=== PATIENT | female | born 1940 | race Caucasian/White ===

== ENCOUNTER 2019-08-01 06:00 | Outpatient (RCR) | payer MEDICARE, OTHER, SELFPAY | END 2019-08-29 00:01 | LOC: LAB 06:00 | PROVIDERS: Family Provider Family Medicine; Visit Provider Nurse Practitioner Family | DX: I50.30 Unspecified diastolic (congestive) heart failure (principal); I10 Essential (primary) hypertension; E83.52 Hypercalcemia; E11.22 Type 2 diabetes mellitus with diabetic chronic kidney disease; N18.3 Chronic kidney disease, stage 3 (moderate); E03.9 Hypothyroidism, unspecified; J44.9 Chronic obstructive pulmonary disease, unspecified | CPT/HCPCS: 36415; 80048; 85025 ==

== ENCOUNTER → 2019-08-28 | Outpatient (CLI) | payer SELFPAY | PROVIDERS: Family Provider Family Medicine; Visit Provider Nurse Practitioner Psychiatric/Mental Health | DX: F33.1 Major depressive disorder, recurrent, moderate (principal); F41.1 Generalized anxiety disorder ==

== ENCOUNTER 2019-09-05 19:52 | Emergency (ER) | payer MEDICARE, OTHER, SELFPAY ==
[2019-09-05] VITALS (7 sets, daily range): BP systolic 115; BP diastolic 62; PULSE 79–90; RESP 18–28; TEMP 37.3; O2SAT 84–99; BMI 43.0
--- NOTE | 2019-09-05 20:42 | ED_ITS ---
Entered by Cathy Virk, acting as scribe for Sep 05, 2019 19:52 HPI - SOB/Dyspnea General: Chief Complaint: Shortness of Breath/Dyspnea Stated Complaint: RESP. DISTRESS Time Seen by Provider: 09/05/19 20:42 Source: patient Mode of arrival: EMS Limitations: no limitations History of Present Illness: HPI Narrative: 78 yo Female presents to ED with complaint of low oxygen saturations. Pt states that she doesn't really feel short of breath but she just doesn't feel good. Pt states that her oxygen has been getting into the 70s and 80s. Pt states that she was just seen by her physical therapist center manager (Dr. Baum) in [place] today. Pt states that when he oxygen gets below 90 she has to use 2 liters of oxygen. MD elicited complaint: shortness of breath Pertinent past history: COPD and congestive heart failure Timing: constant Severity: severe Exacerbating factors: lying flat Known history of: COPD and congestive heart failure Associated symptoms: Reports cough, fever(s) and orthopnea Treatment prior to arrival: oxygen Related Data: Home oxygen amount: 2 liters (PRN) Review of Systems General: Reports: 10 or more systems reviewed and unremarkable except in HPI and below Const: Reports: fever and malaise Card: Reports: edema and shortness of breath when lying down Resp: Reports: shortness of breath and non-productive cough Musc: Reports: extremity swelling PFSH ED PFSH: Statuses (acute, chronic, etc) shown below reflect problem list status as previously entered and may not be historically accurate Medical History (Updated 09/06/19 @ 00:38 by Jerald Roche MD, [facility] [place]) Acidosis (Acute) Aortic aneurysm (Acute) Aortic disease (Acute) CHF (congestive heart failure) (Acute) Chronic back pain (Acute) COPD (chronic obstructive pulmonary disease) (Acute) Diabetes (Acute) Emphysema, unspecified (Acute) GERD (gastroesophageal reflux disease) (Acute) Herpes zoster (Acute) Hypotension (Acute) Hypothyroidism (Acute) Neuropathy (Acute) Pyelonephritis (Acute) Thyroid disease (Acute) Tibia fracture (Acute) Surgical History (Updated 09/05/19 @ 21:04 by Cathy Virk) History of AAA (abdominal aortic aneurysm) repair (Acute) History of cholecystectomy (Acute) History of hysterectomy (Acute) History of left hip replacement (Acute) Social History Smoking and tobacco status: former smoker Physical Exam Const: COMMON NORMALS: average body habitus, oriented x3, no limitations, healthy appearing, alert and well nourished GENERAL APPEARANCE: anxious HENMT: COMMON NORMALS: normocephalic, head/scalp atraumatic, hearing grossly normal bilaterally, external ears normal, EAC's normal, TM's normal bilaterally, external nose normal, nasal mucous membranes and turbinates normal, moist oral mucous membranes, oropharynx normal, dentition normal and gingiva normal HEAD & SCALP: normocephalic and atraumatic NOSE: external nose normal and nasal mucous membranes and turbinates normal EXTERNAL EAR: Yes external ears normal EXTERNAL AUDITORY CANAL: EAC's normal TYMPANIC MEMBRANE: TM's normal bilaterally Eye: COMMON NORMALS: PERRL, EOMs intact bilaterally, conjunctivae normal, no scleral icterus, no papilledema, normal visual sebastian by confrontation and fundi normal bilaterally CONJUNCTIVA: Yes conjunctivae normal PUPIL: Yes PERRL DIRECT OPHTHALMOSCOPY: Yes no papilledema and Yes fundi normal bilaterally Neck/C-Spine: COMMON NORMALS: full ROM, supple, no meningeal signs, no JVD and no carotid bruits Chest: COMMONS NORMALS: inspection of chest normal and palpation of chest normal Resp: COMMON NORMALS: negative for clear to auscultation bilaterally EFFORT & INSPECTION: Yes able to speak in complete sentences, Yes respiratory distress and Yes uses accessory muscles AUSCULTATION: not clear to auscultation bilaterally, crackles Laterality: bilateral, wheezes throughout and diminished lung sounds Cardio: COMMON NORMALS: no JVD, regular rate, regular rhythm, S1 normal heart sound, S2 normal heart sound, no gallops, no clicks, no murmurs, no rub and peripheral pulses 2+ throughout RATE: regular rate RHYTHM: regular rhythm HEART SOUNDS: S1 normal and S2 normal PERIPHERAL PULSES: pulses 2+ throughout GI: COMMON NORMALS: normal to inspection, nondistended, normoactive bowel sounds, soft to palpation, non-tender, no hepatosplenomegaly, no masses and no bruits PALPATION: Yes soft and Yes no hepatosplenomegaly : COMMON NORMALS: Yes no CVA tenderness BLADDER/KIDNEY EXAM: Yes no CVA tenderness Back/Pelvis: COMMON NORMALS: no CVA tenderness Extremity: COMMON NORMALS: normal to inspection, full ROM, normal capillary refill, no joint enlargement, no clubbing, cyanosis or edema, no calf tenderness and no pedal edema GENERAL: Yes edema (3+ edema to bilateral lower extremities) RIGHT LOWER EXTREMITY: Yes lower leg OTHER: 3+ edema bilateral Neuro: COMMON NORMALS: oriented x3 SENSORIUM/ORIENTATION: Yes alert MENINGEAL SIGNS: Yes no meningeal signs Skin: COMMON NORMALS: no rashes or lesions noted, no wounds, skin turgor normal, no jaundice, no petechiae and no mottling GENERAL SKIN EXAM: no rashes or lesions noted and turgor normal Course Vital Signs: Vital signs: Vital Signs Temperature 99.1 F 09/05/19 19:54 Pulse Rate 79 09/05/19 23:01 Respiratory Rate 18 09/05/19 22:09 Blood Pressure 115/62 09/05/19 19:54 Pulse Oximetry 99 09/05/19 23:01 MDM - SOB/Dyspnea MDM Narrative: Medical decision making narrative: 78-year-old female patient with a history of COPD and CHF who presented emergency department with hypoxia and difficulty breathing. In the emergency department she had abnormal lung exam and was hypoxic. She required high levels of oxygen and on 6 L/min of oxygen by nasal cannula she showed hypoxemia on her blood gas. Patient improved on BiPAP. Evaluation showed leukocytosis with a white cell count of 21,000 and bilateral pneumonia. Because there are no beds here in this facility she is transferred to [facility] in [place] which was her preference for management of acute respiratory failure and pneumonia. The patient voiced understanding and is in agreement with the plan. Lab Data: Labs: Lab Results 09/05/19 09/05/19 09/05/19 Range/Units 21:00 21:00 21:00 WBC 21.6 H (4.0-10.0) 10^3/ uL RBC 4.65 (4.1-5.3) 10^6/u L Hgb 12.0 (11.5-15.3) g/dL Hct 39.4 (37.0-47.0) % MCV 84.7 (81-99) fL MCH 25.8 L (28.0-34.0) pg MCHC 30.5 (30.0-36.0) g/dL RDW 15.2 H (12.1-15.1) % Plt Count 228 (130-400) 10^3/c mm MPV 9.5 (7.4-10.4) fL Neut % (Auto) 86.3 % Lymph % (Auto) 6.4 % [place] % (Auto) 6.0 % Eos % (Auto) 0.2 % Baso % (Auto) 0.2 % Neut # (Auto) 18.6 H (1.8-7.7) 10^3/u L Lymph # (Auto) 1.4 (0.8-4.8) 10^3/u L [place] # (Auto) 1.3 H (0.2-0.9) 10^3/u L Eos # (Auto) 0.1 (0.0-0.8) 10^3/u L Baso # (Auto) 0.0 (0.0-0.1) 10^3/u L Nucleated RBC % (a uto) 0 % Nucleated RBCs # 0.0 /100WBC D-Dimer 2.59 H (0-0.59) ug/mIFE U Specimen Type Sample Site ABG pH (7.35-7.45) ABG pCO2 (35-45) mmHg ABG pO2 (80.0-100.0) mmH g ABG HCO3 (22-26) mmol/L ABG Base Excess (-2.0-2.0) mmol/ L Aryan Test Hematocrit (37-47) % Hgb O2 Saturation (95-100) % Carboxyhemoglobin (0.4-20.1) %THgb Methemoglobin (0.4-1.5) % Total Hemoglobin (12-16) g/dL O2 Liters/Min % Glass Products Inspector ID Sodium 134 L (136-145) mmol/L Potassium 4.1 (3.5-5.1) mmol/L Chloride 102 (98-107) mmol/L Carbon Dioxide 21 L (22-29) mmol/L Anion Gap 15.1 (5-19) BUN 17 (8-23) mg/dL Creatinine 1.0 H (0.5-0.9) mg/dL Glucose 90 (74-106) mg/dL Lactate (0.5-2.2) mmol/L Calcium 11.4 H (8.8-10.2) mg/Dl Total Bilirubin 0.5 (0.15-1.2) mg/dL AST 12 (0-32) U/L ALT 8 (0-33) U/L Alkaline Phosphata se 105 (35-105) IU/L Troponin T Baselin e (0-10) ng/mL Troponin T 120 Min absentee-shawnee (0-10) ng/mL Delta Troponin T (0-10) ABS# C-Reactive Protein (0.0-4.9) mg/L NT-Pro-B Natriuret Pep 850 H (0-450) pg/mL Total Protein 6.7 (6.6-8.7) g/dL Albumin 3.6 (3.5-5.2) g/dL Globulin 3.1 (1.3-4.6) g/dL Influenza Type A A g (Negative) POC Influenza B Ag (Negative) 09/05/19 09/05/19 09/05/19 Range/Units 21:00 21:00 21:00 WBC (4.0-10.0) 10^3/ uL RBC (4.1-5.3) 10^6/u L Hgb (11.5-15.3) g/dL Hct (37.0-47.0) % MCV (81-99) fL MCH (28.0-34.0) pg MCHC (30.0-36.0) g/dL RDW (12.1-15.1) % Plt Count (130-400) 10^3/c mm MPV (7.4-10.4) fL Neut % (Auto) % Lymph % (Auto) % [place] % (Auto) % Eos % (Auto) % Baso % (Auto) % Neut # (Auto) (1.8-7.7) 10^3/u L Lymph # (Auto) (0.8-4.8) 10^3/u L [place] # (Auto) (0.2-0.9) 10^3/u L Eos # (Auto) (0.0-0.8) 10^3/u L Baso # (Auto) (0.0-0.1) 10^3/u L Nucleated RBC % (a uto) % Nucleated RBCs # /100WBC D-Dimer (0-0.59) ug/mIFE U Specimen Type Sample Site ABG pH (7.35-7.45) ABG pCO2 (35-45) mmHg ABG pO2 (80.0-100.0) mmH g ABG HCO3 (22-26) mmol/L ABG Base Excess (-2.0-2.0) mmol/ L Aryan Test Hematocrit (37-47) % Hgb O2 Saturation (95-100) % Carboxyhemoglobin (0.4-20.1) %THgb Methemoglobin (0.4-1.5) % Total Hemoglobin (12-16) g/dL O2 Liters/Min % Glass Products Inspector ID Sodium (136-145) mmol/L Potassium (3.5-5.1) mmol/L Chloride (98-107) mmol/L Carbon Dioxide (22-29) mmol/L Anion Gap (5-19) BUN (8-23) mg/dL Creatinine (0.5-0.9) mg/dL Glucose (74-106) mg/dL Lactate 1.2 (0.5-2.2) mmol/L Calcium (8.8-10.2) mg/Dl Total Bilirubin (0.15-1.2) mg/dL AST (0-32) U/L ALT (0-33) U/L Alkaline Phosphata se (35-105) IU/L Troponin T Baselin e 41 H (0-10) ng/mL Troponin T 120 Min absentee-shawnee (0-10) ng/mL Delta Troponin T (0-10) ABS# C-Reactive Protein 81.3 H (0.0-4.9) mg/L NT-Pro-B Natriuret Pep (0-450) pg/mL Total Protein (6.6-8.7) g/dL Albumin (3.5-5.2) g/dL Globulin (1.3-4.6) g/dL Influenza Type A A g (Negative) POC Influenza B Ag (Negative) 09/05/19 09/05/19 09/05/19 Range/Units 21:10 23:38 23:40 WBC (4.0-10.0) 10^3/ uL RBC (4.1-5.3) 10^6/u L Hgb (11.5-15.3) g/dL Hct (37.0-47.0) % MCV (81-99) fL MCH (28.0-34.0) pg MCHC (30.0-36.0) g/dL RDW (12.1-15.1) % Plt Count (130-400) 10^3/c mm MPV (7.4-10.4) fL Neut % (Auto) % Lymph % (Auto) % [place] % (Auto) % Eos % (Auto) % Baso % (Auto) % Neut # (Auto) (1.8-7.7) 10^3/u L Lymph # (Auto) (0.8-4.8) 10^3/u L [place] # (Auto) (0.2-0.9) 10^3/u L Eos # (Auto) (0.0-0.8) 10^3/u L Baso # (Auto) (0.0-0.1) 10^3/u L Nucleated RBC % (a uto) % Nucleated RBCs # /100WBC D-Dimer (0-0.59) ug/mIFE U Specimen Type Arterial Sample Site Brachial, left ABG pH 7.39 (7.35-7.45) ABG pCO2 37.6 (35-45) mmHg ABG pO2 49.8 L (80.0-100.0) mmH g ABG HCO3 22.8 (22-26) mmol/L ABG Base Excess -1.8 (-2.0-2.0) mmol/ L Aryan Test Pos Hematocrit 39.0 (37-47) % Hgb O2 Saturation 83.5 L (95-100) % Carboxyhemoglobin 1.6 (0.4-20.1) %THgb Methemoglobin 1.0 (0.4-1.5) % Total Hemoglobin 12.7 (12-16) g/dL O2 Liters/Min 6.0 % Glass Products Inspector ID [email or web address] Sodium (136-145) mmol/L Potassium (3.5-5.1) mmol/L Chloride (98-107) mmol/L Carbon Dioxide (22-29) mmol/L Anion Gap (5-19) BUN (8-23) mg/dL Creatinine (0.5-0.9) mg/dL Glucose (74-106) mg/dL Lactate (0.5-2.2) mmol/L Calcium (8.8-10.2) mg/Dl Total Bilirubin (0.15-1.2) mg/dL AST (0-32) U/L ALT (0-33) U/L Alkaline Phosphata se (35-105) IU/L Troponin T Baselin e (0-10) ng/mL Troponin T 120 Min absentee-shawnee 42.11 H (0-10) ng/mL Delta Troponin T 1.11 (0-10) ABS# C-Reactive Protein (0.0-4.9) mg/L NT-Pro-B Natriuret Pep (0-450) pg/mL Total Protein (6.6-8.7) g/dL Albumin (3.5-5.2) g/dL Globulin (1.3-4.6) g/dL Influenza Type A A g Negative (Negative) POC Influenza B Ag Negative (Negative) EKG Data^: EKG 1: Computer Generated Interpretation: [place] [address] Electrocardiograph Report Draft Patient: Joy Bassett R#: [id number] : [id number]:[id number] Age/Sex: 78 / FADM Date: 09/05/19 Loc: ER Attending Dr: Ordering Physician: Jerald Roche MD, [facility] [place] Date of Service: 09/05/19 Procedure(s): ECG 12 lead EKG Accession Number(s): [id number] Report Number: [id number] Measurements Intervals [place] Rate: 86 P: 54 ID: [id number] QRS: 70 QRSD: 134 T: 31 QT: 369 QTc: 442 SINUS RHYTHM INTRAVENTRICULAR CONDUCTION DELAY [130+ ms QRS DURATION] SEPTAL MYOCARDIAL INFARCTION , OF INDETERMINATE AGE [40+ ms Q WAVE IN V1/V2] Compared to ECG 07/27/2019 01:01:51 Intraventricular conduction delay now present Myocardial infarct finding now present Ectopic atrial rhythm no longer present Indeterminate axis no longer present Left posterior fascicular block no longer present [id number] [id number] Dictated By:INTERFACE,USER Other EKG Comments: no STEMI but EKG changes compared to her last EKG of 07/27/2019 Discharge Plan Discharge Patient Disposition: Xfer Short-Term Hosp Clinical Impression: Acute respiratory failure Qualifiers: Respiratory failure complication: hypoxia Qualified Code(s): J96.01 - Acute respiratory failure with hypoxia Community acquired pneumonia Qualifiers: Laterality: unspecified laterality Qualified Code(s): J18.9 - Pneumonia, unspecified organism Condition: Stable Discharge Orders: Transfer Out of Facility (Order); Ordered 09/06/19 Ordered By: Jerald Roche Referrals: Frankie Caballero Jr, MD [Family Provider] - Coding Level of Care Code ED Creative Specialist for Chg Fwd Exam Problem Focused The documentation recorded by the Moose person Carmen, accurately reflects the service I personally performed and the decisions made by Melchor garzon Adegoke I, MD, [facility] [place] Sep 05, 2019 19:52
--- NOTE | 2019-09-05 20:49 | PC.NURSE ---
DR RALPH IN WITH PT.
--- NOTE | 2019-09-05 20:50 | XR_ITS ---
WS: [id number] PORTABLE CHEST HISTORY: SOB COMPARISON: 07/26/2019 Marked pulmonary expansion with diffuse interstitial thickening and more focal consolidations in the mid and lower lung sebastian. Dense areas of consolidations at the lung bases, greatest in the medial RI GHT lower lung field. Small bilateral pleural effusions are likely. Cardiac size: Mildly enlarged cardiac silhouette. Mediastinum/Aorta: Marked enlargement of the heart pulmonary arteries bilaterally. Moderate atheroscl erosis aorta. Degenerative changes at the glenohumeral joints. XR/XR chest 1V portable [id number] IMPRESSION: 1. Bilateral lower lobe pneumonias with diffuse interstitial thickening and mi ld edema. 2. Severe pulmonary hypertension with atherosclerosis aorta. 3. Chronic emphysema. 4. Recommend follow-up chest radiograph to resolution to be sure there is no u nderlying neoplastic abnormality.
[2019-09-05] MEDS: ipratropium-albuterol 3 mL Neb INHALATION (20:55)
[2019-09-05 21:17] LABS: Basophils % 0.2 %; Eosinophils # 0.1 10^3/uL (0.0-0.8); Eosinophils % 0.2 %; Hematocrit 39.4 % (37.0-47.0); Lymphocytes # 1.4 10^3/uL (0.8-4.8); Lymphocytes % 6.4 %; Mean Corpuscular HGB Conc 30.5 g/dL (30.0-36.0); Mean Corpuscular Hemoglobin 25.8 pg (28.0-34.0); Mean Corpuscular Volume 84.7 fL (81-99); Mean Platelet Volume 9.5 fL (7.4-10.4); Monocytes # 1.3 10^3/uL (0.2-0.9); Neutrophils # 18.6 10^3/uL (1.8-7.7); Neutrophils % 86.3 %; Nucleated Red Blood Cells % 0 %; Platelet Count 228 10^3/cmm (130-400); Red Blood Count 4.65 10^6/uL (4.1-5.3); Red Cell Distribution Width 15.2 % (12.1-15.1); White Blood Count 21.6 10^3/uL (4.0-10.0)
[2019-09-05 21:18] LABS: D Dimer 2.59 ug/mIFEU (0-0.59)
[2019-09-05 21:21] LABS: ABG PCO2 37.6 mmHg (35-45); ABG PH Result 7.39 (7.35-7.45); Base Excess ABG -1.8 mmol/L (-2.0-2.0); Blood Gas Allen Test Pos; Blood Gas Sample Site Brachial, left; Blood Gas Sample Type Arterial; Carboxyhemoglobin 1.6 %THgb (0.4-20.1); HCO3 ABG 22.8 mmol/L (22-26); HGB O2 Sat 83.5 % (95-100); PO2 ABG 49.8 mmHg (80.0-100.0); Total Hemoglobin 12.7 g/dL (12-16)
[2019-09-05 21:23] LABS: C Reactive Protein 81.3 mg/L (0.0-4.9)
[2019-09-05 21:32] LABS: Alanine Aminotransferase 8 U/L (0-33); Albumin Level 3.6 g/dL (3.5-5.2); Alkaline Phosphatase 105 IU/L (35-105); Anion Gap 15.1 (5-19); Aspartate Amino Transferase 12 U/L (0-32); Blood Urea Nitrogen 17 mg/dL (8-23); Calcium 11.4 mg/Dl (8.8-10.2); Carbon Dioxide 21 mmol/L (22-29); Chloride 102 mmol/L (98-107); Globulin 3.1 g/dL (1.3-4.6); Glucose 90 mg/dL (74-106); NT Pro B Type Natriuretic Pept 850 pg/mL (0-450); Potassium 4.1 mmol/L (3.5-5.1); Sodium 134 mmol/L (136-145); Total Bilirubin 0.5 mg/dL (0.15-1.2); Total Protein 6.7 g/dL (6.6-8.7)
--- NOTE | 2019-09-05 21:58 | CTR_ITS ---
PROCEDURE INFORMATION: Exam: CT Angiography Chest With Contrast Exam date and time: 09/05/2019 10:02 PM Age: 78 years old Clinical indication: Dyspnea and shortness of breath; Prior surgery; Surgery type: Aaa, gb; Additional info: Hypoxia TECHNIQUE: Imaging protocol: Computed tomographic angiography of the chest with intravenous contrast. 3D rendering: MIP and/or 3D reconstructed images were created by the technologist. Total DLP: 1232.58 mGy-cm Radiation optimization: All CT scans at this facility use at least one of these dose optimization techniques: automated exposure control; mA and/or kV adjustment per patient size (includes targeted exams where dose is matched to clinical indication); or iterative reconstruction. Contrast material: VISI 320; Contrast volume: 95 ml; Contrast route: IV; COMPARISON: CTA Chest-Pulmonary Emb [id number] 07/27/2019 1:48 AM FINDINGS: Limitations: Study is somewhat limited due to streak artifact from the patient's arms. Pulmonary arteries: There is no evidence of filling defects within the pulmonary arterial circulation to suggest pulmonary embolism. Aorta: There are atherosclerotic changes in the aortic arch without evidence of aneurysm or dissection. Lungs: There is atelectasis and consolidation of both lung bases more on the right than on the left and this is increased from the previous examination. This likely represents a combination of atelectasis and pneumonia. There is small area of focal infiltrate with air bronchograms in the middle lobe new from the previous examination consistent with some middle lobe pneumonia There is some mild scarring or fibrosis in the lingula not significantly changed. Pleural space: Unremarkable. No pneumothorax. No pleural effusion. Heart: Unremarkable. No cardiomegaly. No pericardial effusion. Lymph nodes: Unremarkable. No enlarged lymph nodes. Bones/joints: Unremarkable. No acute fracture. Soft tissues: Unremarkable. CT/CT angio chest PE protcl [id number] IMPRESSION: 1. Basilar atelectasis and pneumonia, increased from 07/27/2019. 2. No evidence of pulmonary embolism. Radiation Dose CTDIVOL = (mGy): DLP = 1232.58 (mGy-cm)
--- NOTE | 2019-09-05 21:58 | ECG_ITS ---
Measurements Intervals [place] Rate: 86 P: 54 [place]: 189 QRS: 70 QRSD: 134 T: 31 QT: 369 QTc: 442 SINUS RHYTHM Right bundle branch block SEPTAL MYOCARDIAL INFARCTION , OF INDETERMINATE AGE [40+ ms Q WAVE IN V1/V2] Compared to ECG 07/27/2019 01:01:51 Myocardial infarct finding now present Ectopic atrial rhythm no longer present Indeterminate axis no longer present Left posterior fascicular block no longer present Electronically Signed On 09-06-2019 8:09:13 MEDICAL ASSISTANT OB GYN by Corey Mcconnell M.D. [id number]
[2019-09-05] MEDS: FUROsemide 10 mg/mL SDV 4mL 40 MG IVP (22:06)
[2019-09-05] MEDS: morphine 4 mg/mL SDV 1 mL IVP (22:09)
[2019-09-05] MEDS: iodixanol 320 mg/mL 100mL Btl 95 ML IV (22:50)
[2019-09-05 22:53] LABS: Troponin(5th) Baseline 41 ng/mL (0-10)
--- NOTE | 2019-09-05 23:58 | ECG_ITS ---
Measurements Intervals [place] Rate: 76 P: 40 NV: 182 QRS: 59 QRSD: 146 T: 50 QT: 402 QTc: 455 SINUS RHYTHM Right bundle branch block POSSIBLE INFERIOR MYOCARDIAL INFARCTION , PROBABLY OLD [30 ms Q WAVE IN II/aVF] ANTEROSEPTAL MYOCARDIAL INFARCTION , OF INDETERMINATE AGE [40+ ms Q WAVE IN V1-V4] Compared to ECG 07/27/2019 01:01:51 Myocardial infarct finding now present Ectopic atrial rhythm no longer present Indeterminate axis no longer present Left posterior fascicular block no longer present Electronically Signed On 09-06-2019 8:10:12 POSTULANT by Corey Mcconnell M.D. [email or web address]
[2019-09-06 00:02] LABS: Troponin 5 2HR 42.11 ng/mL (0-10)
[2019-09-06 00:09] LABS: Troponin 5 2HR Delta 1.11 ABS# (0-10)
[2019-09-06 00:14] LABS: Influenza A by IFA Negative (Negative); Influenza B by IFA Negative (Negative)
[2019-09-06 00:22] LABS: Lactate (Lactic Acid level) 1.2 mmol/L (0.5-2.2)
[2019-09-06] MEDS: cefepime 2,000 MG in sodium chloride 0.9% (plus) 50 ML 100 MG IV (00:42)
[2019-09-06 00:43] VITALS: RESP 26
[2019-09-06] MEDS: morphine 4 mg/mL SDV 1 mL IVP ×2 (00:43→02:44)
[2019-09-06 00:45] VITALS: BP 109/50; PULSE 87; RESP 26; O2SAT 95
[2019-09-06 02:25] VITALS: PULSE 83; O2SAT 96
[2019-09-06 02:44] VITALS: RESP 18
[2019-09-06 02:47] VITALS: BP 127/54; PULSE 80; RESP 15; TEMP 36.6; O2SAT 93
[2019-09-06] MEDS: ondansetron 2 mg/ML SDV 2 mL 4 MG IVP (03:04)
[2019-09-06 03:53] VITALS: BP 146/46; PULSE 80; RESP 15; O2SAT 96
[2019-09-06 09:44] LABS: Oxygen Device OXY MASK
== END 2019-09-06 04:12 | disposition short-term general hospital (02) ==
PROVIDERS: Emergency Provider Family Medicine; Family Provider Family Medicine
DX: J44.0 Chronic obstructive pulmonary disease with (acute) lower respiratory infection (principal); J18.8 Other pneumonia, unspecified organism; J96.01 Acute respiratory failure with hypoxia; I50.9 Heart failure, unspecified; E11.40 Type 2 diabetes mellitus with diabetic neuropathy, unspecified; Z87.891 Personal history of nicotine dependence; I70.0 Atherosclerosis of aorta
CPT/HCPCS: 36415; 36600; 51702; 71045; 71275; 80053; 82805; 83605; 83880; 84484; 85025; 85378; 86140; 87040; 87804; 93005; 96361; 96365; 96374; 96375; 96376; 99283; 99285; J0692; J1940; J2270; J2405; Q9967

== ENCOUNTER 2019-09-22 11:41 | Outpatient (RCR) | payer OTHER, SELFPAY ==
[2019-09-22 12:20] LABS: Basophils # 0.1 10^3/uL (0.0-0.1); Basophils % 0.6 %; Eosinophils # 0.1 10^3/uL (0.0-0.8); Eosinophils % 0.5 %; Hemoglobin 13.5 g/dL (11.5-15.3); Lymphocytes # 4.7 10^3/uL (0.8-4.8); Lymphocytes % 26.8 %; Mean Corpuscular HGB Conc 29.3 g/dL (30.0-36.0); Mean Corpuscular Hemoglobin 24.6 pg (28.0-34.0); Mean Corpuscular Volume 83.8 fL (81-99); Mean Platelet Volume 10.3 fL (7.4-10.4); Monocytes # 2.1 10^3/uL (0.2-0.9); Neutrophils # 9.2 10^3/uL (1.8-7.7); Neutrophils % 53.1 %; Nucleated Red Blood Cells % 0 %; Platelet Count 281 10^3/cmm (130-400); Red Blood Count 5.49 10^6/uL (4.1-5.3); Red Cell Distribution Width 15.2 % (12.1-15.1); White Blood Count 17.4 10^3/uL (4.0-10.0)
[2019-09-22 12:46] LABS: Slide Review Slide Review Perform
[2019-09-22 13:00] LABS: Estmated Average Glucose 120; Hemoglobin A1C 5.8 % (4.0-6.0)
[2019-09-22 13:02] LABS: Alanine Aminotransferase 21 U/L (0-33); Albumin Level 3.9 g/dL (3.5-5.2); Alkaline Phosphatase 70 IU/L (35-105); Anion Gap 14.6 (5-19); Aspartate Amino Transferase 16 U/L (0-32); Blood Urea Nitrogen 23 mg/dL (8-23); Calcium 12.6 mg/dL (8.5-10.5); Carbon Dioxide 25 mmol/L (22-29); Chloride 102 mmol/L (98-107); Chol HDL Ratio 3.89 mg/dL (0.0-4.40); Cholesterol 218 mg/dL (0-200); Globulin 1.7 g/dL (1.3-4.6); Glucose 63 mg/dL (74-106); HDL Cholesterol 56 mg/dL (60-100); LDL Cholesterol Calculated 98 mg/dL (50-129); LDL HDL Ratio 1.75 RATIO (0.00-3.22); Potassium 4.6 mmol/L (3.5-5.1); Sodium 137 mmol/L (136-145); Thyroid Stimulating Hormone 1.14 uIU/mL (0.27-4.20); Total Bilirubin 0.5 mg/dL (0.15-1.2); Total Protein 5.6 g/dL (6.6-8.7); Triglycerides 319 mg/dL (0-150)
== END 2019-09-29 23:59 | disposition home or self-care (01) ==
LOC: LAB 11:41
PROVIDERS: Family Provider Family Medicine; Visit Provider Internal Medicine
DX: Z01.89 Encounter for other specified special examinations (principal)
CPT/HCPCS: 80053; 80061; 83036; 84443; 85025

== ENCOUNTER 2019-10-02 10:50 | Inpatient (IN) | payer MEDICARE, OTHER, SELFPAY ==
[2019-10-02] VITALS (22 sets, daily range): BP systolic 80–177; BP diastolic 29–149; PULSE 59–111; RESP 15–26; TEMP 36.9–37.2; O2SAT 77–98; BMI 54.3
--- NOTE | 2019-10-02 10:43 | ED_ITS ---
Entered by Juan M Gaviria, acting as scribe for HPI - SOB/Dyspnea General: Chief Complaint: Shortness of Breath/Dyspnea Stated Complaint: Resp Distress History of Present Illness: HPI Narrative: 78 yo female presents with shortness of breath. Pt states that she has been coughing. Pt states that she is a intermediate resident, they called the ambulance. MD elicited complaint: shortness of breath and cough Associated symptoms: Deny abdominal pain, chest pain, dizziness, extremity pain, fever(s), nausea, orthopnea, palpitations, polydipsia, polyuria, syncope or vomiting Review of Systems Const: Denies: fever, chills, body aches, fatigue, malaise or night sweats Eyes: Denies: change in vision or blurry vision ENMT: Denies: throat pain, oral sores/lesions, dental pain, nasal discharge or nasal congestion Card: Denies: chest pain, palpitations, irregular heart rhythm, edema, syncope, shortness of breath on exertion, shortness of breath when lying down or leg pain with exertion Resp: Reports: non-productive cough and wheezing; Denies: productive cough GI: Denies: abdominal pain, nausea, vomiting, vomiting blood, coffee grounds in vomit, difficulty swallowing, heartburn/indigestion, diarrhea, constipation, cramping, blood in stool or black tarry stool : Denies: flank pain, painful urination, urinary frequency, urinary urgency, urinary incontinence or blood in urine Musc: Denies: neck pain, back pain, extremity pain, extremity swelling, joint pain or joint swelling Skin/Breast: Denies: rash, itching or redness Neuro: Denies: headache, numbness in extremities, weakness in extremities, changes in sensation, lack of coordination, difficulty walking, frequent falls, dizziness, vertigo or confusion Psych: Denies: anxiety, depression, loss of interest, visual hallucinations, auditory hallucinations, suicidal ideation or homicidal ideation Endo: Denies: excessive urination, excessive thirst, tired all the time or cold intolerance Guero/Lymph: Denies: easy bruising, easy bleeding, petechiae, enlarged lymph nodes or tender lymph nodes PFSH ED PFSH: Statuses (acute, chronic, etc) shown below reflect problem list status as previously entered and may not be historically accurate Medical History Acidosis (Acute) Aortic aneurysm (Acute) Aortic disease (Acute) CHF (congestive heart failure) (Acute) Chronic back pain (Acute) COPD (chronic obstructive pulmonary disease) (Acute) Diabetes (Acute) Emphysema, unspecified (Acute) GERD (gastroesophageal reflux disease) (Acute) Herpes zoster (Acute) Hypotension (Acute) Hypothyroidism (Acute) Neuropathy (Acute) Pyelonephritis (Acute) Thyroid disease (Acute) Tibia fracture (Acute) Surgical History History of AAA (abdominal aortic aneurysm) repair (Acute) History of cholecystectomy (Acute) History of hysterectomy (Acute) History of left hip replacement (Acute) Family History Mother CAD (coronary artery disease) Father Cancer Liver Brother Cancer CLL and at age 68 Social History Smoking and tobacco status: former smoker Physical Exam Const: COMMON NORMALS: average body habitus GENERAL APPEARANCE: cooperative, well kempt and well developed NUTRITIONAL APPEARANCE: obese ORIENTATION/CONSCIOUSNESS: Yes awake, Yes oriented to person and Yes oriented to place HENMT: COMMON NORMALS: normocephalic, head/scalp atraumatic, EAC's normal, TM's normal bilaterally, external nose normal, moist oral mucous membranes and oropharynx normal HEAD & SCALP: normocephalic and atraumatic NOSE: external nose normal EXTERNAL AUDITORY CANAL: EAC's normal TYMPANIC MEMBRANE: TM's normal bilaterally MOUTH: oral and palatal mucosa normal, lip normal and tongue normal THROAT: posterior oropharynx normal and tonsils normal Eye: COMMON NORMALS: PERRL, EOMs intact bilaterally, conjunctivae normal and no scleral icterus CONJUNCTIVA: Yes conjunctivae normal PUPIL: Yes PERRL Neck/C-Spine: COMMON NORMALS: full ROM, no lymphadenopathy, supple, no meningeal signs and thyroid normal THYROID: thyroid normal and asymmetrical Lymph: LYMPHATIC: no lymphadenopathy noted Resp: COMMON NORMALS: negative for no use of accessory muscles EFFORT & INSPECTION: Yes tachypneic AUSCULTATION: rhonchi left upper and other (decreased breathing sounds) Cardio: RATE: tachycardic HEART SOUNDS: no murmurs GI: COMMON NORMALS: normal to inspection, nondistended, normoactive bowel sounds, soft to palpation and no hepatosplenomegaly PALPATION: Yes soft and Yes no hepatosplenomegaly : COMMON NORMALS: Yes no CVA tenderness BLADDER/KIDNEY EXAM: Yes no CVA tenderness Back/Pelvis: COMMON NORMALS: no CVA tenderness LUMBAR SPINE/LOWER BACK: Yes normal to inspection Extremity: COMMON NORMALS: no clubbing, cyanosis or edema, no calf tenderness and no pedal edema Neuro: SENSORIUM/ORIENTATION: Yes oriented to person and Yes oriented to place MENINGEAL SIGNS: Yes no meningeal signs Psych: APPEARANCE: Yes well kempt Skin: COMMON NORMALS: no rashes or lesions noted and skin turgor normal GENERAL SKIN EXAM: no rashes or lesions noted and turgor normal Course Vital Signs: Vital signs: Vital Signs Temperature 98.4 F 10/03/19 20:00 Pulse Rate 95 10/04/19 10:54 Respiratory Rate 22 H 10/04/19 10:54 Blood Pressure 79/42 10/04/19 10:54 Pulse Oximetry 92 10/04/19 10:54 MDM - SOB/Dyspnea Lab Data: Labs: Lab Results 10/02/19 10/02/19 10/02/19 Range/Units 11:16 11:27 11:27 WBC 12.7 H (4.0-10.0) 10^3/ uL RBC 4.94 (4.1-5.3) 10^6/u L Hgb 12.2 (11.5-15.3) g/dL Hct 42.8 (37.0-47.0) % MCV 86.6 (81-99) fL MCH 24.7 L (28.0-34.0) pg MCHC 28.5 L (30.0-36.0) g/dL RDW 17.1 H (12.1-15.1) % Plt Count 116 L (130-400) 10^3/c mm MPV 9.7 (7.4-10.4) fL Neut % (Auto) 82.0 % Lymph % (Auto) 10.7 % [place] % (Auto) 4.5 % Eos % (Auto) 1.3 % Baso % (Auto) 0.2 % Neut # (Auto) 10.5 H (1.8-7.7) 10^3/u L Lymph # (Auto) 1.4 (0.8-4.8) 10^3/u L [place] # (Auto) 0.6 (0.2-0.9) 10^3/u L Eos # (Auto) 0.2 (0.0-0.8) 10^3/u L Baso # (Auto) 0.0 (0.0-0.1) 10^3/u L Nucleated RBC % (a uto) 0 % Nucleated RBCs # 0.0 /100WBC Specimen Type Arterial Sample Site Radial, left ABG pH 7.45 (7.35-7.45) ABG pCO2 38.5 (35-45) mmHg ABG pO2 41.5 L (80.0-100.0) mmH g ABG HCO3 27.0 H (22-26) mmol/L ABG O2 Saturation 81.6 ABG Base Excess 2.9 H (-2.0-2.0) mmol/ L Aryan Test Pos A-a O2 Gradient 57.9 H (5-10) mmHg Hematocrit 38.1 (37-47) % Hgb O2 Saturation 80.0 L (95-100) % Carboxyhemoglobin 1.7 (0.4-20.1) %THgb Methemoglobin 0.3 L (0.4-1.5) % Total Hemoglobin 12.4 (12-16) g/dL Sodium 134.0 131 L (131-143) mmol/L Potassium 4.4 4.8 (3.5-5.0) mmol/L Glucose 98.0 100 (70-115) mg/dL Ionized Calcium 1.5 H (1.1-1.4) mmol/L O2 Delivery Device Nc O2 Liters/Min 6.0 % FiO2 % [employer] ID glc Chloride 96 L (98-107) mmol/L Carbon Dioxide 24 (22-29) mmol/L Anion Gap 15.8 (5-19) BUN 25 H (8-23) mg/dL Creatinine 1.4 H (0.5-0.9) mg/dL Calcium 11.7 H (8.5-10.5) mg/dL Total Bilirubin 0.8 (0.15-1.2) mg/dL AST 19 (0-32) U/L ALT 17 (0-33) U/L Alkaline Phosphata se 98 (35-105) IU/L Total Protein 6.2 L (6.6-8.7) g/dL Albumin 3.0 L (3.5-5.2) g/dL Globulin 3.2 (1.3-4.6) g/dL Urine Color (Yellow) Urine Appearance (CLEAR) Urine pH (5-7) Ur Specific Gravit y (1.005-1.030) Urine Protein (Negative) Urine Glucose (UA) (Normal) Urine Ketones (Negative) Urine Occult Blood (Negative) Urine Nitrate (Negative) Urine Bilirubin (NEGATIVE) Urine Urobilinogen (Negative) mg/dL Ur Leukocyte Mara ase (Negative) Urine RBC (0-2) /hpf Urine WBC (0-5) /hpf Ur Squamous Epith Cells (0-5) Urine Bacteria (NONE) Urine Mucus 10/02/19 10/02/19 Range/Units 13:19 15:28 WBC (4.0-10.0) 10^3/ uL RBC (4.1-5.3) 10^6/u L Hgb (11.5-15.3) g/dL Hct (37.0-47.0) % MCV (81-99) fL MCH (28.0-34.0) pg MCHC (30.0-36.0) g/dL RDW (12.1-15.1) % Plt Count (130-400) 10^3/c mm MPV (7.4-10.4) fL Neut % (Auto) % Lymph % (Auto) % [place] % (Auto) % Eos % (Auto) % Baso % (Auto) % Neut # (Auto) (1.8-7.7) 10^3/u L Lymph # (Auto) (0.8-4.8) 10^3/u L [place] # (Auto) (0.2-0.9) 10^3/u L Eos # (Auto) (0.0-0.8) 10^3/u L Baso # (Auto) (0.0-0.1) 10^3/u L Nucleated RBC % (a uto) % Nucleated RBCs # /100WBC Specimen Type Arterial Sample Site Brachial, left ABG pH 7.43 (7.35-7.45) ABG pCO2 40.7 (35-45) mmHg ABG pO2 73.3 L (80.0-100.0) mmH g ABG HCO3 27.0 H (22-26) mmol/L ABG O2 Saturation 95.8 ABG Base Excess 2.5 H (-2.0-2.0) mmol/ L Aryan Test Pos A-a O2 Gradient 290.6 H (5-10) mmHg Hematocrit 35.9 L (37-47) % Hgb O2 Saturation 94.3 L (95-100) % Carboxyhemoglobin 1.2 (0.4-20.1) %THgb Methemoglobin 0.3 L (0.4-1.5) % Total Hemoglobin 11.7 L (12-16) g/dL Sodium 133.0 (131-143) mmol/L Potassium 4.4 (3.5-5.0) mmol/L Glucose 99.0 (70-115) mg/dL Ionized Calcium 1.5 H (1.1-1.4) mmol/L O2 Delivery Device Bipap O2 Liters/Min % FiO2 60.0 % [employer] ID cak Chloride (98-107) mmol/L Carbon Dioxide (22-29) mmol/L Anion Gap (5-19) BUN (8-23) mg/dL Creatinine (0.5-0.9) mg/dL Calcium (8.5-10.5) mg/dL Total Bilirubin (0.15-1.2) mg/dL AST (0-32) U/L ALT (0-33) U/L Alkaline Phosphata se (35-105) IU/L Total Protein (6.6-8.7) g/dL Albumin (3.5-5.2) g/dL Globulin (1.3-4.6) g/dL Urine Color Yellow (Yellow) Urine Appearance Sl hazy (CLEAR) Urine pH 5 (5-7) Ur Specific Gravit y 1.010 (1.005-1.030) Urine Protein Trace (Negative) Urine Glucose (UA) Norm (Normal) Urine Ketones Negative (Negative) Urine Occult Blood 3+ H (Negative) Urine Nitrate Positive H (Negative) Urine Bilirubin Neg (NEGATIVE) Urine Urobilinogen Norm (Negative) mg/dL Ur Leukocyte Mara ase 2+ H (Negative) Urine RBC 50-80 H (0-2) /hpf Urine WBC 40-55 H (0-5) /hpf Ur Squamous Epith Cells 0-4 H (0-5) Urine Bacteria 3+ H (NONE) Urine Mucus 1+ Discharge Plan Discharge Patient Disposition: Admitted As Inpatient Admit Provider: Alireza Whyte Clinical Impression: COPD (chronic obstructive pulmonary disease), Diabetes, CHF (congestive heart failure), GERD (gastroesophageal reflux disease), Urinary tract infection Condition: Stable Interventions: ED Discharge Assessment Last Done: 10/02/19 16:40 Discharge Date/Time: 10/02/19 17:00 Coding Level of Care Code ED User Experience Lead for Chg Fwd Exam Problem Focused The documentation recorded by the Everette person Kialy, accurately reflects the service I personally performed and the decisions made by Shantanu garzon Curtis L, DO Oct 02, 2019 10:50
--- NOTE | 2019-10-02 10:50 | XRR_ITS ---
PROCEDURE INFORMATION: Exam: XR Chest, 1 View Exam date and time: 10/02/2019 11:32 AM Age: 78 years old Clinical indication: Cough and dyspnea; Prior surgery; Surgery date: 6+ months; Surgery type: Aaa; Additional info: Cough/dyspnea TECHNIQUE: Imaging protocol: XR of the chest Views: 1 view. COMPARISON: CR XR chest 1V portable [id number] 09/05/2019 9:17 PM FINDINGS: Lungs: Mild airspace disease within the left lung base. Infiltrate and/or atelectasis. Pleural space: Unremarkable. No pleural effusion. No pneumothorax. Heart/Mediastinum: Unremarkable. No cardiomegaly. Bones/joints: Unremarkable. XR/XR chest 1V portable [id number] IMPRESSION: Mild airspace disease within the left lung base. Infiltrate and/or atelectasis. Impression.
[2019-10-02] MEDS: ipratropium-albuterol 3 mL Neb INHALATION (11:01)
--- NOTE | 2019-10-02 11:04 | PC.NURSE ---
respiratory at bedside
--- NOTE | 2019-10-02 11:13 | PC.NURSE ---
portable xray at bedside
--- NOTE | 2019-10-02 11:15 | PC.NURSE ---
portable xray at bedside
--- NOTE | 2019-10-02 11:18 | PC.NURSE ---
RT at bedside, placing Pt on BIPAP ventilation
[2019-10-02 11:27] LABS: ABG PCO2 38.5 mmHg (35-45); ABG PH Result 7.45 (7.35-7.45); Alveolar-Arterial Oxygen Gradi 57.9 mmHg (5-10); Arterial Blood Gas Hematocrit 38.1 % (37-47); Base Excess ABG 2.9 mmol/L (-2.0-2.0); Blood Gas Allen Test Pos; Blood Gas Operator Identificat glc; Blood Gas Sample Site Radial, left; Blood Gas Sample Type Arterial; Carboxyhemoglobin 1.7 %THgb (0.4-20.1); Ionized Calcium Level - ABG 1.5 mmol/L (1.1-1.4); Methemoglobin 0.3 % (0.4-1.5); Oxygen Device NC; Oxygen Saturation ABG 81.6; PO2 ABG 41.5 mmHg (80.0-100.0); Potassium Level - ABG 4.4 mmol/L (3.5-5.0); Total Hemoglobin 12.4 g/dL (12-16)
[2019-10-02 11:39] LABS: Basophils % 0.2 %; Eosinophils # 0.2 10^3/uL (0.0-0.8); Eosinophils % 1.3 %; Hematocrit 42.8 % (37.0-47.0); Hemoglobin 12.2 g/dL (11.5-15.3); Lymphocytes # 1.4 10^3/uL (0.8-4.8); Lymphocytes % 10.7 %; Mean Corpuscular HGB Conc 28.5 g/dL (30.0-36.0); Mean Corpuscular Hemoglobin 24.7 pg (28.0-34.0); Mean Corpuscular Volume 86.6 fL (81-99); Mean Platelet Volume 9.7 fL (7.4-10.4); Monocytes # 0.6 10^3/uL (0.2-0.9); Monocytes % 4.5 %; Neutrophils # 10.5 10^3/uL (1.8-7.7); Nucleated Red Blood Cells % 0 %; Platelet Count 116 10^3/cmm (130-400); Red Blood Count 4.94 10^6/uL (4.1-5.3); Red Cell Distribution Width 17.1 % (12.1-15.1); White Blood Count 12.7 10^3/uL (4.0-10.0)
[2019-10-02 11:45] LABS: Alanine Aminotransferase 17 U/L (0-33); Alkaline Phosphatase 98 IU/L (35-105); Anion Gap 15.8 (5-19); Aspartate Amino Transferase 19 U/L (0-32); Blood Urea Nitrogen 25 mg/dL (8-23); Calcium 11.7 mg/dL (8.5-10.5); Carbon Dioxide 24 mmol/L (22-29); Chloride 96 mmol/L (98-107); Globulin 3.2 g/dL (1.3-4.6); Glucose 100 mg/dL (74-106); Potassium 4.8 mmol/L (3.5-5.1); Sodium 131 mmol/L (136-145); Total Bilirubin 0.8 mg/dL (0.15-1.2); Total Protein 6.2 g/dL (6.6-8.7)
--- NOTE | 2019-10-02 11:56 | PC.NURSE ---
pt c/o pain in back and right foot. ED provider notified.
--- NOTE | 2019-10-02 12:29 | XRR_ITS ---
PROCEDURE INFORMATION: Exam: XR Right Foot Complete Exam date and time: 10/02/2019 12:30 PM Age: 78 years old Clinical indication: Pain; Foot; Right; Additional info: Pain bruising TECHNIQUE: Imaging protocol: XR Right foot. Views: 3 or more views. COMPARISON: CR Ankle 3 views, RIGHT* [id number] 08/20/2015 5:26 PM FINDINGS: Bones/joints: Severe osteopenia and osteoarthritis. Negative for acute fractures. Soft tissues: Unremarkable XR/XR foot RT min 3V* [id number] IMPRESSION: No acute findings.
[2019-10-02] MEDS: piperacillin-tazobactam 3.375 GM in sodium chloride 0.9% (plus) 50 ML IV (13:03)
[2019-10-02 13:30] LABS: ABG PCO2 40.7 mmHg (35-45); ABG PH Result 7.43 (7.35-7.45); Alveolar-Arterial Oxygen Gradi 290.6 mmHg (5-10); Arterial Blood Gas Hematocrit 35.9 % (37-47); Base Excess ABG 2.5 mmol/L (-2.0-2.0); Blood Gas Allen Test Pos; Blood Gas Sample Site Brachial, left; Blood Gas Sample Type Arterial; Carboxyhemoglobin 1.2 %THgb (0.4-20.1); HGB O2 Sat 94.3 % (95-100); Ionized Calcium Level - ABG 1.5 mmol/L (1.1-1.4); Methemoglobin 0.3 % (0.4-1.5); Oxygen Device BIPAP; Oxygen Saturation ABG 95.8; PO2 ABG 73.3 mmHg (80.0-100.0); Potassium Level - ABG 4.4 mmol/L (3.5-5.0); Total Hemoglobin 11.7 g/dL (12-16)
[2019-10-02] MEDS: sodium chloride 0.9% 500 ML 999 ML IV ×2 (13:42→15:34)
[2019-10-02] MEDS: levofloxacin-dextrose 5 % 750 MG/150 ML PREMIX 150 MG IV (13:43)
--- NOTE | 2019-10-02 13:56 | PC.NURSE ---
pt is very anxious with BIPAP mask on. Orders received for IV ativan. Pt's family is refusing medication due to it making her hallucinate in past . ED provider notified.
[2019-10-02] MEDS: LORazepam 2 mg/mL INJ 1 mL 1 MG IVP ×2 (14:02→15:33)
[2019-10-02] MEDS: vancomycin 1,000 MG in sodium chloride 0.9% 250 ML 250 MG IV (15:34)
[2019-10-02 15:53] LABS: Add Urine Microscopic? YES; Bilirubin Urine Neg (NEGATIVE); Blood Urine 3+ (Negative); Glucose Urine UA Norm (Normal); Ketones Urine Negative (Negative); Leukocyte Esterase Urine 2+ (Negative); Nitrate Urine Positive (Negative); Protein Urine Trace (Negative); Urine Appearance SL Hazy (CLEAR); Urine Color Yellow (Yellow); Urobilinogen Urine Norm (Negative); pH Urine 5 (5-7)
[2019-10-02 16:05] LABS: Add Urine Culture? Yes; Bacteria Urine 3+; Mucus Urine 1+; RBC Urine 50-80 /hpf (0-2); Squamous Epithelial Cell Urine 0-4 (0-5); WBC Urine 40-55 /hpf (0-5)
--- NOTE | 2019-10-02 17:27 | PM.HP ---
Providers/Chief Complaint Admitting Physician: Alireza Whyte MD Chief Complaint: pneumonia;copd exacerbation History of Present Illness Joy Bassett is a 78 year old female currently residing at nursing facility for rehabilitation was brought to emergency department with respiratory distress. She has been having cough as per ER records. She was initially treated for pneumonia but with time she became hypotensive requiring aggressive IV fluids and pressor support. Her urine came back with evidence of UTI. During my evaluation at time of transfer from ER to ICU patient was lethargic and confused and unable to provide much information. I have discussed with the patient's [id number] at bedside who reports that 2 weeks ago patient was seen at [facility] in [place] for treatment of what appears to be postobstructive pneumonia. She had bronchoscopy performed and mass was biopsied which came back benign. She was transferred to nursing facility for rehabilitation after that. She was doing well up until couple days ago when she started complaining of dysuria. At that time Adams catheter was placed but apparently patient refused to come to ER for further evaluation. Patient also noted to have right lower extremity bruising and swelling but no evidence of fracture on x-ray. During her skin examination in ICU it was noted that patient has deep mid lumbar and lower left back area tissue atypical injury. Her right lower extremity and left upper is bruised as well. Her medications are not reconciled yet but as per family she was started on a blood thinner. I have also discussed with patient's son who noticed that the patient is confused today. She does take pain medications for chronic shoulder pain and bilateral knee pains. Review of Systems Narrative: Unable to obtain due to patient's mental status. Medications/Allergies Allergies Allergy/AdvReac Type Severity Reaction Status Date / Time No Known Allergies Allergy Verified 09/05/19 20:04 PFSH Acute PFSH: Statuses (acute, chronic, etc) shown below reflect problem list status as previously entered and may not be historically accurate Medical History Acidosis (Acute) Aortic aneurysm (Acute) Aortic disease (Acute) CHF (congestive heart failure) (Acute) Chronic back pain (Acute) COPD (chronic obstructive pulmonary disease) (Acute) Diabetes (Acute) Emphysema, unspecified (Acute) GERD (gastroesophageal reflux disease) (Acute) Herpes zoster (Acute) Hypotension (Acute) Hypothyroidism (Acute) Neuropathy (Acute) Pyelonephritis (Acute) Thyroid disease (Acute) Tibia fracture (Acute) Surgical History History of AAA (abdominal aortic aneurysm) repair (Acute) History of cholecystectomy (Acute) History of hysterectomy (Acute) History of left hip replacement (Acute) Family History (Updated 10/02/19 @ 17:53 by Alireza Whyte MD) Mother CAD (coronary artery disease) Father Cancer Liver Brother Cancer CLL and at age 68 Social History Smoking and tobacco status: former smoker Vitals/I&O/Wt Last Vital Signs Temp 98.5 F 10/02/19 10:42 Pulse 66 10/02/19 16:40 Resp 18 10/02/19 16:40 BP 122/47 10/02/19 16:40 Pulse Ox 95 10/02/19 16:40 10/02/19 10/02/19 10/02/19 06:59 14:59 22:59 Intake Total 50 / 50 750 / 800 Balance 50 / 50 750 / 800 Weight last 48 hrs Weight 139.253 kg Physical Exam Const: COMMON NORMALS: no apparent distress ORIENTATION/CONSCIOUSNESS: Yes confused and Yes lethargic Eye: COMMON NORMALS: EOMs intact bilaterally and no scleral icterus CONJUNCTIVA: Yes conjunctivae normal Lymph: LYMPHATIC: no lymphadenopathy noted and No lymphedema Resp: COMMON NORMALS: normal respiratory effort and clear to auscultation bilaterally Cardio: COMMON NORMALS: regular rate, regular rhythm and S2 normal heart sound GI: COMMON NORMALS: normal to inspection, nondistended, normoactive bowel sounds and soft to palpation Extremity: OTHER: No lower extremity edema. Right lower extremity is bruised Neuro: SENSORIUM/ORIENTATION: Yes lethargic OTHER: No gross neurological deficit noted. Cranial nerves grossly intact Psych: OTHER: Unable to evaluate. Skin: OTHER: Images saved in [facility]. Sepsis: Is patient septic: Yes Focused sepsis exam performed: Yes Date exam was performed: 10/02/19 Time exam was performed: 17:30 Data : 10/02/19 11:27 10/02/19 11:27 Micro: Microbiology 10/02/19 15:57 Blood Culture - Preliminary Blood SPECIMEN COLLECTED 10/02/19 16:02 Blood Culture - Preliminary Blood SPECIMEN COLLECTED A&P Assessment and plan (1) Urinary tract infection: Patient had previous history of resistant UTI Status: Acute Code(s): N39.0 - Urinary tract infection, site not specified (2) Sepsis: As exhibited by tachycardia, leukocytosis and tachypnea on presentation. Patient was afebrile Status: Acute Code(s): A41.9 - Sepsis, unspecified organism (3) Chronic pain syndrome: Status: Acute Code(s): G89.4 - Chronic pain syndrome (4) Acute kidney injury (nontraumatic): Appears prerenal secondary dehydration. Status: Acute Code(s): N17.9 - Acute kidney failure, unspecified (5) Dehydration: Status: Acute Code(s): E86.0 - Dehydration (6) Hypercalcemia: Most likely sec to dehydration Status: Acute Code(s): E83.52 - Hypercalcemia (7) Toxic encephalopathy: This is likely related to urine tract infection and/or opioids. Status: Acute Code(s): G92 - Toxic encephalopathy (8) Hypotension: Septic shock cannot be ruled out at this point and the most likely is the cause of patient's hypotension. Status: Acute Code(s): I95.9 - Hypotension, unspecified Additional A&P Information Continue with aggressive hydration and Levophed. Switch Zosyn to Primaxin and continue vancomycin for now. Awaiting urinary culture results. Closely monitoring ICU. Keep Adams catheter in and monitor urinary output. We will discuss with patient when she is more alert and able to provide history. Reconcile medications. Attestations Medical Necessity Statement*: Patient with sepsis and possible septic shock requires close ICU monitoring and treatment. I expect patient will require more than 2 midnights. Time Spent in Patient Care: Greater than 35 minutes (>than 50% of time spent in counselling and/or direct pt care on unit). Coding Level of Care Code Acute Orthotics Assistant for Ifeanyi Matson Diagnoses Urinary tract infection N39.0 Sepsis A41.9 Chronic pain syndrome G89.4 Acute kidney injury (nontraumatic) N17.9 Dehydration E86.0 Hypercalcemia E83.52 Toxic encephalopathy G92 Hypotension I95.9
[2019-10-02] MEDS: enoxaparin 40 mg/0.4 mL Syringe SUBCUT (18:54)
[2019-10-02] MEDS: sodium chloride 0.9% 1,000 ML 999 ML IV ×3 (18:57→20:09)
--- NOTE | 2019-10-02 19:01 | PC.NURSE ---
[id number] Dr. Whyte at bedside. SENIOR MANAGER [employer] Jenny at bedside. Discussing pt fluid resuscitation. 1 of 4 NS bags infused in ER for sepsis protocol. Dr. Whyte instructed to infuse 3 more L. RN adjusted orders in OCT to reflect physician verbal orders. Non-invasive cardiac monitoring performed with passive leg raise SVI % change 11.7%.
[2019-10-02 19:22] LABS: INR 1.23 (0.8-1.2)
[2019-10-02 19:23] LABS: Partial Thromboplastin Time 28.3 SECONDS (23.9-36.7)
[2019-10-02 19:28] LABS: Lactic Sepsis W/Reflex 1.7 mmol/L (0.5-2.2)
--- NOTE | 2019-10-02 19:30 | PC.NURSE ---
patient woke up confused and combative, pulled their bi-pap off and refused to put on any form of nasal cannula, oxy-mask, bi-pap etc. Dr. hicks came to bedside and tried talking to patient but she continued to argue and fight while oxygen saturation hit as low as 73% but sustained around 80% DR gave orders for precedex drip. patient calmed down slightly allowed nasal cannula to be placed with 6L o2 saturation sustaining mid 90's and patient is resting comfortably at this time.
[2019-10-02] MEDS: morphine 4 mg/mL SDV 1 mL 2 MG IVP (19:32)
[2019-10-02] MEDS: sodium chloride 0.9% 1,000 ML 125 ML IV (21:33)
--- NOTE | 2019-10-02 22:00 | PC.NURSE ---
woke patient to attempt to place bi-pap mask back on patient but she refused saying she doesn't need or want that mask. asked patient if shed allow us to turn her off her bottom and she stated she was fine and wants to be left alone at this time and to leave her room. RT Shepherd at bedside when talking with patient.
[2019-10-03] VITALS (29 sets, daily range): BP systolic 83–152; BP diastolic 38–72; PULSE 50–74; RESP 15–25; TEMP 36.9; O2SAT 89–99
[2019-10-03] MEDS: sodium chloride 0.9% 1,000 ML 125 ML IV ×2 (05:08→14:05)
--- NOTE | 2019-10-03 06:56 | PM.PN ---
Subjective Subjective: Interval history: Patient had approximately 2 L of urinary output last night. Her blood pressure gradually improved with Levophed and fluids and currently Levophed is being weaned down. She had episodes of what appears anxiety last night and she removed her BiPAP. She was started on Precedex last night and this morning is lethargic but moves all of her extremities. She is very somnolent and unable to talk. She did squeeze my hands bilaterally when asked. Vitals/I&O/Wt Last Vital Signs Temp 98.9 F 10/02/19 17:30 Pulse 65 10/03/19 05:00 Resp 20 H 10/03/19 05:00 BP 152/59 10/03/19 05:00 Pulse Ox 97 10/03/19 03:00 10/02/19 10/02/19 10/03/19 14:59 22:59 06:59 Intake Total 50 / 50 4600 / 4650 1387.272 / 6037.272 Output Total 2049 Balance 50 / 50 4600 / 4650 -662.728 / 3987.272 Weight last 48 hrs Weight 139.253 kg Physical Exam Resp: COMMON NORMALS: clear to auscultation bilaterally AUSCULTATION: clear to auscultation bilaterally Cardio: COMMON NORMALS: regular rate, regular rhythm, S1 normal heart sound, S2 normal heart sound, no gallops, no murmurs and no rub RATE: regular rate RHYTHM: regular rhythm HEART SOUNDS: S1 normal and S2 normal Extremity: COMMON NORMALS: no pedal edema OTHER: No lower extremity edema. Right lower extremity is bruised Neuro: OTHER: No gross neurological deficit noted. Cranial nerves grossly intact Skin: COMMON NORMALS: no rashes or lesions noted GENERAL SKIN EXAM: no rashes or lesions noted OTHER: Images saved in [facility]. Data : 10/02/19 11:27 10/02/19 11:27 Micro: Microbiology 10/02/19 15:57 Blood Culture - Preliminary Blood SPECIMEN COLLECTED 10/02/19 16:02 Blood Culture - Preliminary Blood SPECIMEN COLLECTED A&P Assessment and plan (1) Urinary tract infection: Patient had previous history of resistant UTI Status: Acute Code(s): N39.0 - Urinary tract infection, site not specified (2) Sepsis: As exhibited by tachycardia, leukocytosis and tachypnea on presentation. Patient was afebrile Status: Acute Code(s): A41.9 - Sepsis, unspecified organism (3) Chronic pain syndrome: Status: Acute Code(s): G89.4 - Chronic pain syndrome (4) Acute kidney injury (nontraumatic): Appears prerenal secondary dehydration. Status: Acute Code(s): N17.9 - Acute kidney failure, unspecified (5) Dehydration: Status: Acute Code(s): E86.0 - Dehydration (6) Hypercalcemia: Most likely sec to dehydration Status: Acute Code(s): E83.52 - Hypercalcemia (7) Toxic encephalopathy: This is likely related to urine tract infection and/or opioids. Status: Acute Code(s): G92 - Toxic encephalopathy (8) Hypotension: Hypotension is secondary to septic shock as patient continues to require pressor support despite large amount of fluids. Improving Status: Acute Code(s): I95.9 - Hypotension, unspecified Additional A&P Information Will discontinue Precedex and continue weaning off Levophed drip. Will slightly decrease IV fluids. Continue current antibiotics. Reevaluate when patient's mental status improves Attestations Medical Necessity Statement*: Patient with sepsis and septic shock requires close ICU monitoring and treatment Time Spent in Patient Care: less than 15 minutes Coding Level of Care Code Acute Milking System Installer for Ifeanyi Pottsd Diagnoses Urinary tract infection N39.0 Sepsis A41.9 Chronic pain syndrome G89.4 Acute kidney injury (nontraumatic) N17.9 Dehydration E86.0 Hypercalcemia E83.52 Toxic encephalopathy G92 Hypotension I95.9
[2019-10-03 09:28] LABS: Basophils % 0.1 %; Eosinophils # 0.2 10^3/uL (0.0-0.8); Eosinophils % 3.1 %; Hematocrit 38.4 % (37.0-47.0); Hemoglobin 10.9 g/dL (11.5-15.3); Lymphocytes # 1.1 10^3/uL (0.8-4.8); Lymphocytes % 15.7 %; Mean Corpuscular HGB Conc 28.4 g/dL (30.0-36.0); Mean Corpuscular Hemoglobin 24.9 pg (28.0-34.0); Mean Corpuscular Volume 87.7 fL (81-99); Mean Platelet Volume 10.1 fL (7.4-10.4); Monocytes # 0.4 10^3/uL (0.2-0.9); Monocytes % 6.3 %; Neutrophils % 73.3 %; Nucleated Red Blood Cells % 0 %; Platelet Count 94 10^3/cmm (130-400); Red Blood Count 4.38 10^6/uL (4.1-5.3); Red Cell Distribution Width 16.9 % (12.1-15.1); White Blood Count 6.9 10^3/uL (4.0-10.0)
[2019-10-03 09:45] LABS: Alanine Aminotransferase 15 U/L (0-33); Albumin Level 2.4 g/dL (3.5-5.2); Alkaline Phosphatase 89 IU/L (35-105); Anion Gap 14.4 (5-19); Aspartate Amino Transferase 16 U/L (0-32); Blood Urea Nitrogen 18 mg/dL (8-23); Calcium 10.5 mg/dL (8.5-10.5); Carbon Dioxide 25 mmol/L (22-29); Chloride 104 mmol/L (98-107); Globulin 3.1 g/dL (1.3-4.6); Glucose 91 mg/dL (74-106); Magnesium 1.9 mg/dL (1.7-2.3); Potassium 4.4 mmol/L (3.5-5.1); Sodium 139 mmol/L (136-145); Total Bilirubin 0.5 mg/dL (0.15-1.2); Total Protein 5.5 g/dL (6.6-8.7)
--- NOTE | 2019-10-03 13:02 | PC.CHAP ---
Pastoral Care Encounter/Spiritual Assessment Type of Contact [] Declined side hemmer visit [] Patient/Family/Request visit [] Outpatient visit [] Follow-up visit [] Physician referral [] Code/Alert [] Routine visit [] Staff referral [] Actively dying [X] Patient sleeping [] Family support [] [] Out of room [] Palliative care [] [] Receiving care in room [] Pre-surgical visit [] Trauma [] Long length of stay [] ICU visit [] Other: Relational/Emotional Strength [] Patient feels connected with others/family/visitors/staff [] Distress [] Loneliness/isolation [] Abandonment Spirituality of Patient [] Person of Nu [] Attends Sikhism of their Nu [] Believes in Prayer [] Reads Bible or Cheondoism materials [] There are Spiritual issues to be addressed Tip Cementer Interventions [] Prayer [] Active listening [] Non-anxious presence [] Spiritual/emotional support [] Crisis/trauma care [] Spiritual counseling [] Bereavement support [] Provided bereavement packet [] Provided Bible/devotional materials [] Provided toy/stuffed animal, coloring book to patient or family member [] Provided Communion [] Anointing/[place] [] Salvation [] Completed spiritual assessment [] Other: Impact on Illness or Injury [] Angry [] Fearful [] Anxious [] Often cries [] Exhaustion [] Unable to work [] Unable to attend quaker [] Unable to walk/stand [] Unable to read [] Unable to drive [] Unable to eat/drink [] Unable to sleep [] Unable to be with family [] Patient intubated [] Other: Summary The patient was sleeping. The side hemmer prayed for her outside the door. Time spent with patient 5 min.
--- NOTE | 2019-10-03 14:17 | PC.NURSE ---
visiting with family, gets tearful, wants to know whats happening, . family explains things to her. she is not able to recount anything at this time that happened at the [facility]
[2019-10-03] MEDS: acetaminophen 325 mg Tablet 650 MG PO (15:29)
[2019-10-03] MEDS: enoxaparin 40 mg/0.4 mL Syringe SUBCUT (18:20)
[2019-10-03] MEDS: morphine 4 mg/mL SDV 1 mL 2 MG IVP (19:13)
[2019-10-04] VITALS (29 sets, daily range): BP systolic 79–154; BP diastolic 39–92; PULSE 63–106; RESP 15–23; TEMP 36.9; O2SAT 86–95
[2019-10-04] MEDS: sodium chloride 0.9% 1,000 ML 125 ML IV ×2 (01:43→13:27)
[2019-10-04] MEDS: morphine 4 mg/mL SDV 1 mL 2 MG IVP ×2 (03:03→11:50)
[2019-10-04 06:56] LABS: Eosinophils # 0.2 10^3/uL (0.0-0.8); Eosinophils % 4.1 %; Hematocrit 40.5 % (37.0-47.0); Hemoglobin 12.2 g/dL (11.5-15.3); Lymphocytes # 0.8 10^3/uL (0.8-4.8); Mean Corpuscular HGB Conc 30.1 g/dL (30.0-36.0); Mean Corpuscular Hemoglobin 25.5 pg (28.0-34.0); Mean Corpuscular Volume 84.7 fL (81-99); Mean Platelet Volume 9.4 fL (7.4-10.4); Monocytes # 0.3 10^3/uL (0.2-0.9); Monocytes % 6.4 %; Neutrophils # 3.1 10^3/uL (1.8-7.7); Neutrophils % 70.1 %; Nucleated Red Blood Cells % 0 %; Platelet Count 67 10^3/cmm (130-400); Positive C 1; Red Blood Count 4.78 10^6/uL (4.1-5.3); Red Cell Distribution Width 17.2 % (12.1-15.1); White Blood Count 4.4 10^3/uL (4.0-10.0)
[2019-10-04 07:02] LABS: Alanine Aminotransferase 15 U/L (0-33); Albumin Level 2.4 g/dL (3.5-5.2); Alkaline Phosphatase 78 IU/L (35-105); Anion Gap 11.7 (5-19); Aspartate Amino Transferase 17 U/L (0-32); Blood Urea Nitrogen 13 mg/dL (8-23); Calcium 10.2 mg/dL (8.5-10.5); Carbon Dioxide 23 mmol/L (22-29); Chloride 107 mmol/L (98-107); Magnesium 1.8 mg/dL (1.7-2.3); Potassium 3.7 mmol/L (3.5-5.1); Sodium 138 mmol/L (136-145); Total Bilirubin 0.3 mg/dL (0.15-1.2); Total Protein 4.4 g/dL (6.6-8.7)
[2019-10-04 08:01] LABS: Slide Review Slide Review Perform
--- NOTE | 2019-10-04 08:05 | PM.PN ---
Subjective Subjective: Interval history: Patient is doing much better this morning. She denies shortness of breath or chest pain. She cannot recall what brought her to the hospital. She reports that she got very confused and was bumping into lynn. She does recall driving her electric chair into the wall and hitting her right foot. She reports having good care at her nursing facility. She reports that recently she was in [facility] for couple of weeks because of treatment of pneumonia. She continues to have cough but denies being short of breath. She does not recall burning on urination prior to admission but reports that for 2 days prior to admission she did not urinate much. She was started on regular diet yesterday as she tolerated clear liquids. Vitals/I&O/Wt Last Vital Signs Temp 98.4 F 10/03/19 20:00 Pulse 80 10/04/19 04:00 Resp 19 H 10/04/19 04:00 BP 109/54 10/04/19 04:00 Pulse Ox 91 10/04/19 04:00 10/03/19 10/04/19 10/04/19 22:59 06:59 14:59 Intake Total 1932.433 / 3092.886 580 / 3672.886 Output Total 1050 / 1875 725 / 2600 Balance 882.433 / 1217.886 -145 / 1072.886 Weight last 48 hrs Weight 139.253 kg Physical Exam Const: COMMON NORMALS: no apparent distress and oriented x3 GENERAL APPEARANCE: lethargic ORIENTATION/CONSCIOUSNESS: Yes confused and Yes lethargic Eye: COMMON NORMALS: EOMs intact bilaterally, conjunctivae normal and no scleral icterus CONJUNCTIVA: Yes conjunctivae normal Lymph: LYMPHATIC: no lymphadenopathy noted and No lymphedema Resp: COMMON NORMALS: clear to auscultation bilaterally AUSCULTATION: clear to auscultation bilaterally Cardio: COMMON NORMALS: regular rate, regular rhythm, S1 normal heart sound, S2 normal heart sound, no gallops, no murmurs and no rub RATE: regular rate RHYTHM: regular rhythm HEART SOUNDS: S1 normal and S2 normal OTHER: No lower extremity edema GI: COMMON NORMALS: normal to inspection, nondistended, normoactive bowel sounds and soft to palpation PALPATION: Yes soft Extremity: COMMON NORMALS: no pedal edema OTHER: No lower extremity edema. Right lower extremity is bruised Neuro: COMMON NORMALS: oriented x3 and no focal motor deficits SENSORIUM/ORIENTATION: Yes lethargic OTHER: No gross neurological deficit noted. Cranial nerves grossly intact Psych: OTHER: Unable to evaluate. Skin: COMMON NORMALS: no rashes or lesions noted GENERAL SKIN EXAM: no rashes or lesions noted OTHER: Images saved in [facility]. Data : 10/04/19 06:30 10/04/19 06:30 Micro: Microbiology 10/02/19 15:57 Blood Culture - Preliminary Blood NEGATIVE TO DATE 10/02/19 16:02 Blood Culture - Preliminary Blood NEGATIVE TO DATE 10/02/19 15:28 Urine Culture - Preliminary Urine,Clean Catch Gram Negative Rods A&P Assessment and plan (1) Urinary tract infection: Patient had previous history of resistant UTI Status: Acute Code(s): N39.0 - Urinary tract infection, site not specified (2) Sepsis: As exhibited by tachycardia, leukocytosis and tachypnea on presentation. Patient was afebrile Status: Acute Code(s): A41.9 - Sepsis, unspecified organism (3) Chronic pain syndrome: Status: Acute Code(s): G89.4 - Chronic pain syndrome (4) Acute kidney injury (nontraumatic): Appears prerenal secondary dehydration. Status: Acute Code(s): N17.9 - Acute kidney failure, unspecified (5) Dehydration: Status: Acute Code(s): E86.0 - Dehydration (6) Hypercalcemia: Most likely sec to dehydration Status: Acute Code(s): E83.52 - Hypercalcemia (7) Toxic encephalopathy: This is likely related to urine tract infection and/or opioids. Status: Acute Code(s): G92 - Toxic encephalopathy (8) Hypotension: Hypotension is secondary to septic shock as patient continues to require pressor support despite large amount of fluids. Improving Status: Acute Code(s): I95.9 - Hypotension, unspecified Additional A&P Information Will discontinue Precedex and continue weaning off Levophed drip. Will slightly decrease IV fluids. Continue current antibiotics. Reevaluate when patient's mental status improves Coding Level of Care Code Acute Reed Or Wind Instrument Repairer for [facility] Fwd Diagnoses Urinary tract infection N39.0 Sepsis A41.9 Chronic pain syndrome G89.4 Acute kidney injury (nontraumatic) N17.9 Dehydration E86.0 Hypercalcemia E83.52 Toxic encephalopathy G92 Hypotension I95.9
--- NOTE | 2019-10-04 08:11 | PM.PN ---
Subjective Subjective: Interval history: Patient is doing much better this morning. She denies shortness of breath or chest pain. She cannot recall what brought her to the hospital. She reports that she got very confused and was bumping into lynn. She does recall driving her electric chair into the wall and hitting her right foot. She reports having good care at her nursing facility. She reports that recently she was in [facility] for couple of weeks because of treatment of pneumonia. She continues to have cough but denies being short of breath. She does not recall burning on urination prior to admission but reports that for 2 days prior to admission she did not urinate much. She was started on regular diet yesterday as she tolerated clear liquids. Vitals/I&O/Wt Last Vital Signs Temp 98.4 F 10/03/19 20:00 Pulse 80 10/04/19 04:00 Resp 19 H 10/04/19 04:00 BP 109/54 10/04/19 04:00 Pulse Ox 91 10/04/19 04:00 10/03/19 10/04/19 10/04/19 22:59 06:59 14:59 Intake Total 1932.433 / 3092.886 580 / 3672.886 Output Total 1050 / 1875 725 / 2600 Balance 882.433 / 1217.886 -145 / 1072.886 Weight last 48 hrs Weight 139.253 kg Physical Exam Const: COMMON NORMALS: no apparent distress and oriented x3 Resp: COMMON NORMALS: normal respiratory effort and clear to auscultation bilaterally AUSCULTATION: clear to auscultation bilaterally Cardio: COMMON NORMALS: regular rate, regular rhythm and S2 normal heart sound RATE: regular rate RHYTHM: regular rhythm HEART SOUNDS: S2 normal OTHER: No lower extremity edema GI: COMMON NORMALS: normal to inspection, nondistended, normoactive bowel sounds, soft to palpation and non-tender PALPATION: Yes soft Neuro: COMMON NORMALS: oriented x3 and no focal motor deficits (On gross examination) Data : 10/04/19 06:30 10/04/19 06:30 Micro: Microbiology 10/02/19 15:57 Blood Culture - Preliminary Blood NEGATIVE TO DATE 10/02/19 16:02 Blood Culture - Preliminary Blood NEGATIVE TO DATE 10/02/19 15:28 Urine Culture - Preliminary Urine,Clean Catch Gram Negative Rods A&P Assessment and plan (1) Urinary tract infection: Patient had previous history of resistant UTI. Currently growing gram-negative josselyn Status: Acute Code(s): N39.0 - Urinary tract infection, site not specified (2) Sepsis: As exhibited by tachycardia, leukocytosis and tachypnea on presentation. Patient was afebrile. Improved Status: Acute Code(s): A41.9 - Sepsis, unspecified organism (3) Chronic pain syndrome: Status: Acute Code(s): G89.4 - Chronic pain syndrome (4) Acute kidney injury (nontraumatic): Appears prerenal secondary dehydration. Status: Acute Code(s): N17.9 - Acute kidney failure, unspecified (5) Dehydration: Status: Acute Code(s): E86.0 - Dehydration (6) Hypercalcemia: Most likely sec to dehydration Status: Acute Code(s): E83.52 - Hypercalcemia (7) Toxic encephalopathy: This is likely related to urine tract infection and/or opioids. Status: Acute Code(s): G92 - Toxic encephalopathy (8) Hypotension: Hypotension is secondary to septic shock as patient continues to require pressor support despite large amount of fluids. Improving Status: Acute Code(s): I95.9 - Hypotension, unspecified (9) Thrombocytopenia: Most likely related to an underlying infection. Status: Acute Code(s): D69.6 - Thrombocytopenia, unspecified (10) Pneumonia: Status: Acute Code(s): J18.9 - Pneumonia, unspecified organism Additional A&P Information Continue current ICU monitoring and treatment. We will stop Lovenox for now given drop in platelets. SCDs for now. Patient is wheelchair-bound for approximately 1 year and is not ambulating. We will request occupational therapy. We will reconcile medications and restart them. Awaiting culture results Will add Levaquin for now for better pneumonia coverage. Attestations Medical Necessity Statement*: Patient with pneumonia and UTI as well as sepsis requires close ICU monitoring and treatment. Time Spent in Patient Care: Greater than 35 minutes Coding Level of Care Code Acute Screw Eye Assembler for [facility] Fwgama Diagnoses Urinary tract infection N39.0 Sepsis A41.9 Chronic pain syndrome G89.4 Acute kidney injury (nontraumatic) N17.9 Dehydration E86.0 Hypercalcemia E83.52 Toxic encephalopathy G92 Hypotension I95.9 Thrombocytopenia D69.6 Pneumonia J18.9
[2019-10-04 09:13] LABS: Glucose 59 mg/dL (65-115)
[2019-10-04] MEDS: levofloxacin-dextrose 5 % 750 MG/150 ML PREMIX 150 MG IV (09:27)
[2019-10-04] MEDS: FUROsemide 20 mg Tablet PO (09:28)
[2019-10-04] MEDS: levothyroxine 125 mcg Tablet PO (09:28)
--- NOTE | 2019-10-04 10:06 | PC.CHAP ---
Pastoral Care Encounter/Spiritual Assessment Type of Contact [] Declined diving judge visit [] Patient/Family/Request visit [] Outpatient visit [] Follow-up visit [] Physician referral [] Code/Alert [] Routine visit [] Staff referral [] Actively dying [] Patient sleeping [] Family support [] [] Out of room [] Palliative care [] [] Receiving care in room [] Pre-surgical visit [] Trauma [] Long length of stay [] ICU visit [] Other: Relational/Emotional Strength [] Patient feels connected with others/family/visitors/staff [] Distress [] Loneliness/isolation [] Abandonment Spirituality of Patient [] Person of Nu [] Attends Sikhism of their Nu [] Believes in Prayer [] Reads Bible or Baptism materials [] There are Spiritual issues to be addressed Loan Examiner Interventions [] Prayer [] Active listening [] Non-anxious presence [] Spiritual/emotional support [] Crisis/trauma care [] Spiritual counseling [] Bereavement support [] Provided bereavement packet [] Provided Bible/devotional materials [] Provided toy/stuffed animal, coloring book to patient or family member [] Provided Communion [] Anointing/[place] [] Salvation [] Completed spiritual assessment [] Other: Impact on Illness or Injury [] Angry [] Fearful [] Anxious [] Often cries [] Exhaustion [] Unable to work [] Unable to attend mandaen [] Unable to walk/stand [] Unable to read [] Unable to drive [] Unable to eat/drink [] Unable to sleep [] Unable to be with family [] Patient intubated [] Other: Summary The patient was sleeping. The diving judge prayed for her outside door. Time spent with patient 6 min.
[2019-10-04] MEDS: quetiapine 25 mg Tablet PO (11:04)
--- NOTE | 2019-10-04 12:34 | PC.NURSE ---
p.t. and o.t. in this am . pt. somewhat anxious about getting out of bed or even to sit on the side of the bed. lots of encouragement and staff at bedside. states she doesnt want to . had said she wanted to go live by her son in [place]. that desire used in attempt to get her to bedside. c/o pain on movement.
[2019-10-04 15:15] LABS: Vancomycin Trough 10.4 ug/mL (10-15)
[2019-10-04] MEDS: pantoprazole DR 40 mg Tablet PO (17:34)
[2019-10-04] MEDS: pramipexole 0.25 mg Tablet 0.125 MG PO (17:35)
[2019-10-04] MEDS: ipratropium-albuterol 3 mL Neb INHALATION (19:47)
[2019-10-04] MEDS: quetiapine 25 mg Tablet 50 MG PO (21:12)
[2019-10-05] VITALS (16 sets, daily range): BP systolic 78–134; BP diastolic 37–64; PULSE 74–116; RESP 17–25; TEMP 36.7–36.9; O2SAT 93–97
[2019-10-05] MEDS: sodium chloride 0.9% 1,000 ML 125 ML IV ×2 (00:29→08:56)
[2019-10-05 04:41] LABS: Eosinophils # 0.2 10^3/uL (0.0-0.8); Eosinophils % 3.6 %; Hematocrit 32.4 % (37.0-47.0); Hemoglobin 9.7 g/dL (11.5-15.3); Lymphocytes # 0.8 10^3/uL (0.8-4.8); Lymphocytes % 20.4 %; Mean Corpuscular HGB Conc 29.9 g/dL (30.0-36.0); Mean Corpuscular Hemoglobin 25.4 pg (28.0-34.0); Mean Corpuscular Volume 84.8 fL (81-99); Mean Platelet Volume 9.3 fL (7.4-10.4); Monocytes # 0.4 10^3/uL (0.2-0.9); Monocytes % 8.5 %; Neutrophils # 2.7 10^3/uL (1.8-7.7); Neutrophils % 65.3 %; Nucleated Red Blood Cells % 0 %; Platelet Count 92 10^3/cmm (130-400); Red Blood Count 3.82 10^6/uL (4.1-5.3); Red Cell Distribution Width 16.9 % (12.1-15.1); White Blood Count 4.1 10^3/uL (4.0-10.0)
[2019-10-05 04:58] LABS: Alanine Aminotransferase 13 U/L (0-33); Albumin Level 2.2 g/dL (3.5-5.2); Alkaline Phosphatase 71 IU/L (35-105); Anion Gap 11.1 (5-19); Aspartate Amino Transferase 17 U/L (0-32); Blood Urea Nitrogen 7 mg/dL (8-23); Calcium 9.7 mg/dL (8.5-10.5); Carbon Dioxide 23 mmol/L (22-29); Chloride 103 mmol/L (98-107); Globulin 2.2 g/dL (1.3-4.6); Glucose 73 mg/dL (65-115); Magnesium 1.5 mg/dL (1.7-2.3); Potassium 3.1 mmol/L (3.5-5.1); Sodium 134 mmol/L (136-145); Total Bilirubin 0.4 mg/dL (0.15-1.2); Total Protein 4.4 g/dL (6.6-8.7)
--- NOTE | 2019-10-05 09:00 | PC.SOCIAL ---
IMM Page 2 of IMM explained to and signed by patient. Initialed, dated, and timed and placed in chart. Copy provided to patient.
[2019-10-05] MEDS: levofloxacin-dextrose 5 % 750 MG/150 ML PREMIX 100 MG IV (09:03)
[2019-10-05] MEDS: montelukast sodium 10 mg Tablet PO (09:06)
[2019-10-05] MEDS: dilTIAZem ER (24HR) 240 mg Capsule PO (09:06)
[2019-10-05] MEDS: citalopram 20 mg Tablet 10 MG PO (09:06)
[2019-10-05] MEDS: FUROsemide 20 mg Tablet PO (09:07)
[2019-10-05] MEDS: pantoprazole DR 40 mg Tablet PO ×2 (09:07→17:34)
[2019-10-05] MEDS: levothyroxine 125 mcg Tablet PO (09:07)
[2019-10-05] MEDS: quetiapine 25 mg Tablet PO (09:07)
[2019-10-05] MEDS: ipratropium-albuterol 3 mL Neb INHALATION ×2 (09:28→20:18)
[2019-10-05] MEDS: acetaminophen 325 mg Tablet 650 MG PO ×2 (10:08→14:49)
--- NOTE | 2019-10-05 13:09 | CTR_ITS ---
PROCEDURE INFORMATION: Exam: CT Chest Without Contrast Exam date and time: 10/05/2019 8:29 PM Age: 78 years old Clinical indication: Cough and shortness of breath; Prior surgery; Surgery type: Aaa, bronch; Additional info: Copd/pna TECHNIQUE: Imaging protocol: Computed tomography of the chest without contrast. Total DLP: 100.32 mGy-cm Radiation optimization: All CT scans at this facility use at least one of these dose optimization techniques: automated exposure control; mA and/or kV adjustment per patient size (includes targeted exams where dose is matched to clinical indication); or iterative reconstruction. COMPARISON: CT angio chest PE protcl [id number] 09/05/2019 11:03 PM FINDINGS: Lungs: There is extensive airspace consolidation and volume loss in the left lung greatest in the lingula and left lower lobe. There is patchy pneumonitis in the right middle lobe and right lower lobe. There is occlusion of the left lower lobe bronchus and partial occlusion of the lingular bronchus. Pleural space: There is a small left pleural effusion. Heart: Unremarkable. No cardiomegaly. No pericardial effusion. Mediastinum: There is enlargement of the soft tissues in the left hilum concerning for left hilar mass is poorly defined due to the adjacent consolidated lung parenchyma but on image 25, a soft tissue density probable hilar mass measures 6.7 x 6.2 cm. Aorta: Unremarkable. No aortic aneurysm. Lymph nodes: Unremarkable. No enlarged lymph nodes. Spleen: The spleen is prominent in size. The spleen measures 12.7 by 14.5 x 9.3 cm. Bones/joints: There is osteopenia with moderate to severe degenerative changes in the spine but no bony destructive lesion is identified. No acute fracture. Severe degenerative changes in both shoulders are noted. Soft tissues: Unremarkable. CT/CT chest wo con [id number] IMPRESSION: 1. Probable left hilar mass. Extensive volume loss and consolidation is noted in the lingula and left lower lobe. Less prominent pneumonitis in the remainder of the left lung and right middle lobe and right lower lobe. 2. Small left pleural effusion. Radiation Dose CTDIVOL = (mGy): DLP = 100.32 (mGy-cm)
[2019-10-05 13:53] LABS: Procalcitonin 0.35 ng/mL (0-0.5)
[2019-10-05 14:04] LABS: Iron 24 ug/dL (37-145); Total Iron Binding Capacity 159 mcg/dl; Unsaturated Iron Binding 135 ug/dL (112-347)
[2019-10-05] MEDS: pramipexole 0.25 mg Tablet 0.125 MG PO (17:33)
--- NOTE | 2019-10-05 18:22 | PC.NURSE ---
1730 Removed 25ml from balloon of garcia catether and removed it from patient. Mary well. No c/o.
--- NOTE | 2019-10-05 19:26 | P.PN_ITS ---
Subjective Subjective: Interval history: This morning on evaluation patient is sitting in chair. She denies of having any nausea, vomiting, headache. As per the RN patient is doing much better now. On evaluation patient is on 3 L nasal cannula saturating more than 92%. Patient has been off levo fed for last 10 hours. Mean arterial pressures have been maintained over 60 mmHg. Vitals/I&O/Wt Last Vital Signs Temp 98.4 F 10/05/19 12:25 Pulse 77 10/05/19 16:16 Resp 22 H 10/05/19 16:16 BP 134/63 10/05/19 16:16 Pulse Ox 93 10/05/19 16:16 10/05/19 10/05/19 10/05/19 06:59 14:59 22:59 Intake Total 100 / 3420 1430 / 1430 590 / 2020 Output Total 1000 / 2800 950 / 950 Balance -900 / 620 1430 / 1430 -360 / 1070 Physical Exam Narrative: EXAM NARRATIVE: General: No acute distress, AO x3 HEENT: PERRLA, pupils bilaterally equal and reactive Chest: Bronchial breath sounds in the left middle and lower zones, normal vesicular breath sounds all over the lung sebastian otherwise, good air entry on the right side. CVS: S1-S2 regular, no murmurs, no tachycardia, no gallops, no rubs Abdomen: Soft, nontender, no organomegaly, bowel sounds present, obese Neuro: No focal deficits, no facial deformity, AO x3, power 5/5 in all limbs Data : 10/06/19 05:50 10/06/19 05:50 Micro: Microbiology 10/05/19 14:20 Legionella Urinary Antigen - Final Urine Catheterized 10/04/19 15:35 Gram Stain - Final Sputum - Expectorated Sputum A&P Assessment and plan (1) Sepsis: As exhibited by tachycardia, leukocytosis and tachypnea on presentation. Patient was afebrile. Improved Status: Acute Code(s): A41.9 - Sepsis, unspecified organism (2) Pneumonia: Status: Acute Code(s): J18.9 - Pneumonia, unspecified organism (3) Urinary tract infection: Patient had previous history of resistant UTI. Currently growing gram- negative josselyn Status: Acute Code(s): N39.0 - Urinary tract infection, site not specified (4) Acute kidney injury (nontraumatic): Appears prerenal secondary dehydration. Status: Acute Code(s): N17.9 - Acute kidney failure, unspecified (5) Dehydration: Status: Acute Code(s): E86.0 - Dehydration (6) Hypercalcemia: Most likely sec to dehydration Status: Acute Code(s): E83.52 - Hypercalcemia (7) Toxic encephalopathy: This is likely related to urine tract infection and/or opioids. Status: Acute Code(s): G92 - Toxic encephalopathy (8) Hypotension: Hypotension is secondary to septic shock as patient continues to require pressor support despite large amount of fluids. Improving Status: Acute Code(s): I95.9 - Hypotension, unspecified (9) Thrombocytopenia: Most likely related to an underlying infection. Status: Acute Code(s): D69.6 - Thrombocytopenia, unspecified (10) Chronic pain syndrome: Status: Acute Code(s): G89.4 - Chronic pain syndrome Additional A&P Information Sepsis: On admission. Now resolved. Most likely due to postobstructive pneumonia and UTI. Patient is on vancomycin and imipenem, levofloxacin. She is on day 3 of treatment. Blood culture and urine culture reviewed. Urine cultures are still gram- negative. Sputum culture awaited. We will check CT chest as chest x-ray suggestive of a possible left-sided mass. On review of records from her previous hospitalization at [facility] it seems patient had a mucous plug on the left side. Patient did have a bronchoscopy on which no biopsy was done so not really sure of malignancy status. Check Legionella, MRSA swab. Continue with duo nebs as needed. Acute toxic metabolic encephalopathy: Resolved most likely was due to sepsis. JOIE: Resolved. Creatinine 0.5 today. At baseline. Continue with IV hydration of normal saline 75 cc/h. Will encourage patient to increase her oral intake and then can start decreasing fluids. Continue home dose of citalopram, levothyroxine, Protonix, pramipexole, Seroquel. Thrombocytopenia: Stable most likely due to sepsis. We will continue to monitor daily. We will continue to hold off on therapeutic DVT prophylaxis due to thrombocytopenia. Continue with SCDs for DVT prophylaxis. Physical therapy. Full code. Regular diet. Patient continues to remain stable can transfer to floors tomorrow. Attestations Medical Necessity Statement*: Sepsis due to pneumonia and UTI. Time Spent in Patient Care: Greater than 35 minutes Coding Level of Care Code Acute Supervisor White [employer] for [facility] Fwd Diagnoses Sepsis A41.9 Pneumonia J18.9 Urinary tract infection N39.0 Acute kidney injury (nontraumatic) N17.9 Dehydration E86.0 Hypercalcemia E83.52 Toxic encephalopathy G92 Hypotension I95.9 Thrombocytopenia D69.6 Chronic pain syndrome G89.4
[2019-10-05] MEDS: HYDROcodone-acetaminophen 5-325 mg Tablet 1 TAB PO (20:01)
[2019-10-05] MEDS: quetiapine 25 mg Tablet 50 MG PO (20:01)
--- NOTE | 2019-10-05 20:38 | PC.NURSE ---
TO CT by bed accompanied by ICU nurse, transport monitor, and 5L NC.
--- NOTE | 2019-10-05 20:58 | PC.NURSE ---
Back to ICU [address]
[2019-10-06] VITALS (15 sets, daily range): BP systolic 95–134; BP diastolic 47–75; PULSE 71–110; RESP 8–22; TEMP 36.9–37.2; O2SAT 90–98
[2019-10-06] MEDS: morphine 4 mg/mL SDV 1 mL 2 MG IVP (00:28)
--- NOTE | 2019-10-06 01:22 | PC.NURSE ---
Hemoptysis Observed small light red hemoptysis inside tissue at bedside. Pt reports this is new. Will continue to monitor.
--- NOTE | 2019-10-06 03:13 | ECG_ITS ---
Measurements Intervals [place] Rate: 78 P: 62 LA: 175 QRS: 70 QRSD: 83 T: 68 QT: 279 QTc: 319 SINUS RHYTHM LOW QRS VOLTAGE IN PRECORDIAL LEADS [QRS DEFLECTION < 1.0 mV IN CHEST LEADS] POSSIBLE ANTERIOR MYOCARDIAL INFARCTION [30 ms Q WAVE IN V3/V4, OR R < 0.2 mV IN V4], PROBABLY OLD WARNING: DATA QUALITY MAY AFFECT INTERPRETATION Compared to ECG 09/05/2019 23:38:50 Low QRS voltage now present Right bundle-branch block no longer present Myocardial infarct finding still present Electronically Signed On 10-06-2019 22:18:36 MARKETING SYSTEMS ANALYST by Deion Carrasco M.D. [id number]
[2019-10-06] MEDS: sodium chloride 0.9% 1,000 ML 75 ML IV ×2 (03:25→11:46)
[2019-10-06] MEDS: acetaminophen 325 mg Tablet 650 MG PO (03:26)
[2019-10-06] MEDS: ALPRAZolam 0.5 mg Tablet PO (03:26)
[2019-10-06 06:15] LABS: Basophils % 0.3 %; Eosinophils # 0.1 10^3/uL (0.0-0.8); Eosinophils % 3.1 %; Hematocrit 30.9 % (37.0-47.0); Hemoglobin 9.2 g/dL (11.5-15.3); Lymphocytes # 0.7 10^3/uL (0.8-4.8); Lymphocytes % 18.5 %; Mean Corpuscular HGB Conc 29.8 g/dL (30.0-36.0); Mean Corpuscular Hemoglobin 24.2 pg (28.0-34.0); Mean Corpuscular Volume 81.3 fL (81-99); Mean Platelet Volume 9.3 fL (7.4-10.4); Monocytes # 0.3 10^3/uL (0.2-0.9); Monocytes % 8.5 %; Neutrophils # 2.5 10^3/uL (1.8-7.7); Neutrophils % 65.2 %; Nucleated Red Blood Cells % 0 %; Platelet Count 88 10^3/cmm (130-400); Red Cell Distribution Width 17.1 % (12.1-15.1); White Blood Count 3.9 10^3/uL (4.0-10.0)
[2019-10-06 06:34] LABS: Alanine Aminotransferase 11 U/L (0-33); Albumin Level 2.1 g/dL (3.5-5.2); Alkaline Phosphatase 73 IU/L (35-105); Aspartate Amino Transferase 15 U/L (0-32); Blood Urea Nitrogen 6 mg/dL (8-23); Calcium 9.6 mg/dL (8.5-10.5); Carbon Dioxide 22 mmol/L (22-29); Chloride 105 mmol/L (98-107); Globulin 2.1 g/dL (1.3-4.6); Glucose 76 mg/dL (65-115); Sodium 137 mmol/L (136-145); Total Bilirubin 0.3 mg/dL (0.15-1.2); Total Protein 4.2 g/dL (6.6-8.7)
[2019-10-06 07:44] LABS: Vancomycin Trough 23.6 ug/mL (10-15)
[2019-10-06] MEDS: ipratropium-albuterol 3 mL Neb INHALATION ×2 (08:24→21:44)
[2019-10-06] MEDS: montelukast sodium 10 mg Tablet PO (08:37)
[2019-10-06] MEDS: pantoprazole DR 40 mg Tablet PO ×2 (08:37→17:21)
[2019-10-06] MEDS: levothyroxine 125 mcg Tablet PO (08:37)
[2019-10-06] MEDS: citalopram 20 mg Tablet 10 MG PO (08:37)
[2019-10-06] MEDS: quetiapine 25 mg Tablet PO (08:37)
[2019-10-06] MEDS: levofloxacin-dextrose 5 % 750 MG/150 ML PREMIX 150 MG IV (08:38)
[2019-10-06] MEDS: dilTIAZem ER (24HR) 240 mg Capsule PO (08:38)
[2019-10-06] MEDS: HYDROcodone-acetaminophen 5-325 mg Tablet 1 TAB PO (08:40)
[2019-10-06] MEDS: nystatin powder 15 gm Btl 1 APPLIC TOPICAL ×2 (09:14→17:21)
[2019-10-06] MEDS: piperacillin-tazobactam 3.375 GM in sodium chloride 0.9% (plus) 50 ML IV ×2 (14:12→22:53)
--- NOTE | 2019-10-06 16:33 | PC.NURSE ---
TRANSFER TO FLOOR Report called to ELVIA [place]. Patient transferred to 272. All belongings sent with patient. Call light within reach.
[2019-10-06] MEDS: potassium chloride premix 40 MEQ/100 ML PREMIX 25 MEQ IV (17:21)
[2019-10-06] MEDS: pramipexole 0.25 mg Tablet 0.125 MG PO (17:22)
--- NOTE | 2019-10-06 19:03 | P.PN_ITS ---
Subjective Subjective: Interval history: Patient lying comfortably in bed. States she is doing a little better. Feels a little anxious because of recurrent pneumonias. Denies of having any shortness of breath, nausea, vomiting, headache. Patient has remained off levo fed for more than 36 hours now. Mean arterial pressures over 65. Vitals have remained hemodynamically stable and she has been afebrile. Vitals/I&O/Wt Last Vital Signs Temp 98.9 F 10/06/19 16:00 Pulse 81 10/06/19 16:00 Resp 22 H 10/06/19 16:00 BP 112/60 10/06/19 16:00 Pulse Ox 90 10/06/19 16:00 10/06/19 10/06/19 10/06/19 06:59 14:59 22:59 Intake Total 350 / 3470 876.25 / 876.25 120 / 996.25 Output Total 825 / 1776 Balance -475 / 1694 876.25 / 876.25 120 / 996.25 Physical Exam Narrative: EXAM NARRATIVE: General: No acute distress, AO x3 HEENT: PERRLA, pupils bilaterally equal and reactive Chest: Bronchial breath sounds in the left middle and lower zones, normal vesicular breath sounds all over the lung sebastian otherwise, good air entry on the right side. CVS: S1-S2 regular, no murmurs, no tachycardia, no gallops, no rubs Abdomen: Soft, nontender, no organomegaly, bowel sounds present, obese Neuro: No focal deficits, no facial deformity, AO x3, power 5/5 in all limbs Urinary Catheter Management^: Adams: Cath Placed During This Visit: yes Urethral Indwelling: No Reason for Continuing Indwelling Catheter: Accurate Measurement of Urinary Output in Critically Ill Patients Urinary Catheter Date of Insertion: 10/06/19 Urinary Catheter Time of Insertion: 03:16 Data : 10/06/19 05:50 10/06/19 05:50 Micro: Microbiology 10/04/19 15:35 Gram Stain - Final Sputum - Expectorated Sputum Sputum Culture - Preliminary 10/05/19 14:20 MRSA Culture - Final Nose 10/05/19 14:20 Legionella Urinary Antigen - Final Urine Catheterized A&P Assessment and plan (1) Sepsis: As exhibited by tachycardia, leukocytosis and tachypnea on presentation. Patient was afebrile. Improved Status: Acute Code(s): A41.9 - Sepsis, unspecified organism (2) Pneumonia: Status: Acute Code(s): J18.9 - Pneumonia, unspecified organism (3) Urinary tract infection: Patient had previous history of resistant UTI. Currently growing gram- negative josselyn Status: Acute Code(s): N39.0 - Urinary tract infection, site not specified (4) Acute kidney injury (nontraumatic): Appears prerenal secondary dehydration. Status: Acute Code(s): N17.9 - Acute kidney failure, unspecified (5) Dehydration: Status: Acute Code(s): E86.0 - Dehydration (6) Hypercalcemia: Most likely sec to dehydration Status: Acute Code(s): E83.52 - Hypercalcemia (7) Toxic encephalopathy: This is likely related to urine tract infection and/or opioids. Status: Acute Code(s): G92 - Toxic encephalopathy (8) Hypotension: Hypotension is secondary to septic shock as patient continues to require pressor support despite large amount of fluids. Improving Status: Acute Code(s): I95.9 - Hypotension, unspecified (9) Thrombocytopenia: Most likely related to an underlying infection. Status: Acute Code(s): D69.6 - Thrombocytopenia, unspecified (10) Chronic pain syndrome: Status: Acute Code(s): G89.4 - Chronic pain syndrome Additional A&P Information Sepsis: On admission. Now resolved. Most likely due to postobstructive pneumonia and UTI. CT chest done yesterday suggestive of a left hilar mass.On review of records from her previous hospitalization at [facility] it seems patient had a mucous plug on the left side. Patient did have a bronchoscopy on which no biopsy was done so not really sure of malignancy status. Given the recent mucous plug we will start patient on vest twice daily. We will also start patient on saline nebulizations along with DuoNeb's. We will start patient on DuoNeb [id number] along with budesonide twice daily and albuterol as needed. Patient is on vancomycin, imipenem. Levofloxacin was discontinued yesterday after day 3 of treatment. On review of her old cultures and urine culture from this time which is sensitive to Zosyn. We will switch from meropenem to Zosyn. We will continue on vancomycin and Zosyn for now given possible postobstructive pneumonia. We will try to finish off a possible 10-day course. Patient today is on day 12/07. Case discussed with Dr. Vernon from pulmonology. If patient does not improve by Wednesday evening will most likely need a bronchoscopy for further evaluation on Wednesday. Legionella and MRSA swab negative. Acute toxic metabolic encephalopathy: Resolved most likely was due to sepsis. JOIE: Resolved. Creatinine 0.5 today. At baseline. Continue with IV hydration of normal saline 75 cc/h. Will encourage patient to increase her oral intake and then can start decreasing fluids. DC Adams catheter Continue home dose of citalopram, levothyroxine, Protonix, pramipexole, Seroquel. Thrombocytopenia: Stable most likely due to sepsis. We will continue to monitor daily. As platelet counts are more than 80,000 now and stable we will start her on Lovenox for DVT prophylaxis. Physical therapy. Discussed her CODE STATUS with her son who is also her POA. Her son Chris states patient previously was DNR/DNI but states on last admission she herself made her full code. We will continue full code for now. Regular diet. Lovenox for DVT prophylaxis Transfer to [facility]. Attestations Medical Necessity Statement*: Needs continued hospitalization for management of postobstructive pneumonia and UTI. Time Spent in Patient Care: Greater than 35 minutes Coding Level of Care Code Acute Image Archivist for [facility] Fwd Diagnoses Sepsis A41.9 Pneumonia J18.9 Urinary tract infection N39.0 Acute kidney injury (nontraumatic) N17.9 Dehydration E86.0 Hypercalcemia E83.52 Toxic encephalopathy G92 Hypotension I95.9 Thrombocytopenia D69.6 Chronic pain syndrome G89.4
--- NOTE | 2019-10-06 19:30 | PC.NURSE ---
Patient is refusing to have her catheter removed at this time. Patient states, I am so weak. I can't even stand why do you want to take it out? Explained to the patient that the want it removed. Patient states, What if I can't stand after you take it out you will just have to put it back in. Why can't you just leave it in? Explained that it is at a risk for infection for causing her an increase infection. Patient states, I do not want it taken out.
[2019-10-06] MEDS: quetiapine 25 mg Tablet 50 MG PO (20:10)
[2019-10-06] MEDS: enoxaparin 40 mg/0.4 mL Syringe SUBCUT (20:11)
[2019-10-07] VITALS (15 sets, daily range): BP systolic 80–142; BP diastolic 50–73; PULSE 64–83; RESP 8–20; TEMP 36.8–37.3; O2SAT 90–98
[2019-10-07] MEDS: sodium chloride 0.9% 1,000 ML 75 ML IV ×2 (01:38→17:21)
[2019-10-07] MEDS: ipratropium-albuterol 3 mL Neb INHALATION ×4 (03:19→22:16)
--- NOTE | 2019-10-07 03:53 | PC.NURSE ---
Patient asked to remove her Bi-pap at this time. Bi-Pap removed. Patient continues to be on 4 liters of oxygen by fl.
[2019-10-07] MEDS: metoprolol tartrate 25 mg Tablet 12.5 MG PO ×2 (04:22→08:14)
[2019-10-07] MEDS: HYDROcodone-acetaminophen 5-325 mg Tablet 1 TAB PO ×2 (04:22→22:53)
[2019-10-07] MEDS: piperacillin-tazobactam 3.375 GM in sodium chloride 0.9% (plus) 50 ML IV ×3 (07:25→22:55)
[2019-10-07] MEDS: dilTIAZem ER (24HR) 240 mg Capsule PO (08:12)
[2019-10-07] MEDS: montelukast sodium 10 mg Tablet PO (08:12)
[2019-10-07] MEDS: quetiapine 25 mg Tablet PO (08:13)
[2019-10-07] MEDS: levothyroxine 125 mcg Tablet PO (08:13)
[2019-10-07] MEDS: citalopram 20 mg Tablet 10 MG PO (08:13)
[2019-10-07] MEDS: pantoprazole DR 40 mg Tablet PO (08:13)
[2019-10-07] MEDS: nystatin powder 15 gm Btl 1 APPLIC TOPICAL ×2 (08:15→17:17)
--- NOTE | 2019-10-07 11:37 | PC.SOCIAL ---
IMM Update Pg 2 of IMM given and explained to patient who voiced understanding. Copy in chart updated and copy provided to patient.
[2019-10-07 14:14] LABS: Basophils % 0.4 %; Eosinophils # 0.1 10^3/uL (0.0-0.8); Hematocrit 29.6 % (37.0-47.0); Hemoglobin 8.9 g/dL (11.5-15.3); Lymphocytes # 0.7 10^3/uL (0.8-4.8); Lymphocytes % 26.6 %; Mean Corpuscular HGB Conc 30.1 g/dL (30.0-36.0); Mean Corpuscular Hemoglobin 25.3 pg (28.0-34.0); Mean Corpuscular Volume 84.1 fL (81-99); Mean Platelet Volume 9.6 fL (7.4-10.4); Monocytes # 0.2 10^3/uL (0.2-0.9); Monocytes % 8.3 %; Neutrophils # 1.4 10^3/uL (1.8-7.7); Neutrophils % 51.7 %; Nucleated Red Blood Cells % 0 %; Platelet Count 114 10^3/cmm (130-400); Red Blood Count 3.52 10^6/uL (4.1-5.3); Red Cell Distribution Width 17.3 % (12.1-15.1); White Blood Count 2.8 10^3/uL (4.0-10.0)
[2019-10-07 14:35] LABS: Alanine Aminotransferase 9 U/L (0-33); Albumin Level 2.3 g/dL (3.5-5.2); Alkaline Phosphatase 82 IU/L (35-105); Anion Gap 12.7 (5-19); Aspartate Amino Transferase 13 U/L (0-32); Blood Urea Nitrogen 7 mg/dL (8-23); Calcium 9.4 mg/dL (8.5-10.5); Carbon Dioxide 22 mmol/L (22-29); Chloride 106 mmol/L (98-107); Globulin 1.6 g/dL (1.3-4.6); Glucose 115 mg/dL (65-115); Potassium 3.7 mmol/L (3.5-5.1); Sodium 137 mmol/L (136-145); Total Bilirubin 0.4 mg/dL (0.15-1.2); Total Protein 3.9 g/dL (6.6-8.7)
[2019-10-07 14:45] LABS: Slide Review Slide Review Perform
[2019-10-07] MEDS: pramipexole 0.25 mg Tablet 0.125 MG PO (17:18)
--- NOTE | 2019-10-07 18:26 | PM.PN ---
Subjective Subjective: Interval history: No acute events overnight. In last 24 hours patient was transferred over to [facility] floor as she was doing fine in the ICU. On examination today patient is lying comfortably in bed. Continues to feels a little anxious because of recurrent pneumonias. Denies of having any shortness of breath, nausea, vomiting, headache. Vitals/I&O/Wt Last Vital Signs Temp 99.2 F 10/07/19 15:27 Pulse 68 10/07/19 15:27 Resp 20 H 10/07/19 15:27 BP 110/73 10/07/19 15:27 Pulse Ox 94 10/07/19 15:27 10/07/19 10/07/19 10/07/19 06:59 14:59 22:59 Intake Total 1300 / 2596.25 1889 Output Total 1000 / 1000 Balance 300 / 1596.25 1889 Physical Exam Narrative: EXAM NARRATIVE: General: No acute distress, AO x3 HEENT: PERRLA, pupils bilaterally equal and reactive Chest: Bronchial breath sounds in the left middle and lower zones but diffuse crackles, normal vesicular breath sounds all over the lung sebastian otherwise, good air entry on the right side. CVS: S1-S2 regular, no murmurs, no tachycardia, no gallops, no rubs Abdomen: Soft, nontender, no organomegaly, bowel sounds present, obese Neuro: No focal deficits, no facial deformity, AO x3, power 5/5 in all limbs Urinary Catheter Management^: Adams: Cath Placed During This Visit: yes, but has since been removed by the nurse Urethral Indwelling: No Reason for Continuing Indwelling Catheter: Not indwelling catheter Urinary Catheter Date of Insertion: 10/06/19 Urinary Catheter Time of Insertion: 03:16 Date Urinary Catheter Removed: 10/07/19 Time Urinary Catheter Discontinued: 06:30 Data : 10/07/19 13:59 10/07/19 13:59 Micro: Microbiology 10/02/19 15:57 Blood Culture - Final Blood NO GROWTH AFTER 5 DAYS 10/02/19 16:02 Blood Culture - Final Blood NO GROWTH AFTER 5 DAYS 10/04/19 15:35 Gram Stain - Final Sputum - Expectorated Sputum Sputum Culture - Final A&P Assessment and plan (1) Sepsis: As exhibited by tachycardia, leukocytosis and tachypnea on presentation. Patient was afebrile. Improved Status: Acute Code(s): A41.9 - Sepsis, unspecified organism (2) Pneumonia: Status: Acute Code(s): J18.9 - Pneumonia, unspecified organism (3) Urinary tract infection: Patient had previous history of resistant UTI. Currently growing gram-negative josselyn Status: Acute Code(s): N39.0 - Urinary tract infection, site not specified (4) Acute kidney injury (nontraumatic): Appears prerenal secondary dehydration. Status: Acute Code(s): N17.9 - Acute kidney failure, unspecified (5) Dehydration: Status: Acute Code(s): E86.0 - Dehydration (6) Hypercalcemia: Most likely sec to dehydration Status: Acute Code(s): E83.52 - Hypercalcemia (7) Toxic encephalopathy: This is likely related to urine tract infection and/or opioids. Status: Acute Code(s): G92 - Toxic encephalopathy (8) Hypotension: Hypotension is secondary to septic shock as patient continues to require pressor support despite large amount of fluids. Improving Status: Acute Code(s): I95.9 - Hypotension, unspecified (9) Thrombocytopenia: Most likely related to an underlying infection. Status: Acute Code(s): D69.6 - Thrombocytopenia, unspecified (10) Chronic pain syndrome: Status: Acute Code(s): G89.4 - Chronic pain syndrome Additional A&P Information Sepsis: On admission. Now resolved. Most likely due to postobstructive pneumonia and UTI. CT chest done yesterday suggestive of a left hilar mass.On review of records from her previous hospitalization at [facility] it seems patient had a mucous plug on the left side. Patient did have a bronchoscopy on which no biopsy was done so not really sure of malignancy status. For mucous plugs continue with chest vest twice daily along with saline nebulizations. Will repeat chest x-ray tomorrow morning to look for resolution. We will start patient on DuoNeb [id number] along with budesonide twice daily and albuterol as needed. Continue with vancomycin and Zosyn for now given possible postobstructive pneumonia. We will try to finish off a possible 10-day course. Patient today is on day 01/06. Case discussed with Dr. Vernon from pulmonology. If patient does not improve by Willis evening will most likely need a bronchoscopy for further evaluation on Wednesday. Legionella and MRSA swab negative. Acute toxic metabolic encephalopathy: Resolved most likely was due to sepsis. JOIE: Resolved. Creatinine 0.5 today. At baseline. Continue with IV hydration of normal saline 75 cc/h. Will encourage patient to increase her oral intake and then can start decreasing fluids. DC Adams catheter Continue home dose of citalopram, levothyroxine, Protonix, pramipexole, Seroquel. Thrombocytopenia: Resolved. Physical therapy. CODE STATUS: Discussed with patient and she states she would like to be full code. Regular diet. Lovenox for DVT prophylaxis Attestations Medical Necessity Statement*: Needs further hospitalization for management of postobstructive pneumonia Time Spent in Patient Care: Greater than 35 minutes Coding Level of Care Code Acute Police Clerk for [facility] Fwd Diagnoses Sepsis A41.9 Pneumonia J18.9 Urinary tract infection N39.0 Acute kidney injury (nontraumatic) N17.9 Dehydration E86.0 Hypercalcemia E83.52 Toxic encephalopathy G92 Hypotension I95.9 Thrombocytopenia D69.6 Chronic pain syndrome G89.4
[2019-10-07] MEDS: enoxaparin 40 mg/0.4 mL Syringe SUBCUT (20:22)
[2019-10-07] MEDS: quetiapine 25 mg Tablet 50 MG PO (20:22)
--- NOTE | 2019-10-07 21:50 | PC.NURSE ---
Received orders to straight cath patient for no urinary output today. When entering the room at this time patient states, I think I think I did finally pee. I am sorry I went in the bed. Patient has a large amount of urine out. She was a complete bed change. Straight cath not completed at this time.
[2019-10-07 23:12] LABS: Vancomycin Trough 23.5 ug/mL (10-15)
[2019-10-08] VITALS (15 sets, daily range): BP systolic 100–140; BP diastolic 54–82; PULSE 61–115; RESP 16–23; TEMP 36.4–37; O2SAT 90–94
--- NOTE | 2019-10-08 01:12 | PC.PHAR ---
Vancomycin trough level is 23.5. Hold for 24 hours from last dose and resume at 1gm IVPB every 12 hours.
[2019-10-08] MEDS: ipratropium-albuterol 3 mL Neb INHALATION ×4 (02:30→20:15)
[2019-10-08 06:02] LABS: Basophils % 0.3 %; Eosinophils # 0.2 10^3/uL (0.0-0.8); Eosinophils % 5.2 %; Hematocrit 30.7 % (37.0-47.0); Hemoglobin 9.1 g/dL (11.5-15.3); Lymphocytes # 1.1 10^3/uL (0.8-4.8); Lymphocytes % 28.3 %; Mean Corpuscular HGB Conc 29.6 g/dL (30.0-36.0); Mean Corpuscular Hemoglobin 24.2 pg (28.0-34.0); Mean Corpuscular Volume 81.6 fL (81-99); Mean Platelet Volume 9.6 fL (7.4-10.4); Monocytes # 0.3 10^3/uL (0.2-0.9); Monocytes % 8.4 %; Neutrophils # 1.8 10^3/uL (1.8-7.7); Neutrophils % 46.5 %; Nucleated Red Blood Cells % 0 %; Platelet Count 122 10^3/cmm (130-400); Red Blood Count 3.76 10^6/uL (4.1-5.3); Red Cell Distribution Width 17.4 % (12.1-15.1); White Blood Count 3.8 10^3/uL (4.0-10.0)
[2019-10-08] MEDS: HYDROcodone-acetaminophen 5-325 mg Tablet 1 TAB PO ×2 (06:04→15:30)
[2019-10-08 06:22] LABS: Alanine Aminotransferase 9 U/L (0-33); Albumin Level 2.3 g/dL (3.5-5.2); Alkaline Phosphatase 89 IU/L (35-105); Anion Gap 11.3 (5-19); Aspartate Amino Transferase 14 U/L (0-32); Blood Urea Nitrogen 7 mg/dL (8-23); Calcium 9.8 mg/dL (8.5-10.5); Carbon Dioxide 24 mmol/L (22-29); Chloride 109 mmol/L (98-107); Globulin 2.7 g/dL (1.3-4.6); Glucose 77 mg/dL (65-115); Potassium 3.3 mmol/L (3.5-5.1); Sodium 141 mmol/L (136-145); Total Bilirubin 0.4 mg/dL (0.15-1.2)
[2019-10-08 06:33] LABS: Slide Review Slide Review Perform
[2019-10-08] MEDS: piperacillin-tazobactam 3.375 GM in sodium chloride 0.9% (plus) 50 ML IV ×2 (06:36→15:50)
[2019-10-08] MEDS: sodium chloride 0.9% 1,000 ML 75 ML IV (06:37)
[2019-10-08] MEDS: montelukast sodium 10 mg Tablet PO (08:19)
[2019-10-08] MEDS: dilTIAZem ER (24HR) 240 mg Capsule PO (08:19)
[2019-10-08] MEDS: pantoprazole DR 40 mg Tablet PO (08:19)
[2019-10-08] MEDS: quetiapine 25 mg Tablet PO (08:20)
[2019-10-08] MEDS: levothyroxine 125 mcg Tablet PO (08:20)
[2019-10-08] MEDS: citalopram 20 mg Tablet 10 MG PO (08:23)
[2019-10-08] MEDS: nystatin powder 15 gm Btl 1 APPLIC TOPICAL ×2 (08:23→18:05)
--- NOTE | 2019-10-08 13:27 | XR_ITS ---
WS: [id number] ONE VIEW CHEST HISTORY: 78 years old Female with PNA AP upright chest comparison 10/02/2019 FINDINGS: Accounting for technical differences, increased now moderate to severe left mid and lower lung zone c onsolidation. No pneumothorax. Increased right costophrenic angle opacity. Suspicious for left lung v olume loss with ipsilateral mediastinal shift versus rotational artifact. Heart size obscured. Pulmon darrian vascular markings obscured. No subdiaphragmatic free air. XR/XR chest 1V portable [id number] IMPRESSION: 1. Progression left mid and lower lung zone atelectasis and pneumonia. Concerni ng for postobstructive process, including neoplastic process. Recommend follow- up CT chest with IV contrast for further evaluation. 2. Interval right costophrenic angle atelectasis and/or pneumonia.
--- NOTE | 2019-10-08 13:29 | P.PN_ITS ---
Subjective Subjective: Interval history: No acute events overnight. On examination she is comfortable. Denies of having shortness of breath, nausea, vomiting, headache, abdominal pain. She is agreed to follow-up with Dr. Vernon from pulmonology. Vitals/I&O/Wt Last Vital Signs Temp 98.6 F 10/08/19 11:47 Pulse 115 H 10/08/19 11:47 Resp 18 10/08/19 11:47 BP 104/57 10/08/19 11:47 Pulse Ox 92 10/08/19 11:47 10/07/19 10/08/19 10/08/19 22:59 06:59 14:59 Intake Total 150 / 2040 1161.25 / 3201.25 360 / 360 Output Total 200 / 200 Balance 150 / 2040 961.25 / 3001.25 360 / 360 Physical Exam Narrative: EXAM NARRATIVE: General: No acute distress, AO x3 HEENT: PERRLA, pupils bilaterally equal and reactive Chest: Bronchial breath sounds in the left middle and lower zones but diffuse crackles, normal vesicular breath sounds all over the lung sebastian otherwise, good air entry on the right side. CVS: S1-S2 regular, no murmurs, no tachycardia, no gallops, no rubs Abdomen: Soft, nontender, no organomegaly, bowel sounds present, obese Neuro: No focal deficits, no facial deformity, AO x3, power 5/5 in all limbs Urinary Catheter Management^: Adams: Cath Placed During This Visit: yes, but has since been removed by the nurse Urethral Indwelling: No Reason for Continuing Indwelling Catheter: Not indwelling catheter Urinary Catheter Date of Insertion: 10/06/19 Urinary Catheter Time of Insertion: 03:16 Date Urinary Catheter Removed: 10/07/19 Time Urinary Catheter Discontinued: 06:30 Data : 10/08/19 05:21 10/08/19 05:21 Micro: Microbiology 10/02/19 15:57 Blood Culture - Final Blood NO GROWTH AFTER 5 DAYS 10/02/19 16:02 Blood Culture - Final Blood NO GROWTH AFTER 5 DAYS 10/04/19 15:35 Gram Stain - Final Sputum - Expectorated Sputum Sputum Culture - Final A&P Assessment and plan (1) Sepsis: As exhibited by tachycardia, leukocytosis and tachypnea on presentation. Patient was afebrile. Improved Status: Acute Code(s): A41.9 - Sepsis, unspecified organism (2) Pneumonia: Status: Acute Code(s): J18.9 - Pneumonia, unspecified organism (3) Urinary tract infection: Patient had previous history of resistant UTI. Currently growing gram- negative josselyn Status: Acute Code(s): N39.0 - Urinary tract infection, site not specified (4) Acute kidney injury (nontraumatic): Appears prerenal secondary dehydration. Status: Acute Code(s): N17.9 - Acute kidney failure, unspecified (5) Dehydration: Status: Acute Code(s): E86.0 - Dehydration (6) Hypercalcemia: Most likely sec to dehydration Status: Acute Code(s): E83.52 - Hypercalcemia (7) Toxic encephalopathy: This is likely related to urine tract infection and/or opioids. Status: Acute Code(s): G92 - Toxic encephalopathy (8) Hypotension: Hypotension is secondary to septic shock as patient continues to require pressor support despite large amount of fluids. Improving Status: Acute Code(s): I95.9 - Hypotension, unspecified (9) Thrombocytopenia: Most likely related to an underlying infection. Status: Acute Code(s): D69.6 - Thrombocytopenia, unspecified (10) Chronic pain syndrome: Status: Acute Code(s): G89.4 - Chronic pain syndrome Additional A&P Information Sepsis: On admission. Now resolved. Postobstructive pneumonia and UTI: CT chest done yesterday suggestive of a left hilar mass.On review of records from her previous hospitalization at [place] it seems patient had a mucous plug on the left side. Patient did have a bronchoscopy on which no biopsy was done so not really sure of malignancy status. For mucous plugs continue with chest vest twice daily along with saline nebulizations. Chest x-ray today morning. Continue with DuoNeb [id number] along with budesonide twice daily and albuterol as needed. Continue with vancomycin and Zosyn for now given possible postobstructive pneumonia. We will try to finish off a possible 10-day course. Patient today is on day 02/06. Though patient has finished her course for UTI but will have to continue for both of her pneumonia. Case discussed with Dr. Vernon from pulmonology. If patient does not improve by Wednesday evening will most likely need a bronchoscopy for further evaluation on Wednesday. Legionella and MRSA swab negative. Patient mildly fluid overloaded today. We will give IV Lasix 20 mg stat. Acute toxic metabolic encephalopathy: Resolved most likely was due to sepsis. JOIE: Resolved. Creatinine 0.5 today. At baseline. Patient seems little fluid overloaded today. We will stop IV fluids. Will give IV Lasix 20 mg stat and follow-up with 20 mg Lasix from tomorrow morning which is her home dose. Will encourage patient to increase her oral intake and then can start decreasing fluids. Adams catheter removed 2 days ago. Continue home dose of citalopram, levothyroxine, Protonix, pramipexole, Seroquel. Thrombocytopenia: Resolved. Physical therapy. CODE STATUS: Discussed with patient and she states she would like to be full code. Regular diet. Lovenox for DVT prophylaxis Attestations Medical Necessity Statement*: Needs further hospitalization for resolving post obstructive pneumonia. Time Spent in Patient Care: 16 - 35 minutes Coding Level of Care Code Acute Dog Pound Attendant for [facility] Fwd Diagnoses Sepsis A41.9 Pneumonia J18.9 Urinary tract infection N39.0 Acute kidney injury (nontraumatic) N17.9 Dehydration E86.0 Hypercalcemia E83.52 Toxic encephalopathy G92 Hypotension I95.9 Thrombocytopenia D69.6 Chronic pain syndrome G89.4
[2019-10-08] MEDS: vancomycin 1,000 MG in sodium chloride 0.9% 250 ML 250 MG IV (14:44)
[2019-10-08] MEDS: FUROsemide 10 mg/mL SDV 2mL 20 MG IVP (14:59)
[2019-10-08] MEDS: pramipexole 0.25 mg Tablet 0.125 MG PO (18:05)
[2019-10-08] MEDS: lidocaine 1% INJ 20 mL 5 ML IV (18:54)
[2019-10-08] MEDS: potassium chloride premix 40 MEQ/100 ML PREMIX 25 MEQ IV (18:54)
[2019-10-08] MEDS: enoxaparin 40 mg/0.4 mL Syringe SUBCUT (20:59)
[2019-10-08] MEDS: quetiapine 25 mg Tablet 50 MG PO (20:59)
[2019-10-09] VITALS (14 sets, daily range): BP systolic 102–145; BP diastolic 42–69; PULSE 62–84; RESP 18–24; TEMP 36.9–37.4; O2SAT 89–93
[2019-10-09] MEDS: acetaminophen 325 mg Tablet 650 MG PO ×2 (02:39→12:42)
[2019-10-09] MEDS: piperacillin-tazobactam 3.375 GM in sodium chloride 0.9% (plus) 50 ML IV ×3 (02:40→20:23)
[2019-10-09 02:45] LABS: Potassium 3.7 mmol/L (3.5-5.1)
[2019-10-09] MEDS: ipratropium-albuterol 3 mL Neb INHALATION ×4 (02:58→20:20)
[2019-10-09 07:23] LABS: Basophils % 0.3 %; Eosinophils # 0.1 10^3/uL (0.0-0.8); Eosinophils % 4.3 %; Hematocrit 30.4 % (37.0-47.0); Hemoglobin 8.7 g/dL (11.5-15.3); Lymphocytes # 0.9 10^3/uL (0.8-4.8); Lymphocytes % 27.7 %; Mean Corpuscular HGB Conc 28.6 g/dL (30.0-36.0); Mean Corpuscular Hemoglobin 24.1 pg (28.0-34.0); Mean Corpuscular Volume 84.2 fL (81-99); Mean Platelet Volume 9.4 fL (7.4-10.4); Monocytes # 0.3 10^3/uL (0.2-0.9); Monocytes % 8.3 %; Neutrophils # 1.6 10^3/uL (1.8-7.7); Neutrophils % 48.3 %; Nucleated Red Blood Cells % 0 %; Platelet Count 133 10^3/cmm (130-400); Red Blood Count 3.61 10^6/uL (4.1-5.3); Red Cell Distribution Width 17.6 % (12.1-15.1); White Blood Count 3.3 10^3/uL (4.0-10.0)
[2019-10-09 07:44] LABS: Slide Review Slide Review Perform
--- NOTE | 2019-10-09 08:12 | PC.RESP ---
5ML 3% SODIUM CHLORIDE GIVEN
[2019-10-09] MEDS: pantoprazole DR 40 mg Tablet PO (09:14)
[2019-10-09] MEDS: levothyroxine 125 mcg Tablet PO (09:15)
[2019-10-09] MEDS: dilTIAZem ER (24HR) 240 mg Capsule PO (09:15)
[2019-10-09] MEDS: citalopram 20 mg Tablet 10 MG PO (09:15)
[2019-10-09] MEDS: montelukast sodium 10 mg Tablet PO (09:15)
[2019-10-09] MEDS: quetiapine 25 mg Tablet PO (09:16)
[2019-10-09] MEDS: nystatin powder 15 gm Btl 1 APPLIC TOPICAL ×2 (09:19→18:26)
--- NOTE | 2019-10-09 09:50 | PC.SOCIAL ---
IMM Update Pg 2 of IMM updated. Additional copy provided to patient.
[2019-10-09] MEDS: FUROsemide 20 mg Tablet PO (12:42)
--- NOTE | 2019-10-09 13:00 | XR_ITS ---
WS: [id number] Portable AP upright chest, 10/09/2019 Clinical Data: pneumonia Comparison: Portable chest, 10/08/2019 Findings: The consolidation in the left lung is not changed. There is minimal consolidation over the surface of the right diaphragm. The patient is rotated and the heart size is obscured by the left diaz g consolidation. Pulmonary vascularity is not increased. The aortic arch shows calcification. XR/XR chest 1V portable [id number] Impression: 1. No change in consolidation and left lower lobe which is probably a combinati on of atelectasis, pneumonia and effusion. 2. Minimal consolidation over lateral aspect of the right diaphragm has diminis hed slightly. 3. Atherosclerosis.
--- NOTE | 2019-10-09 15:08 | PC.SLP ---
Due to patient's weight, we were unable to complete a Modified Barium Swallow Study as the weight limit on the Modified Swallow Chair is [address] Vargas was notified and he requested a FEES (Fiberoptic Endoscopic Evaluation of Swallowig) be completed. Due to blood clots and narrow nasal passages, the scope was unable to be passed to evaluate the patient's swallowing. Dr. Vargas was notified.
--- NOTE | 2019-10-09 15:18 | P.PN_ITS ---
Subjective Subjective: Interval history: History and physical reviewed in detail. Patient reports her breathing is better than it was previously. Still short of breath. Wonders why she overall has recurrent breathing difficulties. Medications: Reviewed: Yes Vitals/I&O/Wt Last Vital Signs Temp 98.9 F 10/09/19 11:17 Pulse 80 10/09/19 14:44 Resp 20 H 10/09/19 14:43 BP 125/66 10/09/19 11:17 Pulse Ox 92 10/09/19 14:43 10/09/19 10/09/19 10/09/19 06:59 14:59 22:59 Intake Total 410 / 870 120 / 120 Output Total 400 / 1400 Balance 530 120 / 120 Weight last 48 hrs Weight 137.801 kg Weight 138.527 kg Physical Exam Narrative: EXAM NARRATIVE: General exam is no apparent distress Cardiovascular regular rate and rhythm Lungs diminished breath sounds bilaterally Abdomen is soft with positive bowel sounds Extremities no cyanosis clubbing Urinary Catheter Management^: Adams: Cath Placed During This Visit: yes, but has since been removed by the nurse Urethral Indwelling: No Reason for Continuing Indwelling Catheter: Not indwelling catheter Urinary Catheter Date of Insertion: 10/06/19 Urinary Catheter Time of Insertion: 03:16 Date Urinary Catheter Removed: 10/07/19 Time Urinary Catheter Discontinued: 06:30 Data : 10/09/19 06:54 10/09/19 02:20 A&P Assessment and plan (1) Sepsis: Resolved Status: Acute Code(s): A41.9 - Sepsis, unspecified organism (2) Pneumonia: Currently on vancomycin, Zosyn. Concerns with mucous plugging, potential need for bronchoscopy. Pulmonary will consult. Status: Acute Code(s): J18.9 - Pneumonia, unspecified organism (3) Urinary tract infection: Urine grew E. coli, sensitive to Zosyn Status: Acute Code(s): N39.0 - Urinary tract infection, site not specified (4) Acute kidney injury (nontraumatic): Resolved Status: Acute Code(s): N17.9 - Acute kidney failure, unspecified (5) Dehydration: Resolved Status: Acute Code(s): E86.0 - Dehydration (6) Hypercalcemia: Resolved Status: Acute Code(s): E83.52 - Hypercalcemia (7) Toxic encephalopathy: This is likely related to urine tract infection and/or opioids. Improved Status: Acute Code(s): G92 - Toxic encephalopathy (8) Hypotension: Resolved. Secondary to sepsis. Status: Acute Code(s): I95.9 - Hypotension, unspecified (9) Thrombocytopenia: Likely secondary to sepsis. Now resolved Status: Acute Code(s): D69.6 - Thrombocytopenia, unspecified (10) Chronic pain syndrome: Status: Acute Code(s): G89.4 - Chronic pain syndrome Additional A&P Information Pneumonia appears postobstructive. Pulmonary to consult. Mucous plugging was noted at hospitalization at [facility]. Currently with pulmonary toilet, vancomycin, Zosyn. MRSA swab negative Continue physical therapy Currently full code Lovenox for DVT prophylaxis Attestations Medical Necessity Statement*: Needs continued hospitalization for treatment of pneumonia. Coding Level of Care Code Acute Telegraphic Typewriter Operator for [facility] Fwd Diagnoses Sepsis A41.9 Pneumonia J18.9 Urinary tract infection N39.0 Acute kidney injury (nontraumatic) N17.9 Dehydration E86.0 Hypercalcemia E83.52 Toxic encephalopathy G92 Hypotension I95.9 Thrombocytopenia D69.6 Chronic pain syndrome G89.4
[2019-10-09 16:34] LABS: Basophils % 0.3 %; Eosinophils # 0.2 10^3/uL (0.0-0.8); Eosinophils % 4.2 %; Hematocrit 30.5 % (37.0-47.0); Lymphocytes # 0.8 10^3/uL (0.8-4.8); Lymphocytes % 20.9 %; Mean Corpuscular HGB Conc 29.5 g/dL (30.0-36.0); Mean Corpuscular Hemoglobin 24.1 pg (28.0-34.0); Mean Corpuscular Volume 81.8 fL (81-99); Mean Platelet Volume 9.6 fL (7.4-10.4); Monocytes # 0.3 10^3/uL (0.2-0.9); Monocytes % 8.7 %; Nucleated Red Blood Cells % 0 %; Platelet Count 150 10^3/cmm (130-400); Red Blood Count 3.73 10^6/uL (4.1-5.3); Red Cell Distribution Width 17.6 % (12.1-15.1); White Blood Count 3.8 10^3/uL (4.0-10.0)
--- NOTE | 2019-10-09 17:56 | P.CONIM_ITS ---
Providers/Reason For Consult Consulting Physican/Specialty*: Pulmonary and critical care medicine Reason for Consult*: Recurrent pneumonia with left lower lobe atelectasis Attending Physician: David Vargas MD History of Present Illness History of Present Illness Joy Bassett is a 78 year old female who was admitted to the hospital on October 02 with urinary tract infection with E. coli requiring aggressive fluid therapy and vasopressors. During the course of evaluation, the patient was found to have left lower lobe pneumonia. She had a CT scan done during this hospital admission showing significant atelectasis of the left lower lobe and a pulmonary consultation was asked for to evaluate the patient. I have reviewed the patient's past medical record. The patient has a history of extensive smoking. She had smoked for over 40 years about a pack and a half a day. The patient had moderate airflow obstruction on the pulmonary function test that was obtained in 2015. Her DLCO was severely reduced. At baseline, the patient used to be oxygen dependent. The patient used 2 L of oxygen. The first time that the patient was admitted to the hospital with bilateral lower lobe pneumonia was in June 2019. The patient was treated with antibiotic. The sputum culture did not grow any specific organism. The patient was admitted again in August with pneumonia and acute on chronic hypoxic respiratory failure. This time the patient went to [facility] and underwent a bronchoscopy. I do not have the result of this however it appears that the patient had a mucous plug which was suctioned out with subsequent improvement in the patient's condition. The patient was discharged to a residential. This time, the patient presented to the hospital with the aforementioned symptoms and signs. The patient was treated with broad-spectrum antibiotic, chest physical therapy with hypertonic saline nebulization however the patient did not have any significant improvement of her chest x-rays. The CT scan obtained on October 05 showed significant consolidation as well as atelectasis predominantly involving the left lower lobe with mediastinal shift. The patient was also found to have consolidative changes involving the right lung. According to the CT scan read, the patient has a left hilar mass measuring 6.7 x 6.2 cm. Interestingly, no such mass was mentioned on the CT angiogram that was obtained on September 05. There is also occlusion of the left lower lobe bronchus. The patient was seen and examined this evening. The patient was resting comfortably. Easily arousable. The patient did not complain of significant shortness of breath and is requiring 5 L oxygen to have adequate oxygen saturation. The patient has cough however she is not producing any significant amount of sputum. She denies any fever, night sweats, chills. She has mild orthopnea however I had seen her sleeping laying flat. Patient stated that she has not gotten out of bed since she was in the hospital. Review of Systems Narrative: General: No fevers chills night sweats. The patient complains of significant fatigue Skin: No new rash HEENT: No nasal congestion, rhinitis, sinusitis, sneezing, hoarseness of voice. There is no blurred vision, double vision, redness of the eye or visual loss. Neck: There is no neck swelling, mass or swollen glands. Respiratory: Please see my HPI. Cardiovascular: No chest pain, resting shortness of breath. The patient complains of orthopnea but no proximal nocturnal dyspnea, palpitation. She has developed bilateral lower extremity edema. Gastrointestinal: Epigastric abdominal pain but no nausea, vomiting, melena Musculoskeletal: The patient complains of significant weakness, she has not gotten out of bed since she came in Neurological: Patient is awake alert and oriented x3, no paralysis, gross motor function is normal. Psychiatric: No acute anxiety episode during hospital admission Meds/Allergies Home Medications and Allergies Home Medications Medication Instructions Recorded Confirmed Type acetaminophen 1,000 mg PO BID PRN 09/05/19 10/04/19 History acetaminophen 650 mg PO QID PRN 09/05/19 10/04/19 History albuterol sulfate 2 puff INHALATION 6XD PRN 09/05/19 10/04/19 History alprazolam [Xanax] 0.5 mg PO BID PRN 09/05/19 10/04/19 History bisacodyl 10 mg HI DAILY PRN 09/05/19 10/04/19 History citalopram 10 mg PO DAILY 09/05/19 10/04/19 History diltiazem HCl 240 mg PO DAILY 09/05/19 10/04/19 History fluticasone propion-salmeterol 1 inh INHALATION BID 09/05/19 10/04/19 History [Advair Diskus] furosemide [Lasix] 20 mg PO DAILY 09/05/19 10/04/19 History hydrocodone-acetaminophen 1 tab PO TID PRN 09/05/19 10/04/19 History ipratropium-albuterol 3 ml INHALATION Q6H PRN 09/05/19 10/04/19 History levothyroxine 125 mcg PO DAILY 09/05/19 10/04/19 History lidocaine-transparent dressing 0 % TOPICAL .COMPLEX 09/05/19 10/04/19 History magnesium citrate 100 mg PO DAILY PRN 09/05/19 10/04/19 History magnesium hydroxide [Milk of 30 ml PO DAILY PRN 09/05/19 10/04/19 History Magnesia] montelukast 10 mg PO DAILY 09/05/19 10/04/19 History pantoprazole 20 mg PO BID 09/05/19 10/04/19 History polyethylene glycol 3350 [Miralax] 17 g PO DAILY PRN 09/05/19 10/04/19 History pramipexole [Mirapex] 0.125 mg PO QPM 09/05/19 10/04/19 History quetiapine [Seroquel] 25 mg PO DAILY 09/05/19 10/04/19 History quetiapine [Seroquel] 50 mg PO BEDTIME 09/05/19 10/04/19 History sennosides-docusate sodium [Senna 2 tab-cap PO BID PRN 09/05/19 10/04/19 History Plus] sodium phosphates [Enema 118 ml HI DAILY PRN 09/05/19 10/04/19 History Disposable] Allergies Allergy/AdvReac Type Severity Reaction Status Date / Time No Known Allergies Allergy Verified 09/05/19 20:04 Current Medications Current Medications Generic Name Dose Route Start Last Admin Trade Name Freq PRN Reason Stop Dose Admin Acetaminophen 650 mg 10/02/19 18:35 10/09/19 12:42 Tylenol PO 650 mg Q6H PRN Administration Mild/Mod Pain Or Temp >/= 101 Hydrocodone Bitart/Acetaminophen 1 tab 10/04/19 08:55 10/08/19 15:30 [place] 5-325 Mg PO 1 tab TID PRN Administration Pain Albuterol/Ipratropium 3 ml 10/06/19 21:00 10/09/19 14:41 Duoneb INHALATION 3 ml Q6H.RESPIRATORY SHERICE Administration Citalopram Hydrobromide 10 mg 10/05/19 09:00 10/09/19 09:15 Celexa PO 10 mg DAILY SHERICE Administration Diltiazem HCl 240 mg 10/04/19 09:00 10/09/19 09:15 Cardizem Cd (24hr) PO 240 mg DAILY SHERICE Administration Enoxaparin Sodium 40 mg 10/06/19 20:00 10/08/19 20:59 Lovenox SUBCUT 40 mg Q24H SHERICE Administration Furosemide 20 mg 10/04/19 09:00 10/09/19 12:42 Lasix PO 20 mg DAILY SHERICE Administration Piperacillin Sod/Tazobactam 50 mls @ 12.5 mls/hr 10/06/19 14:00 10/09/19 12:43 Sod 3.375 gm/ Sodium Chloride IV 12.5 mls/hr Q8H SHERICE Administration Protocol As Directed Sodium Chloride 5 ml/ N/A 5 mls @ 0 mls/hr 10/07/19 08:45 10/09/19 07:08 NEBULIZER Not Given BID.RESPIRATORY SHERICE Vancomycin HCl 1,000 mg/ 250 mls @ 250 mls/hr 10/08/19 15:00 10/08/19 14:44 Sodium Chloride IV 250 mls/hr Q24H SHERICE Administration Levothyroxine Sodium 125 mcg 10/04/19 09:15 10/09/19 09:15 Synthroid PO 125 mcg DAILY SHERICE Administration Montelukast Sodium 10 mg 10/05/19 09:00 10/09/19 09:15 Singulair PO 10 mg DAILY SHERICE Administration Morphine Sulfate 2 mg 10/02/19 18:35 10/06/19 00:28 Morphine IVP 2 mg Q4H PRN Administration SEVERE PAIN Nystatin 1 applic 10/06/19 09:00 10/09/19 09:19 Nystatin Powder TOPICAL 1 applic BID SHERICE Administration Pantoprazole Sodium 40 mg 10/07/19 09:00 10/09/19 09:14 Protonix PO 40 mg DAILY SHERICE Administration Pramipexole Dihydrochloride 0.125 mg 10/04/19 18:00 10/08/19 18:05 Mirapex PO 0.125 mg QPM SHERICE Administration Quetiapine Fumarate 25 mg 10/04/19 09:15 10/09/19 09:16 Seroquel PO 25 mg DAILY SHERICE Administration Quetiapine Fumarate 50 mg 10/04/19 21:00 10/08/19 20:59 Seroquel PO 50 mg BEDTIME SHERICE Administration Fluticasone/Salmeterol 1 puff 10/04/19 20:00 10/09/19 08:15 Advair Diskus 250-50 INHALATION 1 puff BID.RESPIRATORY SHERICE Administration PFSH Acute PFSH: Statuses (acute, chronic, etc) shown below reflect problem list status as previously entered and may not be historically accurate Medical History Acidosis (Acute) Aortic aneurysm (Acute) Aortic disease (Acute) CHF (congestive heart failure) (Acute) Chronic back pain (Acute) COPD (chronic obstructive pulmonary disease) (Acute) Diabetes (Acute) Emphysema, unspecified (Acute) GERD (gastroesophageal reflux disease) (Acute) Herpes zoster (Acute) Hypotension (Acute) Hypothyroidism (Acute) Neuropathy (Acute) Pyelonephritis (Acute) Thyroid disease (Acute) Tibia fracture (Acute) Surgical History History of AAA (abdominal aortic aneurysm) repair (Acute) History of cholecystectomy (Acute) History of hysterectomy (Acute) History of left hip replacement (Acute) Family History Mother CAD (coronary artery disease) Father Cancer Liver Brother Cancer CLL and at age 68 Social History Smoking and tobacco status: former smoker Vitals/I&O/Wt Last Vital Signs Temp 98.9 F 10/09/19 16:00 Pulse 71 10/09/19 16:00 Resp 18 10/09/19 16:00 BP 108/60 10/09/19 16:00 Pulse Ox 92 10/09/19 16:00 10/09/19 10/09/19 10/09/19 06:59 14:59 22:59 Intake Total 410 / 870 120 / 120 Output Total 400 / 1400 Balance 10 / -530 120 / 120 Weight last 48 hrs Weight 303 lb 12.8 oz Weight 305 lb 6.4 oz Physical Exam Narrative: EXAM NARRATIVE: General: Patient is awake alert and oriented, in no distress. HEENT: Pupil bilateral symmetric, light and accommodation reflex present Neck: No JVD, no cervical or supraclavicular lymphadenopathy. Respiratory: Inspection: No visible deformity of the chest wall, no scar, reduced expansion of the left hemithorax Palpation: Trachea is mildly deviated to the left, reduced expansion on the left hemithorax Percussion: Dullness to percussion over the left anterior and lateral hemithorax Auscultation:occasional crackles at the right lower lung base, reduced air entry in the left lung, reduced vocal resonance on the left lung Cardiovascular: Regular rate and rhythm, S1-S2 present, no murmur, no right ventricular heave, bilateral peripheral edema Abdomen: Soft, mild tenderness in the epigastric area, distended from obesity, positive bowel sound. Musculoskeletal: No obvious joint deformity Skin: No rash, no evidence of erythema nodosum or multiforme. Neuro: Mental status is normal, no gross cranial nerve deficit, normal motor and coordination. Urinary Catheter Management^: Adams: Cath Placed During This Visit: yes, but has since been removed by the nurse Urethral Indwelling: No Reason for Continuing Indwelling Catheter: Not indwelling catheter Urinary Catheter Date of Insertion: 10/09/19 Urinary Catheter Time of Insertion: 16:55 Date Urinary Catheter Removed: 10/07/19 Time Urinary Catheter Discontinued: 06:30 Data Micro: Micro: Patient's urine culture is positive for E. coli. I have performed a review of the patient's previous microbiologic data since June of last year. The patient had never had any microbiologic diagnosis for her pneumonia. Her sputum culture has always grown respiratory michael. Imaging^: CXR: My impression: Chest x-ray obtained today reveals significant atelectasis and mediastinal shift to the left. The patient also has evidence of air bronchograms. Please see the HPI for further detail description of the CT scan A&P Assessment and plan (1) Pneumonia: The patient is currently getting treated with broad-spectrum antibiotics for diagnosis of postobstructive pneumonia. The patient is currently afebrile without leukocytosis, significant sputum production. The patient has been treated multiple times in the past 3 months or so for recurrent episodes of pneumonia. The patient underwent a bronchoscopy recently in [place] which revealed a mucous plug in the left lower lobe however I do not have the actual report of that. No biopsies were performed. The patient is currently covered with vancomycin and Zosyn. In addition to the consideration of postobstructive pneumonia, I would consider organizing pneumonia and eosinophilic pneumonia as likely etiology. I am going to perform a bronchoscopy tomorrow morning and would send the relevant labs. Status: Acute Code(s): J18.9 - Pneumonia, unspecified organism (2) COPD (chronic obstructive pulmonary disease): Patient has an extensive history of smoking. She has evidence of moderate airflow obstruction from the PFT in 2016. There is no evidence of hypercapnia. There is no evidence of acute exacerbation. The patient can be managed with DuoNeb and Pulmicort nebulization. Status: Acute Code(s): J44.9 - Chronic obstructive pulmonary disease, unspecified (3) Atelectasis, left: The etiology of the left lower lobe atelectasis is somewhat unclear. It is possible that the patient has mucous plug and is unable to clear the secretion. There is also a concern for endobronchial lesion especially given her extensive history of smoking. The patient has super morbid obesity with a BMI of 54. The obesity and fat deposition in the chest wall is likely to result in a higher closing volume which might result in premature closure of the lower lobe bronchi before she could complete her exhalation. The patient had not been out of bed since she had come in. She had not responded to the chest physical therapy. I will attempt the bronchoscopy tomorrow to clear up her secretion. Based on the bronchoscopy findings I will decide on endobronchial biopsies. The CT scan was read as a possible left hilar mass of larger than 6 cm however given the absence of this mass on the CT scan in early August I believe this just represents consolidative changes. Following the bronchoscopy intervention, I would continue aggressive chest physical therapy as well as positive pressure support at nighttime. Status: Acute Code(s): J98.11 - Atelectasis (4) Acute and chronic respiratory failure with hypoxia: The patient has acute on chronic hypoxic respiratory failure. The patient does not appear to be uncomfortable however is requiring more oxygen than usual this is not a surprise considering the left lower lobe atelectasis as well as consolidative changes involving both right and left lung. Given her history of COPD and these recurrent pneumonias, the patient will probably need a significant duration of time before she is completely back to her baseline. Status: Acute Code(s): J96.21 - Acute and chronic respiratory failure with hypoxia Coding Level of Care Code Acute Edge [place] for Chg Fwd Diagnoses Pneumonia J18.9 COPD (chronic obstructive pulmonary disease) J44.9 Atelectasis, left J98.11 Acute and chronic respiratory failure with hypoxia J96.21
[2019-10-09] MEDS: vancomycin 1,000 MG in sodium chloride 0.9% 250 ML 250 MG IV (18:15)
[2019-10-09] MEDS: pramipexole 0.25 mg Tablet 0.125 MG PO (18:25)
[2019-10-09] MEDS: enoxaparin 40 mg/0.4 mL Syringe SUBCUT (20:24)
[2019-10-09] MEDS: quetiapine 25 mg Tablet 50 MG PO (20:24)
[2019-10-09 22:12] LABS: Slide Review Slide Review Perform
[2019-10-10] VITALS (29 sets, daily range): BP systolic 104–170; BP diastolic 49–72; PULSE 18–96; RESP 16–30; TEMP 36.5–37.3; O2SAT 88–96
[2019-10-10] MEDS: ipratropium-albuterol 3 mL Neb INHALATION ×4 (02:18→22:29)
[2019-10-10 06:10] LABS: Basophils % 0.7 %; Eosinophils # 0.2 10^3/uL (0.0-0.8); Eosinophils % 3.7 %; Hematocrit 31.5 % (37.0-47.0); Hemoglobin 9.2 g/dL (11.5-15.3); Lymphocytes # 1.1 10^3/uL (0.8-4.8); Lymphocytes % 27.1 %; Mean Corpuscular HGB Conc 29.2 g/dL (30.0-36.0); Mean Corpuscular Volume 82.2 fL (81-99); Mean Platelet Volume 9.3 fL (7.4-10.4); Monocytes # 0.3 10^3/uL (0.2-0.9); Monocytes % 7.8 %; Nucleated Red Blood Cells % 0 %; Platelet Count 164 10^3/cmm (130-400); Red Blood Count 3.83 10^6/uL (4.1-5.3); Red Cell Distribution Width 17.4 % (12.1-15.1); White Blood Count 4.1 10^3/uL (4.0-10.0)
[2019-10-10 06:39] LABS: Anion Gap 13.2 (5-19); Blood Urea Nitrogen 6 mg/dL (8-23); Calcium 9.7 mg/dL (8.5-10.5); Carbon Dioxide 22 mmol/L (22-29); Chloride 107 mmol/L (98-107); Glucose 74 mg/dL (65-115); Osmolality Calculated 282 mOsm/kg (285-295); Potassium 3.2 mmol/L (3.5-5.1); Sodium 139 mmol/L (136-145)
[2019-10-10 06:54] LABS: Slide Review Slide Review Perform
--- NOTE | 2019-10-10 08:00 | P.ANESASSM_ITS ---
Pre-Anesthetic Assessment Pre-Anesthetic Assessment: Height/Weight: Height 1.6 m Weight 137.801 kg Temp Pulse Resp BP Pulse Ox 97.9 F 75 18 152/64 91 10/10/19 07:48 10/10/19 07:48 10/10/19 07:48 10/10/19 07:48 10/10/19 07:48 Preop Diagnosis: Recurrent left lower lobe pneumonia & atelectasis Proposed Procedure: Operation Date: 10/10/19 08:05 Proposed Procedures p Bronchoscopy(Not Applicable) - Biplab MD Janeen Last intake: Intake Last Liquid Date 10/09/19 Last Liquid Time 23:45 Last Solid Date 10/09/19 Last Solid Time 18:00 Social: Pack years: 62 Comment: quit 17 Exam: Pre-Anes Outpt Exam: alert, oriented x 3, clear to auscultation bilaterally and regular rate & rhythm Airway: Submandibular: WNL Cervical ROM: WNL MP: 1 Dentition: False Pulmonary: Pulmonary: COPD (recurrent pneumonia and left lower lobe atelectasis, home 02 x 4 months) CV/HEM: CV/HEM: CHF and HTN : : Chronic renal Insufficiency Metabolic: Metabolic: Morbid obesity and Thyroid Musc/skel: Musc/skel: Lower Back Pain Comments: nonradiating Neuropsych: Neuropsych: Anxiety and Depression Anesthetic Plan: ASA status: 4 Anesthesia: General Meds/Allergies Current Medications: Current Medications Generic Name Dose Route Start Last Admin Trade Name Freq PRN Reason Stop Dose Admin Acetaminophen 650 mg 10/02/19 18:35 10/09/19 12:42 Tylenol PO 650 mg Q6H PRN Administration Mild/Mod Pain Or Temp >/= 101 Hydrocodone Bitart /Acetaminophen 1 tab 10/04/19 08:55 10/08/19 15:30 [place] 5-325 Mg PO 1 tab TID PRN Administration Pain Albuterol/Ipratrop ium 3 ml 10/06/19 21:00 10/10/19 02:18 Duoneb INHALATION 3 ml Q6H.RESPIRATORY S CH Administration Citalopram Hydrobr omide 10 mg 10/05/19 09:00 10/09/19 09:15 Celexa PO 10 mg DAILY SHERICE Administration Diltiazem HCl 240 mg 10/04/19 09:00 10/09/19 09:15 Cardizem Cd (24h r) PO 240 mg DAILY SHERICE Administration Enoxaparin Sodium 40 mg 10/06/19 20:00 10/09/19 20:24 Lovenox SUBCUT 40 mg Q24H SHERICE Administration Furosemide 20 mg 10/04/19 09:00 10/09/19 12:42 Lasix PO 20 mg DAILY SHERICE Administration Piperacillin Sod/T azobactam 50 mls @ 12.5 mls /hr 10/06/19 14:00 10/10/19 03:00 Sod 3.375 gm/ So dium Chloride IV Infused Q8H SHERICE Infusion Protocol As Directed Sodium Chloride 5 ml/ N/A 5 mls @ 0 mls/hr 10/07/19 08:45 10/09/19 20:11 NEBULIZER Not Given BID.RESPIRATORY S CH Vancomycin HCl 1,0 00 mg/ 250 mls @ 250 mls /hr 10/08/19 15:00 10/09/19 20:23 Sodium Chloride IV Infused Q24H SHERICE Infusion Levothyroxine Sodi um 125 mcg 10/04/19 09:15 10/09/19 09:15 Synthroid PO 125 mcg DAILY SHERICE Administration Montelukast Sodium 10 mg 10/05/19 09:00 10/09/19 09:15 Singulair PO 10 mg DAILY SHERICE Administration Morphine Sulfate 2 mg 10/02/19 18:35 10/06/19 00:28 Morphine IVP 2 mg Q4H PRN Administration SEVERE PAIN Nystatin 1 applic 10/06/19 09:00 10/09/19 18:26 Nystatin Powder TOPICAL 1 applic BID SHERICE Administration Pantoprazole [place] m 40 mg 10/07/19 09:00 10/09/19 09:14 Protonix PO 40 mg DAILY SHERICE Administration Pramipexole Dihydr ochloride 0.125 mg 10/04/19 18:00 10/09/19 18:25 Mirapex PO 0.125 mg QPM SHERICE Administration Quetiapine Fumarat e 25 mg 10/04/19 09:15 10/09/19 09:16 Seroquel PO 25 mg DAILY SHERICE Administration Quetiapine Fumarat e 50 mg 10/04/19 21:00 10/09/19 20:24 Seroquel PO 50 mg BEDTIME SHERICE Administration Fluticasone/Salmet kaylee 1 puff 10/04/19 20:00 02/10/20 20:20 Advair Diskus 25 0-50 INHALATION 1 puff BID.RESPIRATORY S CH Administration PFSH Anesthesia PFSH: Medical History Acidosis (Acute) Aortic aneurysm (Acute) Aortic disease (Acute) CHF (congestive heart failure) (Acute) Chronic back pain (Acute) COPD (chronic obstructive pulmonary disease) (Acute) Diabetes (Acute) Emphysema, unspecified (Acute) GERD (gastroesophageal reflux disease) (Acute) Herpes zoster (Acute) Hypotension (Acute) Hypothyroidism (Acute) Neuropathy (Acute) Pyelonephritis (Acute) Thyroid disease (Acute) Tibia fracture (Acute) Surgical History History of AAA (abdominal aortic aneurysm) repair (Acute) History of cholecystectomy (Acute) History of hysterectomy (Acute) History of left hip replacement (Acute) Family History Mother CAD (coronary artery disease) Father Cancer Liver Brother Cancer CLL and at age 68 Social History Smoking and tobacco status: former smoker Data Anesthesia CBC & Chem 7: 10/10/19 05:30 10/10/19 05:30 Other Labs: Laboratory Results - last 48 hr 10/09/19 10/09/19 10/09/19 02:20 06:54 16:20 WBC 3.3 L 3.8 L RBC 3.61 L 3.73 L Hgb 8.7 L 9.0 L Hct 30.4 L 30.5 L MCV 84.2 81.8 MCH 24.1 L 24.1 L MCHC 28.6 L 29.5 L RDW 17.6 H 17.6 H Plt Count 133 150 MPV 9.4 9.6 Neut % (Auto) 48.3 54.0 Lymph % (Auto) 27.7 20.9 [place] % (Auto) 8.3 8.7 Eos % (Auto) 4.3 4.2 Baso % (Auto) 0.3 0.3 Neut # (Auto) 1.6 L 2.0 Lymph # (Auto) 0.9 0.8 [place] # (Auto) 0.3 0.3 Eos # (Auto) 0.1 0.2 Baso # (Auto) 0.0 0.0 Nucleated RBC % (auto) 0 0 Nucleated RBCs # 0.0 0.0 Sodium Potassium 3.7 Chloride Carbon Dioxide Anion Gap BUN Creatinine Glucose Calculated Osmolality Calcium 10/10/19 10/10/19 05:30 05:30 WBC 4.1 RBC 3.83 L Hgb 9.2 L Hct 31.5 L MCV 82.2 MCH 24.0 L MCHC 29.2 L RDW 17.4 H Plt Count 164 MPV 9.3 Neut % (Auto) 49.0 Lymph % (Auto) 27.1 [place] % (Auto) 7.8 Eos % (Auto) 3.7 Baso % (Auto) 0.7 Neut # (Auto) 2.0 Lymph # (Auto) 1.1 [place] # (Auto) 0.3 Eos # (Auto) 0.2 Baso # (Auto) 0.0 Nucleated RBC % (auto) 0 Nucleated RBCs # 0.0 Sodium 139 Potassium 3.2 L Chloride 107 Carbon Dioxide 22 Anion Gap 13.2 BUN 6 L Creatinine 0.5 Glucose 74 Calculated Osmolality 282 L Calcium 9.7 Cardiac Studies: No Data to Display
[2019-10-10] MEDS: sodium chloride 0.9% 1,000 ML 30 ML IV (08:28)
[2019-10-10] MEDS: midazolam 1 mg/mL INJ 2 mL 2 MG IVP (08:30)
--- NOTE | 2019-10-10 09:34 | P.OP_ITS ---
Operative Report Date of procedure: October 10, 2019 Pre-op Diagnosis: Recurrent left lower lobe pneumonia & atelectasis Procedure: Name of the procedure: Bronchoscopy with bronchoalveolar lavage and control of bleeding. Indication: Recurrent left lower lobe pneumonia and atelectasis of the left lower lobe. Anesthesia: General anesthesia Local anesthesia: 1% lidocaine, 3 mL Description of the procedure: The procedure explained to the patient in detail and consent was obtained. The patient was brought to the OR and underwent endotracheal intubation for general anesthesia. A timeout was performed following the induction of anesthesia. The bronchoscope was introduced through the endotracheal tube. The lower part of the trachea was erythematous. A thick mucous plug extending across the jeffery into the right and left mainstem bronchus was noted. The jeffery was sharp. The jeffery in the right and left mainstem bronchi are anesthetized with 1% lidocaine, 3 mL. Clearance of the mucus was attempted through the bronchoscope however because of the small size of the bronchoscope effective drainage was not possible. An 18 [place] suction catheter was then introduced through the ET tube and the mucus from the jeffery and the left mainstem bronchus was suctioned out. The bronchoscope was then reintroduced. The left mainstem bronchus appeared patent. There was generalized right edema in bilateral lungs. The left upper lobe, lingula and left lower lobe bronchi are patent without any endobronchial lesion. Bronchoalveolar lavage was performed from the superior segment of the left lower lobe. The bronchoscope was then introduced into the right mainstem bronchus. The right upper lobe bronchus was patent. There was significant mucus plugging of the right bronchus intermedius. The endotracheal tube was then advanced into the right mainstem bronchus using the bronchoscope as a stylet. The 18 [place] suction catheter was then used again to suction out the bronchus intermedius and right lower lobe bronchus. The right bronchus intermedius and right lower lobe bronchi appeared patent after the bronchoscope was reintroduced. There is no endobronchial lesion in the right upper lobe, right middle lobe and right lower lobe bronchi. A bronchoalveolar lavage was performed from the superior segment of the right lower lobe. Sample: 1. The bronchoalveolar lavage from the right lower lobe was sent for cell count and differential and Gram stain and culture. 2. The bronchoalveolar lavage from the left lower lobe was sent for cell count and differential, Gram stain and culture, fungal stain and culture, AFB stain and culture, PCP PCR, histoplasma antigen, galactomannan level. Complications: There is no immediate complications. There is no active bleeding at the end of the procedure and all airways appeared patent. Chest x-ray: Pending
--- NOTE | 2019-10-10 09:36 | SUR.PHASEI ---
PT AWAKES EASILY WITH BIPAP IN PLACE, PT NODS HEAD YES AND NO APPROP VSS SATS 93-95% PT SHAKES HEAD NO TO QUESTIONS OF PAIN , NAUSEA , OR RESP DISTRESS.
--- NOTE | 2019-10-10 09:44 | SUR.PHASEI ---
PT ON BIPAP SATS NOW 96% PT HAS BILAT ALL LOBES SCATTERED RHONCHI AND WHEEZES. NO DISTRESS NOTED PT SLEEPS IF NOT DISTURBED.
--- NOTE | 2019-10-10 09:47 | SUR.PHASEI ---
0914 PT TO PACU RESP HERE WITH BIPAP SET UP PER DR SUBRAMANIAN ORDER, PT ON 50%, 14/04 , PT HAS GLYNN CATHETER WITH YELLOW URINE APPROX 600 IN BAG NOT EMPTIED.
[2019-10-10] MEDS: ondansetron 2 mg/ML SDV 2 mL 4 MG IVP (10:03)
--- NOTE | 2019-10-10 10:25 | SUR.PHASEI ---
1003 PT ON 5LNC WITH RESP AT BEDSIDE PT NOW OFF BIPAP PT ALERT C/O OF NAUSEA AFTER COUGHING AND TAKING ICE CHIP, SEE MED GIVEN 1008 SATS 89% ON 5L MASK PT TO FLOOR PER BED TO PLACE ON PT'S BIPAP ON FLOOR 1015PT TO FLOOR STATES NAUSEA IS BETTER, PT ON 5LNC SATS 90% PT REFUSED TO PUT BIPAP ON AT THIS TIME , FAMILY IN ROOM, PT RESPONDS VERBALLY AND APPROP TO FAMILY AND NURSE IN ROOM RESP AT BEDSIDE WELL.
--- NOTE | 2019-10-10 10:29 | SUR.PHASEI ---
1015 PT SATS 90% ON 5LNC HR 54, RESP 30 BP 114/67.
[2019-10-10] MEDS: piperacillin-tazobactam 3.375 GM in sodium chloride 0.9% (plus) 50 ML IV ×2 (11:23→18:14)
[2019-10-10] MEDS: FUROsemide 20 mg Tablet PO (11:23)
[2019-10-10] MEDS: dilTIAZem ER (24HR) 240 mg Capsule PO (11:24)
[2019-10-10] MEDS: citalopram 20 mg Tablet 10 MG PO (11:25)
[2019-10-10] MEDS: levothyroxine 125 mcg Tablet PO (11:25)
[2019-10-10] MEDS: pantoprazole DR 40 mg Tablet PO (11:25)
[2019-10-10] MEDS: montelukast sodium 10 mg Tablet PO (11:25)
[2019-10-10] MEDS: quetiapine 25 mg Tablet PO (11:25)
[2019-10-10 11:31] LABS: Apprearance, Bronch Wash Bloody (CLEAR); Color, Bronc Wash Slight Pink; PATH Referral Yes
[2019-10-10 11:31] LABS: Apprearance, Bronch Wash Bloody (CLEAR); Color, Bronc Wash Slight Pink; PATH Referral Yes
[2019-10-10 11:32] LABS: Bronch Source Right Lower Lobe
[2019-10-10] MEDS: potassium chloride oral liq 20 mEq/15 mL UDC 40 MEQ PO (11:38)
[2019-10-10 12:59] LABS: Total Cells Counted Bronch 50
[2019-10-10 12:59] LABS: Total Cells Counted Bronch 15
--- NOTE | 2019-10-10 13:00 | PC.OT ---
OT tx attempted. Pt lying in bed. She reports she had surgery today (bronchoscopy) and will not be participating in therapy today as she doesn't feel well. OT to be attempted again tomorrow.
--- NOTE | 2019-10-10 14:23 | PC.NURSE ---
Patient back from Pacu and tolerating oxygen per nasal cannula. O2 sat at 90%. patient resting at this time but refused therapy. Educated patient on taking therapy and the importance of getting up and participating to help clear the lungs and keep the pneumonia out of them. Patient verbalized understanding and still refused the treatment. Dr. Vargas also educated patient on the importance of mobility.
--- NOTE | 2019-10-10 14:37 | XR_ITS ---
WS: [id number] Portable AP upright chest, 10/10/2019 Clinical Data: post bronchoscopy Comparison: Portable chest, 10/09/2019 Findings: The consolidation in the left lower lobe has diminished but there is still a significant re sidual. There is consolidation over the surface the right diaphragm which is increased. The heart siz e remains same. The upper lobes are clear. The aortic arch and descending aorta are tortuous. Degener ative change of the right shoulder is seen. XR/XR chest 1V portable [id number] Impression: 1. Significant decrease in consolidation and left lower lobe. 2. Increase in consolidation over surface of right diaphragm.
[2019-10-10] MEDS: vancomycin 1,000 MG in sodium chloride 0.9% 250 ML 250 MG IV (15:20)
[2019-10-10] MEDS: bisacodyl 5 mg Tablet 10 MG PO (15:28)
[2019-10-10] MEDS: HYDROcodone-acetaminophen 5-325 mg Tablet 1 TAB PO (15:29)
--- NOTE | 2019-10-10 17:47 | PM.PN ---
Subjective Subjective: Interval history: Joy reports she is doing okay. I visited her this morning as well as this afternoon. She had a bronchoscopy today. She reported she felt about the same. Medications: Reviewed: Yes Vitals/I&O/Wt Last Vital Signs Temp 98.0 F 10/10/19 15:25 Pulse 75 10/10/19 15:25 Resp 18 10/10/19 15:25 BP 104/54 10/10/19 15:25 Pulse Ox 88 L 10/10/19 15:25 10/10/19 10/10/19 10/10/19 06:59 14:59 22:59 Intake Total 50 / 950 0 / 0 50 / 50 Output Total 1000 / 1000 0 / 0 Balance -950 / -50 0 / 0 50 / 50 Weight last 48 hrs Weight 137.801 kg Weight 138.527 kg Physical Exam Narrative: EXAM NARRATIVE: General exam is no apparent distress Cardiovascular regular rate and rhythm Lungs diminished breath sounds bilaterally Abdomen is soft with positive bowel sounds Extremities no cyanosis clubbing Urinary Catheter Management^: Adams: Cath Placed During This Visit: yes, but has since been removed by the nurse Urethral Indwelling: No Reason for Continuing Indwelling Catheter: Assist Healing of Perineal & Sacral Wounds- Incontinent Patients Urinary Catheter Date of Insertion: 10/09/19 Urinary Catheter Time of Insertion: 16:55 Date Urinary Catheter Removed: 10/07/19 Time Urinary Catheter Discontinued: 06:30 Data : 10/10/19 05:30 10/10/19 05:30 Micro: Microbiology 10/10/19 09:00 Gram Stain - Final Lung Right Lower Lobe 10/10/19 08:51 Gram Stain - Final Lung Left Lower Lobe - #1 A&P Assessment and plan (1) Sepsis: Resolved Status: Acute Code(s): A41.9 - Sepsis, unspecified organism (2) Pneumonia: Currently on vancomycin, Zosyn. Concerns with mucous plugging, potential need for bronchoscopy. Pulmonary has performed a bronchoscopy for mucous plugging. No pulmonary endobronchial lesions were seen. Continue chest vest Plan discharge to skilled care, following 10 days of IV vancomycin and Zosyn which will occur afternoon/Wednesday morning Status: Acute Code(s): J18.9 - Pneumonia, unspecified organism (3) Urinary tract infection: Urine grew E. coli, sensitive to Zosyn Status: Acute Code(s): N39.0 - Urinary tract infection, site not specified (4) Acute kidney injury (nontraumatic): Resolved Status: Acute Code(s): N17.9 - Acute kidney failure, unspecified (5) Dehydration: Resolved Status: Acute Code(s): E86.0 - Dehydration (6) Hypercalcemia: Resolved Status: Acute Code(s): E83.52 - Hypercalcemia (7) Toxic encephalopathy: This is likely related to urine tract infection and/or opioids. Improved Status: Acute Code(s): G92 - Toxic encephalopathy (8) Hypotension: Resolved. Secondary to sepsis. Status: Acute Code(s): I95.9 - Hypotension, unspecified (9) Thrombocytopenia: Likely secondary to sepsis. Now resolved Status: Acute Code(s): D69.6 - Thrombocytopenia, unspecified (10) Chronic pain syndrome: Status: Acute Code(s): G89.4 - Chronic pain syndrome Additional A&P Information Pneumonia appears postobstructive. Pulmonary has consulted and bronchoscopy was performed today Hypokalemia, supplemented. Repeat BMP tomorrow Continue physical therapy Currently full code Lovenox for DVT prophylaxis Attestations Medical Necessity Statement*: Needs continued hospital stay for IV antibiotics related to pneumonia. Coding Level of Care Code Acute Assessment Analyst for [facility] Fwd Diagnoses Sepsis A41.9 Pneumonia J18.9 Urinary tract infection N39.0 Acute kidney injury (nontraumatic) N17.9 Dehydration E86.0 Hypercalcemia E83.52 Toxic encephalopathy G92 Hypotension I95.9 Thrombocytopenia D69.6 Chronic pain syndrome G89.4
[2019-10-10] MEDS: nystatin powder 15 gm Btl 1 APPLIC TOPICAL (18:11)
[2019-10-10] MEDS: potassium chloride oral liq 20 mEq/15 mL UDC 30 MEQ PO (18:12)
[2019-10-10] MEDS: pramipexole 0.25 mg Tablet 0.125 MG PO (18:14)
[2019-10-10] MEDS: quetiapine 25 mg Tablet 50 MG PO (20:43)
[2019-10-10] MEDS: enoxaparin 40 mg/0.4 mL Syringe SUBCUT (20:43)
[2019-10-11] VITALS (14 sets, daily range): BP systolic 112–136; BP diastolic 57–76; PULSE 65–88; RESP 16–22; TEMP 36.6–37.1; O2SAT 87–99
[2019-10-11] MEDS: ipratropium-albuterol 3 mL Neb INHALATION ×4 (02:02→21:48)
[2019-10-11] MEDS: HYDROcodone-acetaminophen 5-325 mg Tablet 1 TAB PO ×2 (05:02→17:05)
[2019-10-11 06:41] LABS: Anion Gap 10.6 (5-19); Blood Urea Nitrogen 6 mg/dL (8-23); Calcium 9.4 mg/dL (8.5-10.5); Carbon Dioxide 24 mmol/L (22-29); Chloride 107 mmol/L (98-107); Glucose 78 mg/dL (65-115); Osmolality Calculated 281 mOsm/kg (285-295); Potassium 3.6 mmol/L (3.5-5.1); Sodium 138 mmol/L (136-145)
[2019-10-11] MEDS: citalopram 20 mg Tablet 10 MG PO (08:03)
[2019-10-11] MEDS: montelukast sodium 10 mg Tablet PO (08:03)
[2019-10-11] MEDS: piperacillin-tazobactam 3.375 GM in sodium chloride 0.9% (plus) 50 ML IV (08:03)
[2019-10-11] MEDS: FUROsemide 20 mg Tablet PO (08:03)
[2019-10-11] MEDS: levothyroxine 125 mcg Tablet PO (08:03)
[2019-10-11] MEDS: dilTIAZem ER (24HR) 240 mg Capsule PO (08:03)
[2019-10-11] MEDS: pantoprazole DR 40 mg Tablet PO (08:04)
[2019-10-11] MEDS: quetiapine 25 mg Tablet PO (08:04)
[2019-10-11] MEDS: nystatin powder 15 gm Btl 1 APPLIC TOPICAL ×2 (08:04→22:07)
--- NOTE | 2019-10-11 13:02 | P.PN_ITS ---
Subjective Subjective: Interval history: Joy reports she is doing okay. Nurses relate that she lost her IV this morning. Anticipated discharge tomorrow afternoon. Feeling somewhat better after bronchoscopy yesterday. Medications: Reviewed: Yes Vitals/I&O/Wt Last Vital Signs Temp 98.7 F 10/11/19 07:30 Pulse 74 10/11/19 10:01 Resp 20 H 10/11/19 09:55 BP 115/61 10/11/19 07:30 Pulse Ox 89 L 10/11/19 09:55 10/10/19 10/11/19 10/11/19 22:59 06:59 14:59 Intake Total 920 / 920 50 / 970 720 / 720 Output Total 1400 / 1400 400 / 1800 Balance -480 / -480 -350 / -830 720 / 720 Weight last 48 hrs Weight 144.753 kg Physical Exam Narrative: EXAM NARRATIVE: General exam is no apparent distress Cardiovascular regular rate and rhythm Lungs diminished breath sounds bilaterally Abdomen is soft with positive bowel sounds Extremities no cyanosis clubbing Urinary Catheter Management^: Adams: Cath Placed During This Visit: yes, but has since been removed by the nurse Urethral Indwelling: No Reason for Continuing Indwelling Catheter: Chronic Indwelling Urinary Catheter on Admission Urinary Catheter Date of Insertion: 10/09/19 Urinary Catheter Time of Insertion: 16:55 Date Urinary Catheter Removed: 10/07/19 Time Urinary Catheter Discontinued: 06:30 Data : 10/10/19 05:30 10/11/19 06:06 Micro: Microbiology 10/10/19 09:00 Gram Stain - Final Lung Right Lower Lobe Bronchoalveolar Lavage Culture - Preliminary 10/10/19 08:51 Gram Stain - Final Lung Left Lower Lobe - #1 Bronchoalveolar Lavage Culture - Preliminary A&P Assessment and plan (1) Sepsis: Resolved Status: Acute Code(s): A41.9 - Sepsis, unspecified organism (2) Pneumonia: Currently on vancomycin, Zosyn. Concerns with mucous plugging, potential need for bronchoscopy. Pulmonary has performed a bronchoscopy yesterday for mucous plugging. No pulmonary endobronchial lesions were seen. Continue chest vest Possible discharge to skilled care tomorrow. De-escalate antibiotics today to Augmentin, linezolid as IV has been lost. This should be close to equivalent as no obvious pseudomonal growth has been observed in any cultures. Status: Acute Code(s): J18.9 - Pneumonia, unspecified organism (3) Urinary tract infection: Urine grew E. coli, sensitive to Zosyn. She is already received an adequate course of treatment Status: Acute Code(s): N39.0 - Urinary tract infection, site not specified (4) Acute kidney injury (nontraumatic): Resolved Status: Acute Code(s): N17.9 - Acute kidney failure, unspecified (5) Dehydration: Resolved Status: Acute Code(s): E86.0 - Dehydration (6) Hypercalcemia: Resolved Status: Acute Code(s): E83.52 - Hypercalcemia (7) Toxic encephalopathy: This is likely related to urine tract infection and/or opioids. Improved Status: Acute Code(s): G92 - Toxic encephalopathy (8) Hypotension: Resolved. Secondary to sepsis. Status: Acute Code(s): I95.9 - Hypotension, unspecified (9) Thrombocytopenia: Likely secondary to sepsis. Now resolved Status: Acute Code(s): D69.6 - Thrombocytopenia, unspecified (10) Chronic pain syndrome: Status: Acute Code(s): G89.4 - Chronic pain syndrome Additional A&P Information Pneumonia appears postobstructive. Pulmonary has consulted and bronchoscopy was performed today Hypokalemia, supplemented. Repeat BMP tomorrow Continue physical therapy Currently full code Lovenox for DVT prophylaxis Attestations Medical Necessity Statement*: Needs continued hospital stay for de-escalation of antibiotic treatment, to see if discharge to nursing facility is appropriate tomorrow. Coding Level of Care Code Acute Grounds And Nursery Specialist for [facility] Fwd Diagnoses Sepsis A41.9 Pneumonia J18.9 Urinary tract infection N39.0 Acute kidney injury (nontraumatic) N17.9 Dehydration E86.0 Hypercalcemia E83.52 Toxic encephalopathy G92 Hypotension I95.9 Thrombocytopenia D69.6 Chronic pain syndrome G89.4
[2019-10-11 14:50] LABS: Vancomycin Trough 8.5 ug/mL (10-15)
[2019-10-11] MEDS: linezolid 600 mg Tablet PO (15:51)
[2019-10-11] MEDS: amoxicillin-clav 875-125 mg Tablet 1 TAB PO (17:03)
[2019-10-11] MEDS: pramipexole 0.25 mg Tablet 0.125 MG PO (17:04)
[2019-10-11] MEDS: ondansetron 4 MG Tablet PO (18:14)
--- NOTE | 2019-10-11 21:36 | PC.NURSE ---
Primary RN notified of O2 sat level.
[2019-10-11] MEDS: quetiapine 25 mg Tablet 50 MG PO (22:07)
[2019-10-11] MEDS: enoxaparin 40 mg/0.4 mL Syringe SUBCUT (22:08)
[2019-10-12] VITALS (13 sets, daily range): BP systolic 98–110; BP diastolic 49–64; PULSE 74–95; RESP 17–22; TEMP 36.4–37.2; O2SAT 89–93
[2019-10-12] MEDS: linezolid 600 mg Tablet PO ×2 (01:55→13:59)
[2019-10-12] MEDS: ipratropium-albuterol 3 mL Neb INHALATION ×3 (03:45→15:38)
--- NOTE | 2019-10-12 08:00 | XRR_ITS ---
PROCEDURE INFORMATION: Exam: XR Chest, 1 View Exam date and time: 10/12/2019 8:07 AM Age: 78 years old Clinical indication: Cough; Additional info: Lll atelectasis S/P bronchoscopy; Copd TECHNIQUE: Imaging protocol: XR of the chest Views: Frontal portable upright view of the chest. COMPARISON: CR XR chest 1V portable [id number] 10/10/2019 3:09 PM FINDINGS: Tubes, catheters and devices: EKG leads are present overlying the chest. Lungs: There is persistent stable LEFT lower lobe opacity obscuring the LEFT diaphragmatic and descending aortic shadows. Increased left mid lung zone airspace opacity. Increased RIGHT basilar pulmonary subsegmental atelectasis/infiltrate. The pulmonary vasculature is slightly more congested and ill-defined. Pleural space: Increased small RIGHT pleural effusion. Increased, moderate LEFT pleural effusion. No pneumothorax. Heart/Mediastinum: Stable borderline cardiomegaly. Mediastinum: Stable. Vasculature: Moderate aortic arch atherosclerotic calcification without ectasia. Bones/joints: Severe right glenohumeral joint primary osteoarthritis. Stable. XR/XR chest 1V portable [id number] IMPRESSION: 1. Stable LEFT lower lobe atelectasis/consolidation. 2. Increased left mid lung zone airspace opacity. Progressive pneumonitis is not excluded. Clinical correlation is recommended. 3. Increased RIGHT basilar pulmonary subsegmental atelectasis/infiltrate. Consider progressive atypical (left predominant) pulmonary edema. 4. Slightly increased pulmonary vascular congestion. 5. Increased small RIGHT pleural effusion. 6. Increased, moderate LEFT pleural effusion.
--- NOTE | 2019-10-12 08:09 | DCPLANNER ---
Pg 2 of IM was updated and given to pt on 10/11 however this headline writer failed to enter a note. No questions, copy was provided.
[2019-10-12] MEDS: FUROsemide 20 mg Tablet PO (09:22)
[2019-10-12] MEDS: levothyroxine 125 mcg Tablet PO (09:23)
[2019-10-12] MEDS: amoxicillin-clav 875-125 mg Tablet 1 TAB PO (09:23)
[2019-10-12] MEDS: citalopram 20 mg Tablet 10 MG PO (09:23)
[2019-10-12] MEDS: quetiapine 25 mg Tablet PO (09:23)
[2019-10-12] MEDS: montelukast sodium 10 mg Tablet PO (09:23)
[2019-10-12] MEDS: pantoprazole DR 40 mg Tablet PO (09:23)
[2019-10-12] MEDS: dilTIAZem ER (24HR) 240 mg Capsule PO (09:23)
[2019-10-12] MEDS: nystatin powder 15 gm Btl 1 APPLIC TOPICAL (09:24)
--- NOTE | 2019-10-12 11:32 | P.DS_ITS ---
Discharge Providers Date of Admission: 10/02/19 15:50 Date of Discharge: October 12, 2019 Attending Provider at Admission: Alireza Whyte MD Attending Provider at Discharge: David Vargas MD Diagnoses at Discharge Discharge Diagnosis (1) Sepsis: Status: Acute Problem details: Resolved (2) Pneumonia: Status: Acute Problem details: She completed 9 days of vancomycin and Zosyn in the hospital, and 1 day of Augmentin and linezolid prior to discharge on 3 more days of Augmentin (3) Urinary tract infection: Status: Acute Problem details: Treatment completed (4) Acute kidney injury (nontraumatic): Status: Acute Problem details: Resolved (5) Dehydration: Status: Acute Problem details: Resolved (6) Hypercalcemia: Status: Acute Problem details: Resolved (7) Toxic encephalopathy: Status: Acute Problem details: Resolved (8) Hypotension: Status: Acute Problem details: Resolved (9) Thrombocytopenia: Status: Acute (10) Chronic pain syndrome: Status: Acute Problem details: Unchanged Reason for Visit Reason for Visit: Reason For Visit: pneumonia;copd exacerbation Hospital Course Discharge Summary: Joy presented to the hospital with respiratory distress. She had had a recent history of pneumonia, as well as bronchial plugging. There was concern for sepsis. Cultures were obtained. She was placed in the hospital on vancomycin and Zosyn originally. During her hospital stay she had gradual improvement from a respiratory standpoint. Urine ultimately grew E. coli sensitive to Zosyn. Although her respiratory status improved somewhat during her hospital stay she required a fair amount of oxygen. Repeat films demonstrated continued atelectasis and concern of possible left hilar mass. Former CTA did not demonstrate pulmonary embolism. Pulmonary was consulted, and bronchoscopy performed. This demonstrated bronchial plugging, and no mass. Recommendation was to complete antibiotic treatment, as well as to try to continue to clear the secretions by getting the patient more mobile. Her last chest x-ray demonstrates continued left lung atelectasis. I visited with pulmonary about this and they will follow her up as an outpatient but treatment currently is to continue chest vest, saline, nebs, and increase activity. Physical Exam Narrative: EXAM NARRATIVE: General exam no apparent distress Cardiovascular regular rate and rhythm without murmur Lungs clear but with diminished breath sounds on the left Abdomen is soft obese nontender Extremities no cyanosis or clubbing Urinary Catheter Management^: Adams: Cath Placed During This Visit: yes, but has since been removed by the nurse Urethral Indwelling: No Reason for Continuing Indwelling Catheter: Chronic Indwelling Urinary Catheter on Admission Urinary Catheter Date of Insertion: 10/09/19 Urinary Catheter Time of Insertion: 16:55 Date Urinary Catheter Removed: 10/07/19 Time Urinary Catheter Discontinued: 06:30 Discharge Data Data Completed and Pending: Completed Studies During Hospitalization Category Date Time Status CT chest wo con 7 1250 Urgent Cat Scan 10/05/19 13:09 Completed XR chest 1V ydan ble [id number] Routine Exams 10/09/19 13:00 Completed XR chest 1V dyan ble [id number] Routine Exams 10/12/19 08:00 Completed XR chest 1V dyan ble [id number] Urgent Exams 10/02/19 10:50 Completed XR chest 1V dyan ble [id number] Urgent Exams 10/08/19 13:27 Completed XR chest 1V dyan ble [id number] Urgent Exams 10/10/19 14:37 Completed XR foot RT min 3V * [id number] Stat Exams 10/02/19 12:29 Completed Pending at discharge Category Date Time Status AFB [Mycobacteria , Culture w/Fluor] Routine Lab 10/10/19 08:51 Received Bronchoalv Lavage Culture & GS Rout ine Lab 10/10/19 08:51 Results Bronchoalv Lavage Culture & GS Rout ine Lab 10/10/19 09:00 Results Fungal Culture no t HR/SK/BL Routine Lab 10/10/19 08:51 Results Miscellaneous Lissett t Routine Lab 10/10/19 08:51 Received Miscellaneous Lissett t Routine Lab 10/10/19 08:51 Received Miscellaneous Lissett t Routine Lab 10/10/19 08:51 Received Cytology [PTH] Ro utine Pth 10/10/19 09:39 Received Labs from last 24 hours 10/11/19 14:09 Vancomycin Trough 8.5 L Vitals: Last Vital Signs Temp 97.6 F 10/12/19 10:33 Pulse 82 10/12/19 10:33 Resp 20 H 10/12/19 10:33 BP 105/64 10/12/19 10:33 Pulse Ox 90 10/12/19 10:33 Discharge Plan Discharge Patient Disposition: Xfer SNF Condition: Stable Prescriptions: New furosemide [Lasix] 40 mg tablet 40 mg PO DAILY Qty: 30 RF: 0 amoxicillin-pot clavulanate 875-125 mg Tablet 1 tab PO BID Qty: 6 RF: 0 Continued quetiapine [Seroquel] 25 mg Tablet 25 mg PO DAILY RF: 0 fluticasone propion-salmeterol [Advair Diskus] 250-50 mcg/dose Blister With Device 1 inh INHALATION BID RF: 0 acetaminophen 325 mg Tablet 650 mg PO QID PRN (Reason: Pain) RF: 0 ipratropium-albuterol 0.5 mg-3 mg(2.5 mg base)/3 mL Solution For Nebulization 3 ml INHALATION Q6H PRN (Reason: Shortness Of Breath) RF: 0 citalopram 10 mg Tablet 10 mg PO DAILY RF: 0 hydrocodone-acetaminophen 5-325 mg Tablet 1 tab PO TID PRN (Reason: Pain) RF: 0 diltiazem HCl 240 mg Capsule,Extended Release 24hr 240 mg PO DAILY RF: 0 acetaminophen 500 mg Tablet 1,000 mg PO BID PRN (Reason: Pain) RF: 0 pantoprazole 20 mg Tablet,Delayed Release (Dr/Ec) 20 mg PO BID RF: 0 alprazolam [Xanax] 0.5 mg Tablet 0.5 mg PO BID PRN (Reason: Anxiety) RF: 0 magnesium hydroxide [Milk of Magnesia] 400 mg/5 mL Suspension 30 ml PO DAILY PRN (Reason: Constipation) RF: 0 bisacodyl 10 mg Suppository 10 mg [place] DAILY PRN (Reason: Constipation) RF: 0 levothyroxine 125 mcg Tablet 125 mcg PO DAILY RF: 0 Enema Disposable 19-7 gram/118 mL Enema 118 ml IL DAILY PRN (Reason: Constipation) RF: 0 pramipexole [Mirapex] 0.125 mg Tablet 0.125 mg PO QPM RF: 0 montelukast 10 mg Tablet 10 mg PO DAILY RF: 0 polyethylene glycol 3350 [Miralax] 17 gram/dose Powder 17 g PO DAILY PRN (Reason: Constipation) RF: 0 albuterol sulfate 90 mcg/actuation Hfa Aerosol Inhaler 2 puff INHALATION 6XD PRN (Reason: Shortness Of Breath) RF: 0 quetiapine [Seroquel] 50 mg Tablet 50 mg PO BEDTIME RF: 0 magnesium citrate 100 mg Tablet 100 mg PO DAILY PRN (Reason: PRN) RF: 0 lidocaine-transparent dressing 5 %- 6 cm X 7 cm Kit 0 % TOPICAL .COMPLEX RF: 0 Senna Plus 8.6-50 mg Capsule 2 tab-cap PO BID PRN (Reason: Constipation) RF: 0 Discontinued furosemide [Lasix] 20 mg Tablet 20 mg PO DAILY RF: 0 Discharge Orders: Discharge Order (Routine); Ordered 10/12/19 Ordered By: David Vargas Referrals: Jluis Vernon MD [Physician] - 1 week Frankie Caballero Jr, MD [Family Provider] - 1-3 days (Follow-up with Dr. Caballero or his partner will be at [facility] 1 to 5 days) Discharge Diet: Diabetic Discharge Activity: Resume usual activity Activity Restrictions/Additional Instructions: Oxygen 6 L per nasal cannula, titrate for sat 88% or greater 3% saline, 5 ls per nebulizer twice a day with chest vest with patient in an upright position Up as much as possible Incentive spirometry Take all medicines as prescribed Discharge Attestations Time Spent in Discharge Care*: greater than 30 min Quality Metrics Clinical Quality Measures During this hospital stay, did patient experience: None Coding Level of Care Code Acute Stripping Shovel Oiler for [facility] Fwd Diagnoses Sepsis A41.9 Pneumonia J18.9 Urinary tract infection N39.0 Acute kidney injury (nontraumatic) N17.9 Dehydration E86.0 Hypercalcemia E83.52 Toxic encephalopathy G92 Hypotension I95.9 Thrombocytopenia D69.6 Chronic pain syndrome G89.4
[2019-10-12] MEDS: polyethylene glycol 3350 Pkt 17 gm PO (13:59)
[2019-10-12] MEDS: bisacodyl 5 mg Tablet 10 MG PO (13:59)
[2019-10-12] MEDS: HYDROcodone-acetaminophen 5-325 mg Tablet 1 TAB PO (14:00)
== END 2019-10-12 18:00 | disposition skilled nursing facility (03) | DRG 871 ==
LOC: ER 13:02 → ICU 16:15 → MEDSURG 10-06 16:11
PROVIDERS: Internal Medicine Critical Care Medicine; Student in an Organized Health Care Education/Training Program; Admitting Provider Internal Medicine; Emergency Provider Family Medicine; Family Provider Family Medicine; Visit Provider Internal Medicine
PROC: 0BJ08ZZ Inspection of Tracheobronchial Tree, Via Natural or Artificial Opening Endoscopic (ICD-10-PCS; CPT 31622; principal; 2019-10-10 07:55)
DX: A41.9 Sepsis, unspecified organism (principal); J18.9 Pneumonia, unspecified organism; J96.21 Acute and chronic respiratory failure with hypoxia; G92 Toxic encephalopathy; N39.0 Urinary tract infection, site not specified; E87.2 Acidosis; J98.11 Atelectasis; N17.9 Acute kidney failure, unspecified; B96.20 Unspecified Escherichia coli [E. coli] as the cause of diseases classified elsewhere; I95.9 Hypotension, unspecified; G89.4 Chronic pain syndrome; M25.519 Pain in unspecified shoulder; M25.562 Pain in left knee; M25.561 Pain in right knee; I50.9 Heart failure, unspecified; E11.42 Type 2 diabetes mellitus with diabetic polyneuropathy; J43.9 Emphysema, unspecified; K21.9 Gastro-esophageal reflux disease without esophagitis; E03.9 Hypothyroidism, unspecified; Z90.49 Acquired absence of other specified parts of digestive tract; Z90.710 Acquired absence of both cervix and uterus; Z96.642 Presence of left artificial hip joint; Z87.891 Personal history of nicotine dependence; E87.6 Hypokalemia; Z79.891 Long term (current) use of opiate analgesic; Z79.51 Long term (current) use of inhaled steroids; J98.09 Other diseases of bronchus, not elsewhere classified; M79.671 Pain in right foot; D69.6 Thrombocytopenia, unspecified; Z87.01 Personal history of pneumonia (recurrent); E83.52 Hypercalcemia; E86.0 Dehydration; Z87.440 Personal history of urinary (tract) infections
CPT/HCPCS: 12345; 36415; 36416; 36600; 51702; 51798; 71045; 71250; 73630; 80048; 80051; 80053; 80202; 80500; 81001; 82810; 83540; 83550; 83605; 83735; 83986; 84132; 84145; 85025; 85610; 85730; 86003; 87015; 87040; 87070; 87077; 87086; 87102; 87116; 87186; 87205; 87206; 87385; 87449; 87641; 87798; 87801; 88112; 88305; 89050; 93005; 94640; 94660; 94669; 96360; 96361; 96365; 96372; 96374; 96375; 97110; 97163; 97166; 97530; 97535; 99283; A9270; J0131; J0330; J0743; J1650; J1940; J1956; J2001; J2060; J2250; J2270; J2405; J2543; J2704; J3010; J3370; J3480; J3490; J7030; J7040; J7050; Q0162

== ENCOUNTER 2019-10-20 21:42 | Inpatient (IN) | payer MEDICARE, OTHER, SELFPAY ==
[2019-10-20 21:43] VITALS: BP 122/79; PULSE 74; RESP 18; TEMP 36.5; O2SAT 98; BMI 43.0
--- NOTE | 2019-10-20 21:58 | ED_ITS ---
Entered by Rosario Miller, acting as scribe for HPI - General Adult General: Chief complaint: General Medical Stated complaint: POSSIBLE CONFUSION Time Seen by Provider: 10/20/19 21:53 Source: EMS Mode of arrival: EMS Limitations: no limitations History of Present Illness: HPI narrative: 78 yo f came to the er by [facility] For confusion. Pt came from [facility]. Onset was today. Pt states that she does want to go home. Pt states that her family wanted her to come here to get checked out. Pt said that she well not to long and and that there is an opened wound on the rt foot. complaint: confusion/wound on rt foot Onset (ago): day(s) (today) Location: lower extremity (rt foot) Severity: mild Relieving factors: none Exacerbating factors: none Associated symptoms: Reports no associated symptoms and dyspnea; Deny chest pain, headache(s), nausea or vomiting Review of Systems General: Reports: other (negative unless marked) Const: Reports: chills; Denies: fever Eyes: Denies: eye redness ENMT: Denies: throat pain or nasal congestion Card: Reports: swelling of feet/ankles; Denies: chest pain Resp: Reports: shortness of breath, productive cough and wheezing GI: Denies: abdominal pain, nausea, vomiting or vomiting blood : Denies: flank pain or difficulty urinating Neuro: Denies: headache PFSH ED PFSH: Medical History Acidosis Aortic aneurysm Aortic disease CHF (congestive heart failure) Chronic back pain COPD (chronic obstructive pulmonary disease) Diabetes Emphysema, unspecified GERD (gastroesophageal reflux disease) Herpes zoster Hypotension Hypothyroidism Neuropathy Pyelonephritis Thyroid disease Tibia fracture Surgical History History of AAA (abdominal aortic aneurysm) repair History of cholecystectomy History of hysterectomy History of left hip replacement Family History Mother CAD (coronary artery disease) Father Cancer Liver Brother Cancer CLL and at age 68 Social History Smoking and tobacco status: never smoked Physical Exam Const: GENERAL APPEARANCE: well developed ORIENTATION/CONSCIOUSNESS: Yes oriented to person, Yes oriented to place and Yes oriented to time HENMT: COMMON NORMALS: normocephalic, external ears normal and external nose normal HEAD & SCALP: normocephalic; no scalp tenderness FACE & SINUS: normal facial exam NOSE: external nose normal and no nasal discharge EXTERNAL EAR: Yes external ears normal MOUTH: tongue normal TEETH & GINGIVA: no abnormal tooth and associated gingiva THROAT: posterior oropharynx normal; no peritonsillar mass Eye: COMMON NORMALS: PERRL, EOMs intact bilaterally and conjunctivae normal EYELID: eyelids normal CONJUNCTIVA: Yes conjunctivae normal PUPIL: Yes PERRL Neck/C-Spine: COMMON NORMALS: full ROM GENERAL: No tracheal deviation Chest: COMMONS NORMALS: inspection of chest normal CHEST: No tenderness Resp: COMMON NORMALS: negative for clear to auscultation bilaterally EFFORT & INSPECTION: Yes tachypneic, No respiratory distress, No retractions, Yes uses accessory muscles and No tracheal deviation AUSCULTATION: not clear to auscultation bilaterally, no rhonchi, wheezes and diminished lung sounds Cardio: COMMON NORMALS: regular rate and regular rhythm RATE: regular rate RHYTHM: regular rhythm HEART SOUNDS: no murmurs PERIPHERAL PULSES: radial pulses present GI: INSPECTION: No abdominal distension AUSCULTATION: No hyperactive bowel sounds and No hypoactive bowel sounds PALPATION: No guarding and No rigid PERCUSSION: no dullness to percussion and no tympanic to percussion : COMMON NORMALS: No no CVA tenderness BLADDER/KIDNEY EXAM: No no CVA tenderness Back/Pelvis: COMMON NORMALS: negative for no CVA tenderness Neuro: SENSORIUM/ORIENTATION: Yes oriented to person, Yes oriented to place and Yes oriented to time Psych: COMMON NORMALS: mental status grossly normal Skin: COMMON NORMALS: no rashes or lesions noted GENERAL SKIN EXAM: no rashes or lesions noted Course Consultations: Consultation #1: susi Vital Signs: Vital signs: Vital Signs Temperature 99.0 F 10/21/19 12:00 Pulse Rate 98 10/21/19 16:15 Respiratory Rate 20 H 10/21/19 16:05 Blood Pressure 140/90 10/21/19 12:00 Pulse Oximetry 92 10/21/19 16:05 MDM - General Adult MDM Narrative: Medical decision making narrative: Significant infiltrates to bilateral lungs. bilateral effusions. some resp distress. increased crp. hypoxia is likely reason for altered mental status. Lab Data: Labs: Lab Results 10/20/19 10/20/19 10/20/19 Range/Units 22:41 22:41 22:41 WBC 6.0 (4.0-10.0) 10^3/ uL RBC 4.11 (4.1-5.3) 10^6/u L Hgb 10.0 L (11.5-15.3) g/dL Hct 34.5 L (37.0-47.0) % MCV 83.9 (81-99) fL MCH 24.3 L (28.0-34.0) pg MCHC 29.0 L (30.0-36.0) g/dL RDW 19.0 H (12.1-15.1) % Plt Count 275 (130-400) 10^3/c mm MPV 9.5 (7.4-10.4) fL Neut % (Auto) 49.7 % Lymph % (Auto) 27.4 % [place] % (Auto) 11.8 % Eos % (Auto) 2.0 % Baso % (Auto) 0.5 % Neut # (Auto) 3.0 (1.8-7.7) 10^3/u L Lymph # (Auto) 1.7 (0.8-4.8) 10^3/u L [place] # (Auto) 0.7 (0.2-0.9) 10^3/u L Eos # (Auto) 0.1 (0.0-0.8) 10^3/u L Baso # (Auto) 0.0 (0.0-0.1) 10^3/u L Nucleated RBC % (a uto) 0.3 % Total Counted 100 (0-100) Atypical Lymphs % 2.0 (0-5) % Segmented Neutroph ils 54 % Band Neutrophils 5.0 % Absolute Lymphocyt es 1.4 (1.2-3.4) 10^3/c mm Lymphocytes (Manua l) 22 % Monocytes (Manual) 11.0 % Absolute Monocytes 0.7 H (0.1-0.6) 10^3/c mm Eosinophils (Manua l) 2 % Absolute Eosinophi ls 0.1 (0.0-0.7) 10^3/c mm Metamyelocytes 4.0 % Nucleated RBCs # 0.0 /100WBC Smudge Cells 1+ H Platelet Estimate Normal (Normal) Poikilocytosis Trace Anisocytosis 1+ H Sodium 134 L (136-145) mmol/L Potassium 4.0 (3.5-5.1) mmol/L Chloride 98 (98-107) mmol/L Carbon Dioxide 27 (22-29) mmol/L Anion Gap 13.0 (5-19) BUN 14 (8-23) mg/dL Creatinine 0.8 (0.5-0.9) mg/dL Glucose 90 (65-115) mg/dL Lactate 1.5 (0.5-2.2) mmol/L Calcium 10.3 (8.5-10.5) mg/dL Total Bilirubin 0.5 (0.15-1.2) mg/dL AST 15 (0-32) U/L ALT 9 (0-33) U/L Alkaline Phosphata se 129 H (35-105) IU/L C-Reactive Protein 91.6 H (0.0-4.9) mg/L Total Protein 5.7 L (6.6-8.7) g/dL Albumin 2.5 L (3.5-5.2) g/dL Globulin 3.2 (1.3-4.6) g/dL Procalcitonin (0-0.5) ng/mL Urine Color (Yellow) Urine Appearance (CLEAR) Urine pH (5-7) Ur Specific Gravit y (1.005-1.030) Urine Protein (Negative) Urine Glucose (UA) (Normal) Urine Ketones (Negative) Urine Blood (Negative) Urine Nitrate (Negative) Urine Bilirubin (NEGATIVE) Urine Urobilinogen (Negative) mg/dL Ur Leukocyte Mara ase (Negative) Urine RBC (0-2) /hpf Urine WBC (0-5) /hpf Ur Squamous Epith Cells (0-5) Urine Bacteria (NONE) 10/20/19 10/20/19 Range/Units 22:41 23:02 WBC (4.0-10.0) 10^3/ uL RBC (4.1-5.3) 10^6/u L Hgb (11.5-15.3) g/dL Hct (37.0-47.0) % MCV (81-99) fL MCH (28.0-34.0) pg MCHC (30.0-36.0) g/dL RDW (12.1-15.1) % Plt Count (130-400) 10^3/c mm MPV (7.4-10.4) fL Neut % (Auto) % Lymph % (Auto) % [place] % (Auto) % Eos % (Auto) % Baso % (Auto) % Neut # (Auto) (1.8-7.7) 10^3/u L Lymph # (Auto) (0.8-4.8) 10^3/u L [place] # (Auto) (0.2-0.9) 10^3/u L Eos # (Auto) (0.0-0.8) 10^3/u L Baso # (Auto) (0.0-0.1) 10^3/u L Nucleated RBC % (a uto) % Total Counted (0-100) Atypical Lymphs % (0-5) % Segmented Neutroph ils % Band Neutrophils % Absolute Lymphocyt es (1.2-3.4) 10^3/c mm Lymphocytes (Manua l) % Monocytes (Manual) % Absolute Monocytes (0.1-0.6) 10^3/c mm Eosinophils (Manua l) % Absolute Eosinophi ls (0.0-0.7) 10^3/c mm Metamyelocytes % Nucleated RBCs # /100WBC Smudge Cells Platelet Estimate (Normal) Poikilocytosis Anisocytosis Sodium (136-145) mmol/L Potassium (3.5-5.1) mmol/L Chloride (98-107) mmol/L Carbon Dioxide (22-29) mmol/L Anion Gap (5-19) BUN (8-23) mg/dL Creatinine (0.5-0.9) mg/dL Glucose (65-115) mg/dL Lactate (0.5-2.2) mmol/L Calcium (8.5-10.5) mg/dL Total Bilirubin (0.15-1.2) mg/dL AST (0-32) U/L ALT (0-33) U/L Alkaline Phosphata se (35-105) IU/L C-Reactive Protein (0.0-4.9) mg/L Total Protein (6.6-8.7) g/dL Albumin (3.5-5.2) g/dL Globulin (1.3-4.6) g/dL Procalcitonin 0.23 (0-0.5) ng/mL Urine Color Dark yellow (Yellow) Urine Appearance Cloudy (CLEAR) Urine pH 5 (5-7) Ur Specific Gravit y 1.015 (1.005-1.030) Urine Protein Neg (Negative) Urine Glucose (UA) Norm (Normal) Urine Ketones Negative (Negative) Urine Blood 3+ H (Negative) Urine Nitrate Positive H (Negative) Urine Bilirubin 1+ H (NEGATIVE) Urine Urobilinogen 1 H (Negative) mg/dL Ur Leukocyte Mara ase 1+ H (Negative) Urine RBC >100 H (0-2) /hpf Urine WBC 10-15 H (0-5) /hpf Ur Squamous Epith Cells 0-4 H (0-5) Urine Bacteria 2+ H (NONE) Discharge Plan Discharge Patient Disposition: Admitted As Inpatient Admit Provider: Dana Felder Discharge Date/Time: 10/21/19 02:17 Coding Level of Care Code ED Thread Pulling Machine Attendant for g Fwd The documentation recorded by the Paul person Stephanie Lyn, accurately reflects the service I personally performed and the decisions made by Jason garzon Jeremy John, DO Oct 20, 2019 21:42
--- NOTE | 2019-10-20 22:12 | XR_ITS ---
WS: [id number] XR chest 1V portable [id number] REASON FOR EXAM: pneumonia FINDINGS: Improving left atelectasis pneumonia. The atelectasis pneumonia on the right side is similar to the previous exam. Vascular congestion is similar to the previous exam Unchanged left pleural effusion. The heart and mediastinum were normal otherwise. Off the right hilum there appears to be fullness a mass cannot be excluded in the atelectasis. XR/XR chest 1V portable [id number] IMPRESSION: Right lung shows fullness in the hilum with atelectasis a tumor cannot be exclu ded. Stable improving left lung atelectasis. Small amount of left pleural effusion. The right pleural effusion basically unchanged.
--- NOTE | 2019-10-20 22:12 | XR_ITS ---
WS: [id number] XR foot RT 2V [id number] REASON FOR EXAM: trauma FINDINGS: Hallux valgus changes of the first metatarsophalangeal junction with degenerate changes in the articulation. There is a corner fracture of the proximal second phalanx. Limited separation is seen. The remaining phalanges metatarsals and tarsals were normal. There is spurring off the cuneiforms anteriorly. There is a calcaneal spur. XR/XR foot RT 2V [id number] IMPRESSION: Corner fracture of the proximal second phalanx Hallux valgus changes with degenerated findings Calcaneal spur. Spurring off the cuneiforms anteriorly.
[2019-10-20 22:47] LABS: Basophils % 0.5 %; Eosinophils # 0.1 10^3/uL (0.0-0.8); Hematocrit 34.5 % (37.0-47.0); Lymphocytes # 1.7 10^3/uL (0.8-4.8); Lymphocytes % 27.4 %; Mean Corpuscular Hemoglobin 24.3 pg (28.0-34.0); Mean Corpuscular Volume 83.9 fL (81-99); Mean Platelet Volume 9.5 fL (7.4-10.4); Monocytes # 0.7 10^3/uL (0.2-0.9); Monocytes % 11.8 %; Neutrophils % 49.7 %; Nucleated Red Blood Cells % 0.3 %; Platelet Count 275 10^3/cmm (130-400); Red Blood Count 4.11 10^6/uL (4.1-5.3)
[2019-10-20 23:00] LABS: Alanine Aminotransferase 9 U/L (0-33); Albumin Level 2.5 g/dL (3.5-5.2); Alkaline Phosphatase 129 IU/L (35-105); Aspartate Amino Transferase 15 U/L (0-32); Blood Urea Nitrogen 14 mg/dL (8-23); C Reactive Protein 91.6 mg/L (0.0-4.9); Calcium 10.3 mg/dL (8.5-10.5); Carbon Dioxide 27 mmol/L (22-29); Chloride 98 mmol/L (98-107); Creatinine Clr Calc Pharmacy 84.7042; Globulin 3.2 g/dL (1.3-4.6); Glucose 90 mg/dL (65-115); Sodium 134 mmol/L (136-145); Total Bilirubin 0.5 mg/dL (0.15-1.2); Total Protein 5.7 g/dL (6.6-8.7)
[2019-10-20 23:23] LABS: Slide Review Slide Review Perform
[2019-10-20 23:27] LABS: Absolute Eosinophils 0.1 10^3/cmm (0.0-0.7); Absolute Segmented Neutrophil 3.2 10/cmm (1.6-7.1); Band Neutrophils Absolute 0.3 10^3/cmm (0.0-1.2); Eosinophils 2 %; Lymphocytes 22 %; Lymphocytes Absolute 1.4 10^3/cmm (1.2-3.4); Monocytes Absolute 0.7 10^3/cmm (0.1-0.6); Poikilocytosis Trace; Segmented Neutrophils 54 %; Total Cells Counted 100 (0-100)
[2019-10-20 23:28] LABS: Anisocytosis 1+; Platelet Estimate Normal (Normal); Smudge Cells 1+
[2019-10-20 23:29] LABS: Add Urine Microscopic? YES; Bilirubin Urine 1+ (NEGATIVE); Blood Urine 3+ (Negative); Glucose Urine UA Norm (Normal); Ketones Urine Negative (Negative); Leukocyte Esterase Urine 1+ (Negative); Nitrate Urine Positive (Negative); Protein Urine Neg (Negative); Specific Gravity, Urine 1.015 (1.005-1.030); Urine Appearance Cloudy (CLEAR); Urine Color Dark Yellow (Yellow); Urobilinogen Urine 1 mg/dL (Negative); pH Urine 5 (5-7)
[2019-10-20 23:30] LABS: Add Urine Culture? Yes; Bacteria Urine 2+; RBC Urine >100 /hpf (0-2); Squamous Epithelial Cell Urine 0-4 (0-5)
[2019-10-20] MEDS: HYDROcodone-acetaminophen 7.5-325 mg Tablet 1 TAB PO (23:52)
[2019-10-21] VITALS (13 sets, daily range): BP systolic 72–141; BP diastolic 48–90; PULSE 75–102; RESP 17–21; TEMP 36.3–37.2; O2SAT 90–97
--- NOTE | 2019-10-21 00:19 | PC.NURSE ---
Wound to left foot cleaned with normal saline, covered with nonadherent telfa. Foot wrapped with kerlex.
--- NOTE | 2019-10-21 00:41 | CTR_ITS ---
PROCEDURE INFORMATION: Exam: CT Head Without Contrast Exam date and time: 10/21/2019 12:43 AM Age: 78 years old Clinical indication: Altered mental status/memory loss; Additional info: AMS TECHNIQUE: Imaging protocol: Computed tomography of the head without contrast. Total DLP: 1025.31 mGy-cm Radiation optimization: All CT scans at this facility use at least one of these dose optimization techniques: automated exposure control; mA and/or kV adjustment per patient size (includes targeted exams where dose is matched to clinical indication); or iterative reconstruction. COMPARISON: CT head wo con* [id number] 2018-05-28 03:16 FINDINGS: Brain: Diffuse moderate cerebral age related volume loss. Moderate patchy low attenuation in the white matter compatible with moderate chronic small vessel ischemic disease. No midline shift, mass, fluid collection, or evidence of hemorrhage. Ventricles: Ventricular enlargement proportional to volume loss. Bones/joints: Unremarkable. No acute fracture. Sinuses: Visualized sinuses are unremarkable. No fluid levels. Mastoid air cells: Visualized mastoid air cells are well aerated. Soft tissues: Unremarkable. CT/CT head wo con* [id number] IMPRESSION: Moderate involutional changes, no acute intracranial abnormality. Radiation Dose CTDIVOL = (mGy): DLP = 1025.31 (mGy-cm)
[2019-10-21] MEDS: piperacillin-tazobactam 4.5 GM in sodium chloride 0.9% (plus) 50 ML IV (00:54)
[2019-10-21 01:04] LABS: Lactate (Lactic Acid level) 1.5 mmol/L (0.5-2.2)
[2019-10-21 02:57] LABS: Procalcitonin 0.23 ng/mL (0-0.5)
--- NOTE | 2019-10-21 06:02 | P.HP_ITS ---
Providers/Chief Complaint Admitting Physician: Dana Felder MD Chief Complaint: POSSIBLE CONFUSION History of Present Illness Joy Bassett is a 78 year old female currently residing at nursing facility for rehabilitation since being noted to have recurrent pneumonia since at least July 2019. She has significant past comorbidities by way of COPD which is oxygen dependent baseline of 2 to 3 L, hypothyroidism, CHF, history of pyelonephritis, hypertension, CAD. Starting late July to August she has had multiple hospital admissions for postobstructive pneumonia. First such admission was at [facility] in [place] at which time there was concern for a potential lung mass. She underwent bronchoscopy and biopsy for the same. This mass was reportedly benign. She was transferred to a nursing facility for rehab ablation after that. She recently presented for admission here between October 02 to October 10 for dyspnea, dysuria and increasing confusion and persisting postobstructive pneumonia. She received treatment with Zosyn and vancomycin with improvement in respiratory status. She improved from a respiratory standpoint. Repeat imaging demonstrated continued atelectasis and concern for possible left hilar mass for which he underwent a pulmonary evaluation and bronchoscopy. This demonstrated bronchial plugging but no overt masses. Differential included organizing pneumonia versus eosinophilic pneumonia. Recommendation was to complete an antibiotic course for 7 to 10 days, and undergo chest PT with vest which was continuing in the half-way. Plan was to follow as an outpatient with p carrie. She returns today back from the rehab facility with history of being found to be with altered mental status and increased confusion per the granddaughter. At baseline patient is fully alert awake and oriented, however this afternoon she was confused, not able to recognize her family and talking out of context. When EMS tried to bring her to the hospital, she insisted on walking though she has recently been confined to a wheelchair and in the process fell and injured her right foot. She has recently been noted to have a lower extremity DVT and is on Eliquis anticoagulation for the same. Per the patient and granddaughter she has not noticed any recent worsening in cough or expectoration. Chest vest is continuing on this has helped with her respiratory symptoms. She did complain of some abdominal pain earlier today however has not had any symptoms of nausea vomiting or diarrhea. She has an indwelling catheter since her last admission here. UA taken on this catheter is unsurprisingly dirty. Mental status has improved since arrival at the hospital. CT head and negative for any acute intracranial abnormality. She has been afebrile and hemodynamic Emanuel stable since presentation. She reports having had a swallow study upon admission at [facility] which was normal. Diagnostics in the ER revealed a normal white blood cell count at 6.0, anemia with hemoglobin at 10 which is stable, normal sodium at 134, normal renal function with creatinine at 0.7, unremarkable LFTs. Head CT negative for acute abnormality. Chest x-ray with persistent left lower lobe consolidation, grossly appears stable to improving. Review of Systems General: Reports: 10 or more systems reviewed and unremarkable except in HPI and below Const: Denies: fever, chills or body aches Eyes: Denies: change in vision, blurry vision or photophobia ENMT: Reports: hoarseness; Denies: throat pain, enlarged tonsils, painful swallowing or nasal congestion Card: Denies: chest pain, palpitations, irregular heart rhythm, edema, swelling of feet/ankles, lightheadedness, pre-syncope, shortness of breath on exertion or shortness of breath when lying down Resp: Reports: shortness of breath and non-productive cough; Denies: productive cough, wheezing, stridor, pain on inspiration, change in phlegm color, coughing up blood or chest congestion GI: Reports: abdominal pain; Denies: nausea, vomiting, vomiting blood, coffee grounds in vomit, difficulty swallowing, heartburn/indigestion, diarrhea, constipation, cramping, change in stool character, blood in stool or black tarry stool : Denies: flank pain, difficulty urinating, painful urination, urinary frequency, urinary urgency, urinary hesitancy or blood in urine Musc: Denies: neck pain, back pain, extremity pain, joint swelling, joint warmth or deformity Neuro: Denies: headache, numbness in extremities, weakness in extremities, changes in sensation, difficulty walking, frequent falls, dizziness, vertigo, behavioral changes, slurred speech or seizure-like activity Psych: Denies: anxiety, depression, suicidal ideation or homicidal ideation Endo: Denies: excessive urination, excessive thirst, tired all the time, cold intolerance or hot flashes Guero/Lymph: Denies: easy bruising or easy bleeding Medications/Allergies Home Medications Medication Instructions Recorded Confirmed Last Taken Type acidophilus-pectin, citrus 2 cap PO TID 10/20/19 10/20/19 Unknown History [Acidophilus Probiotic] albuterol sulfate [Proventil HFA] 1 puff INHALATION QID PRN 10/20/19 10/20/19 Unknown History apixaban [Eliquis] 5 mg PO BID 10/20/19 10/20/19 Unknown History aspirin [Aspirin Low Dose] 81 mg PO DAILY 10/20/19 10/20/19 Unknown History benztropine 0.5 mg PO BID 10/20/19 10/20/19 Unknown History bisacodyl 10 mg PO DAILY 10/20/19 10/20/19 Unknown History clopidogrel 75 mg PO DAILY 10/20/19 10/20/19 Unknown History cyclobenzaprine 10 mg PO TID 10/20/19 10/20/19 Unknown History docusate sodium [Colace] 200 mg PO DAILY 10/20/19 10/20/19 Unknown History fluticasone propionate [Flovent 2 puff INHALATION BID 10/20/19 10/20/19 Unknown History HFA] losartan 25 mg PO DAILY 10/20/19 10/20/19 Unknown History melatonin 6 mg PO DAILY 10/20/19 10/20/19 Unknown History metformin 500 mg PO DAILY 10/20/19 10/20/19 Unknown History metoprolol tartrate 50 mg PO DAILY 10/20/19 10/20/19 Unknown History omega-3 acid ethyl esters [Lovaza] 1 cap PO DAILY 10/20/19 10/20/19 Unknown History ondansetron HCl [Zofran] 4 mg PO Q8H 10/20/19 10/20/19 Unknown History potassium chloride 20 meq PO DAILY 10/20/19 10/20/19 Unknown History ranitidine HCl 150 mg PO BID 10/20/19 10/20/19 Unknown History umeclidinium [Incruse Ellipta] 1 inh INHALATION DAILY 10/20/19 10/20/19 Unknown History Allergies Allergy/AdvReac Type Severity Reaction Status Date / Time niacin Allergy Unknown Verified 10/10/19 08:05 PFSH Acute PFSH: Medical History Acidosis Aortic aneurysm Aortic disease CHF (congestive heart failure) Chronic back pain COPD (chronic obstructive pulmonary disease) Diabetes Emphysema, unspecified GERD (gastroesophageal reflux disease) Herpes zoster Hypotension Hypothyroidism Neuropathy Pyelonephritis Thyroid disease Tibia fracture Surgical History History of AAA (abdominal aortic aneurysm) repair History of cholecystectomy History of hysterectomy History of left hip replacement Family History Mother CAD (coronary artery disease) Father Cancer Liver Brother Cancer CLL and at age 68 Social History Smoking and tobacco status: never smoked Vitals/I&O/Wt Last Vital Signs Temp 97.5 F L 10/21/19 02:07 Pulse 78 10/21/19 03:48 Resp 18 10/21/19 03:48 BP 94/75 10/21/19 02:07 Pulse Ox 94 10/21/19 03:48 10/20/19 10/20/19 10/21/19 14:59 22:59 06:59 Intake Total 50 / 50 Balance 50 / 50 Weight last 48 hrs Weight 128.367 kg Physical Exam Narrative: EXAM NARRATIVE: GEN: Awake, alert and oriented, no acute distress, lying in bed HEENT currently on nasal cannula at 4 L/min, saturating 94 to 96% CVS: S1S2 N RS: CTA B/L all areas Abd: Soft, nt/nd , bs+ DIRECTOR LIFE SCIENCES: Unable to move bilateral lower extremities, however per patient and granddaughter just his baseline. No other gross deficits noted. Data : 10/20/19 22:41 10/20/19 22:41 Micro: Microbiology 10/20/19 22:41 Blood Culture - Preliminary Blood SPECIMEN COLLECTED 10/20/19 22:30 Blood Culture - Preliminary Blood SPECIMEN COLLECTED A&P Assessment and plan (1) Pneumonia: Status: Acute Code(s): J18.9 - Pneumonia, unspecified organism (2) Toxic encephalopathy: Status: Acute Code(s): G92 - Toxic encephalopathy (3) Hypertension: Status: Acute Code(s): I10 - Essential (primary) hypertension (4) COPD (chronic obstructive pulmonary disease): Status: Acute Code(s): J44.9 - Chronic obstructive pulmonary disease, unspecified (5) Diabetes: Status: Acute Code(s): E11.9 - Type 2 diabetes mellitus without complications Additional A&P Information Admitted to [facility] given episode of confusion this morning. At the time of my exam patient is awake alert and oriented x3, however per granddaughter he is still not at her baseline and appears slower to respond. She is intermittently talking in sentences that are out of context of the conversation which per the granddaughter is not her baseline. Encephalopathy from hypoxia, hypercapnia and /or sepsis could not be completely excluded at this time. UA looks grossly dirty, however this is from an indwelling Adams. We will go ahead and change out the Adams. Empiric ceftriaxone while undergoing further work-up Chest x-ray infiltrates look grossly stable on my read. Will await final radiological read. In the interim continue chest vest, duo nebs and CPAP at nighttime. Blood culture sent and pending. CT head negative. Lower extremity DVT currently on Eliquis. Continue same Continue several of her psych home medications. Insulin sliding scale for history of diabetes Further orders based on evolution of clinical picture and results of pending testing. 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
[2019-10-21] MEDS: cefTRIAXone 1,000 MG in sodium chloride 0.9% (plus) 50 ML 100 MG IV (07:14)
--- NOTE | 2019-10-21 08:10 | CTR_ITS ---
PROCEDURE INFORMATION: Exam: CT Abdomen And Pelvis Without Contrast Exam date and time: 10/21/2019 8:41 AM Age: 78 years old Clinical indication: Other: Hematuria; Additional info: Hematuria, confusion TECHNIQUE: Imaging protocol: Computed tomography of the abdomen and pelvis without contrast. Total DLP: 1962.94 mGy-cm Radiation optimization: All CT scans at this facility use at least one of these dose optimization techniques: automated exposure control; mA and/or kV adjustment per patient size (includes targeted exams where dose is matched to clinical indication); or iterative reconstruction. COMPARISON: CT Chest/Abdomen/Pelvis w IV* 08/19/2016 7:17 PM FINDINGS: Detailed evaluation of the abdominal and pelvic viscera is somewhat limited in the absence of intravenous contrast. Lungs: Interstitial prominence and chronic granulomatous disease. Asymmetric bibasilar airspace disease, left greater than right, and asymmetric left pleural effusion. Coronary artery calcification. Small hiatal hernia. Liver: Focal fatty infiltration of the liver. Gallbladder and bile ducts: Status post cholecystectomy. Pancreas: No pancreatic mass or ductal dilatation. Spleen: Enlarged spleen measuring 15.5 cm in length. Adrenals: Unremarkable adrenals. Kidneys and ureters: Normal renal morphology. No hydronephrosis. Stomach and bowel: No significant small bowel dilatation. Copious stool in a pattern of constipation. Diverticula, without pericolonic inflammation. Appendix: No acute appendicitis. Intraperitoneal space: No significant free fluid. Vasculature: Prominent vascular calcification. Stable 3.9 cm infrarenal abdominal aortic aneurysm. Lymph nodes: No enlarged lymph nodes. Bladder: Adams catheter in the nondistended bladder. Reproductive: Status post hysterectomy. Bones/joints: Left hip arthroplasty with beam hardening artifact. Osteopenia. Degenerative change, levoscoliosis, and vacuum discs. Grade 1 anterior listhesis of L4 on L5. Chronic T12-L1 ankylosis. Soft tissues: Laxity and atrophy of the incompletely visualized anterior abdominal wall musculature. Subcentimeter subcutaneous nodular densities in the anterior abdominal wall, believed to be iatrogenic. CT/CT kidney stone [id number] IMPRESSION: 1. Asymmetric bibasilar airspace/pleural airspace disease. 2. Stable 3.9 cm infrarenal abdominal aortic aneurysm. 3. Copious stool in a pattern of constipation. 4. Additional findings as described above. Radiation Dose CTDIVOL = (mGy): DLP = 1962.94 (mGy-cm)
[2019-10-21] MEDS: apixaban 5 mg Tablet PO ×2 (08:58→18:01)
[2019-10-21] MEDS: omega-3 fatty acids 1,000 mg Capsule 1000 MG PO (08:58)
[2019-10-21] MEDS: cyclobenzaprine 10 mg Tablet PO (08:58)
[2019-10-21] MEDS: clopidogrel 75 mg Tablet PO (08:58)
[2019-10-21] MEDS: citalopram 20 mg Tablet 10 MG PO (08:59)
[2019-10-21] MEDS: FUROsemide 40 mg Tablet PO (09:00)
[2019-10-21] MEDS: quetiapine 25 mg Tablet 50 MG PO ×2 (09:00→18:01)
[2019-10-21] MEDS: docusate sodium 100 mg Capsule 200 MG PO (09:00)
[2019-10-21] MEDS: metformin 500 mg Tablet PO (09:01)
[2019-10-21] MEDS: metoprolol tartrate 50 mg Tablet PO (09:01)
[2019-10-21] MEDS: benztropine 1 mg Tablet 0.5 MG PO ×2 (09:01→18:00)
[2019-10-21] MEDS: aspirin 81 mg EC Tablet PO (09:01)
[2019-10-21] MEDS: bisacodyl 5 mg Tablet 10 MG PO (09:02)
[2019-10-21] MEDS: montelukast sodium 10 mg Tablet PO (09:03)
[2019-10-21] MEDS: levothyroxine 125 mcg Tablet PO (09:03)
[2019-10-21] MEDS: losartan 50 mg Tablet 25 MG PO (09:07)
[2019-10-21 09:53] LABS: Add Urine Microscopic? YES; Bilirubin Urine Neg (NEGATIVE); Blood Urine 3+ (Negative); Glucose Urine UA Norm (Normal); Ketones Urine Negative (Negative); Leukocyte Esterase Urine 2+ (Negative); Nitrate Urine Negative (Negative); Protein Urine 1+ (Negative); Specific Gravity, Urine 1.005 (1.005-1.030); Urine Color Yellow (Yellow); Urobilinogen Urine Norm (Negative)
[2019-10-21 09:58] LABS: RBC Urine 50-80 /hpf (0-2)
[2019-10-21 09:59] LABS: Add Urine Culture? Yes; Bacteria Urine 2+; WBC Urine >100 /hpf (0-5)
[2019-10-21] MEDS: ipratropium-albuterol 3 mL Neb INHALATION ×2 (10:49→15:56)
[2019-10-21] MEDS: ondansetron 2 mg/ML SDV 2 mL 4 MG IVP (13:10)
[2019-10-21] MEDS: ALPRAZolam 0.5 mg Tablet PO (13:11)
--- NOTE | 2019-10-21 15:04 | CTR_ITS ---
PROCEDURE INFORMATION: Exam: CT Right Upper Extremity Without Contrast, Shoulder Exam date and time: 10/21/2019 3:55 PM Age: 78 years old Clinical indication: Injury or trauma; Initial encounter; Blunt trauma (contusions or hematomas; Right; Patient HX: ? Fall from alexi lift, C/O R shoulder pain - repeated due to motion - best images possible TECHNIQUE: Imaging protocol: CT of the Right upper extremity without contrast was performed. Exam focused on the shoulder. Total DLP: 4577.73 mGy-cm Radiation optimization: All CT scans at this facility use at least one of these dose optimization techniques: automated exposure control; mA and/or kV adjustment per patient size (includes targeted exams where dose is matched to clinical indication); or iterative reconstruction. COMPARISON: CR Shoulder 2+ views RIGHT* [id number] 05/28/2018 2:46 AM FINDINGS: Bones/joints: Motion artifact does moderately limit the sensitivity of this examination. Artifact is particularly prominent in the region of the ribs. There is a normal variant os acromiale with degenerative changes across the apposing surfaces. There are severe degenerative changes across the acromioclavicular joint. Severe narrowing of the glenohumeral joint space. There are prominent marginal osteophytes and subchondral cystic changes across the glenohumeral joint. There is a 5 mm x 3 mm osseous density adjacent to the anteroinferior aspect of the glenoid. This may represent an ununited osteophyte formation or chronic soft tissue calcification however acute fracture cannot be excluded. Soft tissues: There are benign-appearing soft tissue calcifications. CT/CT shoulder RT wo con* [id number] IMPRESSION: There are severe degenerative changes across the glenohumeral joint as described above. A 5 mm osseous density adjacent to the anteroinferior aspect of the glenoid is likely chronic in nature. A small acute fracture cannot be completely excluded however as there are no adjacent soft tissue changes or associated glenohumeral joint effusion, this is unlikely. Radiation Dose CTDIVOL = (mGy): DLP = 4577.73 (mGy-cm)
--- NOTE | 2019-10-21 15:04 | XR_ITS ---
WS: [id number] XR ankle RT 2V [id number] REASON FOR EXAM: pain, bruising FINDINGS: An avulsion fractures seen along the anterior tibia and there is a fracture the posterior s helf of tibia. A calcaneal spur is noted. XR/XR ankle RT 2V [id number] IMPRESSION: Posterior shelf fracture of the tibia Posterior shelf avulsion off the fibula.
--- NOTE | 2019-10-21 16:04 | PC.RESP ---
scanner not working-pt and medications entered manually after confirming pt.
[2019-10-21] MEDS: piperacillin-tazobactam 3.375 GM in sodium chloride 0.9% (plus) 50 ML IV (16:58)
--- NOTE | 2019-10-21 17:31 | PC.SLP ---
INSTRUCTIONAL MEDIA SERVICES TECHNICIAN went to pt's room to evaluate pt. Pt out of room at present time.
[2019-10-21] MEDS: pramipexole 0.25 mg Tablet 0.125 MG PO (18:00)
[2019-10-21] MEDS: HYDROcodone-acetaminophen 5-325 mg Tablet 1 TAB PO (18:01)
--- NOTE | 2019-10-21 18:14 | PM.PN ---
Subjective Subjective: Interval history: She cannot provide very much history. She cannot remember anything particularly very wrong happening in the last couple of days. She knows she is in the hospital, she knows the year. She knows she is here to see doctors. She does not remember injuring her right leg. When asked about pain in her right shoulder, does not remember when this started. States that she has had it, when asked about whether the cause is known, then gives a strange answer stating something about increase in the barometers . Vitals/I&O/Wt Last Vital Signs Temp 99.0 F 10/21/19 12:00 Pulse 98 10/21/19 16:15 Resp 20 H 10/21/19 16:05 BP 140/90 10/21/19 12:00 Pulse Ox 92 10/21/19 16:05 10/21/19 10/21/19 10/21/19 06:59 14:59 22:59 Intake Total 50 / 50 410 / 410 Output Total 250 / 250 Balance 50 / 50 160 / 160 Weight last 48 hrs Weight 128.367 kg Physical Exam Const: COMMON NORMALS: no apparent distress and oriented x3 NUTRITIONAL APPEARANCE: obese morbidly obese OTHER: Generally weak. HENMT: COMMON NORMALS: oropharynx normal Neck/C-Spine: COMMON NORMALS: no JVD Resp: COMMON NORMALS: normal respiratory effort AUSCULTATION: diminished lung sounds Cardio: COMMON NORMALS: no JVD, regular rhythm, S1 normal heart sound, S2 normal heart sound and no murmurs RHYTHM: regular rhythm HEART SOUNDS: S1 normal and S2 normal GI: COMMON NORMALS: normal to inspection, nondistended, normoactive bowel sounds, soft to palpation and non-tender PALPATION: Yes soft Extremity: OTHER: Right ankle with bruising anteriorly, swelling. Tender on passive range of motion. Right shoulder swollen, tender on passive range of motion. Tender on palpation, and tender on active movement. Neuro: COMMON NORMALS: oriented x3 and moves all extremities (But is generally weak, power 3/5. Severe deconditioning.) OTHER: Visual sebastian difficult to examine as she does not follow commands well. Keeps looking around side to side. On sensory exam may have some degree of neglect as does not consistently name which side is touched. Skin: OTHER: Multiple pressure sores Bruising. Thin and fragile skin. Urinary Catheter Management^: 2-way Urethral: Cath Placed During This Visit: yes Urethral Indwelling: Yes Reason for Continuing Indwelling Catheter: Acute Urinary Retention or Obstruction Urinary Catheter Date of Insertion: 10/21/19 Urinary Catheter Time of Insertion: 09:45 Data : 10/20/19 22:41 10/20/19 22:41 Micro: Microbiology 10/20/19 22:41 Blood Culture - Preliminary Blood SPECIMEN COLLECTED 10/20/19 22:30 Blood Culture - Preliminary Blood SPECIMEN COLLECTED A&P Assessment and plan (1) Acute encephalopathy: Overall difficult to determine degree of encephalopathy and chronicity. She appears to state things which seem to make sense to her, but do not make sense, like when describing reason for her shoulder pain talks about increasing barometer's . At the same time during the same visit is alert, conversant, oriented to person place and year. Knows she is in the hospital to see doctors. She is generally weak, with recently progressive functional decline. She has not walked in quite some time, and per discussion with snf staff getting out to the lunch room is about a 45-minute ordeal in terms of preparation. Granddaughter feels that she was more active before her chair was taken away at the snf. FDC is having to use a lift to place her in the chair. Both snf and granddaughter seem to agree that she has been less like herself since recent discharge from [facility] [place] at the end of August where she was treated for sepsis, UTI, and had reportedly had an episode of delirium. It appears she may have some long-term sequela. Certainly it is possible that her current pneumonia is contributing to acute encephalopathy, with encephalopathy fueling aspiration and persistent/recurrence of infection. She also has a indwelling Adams catheter, with possibility of urinary tract infection contributing. I could not reach her son, but discussed with her granddaughter that she is also on a number of medications that could contribute to acute encephalopathy, including psychotropic medications. She is overall at high risk of delirium due to multiple risk factors. Discussed with the granddaughter that we will attempt to treat underlying illnesses. Assess for aspiration. Follow-up urine culture. I have decreased the dose of her Flexeril and Mirapex. Hold Cogentin. For now continue SSRI unchanged as she is already on a small dose, and reportedly has been suffering from depression after recent of her son. Her daughter had also in adulthood. We will check TSH. Discussed with daughter may benefit from MRI at some point once she is able to participate in the examination to assess for possible CVA or other structural causes. CT of the head did not reveal ventriculomegaly beyond what is expected, or other gross abnormality. She has no headache or other meningeal signs. Status: Acute Code(s): G93.40 - Encephalopathy, unspecified (2) Pneumonia: Concern for aspiration. Switched antibiotic to Zosyn. Noted to be coughing with food and drink by our nursing staff. Requested speech therapy evaluation. Pending modified barium swallow study. Discussed concerns with granddaughter. Status: Acute Code(s): J18.9 - Pneumonia, unspecified organism (3) Urinary tract infection: Possible UTI, although dirty urine, and Adams catheter since last discharge from the hospital here due to urinary retention. Nitrite positive on presentation, although negative on repeat. Follow-up urine culture. Continue Zosyn. Microscopic hematuria: Requested kidney CT, without finding of renal stone, pyelonephritis. Status: Acute Code(s): N39.0 - Urinary tract infection, site not specified Additional A&P Information Multiple pressure ulcers: Wound care. Reposition frequently. Functional decline: Currently would be unable to participate in physical therapy. Discussed with granddaughter overall unfortunately prognosis is not good with her not being mobile in quite some time, and recently with progressive functional decline, recurrent pneumonia and hospitalization. Granddaughter verbalized understanding, and agrees that they have been concerned regarding her overall ability to recover from multiple recent illnesses. Full CODE STATUS has been maintained out of respect for her wishes. HTN DM 2 Recent thrombocytopenia: Resolved Attestations Medical Necessity Statement*: Continue admission for assessment of management of acute encephalopathy, pneumonia, possible UTI, polypharmacy. Coding Level of Care Code Acute [employer]orer for [facility] Fwd Diagnoses Acute encephalopathy G93.40 Pneumonia J18.9 Urinary tract infection N39.0
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
--- NOTE | 2019-10-21 19:24 | CTR_ITS ---
PROCEDURE INFORMATION: Exam: CT Right Lower Extremity Without Contrast, Ankle Exam date and time: 10/21/2019 9:47 PM Age: 78 years old Clinical indication: Pain; Ankle; Right; Patient HX: ? Dropped from a alexi lift -abn xray; Additional info: Concern for non displaced trimalleolar ankle FX age indeter TECHNIQUE: Imaging protocol: CT of the Right lower extremity without contrast was performed. Exam focused on the ankle. Total DLP: 115.76 mGy-cm Radiation optimization: All CT scans at this facility use at least one of these dose optimization techniques: automated exposure control; mA and/or kV adjustment per patient size (includes targeted exams where dose is matched to clinical indication); or iterative reconstruction. COMPARISON: CR XR ankle RT 2V [id number] 10/21/2019 5:36 PM FINDINGS: Bones/joints: There is a mildly displaced horizontal oblique fracture through the medial malleolus. Distal fractured segment is displaced 6 mm inferiorly. There are mildly displaced oblique fractures through the distal fibula metadiaphysis extending to the lateral malleolus with small adjacent free fracture fragments. Distal fractured segment is displaced 4 mm laterally. There is an oblique nondisplaced hairline fracture through the posterolateral tibial plafond and seen best on sagittal series 401, image 31. Generalized osteopenia. There are mottled lucencies in the visualized osseous structures. This can be seen with chronic osteopenia or an infiltrative process such as multiple myeloma. Multi-articular primary osteoarthritic changes including joint space narrowing, subchondral cystic/sclerotic changes, and marginal osteophyte formations. There is a calcaneal spur. Soft tissues: Edema and/or hematoma is present in the soft tissues adjacent to the fracture sites. There is fatty atrophy of the visualized musculature surrounding in the ankle. CT/CT ankle RT wo con* [id number] IMPRESSION: 1. There are mildly displaced fractures through the medial malleolus and distal fibula. Nondisplaced oblique fracture through the posterolateral tibial plafond. 2. Generalized osteopenia. There are mottled lucencies in the visualized osseous structures. This can be seen with chronic osteopenia or an infiltrative process such as multiple myeloma. Radiation Dose CTDIVOL = (mGy): DLP = 115.76 (mGy-cm)
[2019-10-21] MEDS: cyclobenzaprine 10 mg Tablet 5 MG PO (20:30)
[2019-10-21 20:41] LABS: Glucose Point of Care 84 mg/dL (70-110)
[2019-10-22] VITALS (73 sets, daily range): BP systolic 64–184; BP diastolic 35–152; PULSE 75–108; RESP 19–33; TEMP 38.2–38.6; O2SAT 70–99
[2019-10-22] MEDS: sodium chloride 0.9% 500 ML 999 ML IV ×3 (00:19→01:57)
[2019-10-22] MEDS: piperacillin-tazobactam 3.375 GM in sodium chloride 0.9% (plus) 50 ML IV (00:24)
[2019-10-22] MEDS: dextrose 50% syringe 50 mL 25 ML IVP (03:08)
--- NOTE | 2019-10-22 03:08 | PM.EVENT ---
Event Note Event Note: Called by RN to report patient's low blood pressure of 70/48, without significant improvement with 1.5 L IVF bolus. Patient currently on Bipap. Currently able to wake up and state name and location, bu overall lethargic since beginning of shift per report. CT abdomen performed earlier toda without an gross septic focus Current Bp 88/42, FL- 75, RR-17, sp02 97% on Bipap. - transfer to ICU -start levophed to maintain MAP > 65 - change zosyn to primaxin empirically for now while pending cx results - am labs incl CBC, CMP now, added lactate, blood cx, sputum cx and MRSA nasal PCR. Event Notes Attestations Time Spent in Patient Care: 16 - 35 minutes
--- NOTE | 2019-10-22 03:15 | PC.NURSE ---
At 0014 pt blood pressure was 72/48, and pt was lethargic and pale, Dr. Felder called and a 500mL NS bolus was ordered. At 0055 pt blood pressure was 76/54 after the initial bolus and pt remained lethargic. Dr. Felder contacted and another 500ML NS bolus was ordered. At 0149 pt Blood pressure was 88/42 after the instillation of the 2nd bolus, pt more alert at this time. Dr Felder was contacted again and a 3rd 500mL NS bolus was ordered. Pt blood pressure after 3rd bolus was 84/50, Dr. Felder was notified and orders to send pt to ICU and get a blood gas were entered. Pt blood sugar was checked at 0315 and resulted at 79, Dr. Felder ordered 1/2 amp of D50. While administering D50, pt became combative and confused, unable to be reoriented at this time. Family member Jojo notified of pt transfer, all belongings went with pt to ICU, and report was called to ELVIA Brooks.
--- NOTE | 2019-10-22 03:26 | PC.PHAR ---
Vancomycin is dosed at 1gm IVPB every 12 hours to produce a predicted trough level of 12.29 (population based pharmacokinetic analysis). A trough level has been ordered from the lab to be obtained before the third dose to confirm and adjust if needed.
[2019-10-22 03:29] LABS: Glucose Point of Care 93 mg/dL (70-110)
[2019-10-22] MEDS: ipratropium-albuterol 3 mL Neb INHALATION ×4 (03:41→20:38)
[2019-10-22 03:51] LABS: Basophils % 0.3 %; Eosinophils # 0.1 10^3/uL (0.0-0.8); Eosinophils % 1.6 %; Hematocrit 30.6 % (37.0-47.0); Hemoglobin 8.8 g/dL (11.5-15.3); Lymphocytes # 2.9 10^3/uL (0.8-4.8); Lymphocytes % 46.6 %; Mean Corpuscular HGB Conc 28.8 g/dL (30.0-36.0); Mean Corpuscular Hemoglobin 24.2 pg (28.0-34.0); Mean Corpuscular Volume 84.3 fL (81-99); Mean Platelet Volume 9.7 fL (7.4-10.4); Monocytes # 0.6 10^3/uL (0.2-0.9); Monocytes % 10.1 %; Neutrophils # 2.2 10^3/uL (1.8-7.7); Neutrophils % 35.9 %; Nucleated Red Blood Cells % 0.5 %; Platelet Count 234 10^3/cmm (130-400); Red Blood Count 3.63 10^6/uL (4.1-5.3); Red Cell Distribution Width 19.3 % (12.1-15.1); White Blood Count 6.2 10^3/uL (4.0-10.0)
[2019-10-22 04:00] LABS: Anion Gap 15.4 (5-19); Blood Urea Nitrogen 16 mg/dL (8-23); Calcium 9.7 mg/dL (8.5-10.5); Carbon Dioxide 25 mmol/L (22-29); Chloride 99 mmol/L (98-107); Glucose 82 mg/dL (65-115); Osmolality Calculated 275 mOsm/kg (285-295); Potassium 4.4 mmol/L (3.5-5.1); Sodium 135 mmol/L (136-145)
[2019-10-22 04:05] LABS: Lactate (Lactic Acid level) 4.2 mmol/L (0.5-2.2)
[2019-10-22 04:31] LABS: Slide Review Slide Review Perform
[2019-10-22 05:13] LABS: Glucose Point of Care 79 mg/dL (70-110)
[2019-10-22] MEDS: vancomycin 1,000 MG in sodium chloride 0.9% 250 ML 250 MG IV ×2 (05:13→17:15)
--- NOTE | 2019-10-22 06:22 | PC.NURSE ---
Pt alert and awake. Pt does not follow directions, refuses all nursing care, including turning, starting IV, blood pressures, wearing bipap mask, temperature taking. Pt states Get away from me you little to nursing and RT. When additional IV attempted, pt clawed nurses and grabbed scrub top trying to hit nursing staff. Pt is highly confused and agitated, will not participate in neurological assessments. Physician notified.
[2019-10-22] MEDS: budesonide 0.5 mg/2 mL Neb INHALATION ×2 (08:46→20:38)
[2019-10-22 09:09] LABS: Lactate Dehydrogenase 316 U/L (135-214)
[2019-10-22] MEDS: montelukast sodium 10 mg Tablet PO (09:16)
[2019-10-22] MEDS: apixaban 5 mg Tablet PO (09:17)
[2019-10-22] MEDS: levothyroxine 125 mcg Tablet PO (09:17)
[2019-10-22] MEDS: aspirin 81 mg EC Tablet PO (09:17)
[2019-10-22] MEDS: omega-3 fatty acids 1,000 mg Capsule 1000 MG PO (09:17)
[2019-10-22] MEDS: clopidogrel 75 mg Tablet PO (09:19)
[2019-10-22] MEDS: quetiapine 25 mg Tablet 50 MG PO (09:19)
[2019-10-22] MEDS: docusate sodium 100 mg Capsule 200 MG PO (09:19)
[2019-10-22] MEDS: bisacodyl 5 mg Tablet 10 MG PO (09:29)
[2019-10-22] MEDS: citalopram 20 mg Tablet 10 MG PO (09:29)
[2019-10-22] MEDS: cyclobenzaprine 10 mg Tablet 5 MG PO ×3 (09:33→20:02)
[2019-10-22 09:47] LABS: LAB Peripheral Smear Sent for Review
[2019-10-22 10:20] LABS: Erythrocyte Sedimentation Rate 29 mm/hr (0-15)
--- NOTE | 2019-10-22 11:56 | PC.CHAP ---
Pastoral Care Encounter/Spiritual Assessment Type of Contact [] Declined quotation checker visit [] Patient/Family/Request visit [] Outpatient visit [] Follow-up visit [] Physician referral [] Code/Alert [] Routine visit [] Staff referral [] Actively dying [] Patient sleeping [] Family support [] [] Out of room [] Palliative care [] [] Receiving care in room [] Pre-surgical visit [] Trauma [] Long length of stay [] ICU visit [] Other: Relational/Emotional Strength [] Patient feels connected with others/family/visitors/staff [] Distress [] Loneliness/isolation [] Abandonment Spirituality of Patient [] Person of Nu [] Attends Tenriism of their Nu [] Believes in Prayer [] Reads Bible or Shinto materials [] There are Spiritual issues to be addressed Nanotechnician Interventions [] Prayer [] Active listening [] Non-anxious presence [] Spiritual/emotional support [] Crisis/trauma care [] Spiritual counseling [] Bereavement support [] Provided bereavement packet [] Provided Bible/devotional materials [] Provided toy/stuffed animal, coloring book to patient or family member [] Provided Communion [] Anointing/[place] [] Salvation [] Completed spiritual assessment [] Other: Impact on Illness or Injury [] Angry [] Fearful [] Anxious [] Often cries [] Exhaustion [] Unable to work [] Unable to attend islam [] Unable to walk/stand [] Unable to read [] Unable to drive [] Unable to eat/drink [] Unable to sleep [] Unable to be with family [] Patient intubated [] Other: Summary Patient sleeping, follow up. Time spent with patient
--- NOTE | 2019-10-22 12:30 | PC.OT ---
OT tx withheld at this time due to pt's decline in status and transfer to ICU. OTR to assess pt in the a.m. to determine any changes in care plan.
--- NOTE | 2019-10-22 13:15 | PC.NURSE ---
physical therapy came in to put a brace on the right foot patient refused due to the sore on her heel it was to painful for her, patient is confused
[2019-10-22] MEDS: HYDROcodone-acetaminophen 5-325 mg Tablet 1 TAB PO ×2 (13:33→21:34)
[2019-10-22] MEDS: ondansetron 2 mg/ML SDV 2 mL 4 MG IVP (13:44)
--- NOTE | 2019-10-22 13:49 | PC.NURSE ---
now c/o nausea after pain medication given zofran iv given
[2019-10-22] MEDS: haloperidol inj 5 mg/mL INJ 1 mL IM ×2 (16:44→18:22)
--- NOTE | 2019-10-22 16:55 | P.PN_ITS ---
Subjective Subjective: Interval history: This morning she is more alert, appears stronger, knows she is in the hospital, knows the year. He is not sure how exactly she ended up here, but says was brought here on behest of her 2 granddaughters. Vitals/I&O/Wt Last Vital Signs Temp 101.0 F H 10/22/19 12:00 Pulse 89 10/22/19 16:00 Resp 27 H 10/22/19 16:00 BP 109/44 10/22/19 16:00 Pulse Ox 90 10/22/19 16:00 10/22/19 10/22/19 10/22/19 06:59 14:59 22:59 Intake Total 1102.66 / 1887.66 50 / 50 100 / 150 Output Total 950 / 1650 1900 / 1900 Balance 152.66 / 237.66 -1850 / -1850 100 / -1750 Weight last 48 hrs Weight 128.367 kg Physical Exam Const: COMMON NORMALS: no apparent distress and oriented x3 NUTRITIONAL APPEARANCE: obese morbidly obese OTHER: Generally weak, although today slightly stronger and more alert. HENMT: COMMON NORMALS: oropharynx normal Neck/C-Spine: COMMON NORMALS: no JVD Resp: COMMON NORMALS: normal respiratory effort AUSCULTATION: diminished lung sounds Cardio: COMMON NORMALS: no JVD, regular rhythm, S1 normal heart sound, S2 normal heart sound and no murmurs RHYTHM: regular rhythm HEART SOUNDS: S1 normal and S2 normal GI: COMMON NORMALS: normal to inspection, nondistended, normoactive bowel sounds, soft to palpation and non-tender PALPATION: Yes soft Extremity: OTHER: R shoulder pain with movement. Neuro: COMMON NORMALS: oriented x3 and moves all extremities (But is generally weak, power 3/5. Severe deconditioning.) OTHER: Visual sebastian difficult to examine as she does not follow commands well. Keeps looking around side to side. She does not answer consistently enough to assess for neglect. Skin: OTHER: Multiple pressure sores Bruising. Thin and fragile skin. Urinary Catheter Management^: 2-way Urethral: Cath Placed During This Visit: yes Urethral Indwelling: Yes Reason for Continuing Indwelling Catheter: Acute Urinary Retention or Obstruction Urinary Catheter Date of Insertion: 10/21/19 Urinary Catheter Time of Insertion: 09:45 Data : 10/22/19 03:41 10/22/19 03:41 Micro: Microbiology 10/20/19 23:02 Urine Culture - Preliminary Urine,Clean Catch Gram Negative Rods 10/21/19 09:45 Urine Culture - Preliminary Urine,Clean Catch 10/22/19 03:34 Blood Culture - Preliminary Blood SPECIMEN COLLECTED 10/22/19 03:41 Blood Culture - Preliminary Blood SPECIMEN COLLECTED 10/20/19 22:41 Blood Culture - Preliminary Blood NEGATIVE TO DATE 10/20/19 22:30 Blood Culture - Preliminary Blood NEGATIVE TO DATE A&P Assessment and plan (1) Sepsis: Septic shock secondary to new recurrent pneumonia with suspected aspiration, as well as complicated urinary tract infection with chronic indwelling Adams catheter due to urinary retention. Currently still requiring 4 mcg of Levophed. Earlier was weaned down as low as 1 mcg. Attempt passive leg raise if she will allow. Gram-negative rods growing in urine. Follow-up final culture. Continue Primaxin. Assessed by speech therapy today, downgraded diet to pur?e, nectar thick liquids. Pending assessment by MBS. We will repeat chest x-ray. Continue Primaxin, vancomycin. Febrile this afternoon. Repeat blood culture. Status: Acute Code(s): A41.9 - Sepsis, unspecified organism (2) Acute encephalopathy: Likely multifactorial delirium secondary to sepsis, with pneumonia, UTI, pain due to fracture left ankle, second toe, as well as chronic pain in the right shoulder with rotator cuff and severe arthritis, in addition to polypharmacy, morbid obesity, bedbound status, and age. Concern also for possible multiple myeloma. Work-up pending. Decreased the dose of her Flexeril and Mirapex. Hold Cogentin. For now continue SSRI unchanged as she is already on a small dose, and reportedly has been suffering from depression after recent of her son. Her daughter had also in adulthood. TSH normal. Discussed with daughter may benefit from MRI at some point once she is able to participate in the examination to assess for possible CVA or other structural causes. CT of the head did not reveal ventriculomegaly beyond what is expected, or other gross abnormality. She has no headache or other meningeal signs. Status: Acute Code(s): G93.40 - Encephalopathy, unspecified (3) Pneumonia: Likely aspiration. Diet had to be downgraded. Pending MBS. Continue follow-up with speech. Treatment as above. Status: Acute Code(s): J18.9 - Pneumonia, unspecified organism (4) Urinary tract infection: Possible UTI, although dirty urine, and Adams catheter since last discharge from the hospital here due to urinary retention. Gram-negative rods growing from culture from the . Nitrite positive on presentation, although negative on repeat. Follow-up urine culture. Continue Primaxin. Microscopic hematuria: Requested kidney CT, without finding of renal stone or pyelonephritis. Status: Acute Code(s): N39.0 - Urinary tract infection, site not specified Additional A&P Information Multiple pressure ulcers: Wound care. Reposition frequently. Functional decline: Currently would be unable to participate in physical therapy. Discussed with granddaughter overall unfortunately prognosis is not good with her not being mobile in quite some time, and recently with progressive functional decline, recurrent pneumonia and hospitalization. Granddaughter verbalized understanding, and agrees that they have been concerned regarding her overall ability to recover from multiple recent illnesses. Full CODE STATUS has been maintained out of respect for her wishes. HTN DM 2 Recent thrombocytopenia: Resolved Attestations Medical Necessity Statement*: Continue admission for assessment of management of septic shock. Critical Care Time: In addition to noncritical issues 20 minutes critical care time spent on assessment of hemodynamic status, pressor support, respiratory status, assessment for source of infection, antibiotic therapy, review of polypharmacy. Critical Care Time (min): 20 Coding Level of Care Code Acute Canoe Inspector for Destiny Dano Diagnoses Sepsis A41.9 Acute encephalopathy G93.40 Pneumonia J18.9 Urinary tract infection N39.0
--- NOTE | 2019-10-22 16:58 | XR_ITS ---
WS: [id number] CHEST XRAY TECHNIQUE: Portable chest. CLINICAL INFORMATION: PNA, sepsis COMPARISON: October 20, 2019 FINDINGS: Heart: Cardiomegaly. Lungs: Small left pleural effusion is stable. Left basilar patchy infiltrate is stable to slightly im proved. Stable patchy infiltrate right lower lobe. Bones: Normal visualized bony structures. XR/XR chest 1V portable [id number] IMPRESSION: 1. Stable cardiomegaly. 2. Small left pleural effusion with stable to slightly improved patchy infiltr ate. 3. Patchy interstitial infiltrate right lower lobe is unchanged
[2019-10-22] MEDS: hydrocortisone 100 mg/2 mL SDV 50 MG IVP (20:02)
--- NOTE | 2019-10-22 21:07 | PC.NURSE ---
Pt granddaughters at bedside, pt is uncooperative and not following command. Pt agitated and slapping at granddaughter and staff. Physician asked to speak with family about precedex gtt.
--- NOTE | 2019-10-22 23:38 | PC.NURSE ---
Pt screaming and swatting at staff walking past room in hallway. Pt refusing any type of nursing intervention at this time. Pt now refusing to drink. Family and physician aware. Verbal consent obtained from EDWARDO Chris by 2 RN for central line if needed and in agreeing to use medication Precedex if needed for pt care.
[2019-10-23] VITALS (25 sets, daily range): BP systolic 105–163; BP diastolic 47–136; PULSE 56–102; RESP 15–28; TEMP 36.6–37.2; O2SAT 85–95
[2019-10-23] MEDS: haloperidol inj 5 mg/mL INJ 1 mL IM (00:20)
--- NOTE | 2019-10-23 00:27 | PC.NURSE ---
Spoke with physician about pt behavior and refusing basic patient care. Per physician, give IM haldol, and start IV ativan prn. Will assess central/picc line placement and precedex gtt tomorrow. Concern of pt already poor resp status if given too much sedative medications, physician states to apply non violent restraints if becomes indicated.
[2019-10-23] MEDS: LORazepam 2 mg/mL INJ 1 mL 0.5 MG IVP (01:29)
[2019-10-23] MEDS: hydrocortisone 100 mg/2 mL SDV 50 MG IVP ×3 (01:31→19:45)
--- NOTE | 2019-10-23 03:13 | PC.NURSE ---
Pt given complete bed bath and all dressings changed. Multiple ulcers/DTI/bruises/skin tears/sheering - charted per wound care assessment. Pt place on bipap after ativan and haldol given. Pt now awake and following commands, asking for crackers and water. Pt repositioned for comfort, pt states right ankle is causing severe pain, physician notified. Pt is no longer cussing or being combative with staff.
[2019-10-23] MEDS: TRAMadol 50 mg Tablet PO (03:24)
[2019-10-23] MEDS: acetaminophen 325 mg Tablet 650 MG PO (03:25)
[2019-10-23] MEDS: vancomycin 1,000 MG in sodium chloride 0.9% 250 ML 250 MG IV ×2 (05:08→18:20)
[2019-10-23 05:10] LABS: Basophils % 0.5 %; Eosinophils % 0.3 %; Hematocrit 27.9 % (37.0-47.0); Lymphocytes # 0.9 10^3/uL (0.8-4.8); Lymphocytes % 23.5 %; Mean Corpuscular HGB Conc 28.7 g/dL (30.0-36.0); Mean Corpuscular Hemoglobin 24.2 pg (28.0-34.0); Mean Corpuscular Volume 84.3 fL (81-99); Mean Platelet Volume 9.7 fL (7.4-10.4); Monocytes # 0.2 10^3/uL (0.2-0.9); Monocytes % 5.6 %; Neutrophils # 2.3 10^3/uL (1.8-7.7); Neutrophils % 58.7 %; Nucleated Red Blood Cells % 0.5 %; Platelet Count 203 10^3/cmm (130-400); Red Blood Count 3.31 10^6/uL (4.1-5.3); Red Cell Distribution Width 18.8 % (12.1-15.1)
[2019-10-23 05:13] LABS: Alanine Aminotransferase 8 U/L (0-33); Albumin Level 1.9 g/dL (3.5-5.2); Alkaline Phosphatase 105 IU/L (35-105); Anion Gap 12.5 (5-19); Aspartate Amino Transferase 22 U/L (0-32); Blood Urea Nitrogen 11 mg/dL (8-23); Calcium 9.1 mg/dL (8.5-10.5); Carbon Dioxide 25 mmol/L (22-29); Chloride 100 mmol/L (98-107); Creatinine Clr Calc Pharmacy 84.7042; Globulin 3.1 g/dL (1.3-4.6); Glucose 131 mg/dL (65-115); Potassium 3.5 mmol/L (3.5-5.1); Sodium 134 mmol/L (136-145); Total Bilirubin 0.4 mg/dL (0.15-1.2)
[2019-10-23 05:32] LABS: Slide Review Slide Review Perform
[2019-10-23] MEDS: budesonide 0.5 mg/2 mL Neb INHALATION ×2 (08:04→20:44)
[2019-10-23] MEDS: ipratropium-albuterol 3 mL Neb INHALATION ×3 (08:04→20:44)
[2019-10-23] MEDS: omega-3 fatty acids 1,000 mg Capsule 1000 MG PO (10:02)
[2019-10-23] MEDS: cyclobenzaprine 10 mg Tablet 5 MG PO ×2 (10:02→18:21)
[2019-10-23] MEDS: citalopram 20 mg Tablet 10 MG PO (10:02)
[2019-10-23] MEDS: montelukast sodium 10 mg Tablet PO (10:03)
[2019-10-23] MEDS: HYDROcodone-acetaminophen 5-325 mg Tablet 1 TAB PO (10:04)
[2019-10-23] MEDS: clopidogrel 75 mg Tablet PO (10:04)
[2019-10-23] MEDS: ALPRAZolam 0.5 mg Tablet PO (10:04)
[2019-10-23] MEDS: bisacodyl 5 mg Tablet 10 MG PO (10:05)
[2019-10-23] MEDS: aspirin 81 mg EC Tablet PO (10:05)
[2019-10-23] MEDS: levothyroxine 125 mcg Tablet PO (10:06)
[2019-10-23] MEDS: quetiapine 25 mg Tablet 50 MG PO ×2 (10:06→18:21)
[2019-10-23] MEDS: docusate sodium 100 mg Capsule 200 MG PO (10:08)
[2019-10-23] MEDS: apixaban 5 mg Tablet PO ×2 (10:08→18:21)
--- NOTE | 2019-10-23 12:20 | PM.PN ---
Subjective Subjective: Interval history: Joy seems somewhat confused this morning. She denies any specific complaints. Medications: Reviewed: Yes Vitals/I&O/Wt Last Vital Signs Temp 97.8 F 10/23/19 07:00 Pulse 74 10/23/19 08:30 Resp 19 H 10/23/19 08:30 BP 163/93 10/23/19 07:00 Pulse Ox 95 10/23/19 08:30 10/22/19 10/23/19 10/23/19 22:59 06:59 14:59 Intake Total 808.827 / 858.827 750.446 / 1609.273 220 / 220 Output Total 950 / 2850 650 / 3500 Balance -141.173 / -1991.173 100.446 / -1890.727 220 / 220 Physical Exam Narrative: EXAM NARRATIVE: General exam no apparent distress Cardiovascular regular rate and rhythm Lungs with diminished breath sounds left greater than right Abdomen is soft with positive bowel sounds, obese Extremities no cyanosis clubbing Urinary Catheter Management^: 2-way Urethral: Cath Placed During This Visit: yes Urethral Indwelling: Yes Reason for Continuing Indwelling Catheter: Acute Urinary Retention or Obstruction Urinary Catheter Date of Insertion: 10/21/19 Urinary Catheter Time of Insertion: 09:45 Data : 10/23/19 04:26 10/23/19 04:26 Micro: Microbiology 10/20/19 23:02 Urine Culture - Final Urine,Clean Catch Escherichia coli 10/21/19 09:45 Urine Culture - Final Urine,Clean Catch 10/22/19 03:34 Blood Culture - Preliminary Blood NEGATIVE TO DATE 10/22/19 03:41 Blood Culture - Preliminary Blood NEGATIVE TO DATE A&P Assessment and plan (1) Sepsis: Septic shock secondary to new recurrent pneumonia with suspected aspiration, as well as complicated urinary tract infection with chronic indwelling Adams catheter due to urinary retention. Patient is now off norepinephrine Currently on IV antibiotics Primaxin, vancomycin Await urine, blood, sputum cultures Continue to follow speech therapy recommendations There was concern for adrenal crisis as previous history of prednisone use. Will decrease her hydrocortisone to 50 mg every 12 hours Status: Acute Code(s): A41.9 - Sepsis, unspecified organism (2) Acute encephalopathy: Multifactorial secondary to underlying cognitive problems in face of infection Testing has been sent for SPEP. This is pending. Flexeril, Mirapex discontinued and Cogentin held secondary to cognitive issues CT head was negative for acute changes Status: Acute Code(s): G93.40 - Encephalopathy, unspecified (3) Pneumonia: Likely aspiration. Diet had to be downgraded. We will continue to follow with speech therapy recommendations. History of recurrent plugging, associated with volume loss left side Status: Acute Code(s): J18.9 - Pneumonia, unspecified organism (4) Urinary tract infection: Probable complicated UTI in this patient with an indwelling Adams. Cultures pending. Continue Primaxin. CT was negative for obstruction. Status: Acute Code(s): N39.0 - Urinary tract infection, site not specified Additional A&P Information Anemia, check stool Hemoccult as well. Multiple pressure ulcers. Continue wound care and repositioning Continued decline HTN DM 2 Recent thrombocytopenia, resolved Full code Attestations Medical Necessity Statement*: Needs continued hospitalization for IV antibiotics for sepsis, pneumonia, UTI Coding Level of Care Code Acute Document Review Specialist for [facility] Fwd Diagnoses Sepsis A41.9 Acute encephalopathy G93.40 Pneumonia J18.9 Urinary tract infection N39.0
[2019-10-23 12:22] LABS: PROTEIN, TOTAL 4.8 g/dL (6.1-8.1)
--- NOTE | 2019-10-23 14:09 | PC.PT ---
discussed case with Dr Rodriguez; concerned for further skin breakdown to right heel existing decubii. Dr Rodriguez agreed to leave CAM boot off currently. Will monitor for future orders. pt is a alexi lift per family for several months. not a rehab candidate as indicated by lack of progress last admission and daughter informed staff of alexi lift use at [facility]. no further therapy indicated unless need for CAM boot changes.
[2019-10-23 15:06] LABS: ABNORMAL PROTEIN BAND 1 0.1 g/dL (NONE DETECTED); ABNORMAL PROTEIN BAND 2 0.1 g/dL (NONE DETECTED); ALBUMIN 2.2 g/dL (3.8-4.8); ALPHA 1 GLOBULIN 0.6 g/dL (0.2-0.3); ALPHA 2 GLOBULIN 0.6 g/dL (0.5-0.9); BETA 1 GLOBULIN 0.3 g/dL (0.4-0.6); BETA 2 GLOBULIN 0.3 g/dL (0.2-0.5); GAMMA GLOBULIN 0.8 g/dL (0.8-1.7)
[2019-10-23 16:35] LABS: Vancomycin Trough 13.4 ug/mL (10-15)
--- NOTE | 2019-10-23 17:11 | PC.OT ---
OT note: Attempted but pt was sleeping soundly. Will attempt again tomorrow. Pt's RLE positioned on pillow to float heel but after therapist readjusted, pt pushed leg into bed then scooted RLE medially until off pillow. Therapist readjusted pt's RLE again.
--- NOTE | 2019-10-23 17:21 | PC.CHAP ---
Pastoral Care Encounter/Spiritual Assessment Type of Contact [] Declined butcher meat visit [x] Patient/Family/Request visit [] Outpatient visit [] Follow-up visit [] Physician referral [] Code/Alert [x] Routine visit [] Staff referral [] Actively dying [] Patient sleeping [x] Family support [] [] Out of room [] Palliative care [] [] Receiving care in room [] Pre-surgical visit [] Trauma [] Long length of stay [x] ICU visit [] Other: Relational/Emotional Strength [x] Patient feels connected with others/family/visitors/staff [] Distress [] Loneliness/isolation [] Abandonment Spirituality of Patient [] Person of Nu [] Attends Mandaeism of their Nu [x] Believes in Prayer [] Reads Bible or Pentecostalism materials [] There are Spiritual issues to be addressed Business Solutions Analyst Interventions [x] Prayer [x] Active listening [x] Non-anxious presence [x] Spiritual/emotional support [] Crisis/trauma care [x] Spiritual counseling [] Bereavement support [] Provided bereavement packet [] Provided Bible/devotional materials [] Provided toy/stuffed animal, coloring book to patient or family member [] Provided Communion [] Anointing/[place] [] Salvation [x] Completed spiritual assessment [] Other: Impact on Illness or Injury [] Angry [] Fearful [] Anxious [] Often cries [] Exhaustion [] Unable to work [] Unable to attend lutheran [] Unable to walk/stand [] Unable to read [] Unable to drive [] Unable to eat/drink [] Unable to sleep [] Unable to be with family [] Patient intubated [] Other: Summary Patient was not awake at time of visit. Business Solutions Analyst provided spiritual counseling department chair to family member present and prayed for patient and family member. Patient was visited by Business Solutions Analyst Abilio Tucker. Time spent with patient 15 minutes
--- NOTE | 2019-10-23 18:59 | PC.NURSE ---
SUNDOWNERS GRANDDAUGHTER HERE TO VISIT, PT BECAME AGITATED & PARANOID REMAINED PLEASANT & COOPERATIVE WITH THIS NURSE. PLEASANTLY CONFUSED
[2019-10-24] VITALS (21 sets, daily range): BP systolic 113–165; BP diastolic 37–82; PULSE 54–97; RESP 13–25; TEMP 36.3–36.8; O2SAT 84–97
[2019-10-24] MEDS: ALPRAZolam 0.5 mg Tablet PO ×2 (02:37→21:14)
[2019-10-24] MEDS: HYDROcodone-acetaminophen 5-325 mg Tablet 1 TAB PO ×2 (02:37→21:14)
[2019-10-24] MEDS: ipratropium-albuterol 3 mL Neb INHALATION ×4 (03:09→20:23)
[2019-10-24 04:16] LABS: Basophils % 0.2 %; Hematocrit 26.9 % (37.0-47.0); Hemoglobin 8.1 g/dL (11.5-15.3); Lymphocytes % 22.5 %; Mean Corpuscular HGB Conc 30.1 g/dL (30.0-36.0); Mean Corpuscular Hemoglobin 25.5 pg (28.0-34.0); Mean Corpuscular Volume 84.6 fL (81-99); Mean Platelet Volume 10.4 fL (7.4-10.4); Monocytes # 0.5 10^3/uL (0.2-0.9); Monocytes % 10.1 %; Neutrophils # 2.6 10^3/uL (1.8-7.7); Neutrophils % 58.4 %; Nucleated Red Blood Cells % 0 %; Platelet Count 195 10^3/cmm (130-400); Red Blood Count 3.18 10^6/uL (4.1-5.3); Red Cell Distribution Width 18.4 % (12.1-15.1); White Blood Count 4.4 10^3/uL (4.0-10.0)
[2019-10-24 04:39] LABS: Alanine Aminotransferase 9 U/L (0-33); Albumin Level 2.2 g/dL (3.5-5.2); Alkaline Phosphatase 113 IU/L (35-105); Anion Gap 13.6 (5-19); Blood Urea Nitrogen 11 mg/dL (8-23); Calcium 8.9 mg/dL (8.5-10.5); Carbon Dioxide 26 mmol/L (22-29); Chloride 100 mmol/L (98-107); Creatinine Clr Calc Pharmacy 84.7042; Globulin 2.4 g/dL (1.3-4.6); Glucose 137 mg/dL (65-115); Potassium 3.6 mmol/L (3.5-5.1); Sodium 136 mmol/L (136-145); Total Bilirubin 0.3 mg/dL (0.15-1.2); Total Protein 4.6 g/dL (6.6-8.7)
[2019-10-24 04:50] LABS: Slide Review Slide Review Perform
[2019-10-24 04:51] LABS: Aspartate Amino Transferase 26 U/L (0-32)
[2019-10-24] MEDS: vancomycin 1,000 MG in sodium chloride 0.9% 250 ML 250 MG IV ×2 (05:15→17:20)
[2019-10-24] MEDS: budesonide 0.5 mg/2 mL Neb INHALATION ×2 (08:11→20:23)
[2019-10-24] MEDS: bisacodyl 5 mg Tablet 10 MG PO (08:40)
[2019-10-24] MEDS: omega-3 fatty acids 1,000 mg Capsule 1000 MG PO (08:40)
[2019-10-24] MEDS: citalopram 20 mg Tablet 10 MG PO (08:41)
[2019-10-24] MEDS: clopidogrel 75 mg Tablet PO (08:41)
[2019-10-24] MEDS: montelukast sodium 10 mg Tablet PO (08:43)
[2019-10-24] MEDS: cyclobenzaprine 10 mg Tablet 5 MG PO ×2 (08:43→18:04)
[2019-10-24] MEDS: predniSONE 20 mg Tablet PO ×2 (08:43→18:04)
[2019-10-24] MEDS: aspirin 81 mg EC Tablet PO (08:43)
[2019-10-24] MEDS: quetiapine 25 mg Tablet 50 MG PO ×2 (08:43→18:04)
[2019-10-24] MEDS: levothyroxine 125 mcg Tablet PO (08:43)
[2019-10-24] MEDS: docusate sodium 100 mg Capsule 200 MG PO (08:43)
[2019-10-24] MEDS: apixaban 5 mg Tablet PO ×2 (08:44→18:04)
--- NOTE | 2019-10-24 09:36 | PC.OT ---
PATIENT SEEN BY [facility]. PATIENT IS ONLY ORIENTED TO PERSON AT THIS TIME DESPITE SEVERAL REMINDERS THAT SHE WAS IN THE HOSPITAL. SHE IS UNABLE TO STATE WHY SHE IS IN THE HOSPITAL OR WHERE SHE CAME FROM ([facility]). PATIENT ABLE TO PERFORM GROOMING WITH MINIMAL ASSISTANCE, WHICH IS PLOF PER LAST HOSPITAL VISIT. PATIENT IS NOT A CANDIDATE FOR [facility] DUE TO HIGH LEVEL OF ASSISTANCE REQUIRED PREVIOUSLY AT SNF. DISCHARGE [facility].
--- NOTE | 2019-10-24 10:16 | PC.CHAP ---
Pastoral Care Encounter/Spiritual Assessment Type of Contact [] Declined classroom monitor visit [] Patient/Family/Request visit [] Outpatient visit [] Follow-up visit [] Physician referral [] Code/Alert [x] Routine visit [] Staff referral [] Actively dying [] Patient sleeping [] Family support [] [] Out of room [] Palliative care [] [] Receiving care in room [] Pre-surgical visit [] Trauma [] Long length of stay [x] ICU visit [] Other: Relational/Emotional Strength [] Patient feels connected with others/family/visitors/staff [] Distress [] Loneliness/isolation [] Abandonment Spirituality of Patient [] Person of Nu [] Attends Restorationism of their Nu [x] Believes in Prayer [] Reads Bible or Hoahaoism materials [] There are Spiritual issues to be addressed Community Engagement Manager Interventions [x] Prayer [] Active listening [] Non-anxious presence [] Spiritual/emotional support [] Crisis/trauma care [] Spiritual counseling [] Bereavement support [] Provided bereavement packet [] Provided Bible/devotional materials [] Provided toy/stuffed animal, coloring book to patient or family member [] Provided Communion [] Anointing/[place] [] Salvation [x] Completed spiritual assessment [] Other: Impact on Illness or Injury [] Angry [] Fearful [] Anxious [] Often cries [] Exhaustion [] Unable to work [] Unable to attend buddhism [] Unable to walk/stand [] Unable to read [] Unable to drive [] Unable to eat/drink [] Unable to sleep [] Unable to be with family [] Patient intubated [] Other: Summary Patient uneasy, would like to get out of bed. Patient very willing to following instructions. Time spent with patient 15min
--- NOTE | 2019-10-24 13:26 | PM.PN ---
Subjective Subjective: Interval history: Joy reports that she feels better. No breathing difficulties today. Wonders what the next steps will be. Medications: Reviewed: Yes Vitals/I&O/Wt Last Vital Signs Temp 97.4 F L 10/24/19 08:00 Pulse 59 L 10/24/19 12:00 Resp 13 10/24/19 12:00 BP 139/49 10/24/19 12:00 Pulse Ox 94 10/24/19 12:00 10/23/19 10/24/19 10/24/19 22:59 06:59 14:59 Intake Total 1250 / 1590 300 / 1890 600 / 600 Output Total 700 / 700 400 / 1100 Balance 550 / 890 -100 / 790 600 / 600 Physical Exam Narrative: EXAM NARRATIVE: General exam no apparent distress Cardiovascular regular rate and rhythm Lungs with diminished breath sounds left greater than right Abdomen is soft with positive bowel sounds, obese Extremities no cyanosis clubbing Urinary Catheter Management^: 2-way Urethral: Cath Placed During This Visit: yes Urethral Indwelling: Yes Reason for Continuing Indwelling Catheter: Acute Urinary Retention or Obstruction Urinary Catheter Date of Insertion: 10/21/19 Urinary Catheter Time of Insertion: 09:45 Data : 10/24/19 04:01 10/24/19 04:01 Micro: Microbiology 10/23/19 10:21 MRSA Culture - Final Nose 10/20/19 23:02 Urine Culture - Final Urine,Clean Catch Escherichia coli 10/21/19 09:45 Urine Culture - Final Urine,Clean Catch A&P Assessment and plan (1) Sepsis: Septic shock secondary to new recurrent pneumonia with suspected aspiration, as well as complicated urinary tract infection with chronic indwelling Adams catheter due to urinary retention. Patient is now off norepinephrine Currently on IV antibiotics Primaxin, vancomycin Await urine, blood, sputum cultures. Urine is growing E. coli, sensitive to Primaxin Continue to follow speech therapy recommendations There was concern for adrenal crisis as previous history of prednisone use. Discontinue hydrocortisone. Initiate prednisone 20 mg twice daily. Monitor for any recurrent hypotension. Status: Acute Code(s): A41.9 - Sepsis, unspecified organism (2) Acute encephalopathy: Multifactorial secondary to underlying cognitive problems in face of infection Testing has been sent for SPEP. This is mildly abnormal. Order immunofixation. Await urine kappa light chain testing Flexeril, Mirapex discontinued and Cogentin held secondary to cognitive issues CT head was negative for acute changes Status: Acute Code(s): G93.40 - Encephalopathy, unspecified (3) Pneumonia: Likely aspiration. Diet had to be downgraded. We will continue to follow with speech therapy recommendations. History of recurrent plugging, associated with volume loss left side Overall appears to have stabilized Status: Acute Code(s): J18.9 - Pneumonia, unspecified organism (4) Urinary tract infection: Probable complicated UTI in this patient with an indwelling Adams. Urine culture shows E. coli. Continue Primaxin currently. CT was negative for obstruction. Status: Acute Code(s): N39.0 - Urinary tract infection, site not specified Additional A&P Information Anemia, check stool Hemoccult as well. This is still pending Multiple pressure ulcers. Continue wound care and repositioning Continued decline HTN DM 2 Recent thrombocytopenia, resolved Full code Attestations Medical Necessity Statement*: Needs continued hospitalization, for IV antibiotics secondary to sepsis. Coding Level of Care Code Acute [facility] [employer] for [facility] Diagnoses Sepsis A41.9 Acute encephalopathy G93.40 Pneumonia J18.9 Urinary tract infection N39.0
[2019-10-24] MEDS: neomycin-poly-bacitracin oint 28 gm 1 APPLIC TOPICAL (13:51)
--- NOTE | 2019-10-24 13:51 | PC.SOCIAL ---
IM FOLLOW UP PROVIDED TO PATIENT AND EXPLAINED. SHE VERBALIZED UNDERSTANDING. SHE IS INTERMITTENTLY CONFUSED BUT ASKED THAT i CALL HER SON TO UPDATE HIM ON HER CARE. THIS NURSE WILL TRY TO DO SO.
--- NOTE | 2019-10-24 13:53 | PC.SOCIAL ---
ATTEMPTED TO REACH SON BUT NO ANSWER LEFT MESSAGE
--- NOTE | 2019-10-24 16:25 | XR_ITS ---
WS: [id number] CHEST XRAY TECHNIQUE: Portable chest. CLINICAL INFORMATION: PICC line insertion COMPARISON: None. FINDINGS: Right PICC line tip in distal SVC. No pneumothorax. Heart: Cardiomegaly with moderate pulmonary vascular congestion. Lungs: Small left pleural effusion. Bibasilar infiltrates. Bones: Osteopenia. XR/XR chest 1V portable [id number] IMPRESSION: 1. Right PICC line with tip in distal SVC. No pneumothorax. 2. Chest otherwise unchanged.
--- NOTE | 2019-10-24 18:03 | PC.NURSE ---
PICC RIGHT arm ready for use. Notified Primary nurse Awilda.
[2019-10-24] MEDS: pramipexole 0.25 mg Tablet 0.125 MG PO (18:06)
[2019-10-24 20:47] LABS: Glucose Point of Care 126 mg/dL (70-110)
--- NOTE | 2019-10-24 22:32 | PC.NURSE ---
BIPAP Pt wore bipap for 35 minutes before pulling it off. Is now refusing verbalizing its too tight, its too hot, and she cant breathe with it on . Is now agitated and anxious. Pt was educated and continues to refuse. Pt placed on 5L NC.
[2019-10-24] MEDS: LORazepam 2 mg/mL INJ 1 mL 0.5 MG IVP (23:47)
[2019-10-25] VITALS (19 sets, daily range): BP systolic 106–164; BP diastolic 49–86; PULSE 63–84; RESP 15–26; TEMP 36.4–36.8; O2SAT 90–97
[2019-10-25] MEDS: ipratropium-albuterol 3 mL Neb INHALATION ×3 (03:11→14:13)
[2019-10-25 04:33] LABS: Basophils % 0.2 %; Hematocrit 25.5 % (37.0-47.0); Hemoglobin 7.4 g/dL (11.5-15.3); Lymphocytes # 0.8 10^3/uL (0.8-4.8); Lymphocytes % 17.4 %; Mean Corpuscular Hemoglobin 24.3 pg (28.0-34.0); Mean Corpuscular Volume 83.6 fL (81-99); Mean Platelet Volume 9.6 fL (7.4-10.4); Monocytes # 0.3 10^3/uL (0.2-0.9); Monocytes % 7.2 %; Neutrophils # 3.1 10^3/uL (1.8-7.7); Neutrophils % 66.3 %; Nucleated Red Blood Cells % 0 %; Platelet Count 191 10^3/cmm (130-400); Red Blood Count 3.05 10^6/uL (4.1-5.3); Red Cell Distribution Width 18.6 % (12.1-15.1); White Blood Count 4.7 10^3/uL (4.0-10.0)
[2019-10-25 04:47] LABS: Alanine Aminotransferase 6 U/L (0-33); Albumin Level 1.9 g/dL (3.5-5.2); Alkaline Phosphatase 97 IU/L (35-105); Anion Gap 11.3 (5-19); Aspartate Amino Transferase 20 U/L (0-32); Blood Urea Nitrogen 9 mg/dL (8-23); Calcium 8.8 mg/dL (8.5-10.5); Carbon Dioxide 26 mmol/L (22-29); Chloride 104 mmol/L (98-107); Creatinine Clr Calc Pharmacy 84.7042; Glucose 142 mg/dL (65-115); Potassium 3.3 mmol/L (3.5-5.1); Sodium 138 mmol/L (136-145); Total Bilirubin 0.2 mg/dL (0.15-1.2); Total Protein 4.9 g/dL (6.6-8.7)
[2019-10-25] MEDS: acetaminophen 325 mg Tablet 650 MG PO (05:10)
[2019-10-25] MEDS: vancomycin 1,000 MG in sodium chloride 0.9% 250 ML 250 MG IV (05:10)
[2019-10-25 05:52] LABS: Slide Review Slide Review Perform
--- NOTE | 2019-10-25 07:43 | P.PN_ITS ---
Subjective Subjective: Interval history: Joy reports she is doing okay. She reports she was a little confused this morning when she awoke but is now reoriented. She denies being short of breath currently. Medications: Reviewed: Yes Vitals/I&O/Wt Last Vital Signs Temp 97.8 F 10/25/19 06:00 Pulse 80 10/25/19 06:00 Resp 20 H 10/25/19 06:00 BP 142/68 10/25/19 06:00 Pulse Ox 95 10/25/19 06:00 10/24/19 10/25/19 10/25/19 22:59 06:59 14:59 Intake Total 970 / 1670 400 / 2070 Output Total 600 / 600 1000 / 1600 Balance 370 / 1070 -600 / 470 Physical Exam Narrative: EXAM NARRATIVE: General exam no apparent distress Cardiovascular regular rate and rhythm Lungs with diminished breath sounds left greater than right Abdomen is soft with positive bowel sounds, obese Extremities no cyanosis clubbing Urinary Catheter Management^: 2-way Urethral: Cath Placed During This Visit: yes Urethral Indwelling: Yes Reason for Continuing Indwelling Catheter: Acute Urinary Retention or Obstruction Urinary Catheter Date of Insertion: 10/21/19 Urinary Catheter Time of Insertion: 09:45 Data : 10/25/19 04:15 10/25/19 04:15 A&P Assessment and plan (1) Sepsis: Septic shock secondary to new recurrent pneumonia with suspected aspiration, as well as complicated urinary tract infection with chronic indwelling Adams catheter due to urinary retention. Patient is now off norepinephrine Currently on IV antibiotics Primaxin, vancomycin Await urine, blood, sputum cultures. Urine is growing E. coli, sensitive to Primaxin Continue to follow speech therapy recommendations There was concern for adrenal crisis as previous history of prednisone use. Hydrocortisone has been discontinued. She is currently on prednisone 20 mg twic e daily. I am going to reduce this dose to 10 mg twice daily tomorrow She is stable enough to be transferred to the second floor Reinitiate patient's Lasix Status: Acute Code(s): A41.9 - Sepsis, unspecified organism (2) Acute encephalopathy: Multifactorial secondary to underlying cognitive problems in face of infection Testing has been sent for SPEP. This is mildly abnormal. Ordered immunofixation which is pending. Await urine kappa light chain which is pending. She ultimately may require a bone marrow, likely as an outpatient Flexeril, Mirapex discontinued and Cogentin held secondary to cognitive issues CT head was negative for acute changes Status: Acute Code(s): G93.40 - Encephalopathy, unspecified (3) Pneumonia: Likely aspiration. Diet had to be downgraded. Continue vancomycin and Primaxin We will continue to follow with speech therapy recommendations. History of recurrent plugging, associated with volume loss left side Overall appears to have stabilized Status: Acute Code(s): J18.9 - Pneumonia, unspecified organism (4) Urinary tract infection: Probable complicated UTI in this patient with an indwelling Adams. Urine culture shows E. coli. Continue Primaxin currently. CT was negative for obstruction. Continue Adams Status: Acute Code(s): N39.0 - Urinary tract infection, site not specified Additional A&P Information Hypokalemia, supplement anemia, check stool Hemoccult as well. This is still pending. Transfuse 1 unit packed red blood cells today. Lasix following. Multiple pressure ulcers. Continue wound care and repositioning Continued decline HTN. If tolerates transfusion today, Lasix consider restarting low-dose metoprolol tomorrow DM 2 Recent thrombocytopenia, resolved Full code Overall checking into long-term care rehabilitation options. Attestations Medical Necessity Statement*: Needs continued hospitalization for IV antibiotics secondary to sepsis Coding Level of Care Code Acute Paid Internship for [facility] Diagnoses Sepsis A41.9 Acute encephalopathy G93.40 Pneumonia J18.9 Urinary tract infection N39.0
[2019-10-25] MEDS: budesonide 0.5 mg/2 mL Neb INHALATION (08:02)
[2019-10-25] MEDS: levothyroxine 125 mcg Tablet PO (08:52)
[2019-10-25] MEDS: quetiapine 25 mg Tablet 50 MG PO (08:52)
[2019-10-25] MEDS: montelukast sodium 10 mg Tablet PO (08:52)
[2019-10-25] MEDS: cyclobenzaprine 10 mg Tablet 5 MG PO (08:53)
[2019-10-25] MEDS: docusate sodium 100 mg Capsule 200 MG PO (08:53)
[2019-10-25] MEDS: citalopram 20 mg Tablet 10 MG PO (08:53)
[2019-10-25] MEDS: omega-3 fatty acids 1,000 mg Capsule 1000 MG PO (08:53)
[2019-10-25] MEDS: FUROsemide 40 mg Tablet PO (08:54)
[2019-10-25] MEDS: apixaban 5 mg Tablet PO (08:54)
[2019-10-25] MEDS: clopidogrel 75 mg Tablet PO (08:54)
[2019-10-25] MEDS: bisacodyl 5 mg Tablet 10 MG PO (08:54)
[2019-10-25] MEDS: predniSONE 20 mg Tablet PO (08:54)
[2019-10-25] MEDS: aspirin 81 mg EC Tablet PO (08:55)
--- NOTE | 2019-10-25 10:25 | PC.CHAP ---
Pastoral Care Encounter/Spiritual Assessment Type of Contact [] Declined management associate visit [] Patient/Family/Request visit [] Outpatient visit [] Follow-up visit [] Physician referral [] Code/Alert [x] Routine visit [] Staff referral [] Actively dying [x] Patient sleeping [] Family support [] [] Out of room [] Palliative care [] [x] Receiving care in room [] Pre-surgical visit [] Trauma [] Long length of stay [x] ICU visit [] Other: Relational/Emotional Strength [] Patient feels connected with others/family/visitors/staff [] Distress [] Loneliness/isolation [] Abandonment Spirituality of Patient [] Person of Nu [] Attends Scientology of their Nu [] Believes in Prayer [] Reads Bible or Spiritism materials [] There are Spiritual issues to be addressed [employer] Interventions [] Prayer [] Active listening [] Non-anxious presence [] Spiritual/emotional support [] Crisis/trauma care [] Spiritual counseling [] Bereavement support [] Provided bereavement packet [] Provided Bible/devotional materials [] Provided toy/stuffed animal, coloring book to patient or family member [] Provided Communion [] Anointing/Hilliard [] Salvation [x] Completed spiritual assessment [] Other: Impact on Illness or Injury [] Angry [] Fearful [] Anxious [] Often cries [] Exhaustion [] Unable to work [] Unable to attend druze [] Unable to walk/stand [] Unable to read [] Unable to drive [] Unable to eat/drink [] Unable to sleep [] Unable to be with family [] Patient intubated [] Other: Summary Time spent with patient
--- NOTE | 2019-10-25 15:20 | PM.TDS ---
Transfer Summary Providers Date of Admission: 10/21/19 01:43 Date of Discharge: 10/25/19 Attending Provider at Admission: Dana Felder MD Attending Provider at Transfer: David Vargas MD Anticipated Date of Transfer: Anticipated date of transfer: 10/25/19 Receiving Facility & Provider: Receiving Provider: [] Receiving facility: [] Diagnoses at Discharge Discharge Diagnosis (1) Sepsis: Status: Acute Problem details: Resolved. Currently on vancomycin, Primaxin (2) Acute encephalopathy: Status: Acute Problem details: Significantly improved, although still has episodes of confusion (3) Pneumonia: Status: Acute Problem details: Recurrent, left side, with mucous plugging. No evidence of malignancy. Continue good pulmonary hygiene (4) Urinary tract infection: Status: Acute Problem details: E. coli, sensitive to Primaxin Reason for Visit Reason for Visit: Reason For Visit: POSSIBLE CONFUSION Hospital Course Hospital Course: Joy is a 78-year-old white female with history of multiple re-hospitalizations for left-sided pneumonia who presented with confusion. She has a history of a chronic indwelling cath secondary to urinary retention. She was found to have a urinary tract infection, and there was concern of recurrent pneumonia on the left. X-ray was unchanged to improved from prior hospital stay. She was initially placed on ceftriaxone, but during her hospitalization she decompensated with hypotension, was transferred to the ICU and antibiotic coverage was expanded to vancomycin as well as Primaxin. It was also noted that she had previously been on steroids, so she was placed on hydrocortisone in case adrenal insufficiency was present. Secondary to swelling and pain, she also received an x-ray of her right ankle, and ultimately CT scan which demonstrated a trimalleolar fracture. Orthopedics was consulted and recommended [facility] Walker currently as she is currently not an ambulator. With treatment provided, her blood pressure rebounded. Fever that was present during her hospital stay went away, and she improved. By October 25 she was ready to transfer out of the ICU. Her hemoglobin had drifted down with her acute illness, and she was transfused 1 unit of packed red blood cells for hemoglobin of 7.4 considering her comorbidities. She did not have evidence of a GI bleed during this hospital stay. Other medical problems noted during her hospital stay included encephalopathy, which was improving. There was an abnormal serum protein electrophoresis. Immunofixation was pending as well as kappa light chains to make sure that multiple myeloma is not playing a role in her anemia or chronic illness. At discharge she was transferred to [facility], who kindly accepted her. Family would like her to receive as much rehabilitation as possible to improve her current quality of life. Physical Exam Narrative: EXAM NARRATIVE: General exam is no apparent distress Cardiovascular regular in rhythm Lung sounds diminished breath sounds bilaterally, a few rhonchi Abdomen is soft with positive bowel sounds Extremities trace edema Urinary Catheter Management^: 2-way Urethral: Cath Placed During This Visit: yes Urethral Indwelling: Yes Reason for Continuing Indwelling Catheter: Acute Urinary Retention or Obstruction Urinary Catheter Date of Insertion: 10/21/19 Urinary Catheter Time of Insertion: 09:45 TS Data Data Completed and Pending: Completed Studies During Hospitalization Category Date Time Status CT ankle RT wo co n* 12965 Routine Cat Scan 10/21/19 19:[address] head wo con* 7 0450 Urgent Cat Scan 10/21/19 00:[address] kidney stone 7 4176 Routine Cat Scan 10/21/19 08:[address] shoulder RT wo con* 05758 Routin e Cat Scan 10/21/19 15:04 Completed XR ankle RT 2V 73 600 Routine Exams 10/21/19 15:04 Completed XR chest 1V dyan ble 44550 Routine Exams 10/22/19 16:58 Completed XR chest 1V dyan ble 40389 Stat Exams 10/24/19 16:25 Completed XR chest 1V dyan ble 00724 Urgent Exams 10/20/19 22:12 Completed XR foot RT 2V 736 20 Stat Exams 10/20/19 22:12 Completed Pending at discharge Category Date Time Status Blood Culture Sta t Lab 10/21/19 00:23 Results Blood Culture Sta t Lab 10/22/19 03:34 Results Complete Blood Co unt w/Auto AM LABS Lab 10/26/19 04:00 Ordered Comprehensive Met abolic Panel AM LA BS Lab 10/26/19 04:00 Ordered Immunochemical Fe racquel OCB Routine Lab 10/23/19 12:33 Uncollected Parc Free Light Chains Urine Routi ne Lab 10/22/19 08:30 Received Sputum Culture an d Gram Stain Routi ne Lab 10/22/19 03:07 Uncollected Labs from last 24 hours 10/25/19 10/25/19 10/25/19 08:17 04:15 04:15 WBC 4.7 RBC 3.05 L Hgb 7.4 L Hct 25.5 L MCV 83.6 MCH 24.3 L MCHC 29.0 L RDW 18.6 H Plt Count 191 MPV 9.6 Neut % (Auto) 66.3 Lymph % (Auto) 17.4 [place] % (Auto) 7.2 Eos % (Auto) 0.0 Baso % (Auto) 0.2 Neut # (Auto) 3.1 Lymph # (Auto) 0.8 [place] # (Auto) 0.3 Eos # (Auto) 0.0 Baso # (Auto) 0.0 Nucleated RBC % (a uto) 0 Nucleated RBCs # 0.0 Sodium 138 Potassium 3.3 L Chloride 104 Carbon Dioxide 26 Anion Gap 11.3 BUN 9 Creatinine 0.5 Glucose 142 H POC Glucose Calcium 8.8 Total Bilirubin 0.2 AST 20 ALT 6 Alkaline Phosphata se 97 Total Protein 4.9 L Albumin 1.9 L Globulin 3.0 Serum Immunofixati on Blood Type O Negative Antibody Screen Positive Antibody Identific ation Anti-K Antigen Identifica tion K Antigen - NEGAT PAULY Crossmatch See Detail 10/24/19 10/24/19 20:40 15:16 WBC RBC Hgb Hct MCV MCH MCHC RDW Plt Count MPV Neut % (Auto) Lymph % (Auto) [place] % (Auto) Eos % (Auto) Baso % (Auto) Neut # (Auto) Lymph # (Auto) [place] # (Auto) Eos # (Auto) Baso # (Auto) Nucleated RBC % (a uto) Nucleated RBCs # Sodium Potassium Chloride Carbon Dioxide Anion Gap BUN Creatinine Glucose POC Glucose 126 Calcium Total Bilirubin AST ALT Alkaline Phosphata se Total Protein Albumin Globulin Serum Immunofixati on See note Blood Type Antibody Screen Antibody Identific ation Antigen Identifica tion Crossmatch Vitals: Last Vital Signs Temp 97.8 F 10/25/19 13:57 Pulse 71 10/25/19 14:15 Resp 20 H 10/25/19 14:15 BP 122/66 10/25/19 14:00 Pulse Ox 94 10/25/19 14:15 TS Medications Medications Home Medications Enema Disposable 118 ml MD DAILY PRN 09/05/19 [History Confirmed 10/20/19] Senna Plus 2 tab-cap PO BID PRN 09/05/19 [History Confirmed 10/20/19] acetaminophen 650 mg PO QID PRN 09/05/19 [History Confirmed 10/20/19] alprazolam [Xanax] 0.5 mg PO BID PRN 09/05/19 [History Confirmed 10/20/19] bisacodyl 10 mg MD DAILY PRN 09/05/19 [History Confirmed 10/20/19] citalopram 10 mg PO DAILY 09/05/19 [History Confirmed 10/20/19] hydrocodone-acetaminophen 1 tab PO TID PRN 09/05/19 [History Confirmed 10/20/19] levothyroxine 200 mcg PO DAILY 09/05/19 [History Confirmed 10/20/19] lidocaine-transparent dressing 0 % TOPICAL .COMPLEX 09/05/19 [History Confirmed 10/20/19] magnesium citrate 100 mg PO DAILY PRN 09/05/19 [History Confirmed 10/20/19] magnesium hydroxide [Milk of Magnesia] 30 ml PO DAILY PRN 09/05/19 [History Confirmed 10/20/19] montelukast 10 mg PO DAILY 09/05/19 [History Confirmed 10/20/19] polyethylene glycol 3350 [Miralax] 17 g PO DAILY PRN 09/05/19 [History Confirmed 10/20/19] pramipexole [Mirapex] 0.25 mg PO QPM 09/05/19 [History Confirmed 10/20/19] quetiapine [Seroquel] 50 mg PO BID 09/05/19 [History Confirmed 10/20/19] amoxicillin-pot clavulanate 1 tab PO BID #6 tab 10/12/19 [Rx Confirmed 10/20/19] furosemide [Lasix] 40 mg PO DAILY #30 tab 10/12/19 [Rx Confirmed 10/20/19] acidophilus-pectin, citrus [Acidophilus Probiotic] 2 cap PO TID 10/20/19 [History Confirmed 10/20/19] albuterol sulfate [Proventil HFA] 1 puff INHALATION QID PRN 10/20/19 [History Confirmed 10/20/19] apixaban [Eliquis] 5 mg PO BID 10/20/19 [History Confirmed 10/20/19] aspirin [Aspirin Low Dose] 81 mg PO DAILY 10/20/19 [History Confirmed 10/20/19] benztropine 0.5 mg PO BID 10/20/19 [History Confirmed 10/20/19] bisacodyl 10 mg PO DAILY 10/20/19 [History Confirmed 10/20/19] clopidogrel 75 mg PO DAILY 10/20/19 [History Confirmed 10/20/19] cyclobenzaprine 10 mg PO TID 10/20/19 [History Confirmed 10/20/19] docusate sodium [Colace] 200 mg PO DAILY 10/20/19 [History Confirmed 10/20/19] fluticasone propionate [Flovent HFA] 2 puff INHALATION BID 10/20/19 [History Confirmed 10/20/19] losartan 25 mg PO DAILY 10/20/19 [History Confirmed 10/20/19] melatonin 6 mg PO DAILY 10/20/19 [History Confirmed 10/20/19] metformin 500 mg PO DAILY 10/20/19 [History Confirmed 10/20/19] metoprolol tartrate 50 mg PO DAILY 10/20/19 [History Confirmed 10/20/19] omega-3 acid ethyl esters [Lovaza] 1 cap PO DAILY 10/20/19 [History Confirmed 10/20/19] ondansetron HCl [Zofran] 4 mg PO Q8H 10/20/19 [History Confirmed 10/20/19] potassium chloride 20 meq PO DAILY 10/20/19 [History Confirmed 10/20/19] ranitidine HCl 150 mg PO BID 10/20/19 [History Confirmed 10/20/19] umeclidinium [Incruse Ellipta] 1 inh INHALATION DAILY 10/20/19 [History Confirmed 10/20/19] Active Medications Acetaminophen (Tylenol) 650 mg PO Q4H PRN PRN Reason: MILD PAIN OR INCREASE TEMP Last Admin: 10/25/19 05:10 Dose: 650 mg Documented by: Albuterol/Ipratropium (Duoneb) 3 ml INHALATION Q6H.RESPIRATORY PRN PRN Reason: SHORTNESS OF BREATH Last Admin: 10/21/19 15:56 Dose: 3 ml Documented by: Albuterol/Ipratropium (Duoneb) 3 ml INHALATION Q6H.RESPIRATORY SHERICE Last Admin: 10/25/19 14:13 Dose: 3 ml Documented by: Apixaban (Eliquis) 5 mg PO BID SHERICE Last Admin: 10/25/19 08:54 Dose: 5 mg Documented by: Aspirin (Aspirin Ec) 81 mg PO DAILY [facility] Last Admin: 10/25/19 08:55 Dose: 81 mg Documented by: Bisacodyl (Dulcolax) 10 mg PO DAILY [facility] Last Admin: 10/25/19 08:54 Dose: 10 mg Documented by: Bisacodyl (Bisac-Evac) 10 mg MD DAILY PRN PRN Reason: Constipation Budesonide (Pulmicort) 0.5 mg INHALATION BID.RESPIRATORY SHERICE Last Admin: 10/25/19 08:02 Dose: 0.5 mg Documented by: Citalopram Hydrobromide (Celexa) 10 mg PO DAILY [facility] Last Admin: 10/25/19 08:53 Dose: 10 mg Documented by: Clopidogrel Bisulfate (Plavix) 75 mg PO DAILY [facility] Last Admin: 10/25/19 08:54 Dose: 75 mg Documented by: Cyclobenzaprine HCl (Flexeril) 5 mg PO BID [facility] Last Admin: 10/25/19 08:53 Dose: 5 mg Documented by: Docusate Sodium (Colace) 200 mg PO DAILY [facility] Last Admin: 10/25/19 08:53 Dose: 200 mg Documented by: Furosemide (Lasix) 40 mg PO DAILY@0800 [facility] Last Admin: 10/25/19 08:54 Dose: 40 mg Documented by: Haloperidol Lactate (Haldol Inj) 0.5 mg IM NOW PRN PRN Reason: AGITATION Last Admin: 10/23/19 00:20 Dose: 0.5 mg Documented by: Imipenem/Cilastatin Sodium 500 (mg/ Sodium Chloride) 100 mls @ 200 mls/hr IV Q6H [facility]; Protocol Last Admin: 10/25/19 08:55 Dose: 200 mls/hr Documented by: Vancomycin HCl 1,000 mg/ (Sodium Chloride) 250 mls @ 250 mls/hr IV Q12H [facility]; Protocol Last Admin: 10/25/19 05:10 Dose: 250 mls/hr Documented by: Levothyroxine Sodium (Synthroid) 125 mcg PO DAILY [facility] Last Admin: 10/25/19 08:52 Dose: 125 mcg Documented by: Lorazepam (Ativan) 0.5 mg IVP Q4H PRN PRN Reason: ANXIETY Last Admin: 10/24/19 23:47 Dose: 0.5 mg Documented by: Magnesium Citrate (Magnesium Citrate) 300 ml PO DAILY PRN PRN Reason: CONSTIPTION Magnesium Hydroxide (Milk Of Magnesia) 30 ml PO DAILY PRN PRN Reason: Constipation Metoprolol Tartrate (Lopressor) 50 mg PO DAILY [facility] Last Admin: 10/21/19 09:01 Dose: 50 mg Documented by: Montelukast Sodium (Singulair) 10 mg PO DAILY [facility] Last Admin: 10/25/19 08:52 Dose: 10 mg Documented by: Neomycin/Polymyxin/Bacitracin (Neosporin Oint Tube) 1 applic TOPICAL DAILY [facility] Last Admin: 10/25/19 08:56 Dose: Not Given Documented by: Non-Formulary Medication (Melatonin) 6 mg PO DAILY [facility] Last Admin: 10/25/19 08:56 Dose: Not Given Documented by: Non-Formulary Medication (Ranitidine Hcl) 150 mg PO BID [facility] Last Admin: 10/25/19 08:56 Dose: Not Given Documented by: Ondansetron HCl (Zofran) 4 mg IVP Q8H PRN PRN Reason: vomiting, or N/V if npo Last Admin: 10/22/19 13:44 Dose: 4 mg Documented by: Pantoprazole Sodium (Protonix) 40 mg PO DAILY [facility] Polyethylene Glycol (Miralax) 17 gm PO DAILY PRN PRN Reason: Constipation Pramipexole Dihydrochloride (Mirapex) 0.125 mg PO QPM [facility] Last Admin: 10/24/19 18:06 Dose: 0.125 mg Documented by: Prednisone (Prednisone) 20 mg PO BID [facility] Last Admin: 10/25/19 08:54 Dose: 20 mg Documented by: Quetiapine Fumarate (Seroquel) 50 mg PO BID [facility] Last Admin: 10/25/19 08:52 Dose: 50 mg Documented by: Tramadol HCl (Ultram) 50 mg PO ONCE PRN PRN Reason: MODERATE PAIN Last Admin: 10/23/19 03:24 Dose: 50 mg Documented by: Discharge Plan Discharge Patient Disposition: Home, Self-Care Condition: Stable Prescriptions: No Action cyclobenzaprine 10 mg Tablet 10 mg PO TID RF: 0 metformin 500 mg Tablet 500 mg PO DAILY RF: 0 potassium chloride 10 mEq Capsule, Extended Release 20 meq PO DAILY RF: 0 benztropine 0.5 mg Tablet 0.5 mg PO BID RF: 0 Zofran 4 mg Tablet 4 mg PO Q8H RF: 0 melatonin 3 mg Tablet 6 mg PO DAILY RF: 0 clopidogrel 75 mg Tablet 75 mg PO DAILY RF: 0 Aspirin Low Dose 81 mg Tablet,Delayed Release (Dr/Ec) 81 mg PO DAILY RF: 0 ranitidine HCl 150 mg Tablet 150 mg PO BID RF: 0 losartan 25 mg Tablet 25 mg PO DAILY RF: 0 metoprolol tartrate 50 mg Tablet 50 mg PO DAILY RF: 0 Colace 100 mg Capsule 200 mg PO DAILY RF: 0 bisacodyl 5 mg Tablet,Delayed Release (Dr/Ec) 10 mg PO DAILY RF: 0 Flovent HFA 220 mcg/actuation Hfa Aerosol Inhaler 2 puff INHALATION BID RF: 0 Proventil HFA 90 mcg/actuation Hfa Aerosol Inhaler 1 puff INHALATION QID PRN (Reason: Shortness Of Breath) RF: 0 Lovaza 1 gram Capsule 1 cap PO DAILY RF: 0 Acidophilus Probiotic 100 million cell-10 mg Capsule 2 cap PO TID RF: 0 Eliquis 5 mg Tablet 5 mg PO BID RF: 0 Incruse Ellipta 62.5 mcg/actuation Blister With Device 1 inh INHALATION DAILY RF: 0 acetaminophen 325 mg Tablet 650 mg PO QID PRN (Reason: Pain) RF: 0 citalopram 10 mg Tablet 10 mg PO DAILY RF: 0 hydrocodone-acetaminophen 5-325 mg Tablet 1 tab PO TID PRN (Reason: Pain) RF: 0 alprazolam [Xanax] 0.5 mg Tablet 0.5 mg PO BID PRN (Reason: Anxiety) RF: 0 magnesium hydroxide [Milk of Magnesia] 400 mg/5 mL Suspension 30 ml PO DAILY PRN (Reason: Constipation) RF: 0 bisacodyl 10 mg Suppository 10 mg MD DAILY PRN (Reason: Constipation) RF: 0 levothyroxine 125 mcg Tablet 200 mcg PO DAILY RF: 0 Enema Disposable 19-7 gram/118 mL Enema 118 ml MD DAILY PRN (Reason: Constipation) RF: 0 pramipexole [Mirapex] 0.125 mg Tablet 0.25 mg PO QPM RF: 0 montelukast 10 mg Tablet 10 mg PO DAILY RF: 0 polyethylene glycol 3350 [Miralax] 17 gram/dose Powder 17 g PO DAILY PRN (Reason: Constipation) RF: 0 quetiapine [Seroquel] 50 mg Tablet 50 mg PO BID RF: 0 magnesium citrate 100 mg Tablet 100 mg PO DAILY PRN (Reason: PRN) RF: 0 lidocaine-transparent dressing 5 %- 6 cm X 7 cm Kit 0 % TOPICAL .COMPLEX RF: 0 Senna Plus 8.6-50 mg Capsule 2 tab-cap PO BID PRN (Reason: Constipation) RF: 0 amoxicillin-pot clavulanate 875-125 mg Tablet 1 tab PO BID Qty: 6 RF: 0 furosemide [Lasix] 40 mg tablet 40 mg PO DAILY Qty: 30 RF: 0 Discharge Orders: Transfer Out of Facility (Order); Ordered 10/25/19 Ordered By: David Vargas Referrals: Cecil Rodriguez DO [Physician] - (follow-up in the orthopedic clinic in [address] Rodriguez Call [phone] for appointment date and time. New x-rays of the right ankle to be obtained at that time) Discharge Activity: Limit activity as instructed Activity Restrictions/Additional Instructions: nonweightbearing right lower extremity Dressing changes daily/when necessary 2 superficial abrasions dorsum of right great toe and second toe. Apply antibiotic ointment and light dressing or Band-Aids to these areas. Patient may use right upper extremity as tolerated. 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 Encourage gentle range of motion of the shoulder to include pendulum exercises passive range of motion with a therapist at the bedside. If mental status improves and she can use a kris for range of motion that would be helpful. If pain allows strengthening with Thera-Bands could be initiated to strengthen the right shoulder. Transfer Attestations Time Spent in Transfer Care*: greater than 30 min Quality Metrics Clinical Quality Measures: During this hospital stay, did patient experience: None Coding Level of Care Code Acute [employer] Etl Developer for g Fwd Diagnoses Sepsis A41.9 Acute encephalopathy G93.40 Pneumonia J18.9 Urinary tract infection N39.0
[2019-10-25] MEDS: sodium chloride 0.9% 100 ML 175 ML (15:56)
[2019-10-25] MEDS: FUROsemide 10 mg/mL SDV 2mL 20 MG IVP (16:31)
--- NOTE | 2019-10-25 18:32 | PC.NURSE ---
Patient left unit by garcia with EMS. [facility] notified. Family notified.
== END 2019-10-25 18:20 | disposition expired | DRG 698 ==
LOC: ER 22:06 → MEDSURG 10-21 02:02 → ICU 10-22 03:03
PROVIDERS: Internal Medicine; Admitting Provider Student in an Organized Health Care Education/Training Program; Emergency Provider Emergency Medicine; Family Provider Family Medicine; Visit Provider Internal Medicine
DX: T83.511A Infection and inflammatory reaction due to indwelling urethral catheter, initial encounter (principal); A41.9 Sepsis, unspecified organism; R65.21 Severe sepsis with septic shock; G92 Toxic encephalopathy; J18.9 Pneumonia, unspecified organism; I82.5Z9 Chronic embolism and thrombosis of unspecified deep veins of unspecified distal lower extremity; E87.1 Hypo-osmolality and hyponatremia; Z68.41 Body mass index [BMI] 40.0-44.9, adult; L89.619 Pressure ulcer of right heel, unspecified stage; M75.100 Unspecified rotator cuff tear or rupture of unspecified shoulder, not specified as traumatic; S92.911A Unspecified fracture of right toe(s), initial encounter for closed fracture; S82.851A Displaced trimalleolar fracture of right lower leg, initial encounter for closed fracture; X58.XXXA Exposure to other specified factors, initial encounter; K21.9 Gastro-esophageal reflux disease without esophagitis; G89.29 Other chronic pain; M54.9 Dorsalgia, unspecified; J43.9 Emphysema, unspecified; B96.20 Unspecified Escherichia coli [E. coli] as the cause of diseases classified elsewhere; R33.8 Other retention of urine; E03.9 Hypothyroidism, unspecified; Z99.81 Dependence on supplemental oxygen; I25.10 Atherosclerotic heart disease of native coronary artery without angina pectoris; I11.0 Hypertensive heart disease with heart failure; I50.9 Heart failure, unspecified; E11.40 Type 2 diabetes mellitus with diabetic neuropathy, unspecified; Z79.84 Long term (current) use of oral hypoglycemic drugs; F32.9 Major depressive disorder, single episode, unspecified; Z63.4 Disappearance and death of family member; N39.0 Urinary tract infection, site not specified; D69.6 Thrombocytopenia, unspecified; E66.01 Morbid (severe) obesity due to excess calories
CPT/HCPCS: 12345; 36415; 36416; 36430; 36569; 36592; 51702; 70450; 71045; 73200; 73600; 73620; 73700; 74176; 80048; 80053; 80202; 80500; 81001; 82232; 82962; 83605; 83615; 83883; 84145; 84155; 84156; 84165; 84260; 84443; 85007; 85025; 85651; 86140; 86335; 86850; 86870; 86900; 86902; 86920; 87040; 87077; 87086; 87186; 87641; 92526; 92610; 94640; 94660; 94669; 96372; 96375; 97166; 97530; 99283; J0696; J0743; J1630; J1720; J1940; J2060; J2405; J2543; J3370; J3535; J7040; J7050; J7512; J7626; P9016

== ENCOUNTER 2019-11-19 12:10 | Inpatient (IN) | payer MEDICARE, OTHER, SELFPAY ==
[2019-11-19] VITALS (25 sets, daily range): BP systolic 66–141; BP diastolic 43–69; PULSE 72–104; RESP 15–30; TEMP 36.4–36.6; O2SAT 89–97; BMI 42.9
--- NOTE | 2019-11-19 12:12 | ED_ITS ---
Entered by Cathy Virk, acting as scribe for Daja Buchanan DO HPI - SOB/Dyspnea General: Chief Complaint: Shortness of Breath/Dyspnea Stated Complaint: shortness of breath Time Seen by Provider: 11/19/19 12:12 Source: EMS Mode of arrival: EMS History of Present Illness: HPI Narrative: 79 yo Female presents to ED with complaint of respiratory distress. Pt has been in [facility] in [place] and just returned back to [facility]. Per EMS, patient was found at the alf to have oxygen saturations in the 80s. EMS states that they put the patient on CPAP and gave breathing treatments but her oxygen saturations remain in the 80s. Associated symptoms: Deny abdominal pain, chest pain, fever(s), nausea or v omiting Review of Systems General: Reports: 10 or more systems reviewed and unremarkable except in HPI and below Const: Denies: fever, chills or fatigue ENMT: Denies: throat pain Card: Denies: chest pain or swelling of feet/ankles Resp: Reports: shortness of breath and wheezing; Denies: productive cough GI: Denies: abdominal pain, nausea, vomiting, diarrhea, constipation or blood in stool : Denies: difficulty urinating Musc: Denies: back pain or extremity swelling Skin/Breast: Denies: rash Neuro: Denies: headache, numbness in extremities or weakness in extremities PFS ED PFSH: Medical History Acidosis Aortic aneurysm Aortic disease CHF (congestive heart failure) Chronic back pain COPD (chronic obstructive pulmonary disease) Diabetes Emphysema, unspecified Fracture of proximal phalanx of toe of right foot GERD (gastroesophageal reflux disease) Herpes zoster Hypotension Hypothyroidism Neuropathy Pyelonephritis Rotator cuff tear arthropathy Thyroid disease Tibia fracture Trimalleolar fracture of right ankle Surgical History History of AAA (abdominal aortic aneurysm) repair History of cholecystectomy History of hysterectomy History of left hip replacement Family History Mother CAD (coronary artery disease) Father Cancer Liver Brother Cancer CLL and at age 68 Social History Smoking and tobacco status: smoker, details unknown Physical Exam Const: COMMON NORMALS: oriented x3; apparent distress GENERAL APPEARANCE: cooperative and in distress HENMT: COMMON NORMALS: normocephalic HEAD & SCALP: normal to inspection and normocephalic MOUTH: oral and palatal mucosa normal and lip normal THROAT: posterior oropharynx normal and tonsils normal Neck/C-Spine: COMMON NORMALS: full ROM, no lymphadenopathy, supple and no meningeal signs GENERAL: Yes normal visual inspection and Yes trachea midline Chest: COMMONS NORMALS: inspection of chest normal Resp: COMMON NORMALS: negative for normal respiratory effort and negative for clear to auscultation bilaterally EFFORT & INSPECTION: Yes able to speak in complete sentences and Yes respiratory distress AUSCULTATION: not clear to auscultation bilaterally, no rales, no rhonchi and wheezes expiratory wheezes and inspiratory wheezes Cardio: COMMON NORMALS: regular rate, regular rhythm, S1 normal heart sound, S2 normal heart sound and no murmurs RATE: regular rate RHYTHM: regular rhythm HEART SOUNDS: S1 normal and S2 normal PERIPHERAL PULSES: radial pulses present and dorsalis pedis pulses present GI: COMMON NORMALS: normal to inspection, nondistended, normoactive bowel sounds, soft to palpation and non-tender INSPECTION: Yes normal to inspection AUSCULTATION: Yes normoactive bowel sounds PALPATION: Yes soft, No tender, No guarding and No rigid RECTAL EXAM: deferred : COMMON NORMALS: Yes no CVA tenderness BLADDER/KIDNEY EXAM: Yes no CVA tenderness Back/Pelvis: COMMON NORMALS: no CVA tenderness Extremity: COMMON NORMALS: normal to inspection, full ROM, normal capillary refill, no calf tenderness and no pedal edema Neuro: COMMON NORMALS: oriented x3, CN's II-XII intact bilaterally, moves all extremities and no focal motor deficits MENINGEAL SIGNS: Yes no meningeal signs Skin: COMMON NORMALS: no rashes or lesions noted GENERAL SKIN EXAM: no rashes or lesions noted Procedures Intubation Time out performed: No (urgency precluded) sedative: Etomidate Mg Given: 30 paralytic: Succinylcholine Mg Given: 100 Laryngoscope: fiber optic video scope ET Tube Size: 8 ET Tube Uncuffed: Yes Tube Secured Depth (cm): 23 Tube Secured Location: lips Tube Placement Confirmation: visualized tube passing through cords and confirmation by capnometry Patient Tolerated Procedure: no complications Intubation Complications: none Additional Comments: no breath sounds left, cxr confirms left chest opacified- obliterated main bronchus left, complete consolidation/atelecatsis/pleural effusion. Course Consultations: Consultation #1: Called [facility] to request transfer due to family request and patient's through operator is located at [facility] in [place]. Awaiting call back from [facility] Transfer line. Time: 13:20 Consultation #2: Call Infection Prevention Nurse but was unable to leave a message at 13:30. Aurelia De Oliveira returned call at 13:34. Called [facility]- hotline and patient did not meet requirements for state testing. Vital Signs: Vital signs: Vital Signs Temperature 97.6 F 11/19/19 12:10 Pulse Rate 84 11/19/19 15:05 Respiratory Rate 15 11/19/19 15:05 Blood Pressure 84/50 11/19/19 15:05 Pulse Oximetry 95 11/19/19 15:05 MDM - SOB/Dyspnea MDM Narrative: Medical decision making narrative: pt was in severe resp distress upon arriva with hypoxia so we intubated her as she is a full code. she had been at [facility] recently and then [facility], she had had a bonchus biopsied here which showed no malignancy but she had to have the bronchus cleaned out due to an obstructing left main mass, today she has consolidation of left lung which is much worse than her last visit. Family wants pt to be in [facility] and I agree that is where she needs to be due to continuity of care. I have started her on zosyn levaquin and vanc and nebs and steroids, she is getting iv fluids and her pressure is now 99/63, I will order a second liter iv fluids and if her pressure drops again we will use levophed cdc states pt doesnt meet criteria for testing for florez virus, pt has other more likely causes for resp distress than florez including obstructing lesion in bronchus with pneumonia, pleural effusion and atelectasis, I will not give lasix as the pt is hypotensive 1354: pt has wbc of 31 consistent with her severe sepsis 1415: we still have not heard from [facility], they were dealing with a crashing covid-19 pt in their icu, pts son Chris who is poa states he is fine witth keeping the pt here since Dr Vernon states he will take her to [facility] tomorrow to suction mucus plugs as that was her problem before, he is aware that this is a recurrent problem and likely to come back, Dr Dinh states she will admit the pt and wants her tested for covid 19 Lab Data: Attestation: I reviewed the patient's lab results. Labs: Lab Results 11/19/19 11/19/19 11/19/19 Range/Units 12:50 12:50 12:50 WBC 31.2 H* (4.0-10.0) 10^3/ uL RBC 4.30 (4.1-5.3) 10^6/u L Hgb 11.1 L (11.5-15.3) g/dL Hct 39.4 (37.0-47.0) % MCV 91.6 (81-99) fL MCH 25.8 L (28.0-34.0) pg MCHC 28.2 L (30.0-36.0) g/dL RDW 19.4 H (12.1-15.1) % Plt Count 425 H (130-400) 10^3/c mm MPV 9.1 (7.4-10.4) fL Neut % (Auto) 87.5 % Lymph % (Auto) 6.5 % Keith % (Auto) 2.7 % Eos % (Auto) 0.3 % Baso % (Auto) 0.4 % Neut # (Auto) 27.3 H (1.8-7.7) 10^3/u L Lymph # (Auto) 2.0 (0.8-4.8) 10^3/u L Keith # (Auto) 0.9 (0.2-0.9) 10^3/u L Eos # (Auto) 0.1 (0.0-0.8) 10^3/u L Baso # (Auto) 0.1 (0.0-0.1) 10^3/u L Nucleated RBC % (a uto) 0.2 % Nucleated RBCs # 0.1 /100WBC Specimen Type Sample Site ABG pH (7.35-7.45) ABG pCO2 (35-45) mmHg ABG pO2 (80.0-100.0) mmH g ABG HCO3 (22-26) mmol/L ABG O2 Saturation ABG Base Excess (-2.0-2.0) mmol/ L Aryan Test A-a O2 Gradient (5-10) mmHg Hematocrit (37-47) % Hgb O2 Saturation (95-100) % Carboxyhemoglobin (0.4-20.1) %THgb Methemoglobin (0.4-1.5) % Total Hemoglobin (12-16) g/dL Ionized Calcium (1.1-1.4) mmol/L Respiration Rate % O2 Delivery Device FiO2 % PEEP cmH20 Health Science Specialist ID Sodium 137 (136-145) mmol/L Potassium 4.7 (3.5-5.1) mmol/L Chloride 101 (98-107) mmol/L Carbon Dioxide 22 (22-29) mmol/L Anion Gap 18.7 (5-19) BUN 30 H (8-23) mg/dL Creatinine 1.3 H (0.5-0.9) mg/dL Glucose 92 (65-115) mg/dL Calculated Osmolal ity 281 L (285-295) mOsm/k g Lactate 3.3 H (0.5-2.2) mmol/L Calcium 11.3 H (8.5-10.5) mg/dL Total Bilirubin 0.7 (0.15-1.2) mg/dL AST 38 H (0-32) U/L ALT 75 H (0-33) U/L Alkaline Phosphata se 103 (35-105) IU/L NT-Pro-B Natriuret Pep 4061 H (0-450) pg/mL Total Protein 6.7 (6.6-8.7) g/dL Albumin 2.6 L (3.5-5.2) g/dL Globulin 4.1 (1.3-4.6) g/dL Influenza Type A A g (Negative) POC Influenza B Ag (Negative) 11/19/19 11/19/19 Range/Units 12:55 14:29 WBC (4.0-10.0) 10^3/ uL RBC (4.1-5.3) 10^6/u L Hgb (11.5-15.3) g/dL Hct (37.0-47.0) % MCV (81-99) fL MCH (28.0-34.0) pg MCHC (30.0-36.0) g/dL RDW (12.1-15.1) % Plt Count (130-400) 10^3/c mm MPV (7.4-10.4) fL Neut % (Auto) % Lymph % (Auto) % Keith % (Auto) % Eos % (Auto) % Baso % (Auto) % Neut # (Auto) (1.8-7.7) 10^3/u L Lymph # (Auto) (0.8-4.8) 10^3/u L Keith # (Auto) (0.2-0.9) 10^3/u L Eos # (Auto) (0.0-0.8) 10^3/u L Baso # (Auto) (0.0-0.1) 10^3/u L Nucleated RBC % (a uto) % Nucleated RBCs # /100WBC Specimen Type Arterial Sample Site Radial, left ABG pH 7.26 L (7.35-7.45) ABG pCO2 51.7 H (35-45) mmHg ABG pO2 92.5 (80.0-100.0) mmH g ABG HCO3 22.9 (22-26) mmol/L ABG O2 Saturation 96.4 ABG Base Excess -4.3 L (-2.0-2.0) mmol/ L Aryan Test Pos A-a O2 Gradient 545.8 H (5-10) mmHg Hematocrit 30.0 L (37-47) % Hgb O2 Saturation 94.8 L (95-100) % Carboxyhemoglobin 1.4 (0.4-20.1) %THgb Methemoglobin 0.2 L (0.4-1.5) % Total Hemoglobin 9.8 L (12-16) g/dL Ionized Calcium 1.4 (1.1-1.4) mmol/L Respiration Rate 16.0 % O2 Delivery Device Vent FiO2 100.0 % PEEP 10.0 cmH20 Health Science Specialist ID ed Sodium 141.0 (136-145) mmol/L Potassium 3.9 (3.5-5.1) mmol/L Chloride (98-107) mmol/L Carbon Dioxide (22-29) mmol/L Anion Gap (5-19) BUN (8-23) mg/dL Creatinine (0.5-0.9) mg/dL Glucose 122.0 H (65-115) mg/dL Calculated Osmolal ity (285-295) mOsm/k g Lactate (0.5-2.2) mmol/L Calcium (8.5-10.5) mg/dL Total Bilirubin (0.15-1.2) mg/dL AST (0-32) U/L ALT (0-33) U/L Alkaline Phosphata se (35-105) IU/L NT-Pro-B Natriuret Pep (0-450) pg/mL Total Protein (6.6-8.7) g/dL Albumin (3.5-5.2) g/dL Globulin (1.3-4.6) g/dL Influenza Type A A g Negative (Negative) POC Influenza B Ag Negative (Negative) Imaging Data^: CXR: Radiologist's impression: [address] [address] XRay Report Signed Patient: Joy Bassett #: [id number] : [id number]#:[id number] Age/Sex: 79 / FADM Date: 11/19/19 Loc: [facility]/Bed: Attending Dr: Ordering Provider/Ordering MD: Daja Buchanan DO Date of Service: 11/19/19 Procedure(s): XR chest 1V portable [id number] Accession Number(s): [id number] Report Number: [id number] WS: [id number] XR chest 1V portable [id number] REASON FOR EXAM: POST INTUBATION FINDINGS: Marked increase in pneumonia atelectasis and effusion on the left lung. There is occlusion of the left mainstem bronchus noted. The endotracheal tube is noted in good position. XR/XR chest 1V portable [id number] IMPRESSION: Pneumonia atelectasis effusion on the left with endotracheal tube in good position. There is obliteration of the distal left common mainstem bronchus. Dictated By:Terrell Hays DO Signed By:Terrell Hays DOSigned Date/Time:11/19/19 1235 DD/ 1233 Discharge Plan Discharge Patient Disposition: Admitted As Inpatient Admit Provider: Tosin Dinh Clinical Impression: Bronchial obstruction, Mucus clot in bronchi COPD (chronic obstructive pulmonary disease) Qualifiers: COPD type: COPD with acute exacerbation Qualified Code(s): J44.1 - Chronic obstructive pulmonary disease with (acute) exacerbation Sepsis Qualifiers: Sepsis type: sepsis due to unspecified organism Sepsis acute organ dysfunction status: with acute organ dysfunction Severe sepsis acute organ dysfunction type: acute respiratory failure Acute respiratory failure type: with hypoxia Severe sepsis shock status: without septic shock Qualified Code(s): A41.9 - Sepsis, unspecified organism Pneumonia Qualifiers: Laterality: left Lung location: lower lobe of lung Leukocytosis (leucocytosis) Qualifiers: Leukocytosis type: unspecified Qualified Code(s): D72.829 - Elevated white blood cell count, unspecified Condition: Stable Referrals: Frankie Caballero Jr, MD [Family Provider] - Coding Level of Care Code ED Aerospace Technician for Chg Fwd Exam Comprehensive The documentation recorded by the Moose person Carmen, accurately reflects the service I personally performed and the decisions made by Chanel garzon Sonia M, DO Nov 19, 2019 12:10
--- NOTE | 2019-11-19 12:24 | XR_ITS ---
WS: [id number] XR chest 1V portable [id number] REASON FOR EXAM: POST INTUBATION FINDINGS: Marked increase in pneumonia atelectasis and effusion on the left lung. There is occlusion of the left mainstem bronchus noted. The endotracheal tube is noted in good position. XR/XR chest 1V portable [id number] IMPRESSION: Pneumonia atelectasis effusion on the left with endotracheal tube in good posit ion. There is obliteration of the distal left common mainstem bronchus.
[2019-11-19] MEDS: sodium chloride 0.9% 1,000 ML 999 ML IV ×2 (12:25→13:18)
[2019-11-19] MEDS: atropine 0.1 mg/mL Syr 10 mL 0.5 MG IVP (12:25)
[2019-11-19] MEDS: succinylcholine 20 mg/mL SDV 10mL 200 MG IVP (12:26)
--- NOTE | 2019-11-19 12:31 | ECG_ITS ---
Measurements Intervals [place] Rate: 81 P: 90 MT: 159 QRS: 97 QRSD: 129 T: 67 QT: 380 QTc: 441 SINUS RHYTHM WITH SINUS ARRHYTHMIA BORDERLINE RIGHT AXIS DEVIATION [QRS AXIS > 90] SEPTAL MYOCARDIAL INFARCTION , OF INDETERMINATE AGE [40+ ms Q WAVE IN V1/V2] MODERATE T-WAVE ABNORMALITY, CONSIDER ANTERIOR ISCHEMIA [-0.1+ mV T WAVE IN V3 V3/V4] Compared to ECG 10/06/2019 03:20:17 T-wave abnormality now present Possible ischemia now present Myocardial infarct finding still present Electronically Signed On 11-19-2019 20:35:18 CDT by Yamil Kaufman M.D. [email or web address]
[2019-11-19] MEDS: vecuronium 10 mg SDV IVP (12:42)
[2019-11-19] MEDS: piperacillin-tazobactam 3.375 GM in sodium chloride 0.9% (plus) 50 ML IV ×2 (12:45→18:13)
[2019-11-19 13:00] LABS: Basophils # 0.1 10^3/uL (0.0-0.1); Basophils % 0.4 %; Eosinophils # 0.1 10^3/uL (0.0-0.8); Eosinophils % 0.3 %; Hematocrit 39.4 % (37.0-47.0); Hemoglobin 11.1 g/dL (11.5-15.3); Lymphocytes % 6.5 %; Mean Corpuscular HGB Conc 28.2 g/dL (30.0-36.0); Mean Corpuscular Hemoglobin 25.8 pg (28.0-34.0); Mean Corpuscular Volume 91.6 fL (81-99); Mean Platelet Volume 9.1 fL (7.4-10.4); Monocytes # 0.9 10^3/uL (0.2-0.9); Monocytes % 2.7 %; Neutrophils # 27.3 10^3/uL (1.8-7.7); Neutrophils % 87.5 %; Nucleated Red Blood Cells # 0.1 /100WBC; Nucleated Red Blood Cells % 0.2 %; Platelet Count 425 10^3/cmm (130-400); Red Cell Distribution Width 19.4 % (12.1-15.1)
[2019-11-19 13:14] LABS: Lactate (Lactic Acid level) 3.3 mmol/L (0.5-2.2)
[2019-11-19] MEDS: vancomycin 1,000 MG in sodium chloride 0.9% 250 ML 250 MG IV (13:23)
[2019-11-19 13:25] LABS: Alanine Aminotransferase 75 U/L (0-33); Albumin Level 2.6 g/dL (3.5-5.2); Alkaline Phosphatase 103 IU/L (35-105); Anion Gap 18.7 (5-19); Aspartate Amino Transferase 38 U/L (0-32); Blood Urea Nitrogen 30 mg/dL (8-23); Calcium 11.3 mg/dL (8.5-10.5); Carbon Dioxide 22 mmol/L (22-29); Chloride 101 mmol/L (98-107); Globulin 4.1 g/dL (1.3-4.6); Glucose 92 mg/dL (65-115); NT Pro B Type Natriuretic Pept 4061 pg/mL (0-450); Osmolality Calculated 281 mOsm/kg (285-295); Potassium 4.7 mmol/L (3.5-5.1); Sodium 137 mmol/L (136-145); Total Bilirubin 0.7 mg/dL (0.15-1.2); Total Protein 6.7 g/dL (6.6-8.7)
[2019-11-19 13:26] LABS: Influenza A by IFA Negative (Negative)
[2019-11-19] MEDS: levofloxacin-dextrose 5 % 750 MG/150 ML PREMIX 150 MG IV (13:26)
[2019-11-19 13:27] LABS: Influenza B by IFA Negative (Negative)
[2019-11-19 13:49] LABS: White Blood Count 31.2 10^3/uL (4.0-10.0)
[2019-11-19 14:39] LABS: ABG PCO2 51.7 mmHg (35-45); ABG PH Result 7.26 (7.35-7.45); Alveolar-Arterial Oxygen Gradi 545.8 mmHg (5-10); Base Excess ABG -4.3 mmol/L (-2.0-2.0); Blood Gas Allen Test Pos; Blood Gas Sample Site Radial, left; Blood Gas Sample Type Arterial; Carboxyhemoglobin 1.4 %THgb (0.4-20.1); HCO3 ABG 22.9 mmol/L (22-26); HGB O2 Sat 94.8 % (95-100); Ionized Calcium Level - ABG 1.4 mmol/L (1.1-1.4); Methemoglobin 0.2 % (0.4-1.5); Oxygen Device VENT; Oxygen Saturation ABG 96.4; PO2 ABG 92.5 mmHg (80.0-100.0); Potassium Level - ABG 3.9 mmol/L (3.5-5.0); Total Hemoglobin 9.8 g/dL (12-16)
--- NOTE | 2019-11-19 15:55 | P.HP_ITS ---
Providers/Chief Complaint Admitting Physician: Tosin Dinh MD Primary Care Provider: Dr. Frankie Caballero Jr Chief Complaint: shortness of breath History of Present Illness Joy Bassett is a 79 year old female with extensive PMHx including Oxygen dependent COPD, Morbid obesity, Chronic diastolic CHF, recurrent L sided pneumonia, recurrent UTIs; presents via ambulance from [facility] earlier this afternoon for evaluation of decreased responsiveness, increased shortness of breath and hypoxia. Patient is currently mechanically ventilated so unable to obtain history directly from her. Additional information obtained from thorough review of medical record, discussion with long term staff, specifically Paola who is the patient's care nurse. It seems that patient was in her usual state of health earlier this morning when she woke up, was able to get cleaned up, have breakfast then later in the morning was noted to have some increased shortness of breath and hypoxia so oxygen increased from 3 to 4 L and nebulizer treatment given. Just before nebulizer treatment was complete patient was noted to be gazing preferentially to the right with decreased responsiveness so amb ulance called. Patient had returned to [facility] from a [facility] in [place] approximately 4 days ago; she had been transferred from our facility to [facility] at the end of September. She has had multiple prior admissions for similar symptoms most recently at the end of September during which time she was treated for sepsis secondary to UTI and pneumonia. Earlier in the month she had required bronchoscopy with broncholoalveolar lavage secondary to recurrent infection and postobstructive pneumonia, she was found to have extensive mucus plugging at that time, pathology obtained during procedure shows no malignancy or dysplasia, noted evidence of inflammation. Patient also had recent right trimalleolar ankle fracture and fracture of the proximal phalanx of the second toe of right foot. She has been non-weightbearing and uses a motorized wheelchair at the long term. Niece is present at the bedside during my assessment in the ER and states that patient is particularly prone to sepsis either secondary to pneumonia or UTI. She had a Adams catheter placed in the ER on her initial arrival, urine looks quite cloudy with noted sediment. She is hypotensive with a blood pressure of 84/50, MAP of 61, heart rate of 83, oxygen saturation of 95% on FiO2 100% on vent. ER physician Dr. Buchanan spoke with patient's family and confirmed CODE STATUS is full code at this time. Dr. Agapito oseguera also spoke to Dr. Vernon who will do a bronchoscopy tomorrow. So far patient has received Zosyn, Levaquin, vancomycin, normal saline bolus. She is currently sedated on Versed at 3 mg/hr and with noted hypotension will be started on levophed. Work-up indicates significant leukocytosis with a white count of 31.2, neutrophilic predominance, hemoglobin of 11.1, platelet count of 425, BUN of 30, creatinine of 1.3, lactate of 3.3, BNP of 4061, AST of 38, ALT of 75, ABG shows respiratory acidosis with a pH of 7.26, PCO2 of 51.7. Chest x-ray is reported as left-sided pneumonia and obliteration of the distal left common mainstem bronchus. I have discussed lab and imaging findings with patient's niece at bedside as well as plan for bronchoscopy tomorrow. Patient is being admitted for further treatment of what is likely postobstructive pneumonia with associated sepsis as evidenced by hypotension, significant leukocytosis, hypoxia and respiratory failure requiring mechanical ventilation; needs ICU admission. Review of Systems General: Reports: other (obtained from family and NH staff as patient intubated) Const: Denies: fever or chills Eyes: Denies: change in vision ENMT: Denies: painful swallowing Card: Denies: chest pain, swelling of feet/ankles or lightheadedness Resp: Reports: shortness of breath; Denies: productive cough or non-productive cough GI: Denies: abdominal pain, nausea, vomiting, vomiting blood or blood in stool : Denies: difficulty urinating or urinary incontinence Skin/Breast: Denies: rash Neuro: Reports: other (uses motorized wheelchair) Psych: Reports: anxiety (low threshold for anxiety per family) Medications/Allergies Home Medications Medication Instructions Recorded Confirmed Last Taken Type carvedilol 6.25 mg PO BID 11/19/19 11/19/19 11/19/19 History fluconazole 400 mg PO DAILY 11/19/19 11/19/19 11/17/19 History ipratropium-albuterol 3 ml INHALATION Q6H PRN 11/19/19 11/19/19 11/19/19 History prednisone 50 mg PO DAILY 11/19/19 11/19/19 11/19/19 History Allergies Allergy/AdvReac Type Severity Reaction Status Date / Time lisinopril Allergy Unknown Verified 11/19/19 12:31 lorazepam [From Ativan] Allergy Unknown Verified 11/19/19 12:31 meperidine [From Demerol] Allergy Unconscious Verified 11/19/19 12:31 morphine Allergy Unknown Verified 11/19/19 12:31 niacin Allergy Unknown Verified 10/10/19 08:05 PFSH Acute PFSH: Medical History Acidosis Aortic aneurysm Aortic disease CHF (congestive heart failure) chronic diastolic CHF Chronic back pain COPD (chronic obstructive pulmonary disease) Diabetes Emphysema, unspecified Fracture of proximal phalanx of toe of right foot GERD (gastroesophageal reflux disease) Herpes zoster Hypotension Hypothyroidism Neuropathy Pyelonephritis Rotator cuff tear arthropathy Thyroid disease Tibia fracture Trimalleolar fracture of right ankle Surgical History History of AAA (abdominal aortic aneurysm) repair History of bronchoscopy in 09/2019 History of cholecystectomy History of hysterectomy History of left hip replacement Family History Mother CAD (coronary artery disease) Father Cancer Liver Brother Cancer CLL and at age 68 Social History Smoking and tobacco status: smoker, details unknown Vitals/I&O/Wt Last Vital Signs Temp 97.6 F 11/19/19 12:10 Pulse 84 11/19/19 15:05 Resp 15 11/19/19 15:05 BP 84/50 11/19/19 15:05 Pulse Ox 95 11/19/19 15:05 Weight last 48 hrs Weight 113.398 kg Physical Exam Const: COMMON NORMALS: no apparent distress GENERAL APPEARANCE: patient mechanically ventilated NUTRITIONAL APPEARANCE: obese morbidly obese HENMT: COMMON NORMALS: normocephalic and head/scalp atraumatic HEAD & SCALP: normocephalic and atraumatic MOUTH: moist mucous membranes abnormal Details: parched TEETH & GINGIVA: Yes edentulous Eye: COMMON NORMALS: conjunctivae normal CONJUNCTIVA: Yes conjunctivae normal Neck/C-Spine: COMMON NORMALS: full ROM GENERAL: Yes normal visual insp ection and Yes trachea midline Resp: COMMON NORMALS: no retractions and no use of accessory muscles EFFORT & INSPECTION: Yes symmetric chest movement AUSCULTATION: diminished lung sounds on the left throughout OTHER: -Patient mechanically ventilated (FiO2- 100%) Cardio: COMMON NORMALS: regular rate, regular rhythm, S1 normal heart sound, S2 normal heart sound and no murmurs RATE: regular rate RHYTHM: regular rhythm HEART SOUNDS: S1 normal and S2 normal OTHER: -hypotensive (BP- 84/50) GI: COMMON NORMALS: soft to palpation INSPECTION: Yes normal to inspection and Yes central obesity PALPATION: Yes soft : BLADDER/KIDNEY EXAM: Yes catheter in place Catheter type (Female): urethral Extremity: COMMON NORMALS: normal to inspection and no clubbing, cyanosis or edema; negative for no pedal edema OTHER: -heel boot on R, clean dressing over R foot and ankle Neuro: OTHER: -unable to assess as sedated and on ventilator Psych: OTHER: -unable to assess as mechanically ventilated Skin: COMMON NORMALS: no rashes or lesions noted, no jaundice and no mottling GENERAL SKIN EXAM: ecchymosis (extensive bruising on bilateral UEs) Urinary Catheter Management^: Adams: Cath Placed During This Visit: yes Urethral Indwelling: Yes Reason for Continuing Indwelling Catheter: Accurate Measurement of Urinary Output in Critically Ill Patients Urinary Catheter Date of Insertion: 11/19/19 Urinary Catheter Time of Insertion: 12:56 Sepsis: Is patient septic: Yes Focused sepsis exam performed: Yes Data : 11/19/19 12:50 11/19/19 12:50 A&P Assessment and plan (1) Sepsis: -Sepsis as evidenced by significant leukocytosis, hypotension, hypoxia, altered mental status, lactic acidosis -Etiology is likely respiratory given evidence of pneumonia on chest x-ray, need for mechanical ventilation. We will need to rule out other sources including urine for additional infection -Per review of chart and verbal report from family and long term staff deny pena has had recurrent episodes of left-sided pneumonia. Required bronchoscopy with bronchoalveolar lavage in 09/2019. Pathology shows no dysplasia or malignant cells, noted evidence of acute inflammation with reactive atypia. Gram stain negative, culture was also negative -She is oxygen dependent at baseline with 3 L requirement, BiPAP use qhs -check pro-calcitonin, noted lactic acidosis, reflex pending -has significant leukocytosis with neutrophilic predominance -f/u blood, sputum cx -check UA -given significant leukocytosis, respiratory symptoms, recent transfer from [place] ([facility]); will screen for COVID-19; isolation precautions -requiring pressor support to maintain MAP >65 and maximize sedation -sedation while on ventilator -aspiration precautions, place NGT -ABG noted with respiratory acidosis (hypercapnia); daily ABGs while on vent -wean off vent when clinically appropriate Status: Acute Qualifiers: Acute respiratory failure type: with hypoxia Sepsis acute organ dysfunction status: with acute organ dysfunction Sepsis type: sepsis due to unspecified organism Severe sepsis acute organ dysfunction type: acute respiratory failure Severe sepsis shock status: without septic shock Qualified Code(s): A41.9 - Sepsis, unspecified organism; R65.20 - Severe sepsis without septic shock; J96.01 - Acute respiratory failure with hypoxia Code(s): A41.9 - Sepsis, unspecified organism (2) Pneumonia: -Has had history of recurrent left-sided pneumonia and mucous plugging. Noted evidence of left lung opacification so suspect post-obstructive pneumonia with associated sepsis as noted above -Continue broad-spectrum IV antibiotics, has received a dose of vancomycin, Zosyn and Levaquin; she has had multiple healthcare associated contacts since August -Screen for influenza, bacterial antigens, Legionella, MRSA -Continue close monitoring of respiratory status -had been receiving chest percussion at [place] -no need for steroids Status: Acute Qualifiers: Laterality: left Lung location: unspecified part of lung Pneumonia type: due to unspecified organism Qualified Code(s): J18.9 - Pneumonia, unspecified organism Code(s): J18.9 - Pneumonia, unspecified organism Additional A&P Information -Oxygen dependent COPD; 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, BiPAP qhs -HTN; hold oral antihypertensives -NIDDM type II; last A1c-5.8; hypoglycemia precautions particularly while NPO, Accucheks -hx of CAD -Hypothyroidism; resume levothyroxine -Morbid obesity: BMI-43 kg/m2 -Chronic diastolic CHF; last Echo done in 2015, EF=65%, G1DD, no RWMA, mild concentric LVH, mild MR, mild TR; BNP-[id number] likely secondary to respiratory issues, no LE edema; hold diuretics -Chronic normocytic anemia; baseline Hg 10-11; monitor H/H; recently required transfusion of 2 units PRBCs; hold Eliquis, Plavix -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; baseline Cr around 1; monitor renal function, avoid nephrotoxins, renally dose meds -Transamnitis; likely secondary to sepsis; continue to trend LFTs; had evidence of hepatic steatosis on previous imaging -hx of DVT -recent fracture of proximal phalanx of 2nd R toe, trimalleolar fx of R ankle; NWB status, uses motorized wheelchair -hx of R rotator cuff arthropathy -GERD -Anxiety/depression -GI ppx with PPI -DVT ppx with SCDs, Lovenox, hold dose prior to procedure tomorrow -Dispo: return to [place] [facility] -Code status: FULL code -ICU admission due to vent, pressor support Attestations Medical Necessity Statement*: Joy Bassett's hospital stay will require greater than 2 midnights for management of acute on chronic respiratory failure, evidence of post-obstructive pneumonia, status post intubation; needs IV antibiotics, pressor support and ICU admission. Time Spent in Patient Care: Greater than 35 minutes (>than 50% of time spent in counselling and/or direct pt care on unit) . Critical Care Time: The high probability of a clinically significant, sudden or life threatening deterioration of the patient's [cardiovascular and respiratory] system(s) required my full and direct attention, intervention and personal management. The critical care time is as shown. This time is in addition to time spent performing any reported procedures but includes the following: [x] Data and vital sign review and interpretation [x] Patient assessment, examination and intervention [x] Documentation [x] Medication orders and management Critical Care Time (min): 30 Coding Level of Care Code Acute Rn Otolaryngology for [facility] Diagnoses Sepsis A41.9; R65.20; J96.01 Acute respiratory failure type: with hypoxia Sepsis acute organ dysfunction status: with acute organ dysfunction Sepsis type: sepsis due to unspecified organism Severe sepsis acute organ dysfunction type: acute respiratory failure Severe sepsis shock status: without septic shock Pneumonia J18.9 Laterality: left Lung location: unspecified part of lung Pneumonia type: due to unspecified organism Sepsis Event Note Evaluation Current stage of sepsis: sepsis Initial hypotension due to sepsis/infection: MAP < 65 mmHg Possible source: pulmonary Focused Exam Vital Signs Temp Pulse Resp BP Pulse Ox 11/19/19 16:18 97 16 103/45 97 11/19/19 15:05 84 15 84/50 95 11/19/19 13:48 100 16 93 11/19/19 13:43 16 11/19/19 12:10 97.6 F 101 H 24 H 66/43 89 L Respiratory exam: Present patient mechanically ventilated Cardiovascular exam: Present RRR Skin exam: normal turgor Date exam was performed: 11/19/19 Time exam was performed: 16:47
[2019-11-19 17:16] LABS: Procalcitonin 3.88 ng/mL (0-0.5)
[2019-11-19 18:07] LABS: Glucose Point of Care 125 mg/dL (70-110)
[2019-11-19 18:42] LABS: Add Urine Microscopic? YES; Bilirubin Urine Neg (NEGATIVE); Blood Urine 3+ (Negative); Glucose Urine UA Norm (Normal); Ketones Urine Negative (Negative); Leukocyte Esterase Urine 2+ (Negative); Nitrate Urine Negative (Negative); Protein Urine Neg (Negative); Sulfosalicylic Acid Urine Trace; Urine Appearance Hazy (CLEAR); Urine Color Yellow (Yellow); Urobilinogen Urine Norm (Negative); pH Urine 8 (5-7)
[2019-11-19 18:43] LABS: Bacteria Urine 3+; Mucus Urine 2+; RBC Urine 15-25 /hpf (0-2); Squamous Epithelial Cell Urine RARE (0-5); WBC Urine TOO NUMEROUS TO CNT /hpf (0-5)
[2019-11-19 18:44] LABS: Add Urine Culture? Yes
[2019-11-19 22:25] LABS: Glucose Point of Care 130 mg/dL (70-110)
[2019-11-20] VITALS (22 sets, daily range): BP systolic 117–152; BP diastolic 52–86; PULSE 80–99; RESP 16–24; TEMP 36.6–37.7; O2SAT 91–95; BMI 44.6
--- NOTE | 2019-11-20 00:09 | PC.PHAR ---
Levaqun dosage is adjusted from 750mg IVPB every 24 hours to 750mg IVPB every 48 hours due to creatinine clearance of 44.73
[2019-11-20] MEDS: piperacillin-tazobactam 3.375 GM in sodium chloride 0.9% (plus) 50 ML IV ×3 (01:30→21:04)
--- NOTE | 2019-11-20 04:00 | XR_ITS ---
WS: [id number] CHEST XRAY TECHNIQUE: Portable chest. CLINICAL INFORMATION: on vent support, pneumonia, L opacification COMPARISON: November 19, 2019 FINDINGS: Endotracheal tube with tip above the jeffery measuring 3.1 cm. Enteric tube with tip below t he diaphragm. Heart: Cardiomegaly. Aortic calcification. Lungs: Chronic emphysematous changes. Improved left midlung and left upper lobe pulmonary infiltrates . Right lung is well aerated. Chronic emphysema. Small left pleural effusion. Bones: Normal visualized bony structures. XR/XR chest 1V portable [id number] IMPRESSION: 1. Endotracheal tube with tip 3.1 cm above the jeffery. Enteric tube with tip b elow the diaphragm. 2. Patchy left midlung and left upper lobe infiltrates are improved.
[2019-11-20 04:07] LABS: ABG PCO2 44.4 mmHg (35-45); Arterial Blood Gas Hematocrit 29.7 % (37-47); Base Excess ABG -4.8 mmol/L (-2.0-2.0); Blood Gas Allen Test Pos; Blood Gas Sample Site Radial, right; Blood Gas Sample Type Arterial; HCO3 ABG 21.6 mmol/L (22-26); Oxygen Device VENT; PO2 ABG 82.1 mmHg (80.0-100.0)
--- NOTE | 2019-11-20 05:30 | PC.NURSE ---
Assisted to chair at bedside, gait belt used. No distress noted. V/S remain stable.
[2019-11-20 05:57] LABS: Basophils # 0.1 10^3/uL (0.0-0.1); Basophils % 0.3 %; Eosinophils # 0.1 10^3/uL (0.0-0.8); Eosinophils % 0.6 %; Hematocrit 34.4 % (37.0-47.0); Hemoglobin 9.7 g/dL (11.5-15.3); Lymphocytes % 5.3 %; Mean Corpuscular HGB Conc 28.2 g/dL (30.0-36.0); Mean Corpuscular Hemoglobin 25.5 pg (28.0-34.0); Mean Corpuscular Volume 90.5 fL (81-99); Monocytes # 0.5 10^3/uL (0.2-0.9); Monocytes % 2.5 %; Neutrophils # 16.3 10^3/uL (1.8-7.7); Neutrophils % 90.4 %; Nucleated Red Blood Cells % 0 %; Platelet Count 291 10^3/cmm (130-400); Red Cell Distribution Width 19.7 % (12.1-15.1); White Blood Count 18.1 10^3/uL (4.0-10.0)
[2019-11-20 06:19] LABS: Alanine Aminotransferase 53 U/L (0-33); Albumin Level 2.3 g/dL (3.5-5.2); Alkaline Phosphatase 92 IU/L (35-105); Anion Gap 15.1 (5-19); Aspartate Amino Transferase 23 U/L (0-32); Blood Urea Nitrogen 36 mg/dL (8-23); Calcium 10.5 mg/dL (8.5-10.5); Carbon Dioxide 23 mmol/L (22-29); Chloride 106 mmol/L (98-107); Globulin 3.8 g/dL (1.3-4.6); Glucose 110 mg/dL (65-115); Magnesium 1.9 mg/dL (1.7-2.3); Osmolality Calculated 288 mOsm/kg (285-295); Potassium 4.1 mmol/L (3.5-5.1); Sodium 140 mmol/L (136-145); Total Bilirubin 0.4 mg/dL (0.15-1.2); Total Protein 6.1 g/dL (6.6-8.7)
--- NOTE | 2019-11-20 06:50 | PC.NURSE ---
Returned to bed from chair. Tolerated well.
[2019-11-20] MEDS: levothyroxine 125 mcg Tablet PO (08:46)
[2019-11-20] MEDS: pantoprazole 40 mg SDV IVP (08:46)
--- NOTE | 2019-11-20 11:54 | P.PN_ITS ---
Subjective Subjective: Interval history: AM labs noted including ABG, decreasing leukocytosis, drop in hemoglobin, slightly improved creatinine. Weaned off levophed. Due to increased restlessness required addition of fentanyl to Versed for appropriate sedation. Plan for bronchoscopy this afternoon. Remains afebrile, hemodynamically stable. Remains on mechanical ventilation, FiO2 down to 40%. Easily arousabe, was up in a chair earlier this AM. COVID-19 testing negative, will discontinue isolation precautions. Medications: Reviewed: Yes Medication Review Details: Active Medications Generic Name Dose Route Start Last Admin Trade Name Freq PRN Reason Stop Dose Admin Acetaminophen 650 mg 11/19/19 16:02 Tylenol PO Q6H PRN Mild/Mod Pain Or Temp >/= 101 Bisacodyl 10 mg 11/19/19 16:02 Bisac-Evac [place] DAILY PRN Constipation Dextrose 25 ml 11/19/19 16:35 D50w IVP ONCE PRN hypoglycemia prot ocol Protocol Dextrose 50 ml 11/19/19 16:35 D50w IVP PRN PRN hypoglycemia prot ocol Protocol Glucagon 1 mg 11/19/19 16:35 Glucagen IM ONCE PRN Adult Acute Hypog lycemia Prot. Protocol Midazolam HCl 100 mg/ Sodium 100 mls @ 0 mls/h r 11/19/19 13:00 11/20/19 11:11 Chloride IV 4 mg/hr .Q0M SHERICE 4 mls/hr Administration Protocol Per Protocol Norepinephrine Bit artrate 4 mg 254 mls @ 0 mls/h r 11/19/19 14:45 / Dextrose IV .Q0M SHERICE Protocol Per Protocol Vancomycin HCl 1,5 00 mg/ 250 mls @ 250 mls /hr 11/20/19 01:00 11/20/19 01:58 Sodium Chloride IV Infused Q18H SHERICE Infusion Protocol Piperacillin Sod/T azobactam 50 mls @ 12.5 mls /hr 11/19/19 18:00 11/20/19 08:53 Sod 3.375 gm/ So dium Chloride IV 12.5 mls/hr Q8H SHERICE Administration Protocol Dextrose 500 mls @ 100 mls /hr 11/19/19 16:35 D5w IV ONCE PRN Adult Acute Hypog lycemia Prot Protocol Fentanyl 1,000 mcg / Sodium 100 mls @ 0 mls/h r 11/19/19 23:00 11/20/19 10:37 Chloride IV 50 mcg/hr .Q0M SHERICE 5 mls/hr Administration Protocol Per Protocol Levofloxacin/Dextr ose 750 mg in 150 mls @ 150 mls/hr 11/21/19 12:30 Levaquin-D5w IV Q24H SHERICE Protocol Levothyroxine Sodi um 125 mcg 11/20/19 09:00 11/20/19 08:46 Synthroid PO 125 mcg DAILY SHERICE Administration Naloxone HCl 0.1 mg 11/19/19 16:02 Narcan IVP Q2M PRN OPIATERV Ondansetron HCl 4 mg 11/19/19 16:02 Zofran IVP Q6H PRN vomiting, or N/V if npo Pantoprazole Sodiu m 40 mg 11/20/19 09:00 11/20/19 08:46 Protonix IVP 40 mg DAILY SHERICE Administration lisinopril Allergy (Verified 11/19/19 12:31) Unknown lorazepam [From Ativan] Allergy (Verified 11/19/19 12:31) Unknown meperidine [From Demerol] Allergy (Verified 11/19/19 12:31) Unconscious morphine Allergy (Verified 11/19/19 12:31) Unknown niacin Allergy (Verified 10/10/19 08:05) Unknown Vitals/I&O/Wt Last Vital Signs Temp 97.8 F 11/20/19 00:00 Pulse 81 11/20/19 04:55 Resp 17 11/20/19 10:35 BP 134/67 11/20/19 04:55 Pulse Ox 95 11/20/19 04:55 11/19/19 11/20/19 11/20/19 22:59 06:59 14:59 Intake Total 50 / 50 330.983 / 380.983 103.150 / 103.150 Output Total 600 / 600 Balance 50 / 50 -269.017 / -219.017 103.150 / 103.150 Weight last 48 hrs Weight 113.398 kg Physical Exam Const: COMMON NORMALS: no apparent distress GENERAL APPEARANCE: patient m echanically ventilated NUTRITIONAL APPEARANCE: obese morbidly obese OTHER: -easily arousable to verbal and tactile stimulation; on sedation with Versed and Fentanyl HENMT: COMMON NORMALS: normocephalic and head/scalp atraumatic HEAD & SCALP: normocephalic and atraumatic MOUTH: moist mucous membranes abnormal Details: parched TEETH & GINGIVA: Yes edentulous Eye: COMMON NORMALS: conjunctivae normal CONJUNCTIVA: Yes conjunctivae normal Neck/C-Spine: COMMON NORMALS: full ROM GENERAL: Yes normal visual inspection and Yes trachea midline Resp: COMMON NORMALS: no retractions and no use of accessory muscles EFFORT & INSPECTION: Yes symmetric chest movement AUSCULTATION: diminished lung sounds on the left throughout OTHER: -Patient mechanically ventilated (FiO2- 40%) Cardio: COMMON NORMALS: regular rate, regular rhythm, S1 normal heart sound, S2 normal heart sound and no murmurs RATE: regular rate RHYTHM: regular r hythm HEART SOUNDS: S1 normal and S2 normal GI: COMMON NORMALS: soft to palpation INSPECTION: Yes normal to inspection and Yes central obesity PALPATION: Yes soft : BLADDER/KIDNEY EXAM: Yes catheter in place Catheter type (Female): urethral Extremity: COMMON NORMALS: normal to inspection and no clubbing, cyanosis or edema; negative for no pedal edema OTHER: -heel boot on R, clean dressing over R foot and ankle Neuro: OTHER: -unable to assess as sedated and on ventilator Psych: OTHER: -unable to assess as mechanically ventilated Skin: COMMON NORMALS: no rashes or lesions noted, no jaundice and no mottling NARRATIVE SKIN EXAM: -R heel ulcer, multiple decubitus ulcers on bilateral gluteal area GENERAL SKIN EXAM: no rashes or lesions noted and ecchymosis (extensive bruising on bilateral UEs) Urinary Catheter Management^: Adams: Cath Placed During This Visit: yes Urethral Indwelling: Yes Reason for Continuing Indwelling Catheter: Accurate Measurement of Urinary Output in Critically Ill Patients Urinary Catheter Date of Insertion: 11/19/19 Urinary Catheter Time of Insertion: 12:56 Data : 11/20/19 05:36 11/20/19 05:36 Micro: Microbiology 11/19/19 18:10 Bacterial Antigens - Final Urine Suprapubic 11/19/19 18:10 Legionella Urinary Antigen - Final Urine Catheterized A&P Assessment and plan (1) Sepsis: -Sepsis as evidenced by significant leukocytosis, hypotension, hypoxia, altered mental status, lactic acidosis -Etiology is likely respiratory given evidence of pneumonia on chest x-ray, need for mechanical ventilation. We will need to rule out other sources including urine for additional infection -Per review of chart and verbal report from family and [facility] staff patient has had recurrent episodes of left-sided pneumonia. Required bronchoscopy with bronchoalveolar lavage in 09/2019. Pathology shows no dysplasia or malignant cells, noted evidence of acute inflammation with reactive atypia. Gram stain negative, culture was also negative -She is oxygen dependent at baseline with 3 L requirement, BiPAP use qhs -elevated pro-calcitonin, noted lactic acidosis -has significant leukocytosis with neutrophilic predominance; decreasing, continue to trend WBC -f/u blood, sputum cx, gram stain shows rare GPC in pairs -UA indicative of infection -given significant leukocytosis, respiratory symptoms, recent transfer from [facility] screened for [id number]; discontinue isolation precautions -weaned off pressor support -sedation while on ventilator -aspiration precautions, NGT in place -ABG noted with respiratory acidosis (hypercapnia); daily ABGs while on vent -wean off vent when clinically appropriate -CXR today shows some improvement in aeration of L lung -negative bacterial antigens, Legionella Status: Acute Qualifiers: Acute respiratory failure type: with hypoxia Sepsis acute organ dysfunction status: with acute organ dysfunction Sepsis type: sepsis due to unspecified organism Severe sepsis acute organ dysfunction type: acute respiratory failure Severe sepsis shock status: without septic shock Qualified Code(s): A41.9 - Sepsis, unspecified organism; R65.20 - Severe sepsis without septic shock; J96.01 - Acute respiratory failure with hypoxia Code(s): A41.9 - Sepsis, unspecified organism (2) Pneumonia: -Has had history of recurrent left-sided pneumonia and mucous plugging. Noted evidence of left lung opacification so suspect post-obstructive pneumonia with associated sepsis as noted above -Continue broad-spectrum IV antibiotics, has received a dose of vancomycin, Zosyn and Levaquin; she has had multiple healthcare associated contacts since August -negative influenza, bacterial antigens, Legionella; MRSA pending -Continue close monitoring of respiratory status -had been receiving chest percussion at [facility] -no need for steroids Status: Acute Qualifiers: Laterality: left Lung location: unspecified part of lung Pneumonia t ype: due to unspecified organism Qualified Code(s): J18.9 - Pneumonia, unspecified organism Code(s): J18.9 - Pneumonia, unspecified organism (3) Acute respiratory failure: -as noted above Status: Acute Qualifiers: Respiratory failure complication: hypoxia and hypercapnia Qualified Code(s): J96.01 - Acute respiratory failure with hypoxia; J96.02 - Acute respiratory failure with hypercapnia Code(s): J96.00 - Acute respiratory failure, unspecified whether with hypoxia or hyperc apnia (4) Urinary tract infection: -UA indicative of infection -f/u urine cx -already on broad spectrum IV antibiotics -has Adams catheter in place Status: Acute Qualifiers: Hematuria presence: without hematuria Urinary tract infection type: acute cystitis Qualified Code(s): N30.00 - Acute cystitis without hematuria Code(s): N39.0 - Urinary tract infection, site not specified Additional A&P Information -Oxygen dependent COPD; 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, BiPAP qhs -HTN; hold oral antihypertensives -NIDDM type II; last A1c-5.8; hypoglycemia precautions particularly while NPO, Accucheks -hx of CAD -Hypothyroidism; on levothyroxine -Morbid obesity: BMI-45 kg/m2 -Chronic diastolic CHF; last Echo done in 2015, EF=65%, G1DD, no RWMA, mild concentric LVH, mild MR, mild TR; [id number] likely secondary to respiratory issues, no LE edema; hold diuretics -Chronic normocytic anemia; baseline Hg 10-11; monitor H/H; recently required transfusion of 2 units PRBCs; hold Eliquis, Plavix -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; baseline Cr around 1; continue to monitor renal function, avoid nephrotoxins, renally dose meds -Transamnitis; likely secondary to sepsis; improved today, continue to trend LFTs; had evidence of hepatic steatosis on previous imaging -hx of DVT -recent fracture of proximal phalanx of 2nd R toe, trimalleolar fx of R ankle; NWB status, uses motorized wheelchair -hx of R rotator cuff arthropathy -GERD -Anxiety/depression -GI ppx with PPI -DVT ppx with SCDs, Lovenox, hold dose prior to procedure tomorrow -Dispo: return to [facility] -Code status: FULL code -ICU care due to vent, pressor support Attestations Medical Necessity Statement*: Patient requires hospitalization for continued management of acute respiratory failure requiring vent support, broad spectrum IV antibiotics and pending bronchoscopy. Time Spent in Patient Care: Greater than 35 minutes (>than 50% of time spent in counselling and/or direct pt care on unit) . Coding Level of Care Code Acute Manager Audit for Chg Fwd Exam Comprehensive Diagnoses Sepsis A41.9; R65.20; J96.01 Acute respiratory failure type: with hypoxia Sepsis acute organ dysfunction status: with acute organ dysfunction Sepsis type: sepsis due to unspecified organism Severe sepsis acute organ dysfunction type: acute respiratory failure Severe sepsis shock status: without septic shock Pneumonia J18.9 Laterality: left Lung location: unspecified part of lung Pneumonia type: due to unspecified organism Acute respiratory failure J96.01; J96.02 Respiratory failure complication: hypoxia and hypercapnia Urinary tract infection N30.00 Hematuria presence: without hematuria Urinary tract infection type: acute cystitis
[2019-11-20 16:24] LABS: Glucose Point of Care 88 mg/dL (70-110)
[2019-11-20 16:24] LABS: Glucose Point of Care 100 mg/dL (70-110)
--- NOTE | 2019-11-20 18:43 | P.PCN_ITS ---
Procedure/Consent Time out: Time Out Performed: Yes Consent: Consent for Procedure: Consent obtained from other (indicate) Procedure Narrative: Name of the procedure: Bronchoscopy with bronchoalveolar lavage and removal of mucous plug. Indication: Acute hypoxic respiratory failure in the setting of left lower lobe atelectasis and multifocal pneumonia Medication: The patient is on intravenous fentanyl and Versed drip. 2 mg of Versed and 50 mcg of fentanyl bolus was given. Description of the procedure: The patient was intubated for acute hypoxic respiratory failure. 1% lidocaine 5 mL was introduced through the ET tube. The bronchoscope was advanced through the ET tube to the jeffery was visualized. There was mild erythema present at the jeffery. In a systematic manner, the bronchoscope was then advanced to bilateral lungs. The right mainstem, right upper lobe, bronchus intermedius, right middle lobe and right lower lobe bronchi appeared patent without any significant mucus plugging. There was mild erythema. The bronchoscope was then advanced into the left mainstem. Mucous plug was noted in the left mainstem bronchus. Using the bronchoscope as a stylet the endotracheal tube was advanced into the left mainstem after deflating the cuff. N-acetylcysteine was instilled. A suction catheter was then introduced through the ET tube into the left mainstem bronchus. Thick mucus was suctioned out. The bronchoscope was then reintroduced through the endotracheal tube after the endotracheal tube was pulled back into previous position. There was more mucous plug in the left mainstem. The procedure described above was repeated and thick mucous plug was aspirated again using the 17 [place] catheter. The bronchoscope was then reintroduced endobronchial viral lavage was performed from the anterior segment of the left upper lobe. 60 mL of normal saline is instilled, 25 mL of thick mucopurulent return. The bilateral lungs were examined again. There was significant improvement in the mucus plugging on the left side. Mild erythema was noted in the airways bilaterally. there was no endobronchial lesion. The bronchoalveolar lavage was sent for Gram stain and culture. Specimen was sent for Gram stain and culture. Complications: No immediate complication was noted. Postprocedure chest x-ray was pending. Acute Procedures Epistaxis Control: Time out performed: Yes
--- NOTE | 2019-11-20 18:52 | P.CONIM_ITS ---
Providers/Reason For Consult Consulting Physican/Specialty*: Pulmonary and critical care medicine Reason for Consult*: Left lower lobe atelectasis, multifocal pneumonia and acute respiratory failure requiring mechanical ventilation Attending Physician: Tosin Dinh MD History of Present Illness History of Present Illness Joy Bassett is a 79 year old female who is known to me from her previous hospital admission. I had performed a bronchoscopy in September when the patient had left lung atelectasis secondary to mucous plug. Following the aspiration of the mucous plug there was significant improvement of the lung aeration however the left leg atelectasis progressively got worse during the course of her hospital admission. This time the patient comes back again with significant shortness of breath. On chest imaging she was found to have multilobar pneumonia as well as left lower lobe atelectasis with left-sided mediastinal shift. I was asked to evaluate the patient for possible bronchoscopy. The patient was seen and examined today. She is intubated and sedated. Appears comfortable. I had performed a bronchoscopy and the left-sided mucous plug was suctioned out. Please see my bronchoscopy note for detail. There was no postprocedure complication. The patient is resting comfortably. Review of Systems Narrative: Unable to assess because of clinical condition. Meds/Allergies Home Medications and Allergies Home Medications Medication Instructions Recorded Confirmed Type Enema Disposable 118 ml [place] DAILY PRN 09/05/19 11/19/19 History Senna Plus 2 tab-cap PO BID PRN 09/05/19 11/19/19 History acetaminophen 650 mg PO QID PRN 09/05/19 11/19/19 History bisacodyl 10 mg [place] DAILY PRN 09/05/19 11/19/19 History citalopram 10 mg PO DAILY 09/05/19 11/19/19 History levothyroxine 125 mcg PO DAILY 09/05/19 11/19/19 History magnesium hydroxide [Milk of 30 ml PO DAILY PRN 09/05/19 11/19/19 History Magnesia] montelukast 10 mg PO DAILY 09/05/19 11/19/19 History pramipexole [Mirapex] 0.25 mg PO QPM 09/05/19 11/19/19 History quetiapine [Seroquel] 50 mg PO BID 09/05/19 11/19/19 History furosemide [Lasix] 40 mg PO DAILY #30 tab 10/12/19 11/19/19 Rx apixaban [Eliquis] 5 mg PO BID 10/20/19 11/19/19 History aspirin [Aspirin Low Dose] 81 mg PO DAILY 10/20/19 11/19/19 History clopidogrel 75 mg PO DAILY 10/20/19 11/19/19 History cyclobenzaprine 10 mg PO TID PRN 10/20/19 11/19/19 History docusate sodium [Colace] 200 mg PO DAILY 10/20/19 11/19/19 History melatonin 6 mg PO BEDTIME 10/20/19 11/19/19 History omega-3 acid ethyl esters [Lovaza] 1 cap PO DAILY 10/20/19 11/19/19 History carvedilol 6.25 mg PO BID 11/19/19 11/19/19 History fluconazole 400 mg PO DAILY 11/19/19 11/19/19 History ipratropium-albuterol 3 ml INHALATION Q6H PRN 11/19/19 11/19/19 History prednisone 50 mg PO DAILY 11/19/19 11/19/19 History Allergies Allergy/AdvReac Type Severity Reaction Status Date / Time lisinopril Allergy Unknown Verified 11/19/19 12:31 lorazepam [From Ativan] Allergy Unknown Verified 11/19/19 12:31 meperidine [From Demerol] Allergy Unconscious Verified 11/19/19 12:31 morphine Allergy Unknown Verified 11/19/19 12:31 niacin Allergy Unknown Verified 10/10/19 08:05 Current Medications Current Medications Generic Name Dose Route Start Last Admin Trade Name Eduq PRN Reason Stop Dose Admin Midazolam HCl 100 mg/ Sodium 100 mls @ 0 mls/hr 11/19/19 13:00 11/20/19 11:11 Chloride IV 4 mg/hr .Q0M HSERICE 4 mls/hr Administration Protocol Per Protocol Piperacillin Sod/Tazobactam 50 mls @ 12.5 mls/hr 11/19/19 18:00 11/20/19 08:53 Sod 3.375 gm/ Sodium Chloride IV 12.5 mls/hr Q8H SHERICE Administration Protocol Fentanyl 1,000 mcg/ Sodium 100 mls @ 0 mls/hr 11/19/19 23:00 11/20/19 10:37 Chloride IV 50 mcg/hr .Q0M SHERICE 5 mls/hr Administration Protocol Per Protocol Levothyroxine Sodium 125 mcg 11/20/19 09:00 11/20/19 08:46 Synthroid PO 125 mcg DAILY SHERICE Administration Pantoprazole Sodium 40 mg 11/20/19 09:00 11/20/19 08:46 Protonix IVP 40 mg DAILY SHERICE Administration PFSH Acute PFSH: Medical History Acidosis Aortic aneurysm Aortic disease CHF (congestive heart failure) chronic diastolic CHF Chronic back pain COPD (chronic obstructive pulmonary disease) Diabetes Emphysema, unspecified Fracture of proximal phalanx of toe of right foot GERD (gastroesophageal reflux disease) Herpes zoster Hypotension Hypothyroidism Neuropathy Pyelonephritis Rotator cuff tear arthropathy Thyroid disease Tibia fracture Trimalleolar fracture of right ankle Surgical History History of AAA (abdominal aortic aneurysm) repair History of bronchoscopy in 09/2019 History of cholecystectomy History of hysterectomy History of left hip replacement Family History Mother CAD (coronary artery disease) Father Cancer Liver Brother Cancer CLL and at age 68 Social History Smoking and tobacco status: smoker, details unknown Vitals/I&O/Wt Last Vital Signs Temp 99.8 F H 11/20/19 10:00 Pulse 84 11/20/19 16:00 Resp 18 11/20/19 17:44 BP 117/57 11/20/19 16:00 Pulse Ox 93 11/20/19 16:00 11/20/19 11/20/19 11/20/19 06:59 14:59 22:59 Intake Total 330.983 / 380.983 103.150 / 103.150 Output Total 600 / 600 Balance -269.017 / -219.017 103.150 / 103.150 Weight last 48 hrs Weight 259 lb 11.2 oz Weight 250 lb Physical Exam Narrative: EXAM NARRATIVE: General: Patient is intubated and sedated Neck: No JVD Respiratory: Auscultation: Reduced breath sound on the left side with occasional crackles, crackles in the right lower lung base, no significant wheezing Cardiovascular: Regular rate and irregularly irregular rhythm, variable first heart sound, no murmur, no right ventricular heave, mild peripheral edema. Abdomen: Soft, distended from obesity, positive bowel sound Skin: No rash Neuro: Patient is intubated and sedated Urinary Catheter Management^: Adams: Cath Placed During This Visit: yes Urethral Indwelling: Yes Reason for Continuing Indwelling Catheter: Accurate Measurement of Urinary Output in Critically Ill Patients Urinary Catheter Date of Insertion: 11/19/19 Urinary Catheter Time of Insertion: 12:56 Data Micro: Micro: Microbiology 11/20/19 12:10 Gram Stain - Final Sputum - Endotrac heal Tube Aspirate 11/19/19 18:10 Bacterial Antigens - Final Urine Suprapubic 11/19/19 18:10 Legionella Urinary Antigen - Final Urine Catheterize d Other Data: Other data: I have reviewed the patient's laboratory, radiology and microbiology data. The patient has evidence of postobstructive pneumonia on the left side on radiology. There is also some infiltrate in the right lower lobe. Patient has leukocytosis. The microbiologic work-up is negative so far. A&P Assessment and plan (1) Acute respiratory failure: The patient has acute on chronic hypoxic respiratory failure. Status post intubation mechanical ventilation. The patient is comfortable currently. Continue with the current ventilator support. She is covered with broad-spectrum antibiotic. Status: Acute Qualifiers: Respiratory failure complication: hypoxia and hypercapnia Qualified Code(s): J96.01 - Acute respiratory failure with hypoxia; J96.02 - Acute respiratory failure with hypercapnia Code(s): J96.00 - Acute respiratory failure, unspecified whether with hypoxia or hypercapnia (2) Atelectasis, left: The patient has had these before. She had 3 bronchoscopies so far for the same problem. During my last bronchoscopy I had explained to the family members that the patient needs to be physically active to prevent recurrence of this however it appears that the patient is predominantly bedbound and prefers to stay in the left lateral position. Unfortunately this is likely to happen again unless the patient is agreeable and tolerant to aggressive pulmonary toileting in the future. We will obtain a chest x-ray tomorrow morning. We will optimize the antibiotic regimen based on the bronchoalveolar lavage result. Status: Acute Code(s): J98.11 - Atelectasis (3) Bronchial obstruction: The left mainstem mucous plug was removed. If there is recurrence on the chest x-ray tomorrow the patient will need a repeat bronchoscopy. For the time being we will continue the supportive therapy. Thank you for the consultation! 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
[2019-11-20 19:24] LABS: Glucose Point of Care 80 mg/dL (70-110)
--- NOTE | 2019-11-20 20:15 | XRR_ITS ---
PROCEDURE INFORMATION: Exam: XR Chest, 1 View Exam date and time: 11/20/2019 8:17 PM Age: 79 years old Clinical indication: Device placement; Other: Post bronch; Additional info: Status post bronchcoscopy, mechanical ventilator TECHNIQUE: Imaging protocol: XR of the chest Views: 1 view. COMPARISON: AR XR chest 1V portable [id number] 11/20/2019 5:17 AM FINDINGS: Tubes, catheters and devices: There is an ET tube with tip below the clavicular heads but above the jeffery an orogastric tube with tip off the film. Lungs: Asymmetric airspace opacities left lung and ground-glass opacity/volume loss right lower lobe is unchanged. Unchanged diffuse interstitial prominence in the lungs compatible with probable emphysema. There may be a component of superimposed unchanged CHF. Pleural space: There may be a small left pleural effusion. No pneumothorax after bronchoscopy. No right pleural effusion. Heart/Mediastinum: Unremarkable. No cardiomegaly. Bones/joints: No acute abnormality. XR/XR chest 1V portable [id number] IMPRESSION: 1. There is an ET tube with tip below the clavicular heads but above the jeffery an orogastric tube with tip off the film. 2. Unchanged lung opacities. 3. No pneumothorax.
[2019-11-20 21:21] LABS: Glucose Point of Care 81 mg/dL (70-110)
[2019-11-20 22:35] LABS: ABG PCO2 46.6 mmHg (35-45); ABG PH Result 7.31 (7.35-7.45); Arterial Blood Gas Hematocrit 29.5 % (37-47); Base Excess ABG -3.1 mmol/L (-2.0-2.0); Blood Gas Sample Site Brachial, left; Blood Gas Sample Type Arterial; HCO3 ABG 23.2 mmol/L (22-26); Oxygen Device VENT; PO2 ABG 66.7 mmHg (80.0-100.0)
[2019-11-20] MEDS: ipratropium-albuterol 3 mL Neb INHALATION (23:08)
[2019-11-21] VITALS (27 sets, daily range): BP systolic 113–162; BP diastolic 46–87; PULSE 75–107; RESP 16–24; TEMP 37.4–38.4; O2SAT 90–96
[2019-11-21 04:19] LABS: Basophils % 0.1 %; Eosinophils % 0.2 %; Hematocrit 31.6 % (37.0-47.0); Hemoglobin 8.9 g/dL (11.5-15.3); Lymphocytes % 6.9 %; Mean Corpuscular HGB Conc 28.2 g/dL (30.0-36.0); Mean Corpuscular Hemoglobin 25.1 pg (28.0-34.0); Monocytes # 0.4 10^3/uL (0.2-0.9); Monocytes % 2.6 %; Neutrophils # 13.5 10^3/uL (1.8-7.7); Neutrophils % 89.1 %; Nucleated Red Blood Cells % 0.1 %; Platelet Count 268 10^3/cmm (130-400); Red Blood Count 3.55 10^6/uL (4.1-5.3); Red Cell Distribution Width 19.5 % (12.1-15.1); White Blood Count 15.2 10^3/uL (4.0-10.0)
[2019-11-21] MEDS: ipratropium-albuterol 3 mL Neb INHALATION ×6 (04:22→20:45)
[2019-11-21 04:39] LABS: Alanine Aminotransferase 52 U/L (0-33); Albumin Level 2.4 g/dL (3.5-5.2); Alkaline Phosphatase 93 IU/L (35-105); Anion Gap 16.6 (5-19); Aspartate Amino Transferase 32 U/L (0-32); Blood Urea Nitrogen 35 mg/dL (8-23); Calcium 10.6 mg/dL (8.5-10.5); Carbon Dioxide 22 mmol/L (22-29); Chloride 109 mmol/L (98-107); Globulin 3.8 g/dL (1.3-4.6); Glucose 86 mg/dL (65-115); Osmolality Calculated 295 mOsm/kg (285-295); Potassium 3.6 mmol/L (3.5-5.1); Sodium 144 mmol/L (136-145); Total Bilirubin 0.3 mg/dL (0.15-1.2); Total Protein 6.2 g/dL (6.6-8.7)
[2019-11-21 05:17] LABS: ABG PCO2 49.8 mmHg (35-45); ABG PH Result 7.28 (7.35-7.45); Arterial Blood Gas Hematocrit 28.9 % (37-47); Base Excess ABG -3.7 mmol/L (-2.0-2.0); Blood Gas Sample Site Radial, left; Blood Gas Sample Type Arterial; HCO3 ABG 23.2 mmol/L (22-26); Oxygen Device VENT
[2019-11-21 08:11] LABS: Glucose Point of Care 78 mg/dL (70-110)
--- NOTE | 2019-11-21 10:18 | P.PN_ITS ---
Subjective Subjective: Interval history: Patient seen and examined early this morning, resting comfortably, requiring Versed and fentanyl for sedation, FiO2 down from 100% to 70%. Received update from Dr. Chiu that patient had required 100% throughout most of the night. Repeat chest x-ray done around 1999 looks a little better in terms of aeration of the left lung the report states that opac ities are unchanged. Plan is for bronchoscopy by Dr. Vernon around noon. Son Chris present at bedside, updated accordingly and questions answered to his satisfaction. Low grade temp this AM (100.1 F), vital signs otherwise stable, no pressors. AM labs including ABG noted. Had 400 mL urine output overnight. Medications: Reviewed: Yes Medication Review Details: Active Medications Generic Name Dose Route Start Last Admin Trade Name Freq PRN Reason Stop Dose Admin Acetaminophen 650 mg 11/19/19 16:02 Tylenol PO Q6H PRN Mild/Mod Pain Or Temp >/= 101 Albuterol/Ipratrop ium 3 ml 11/21/19 00:00 11/21/19 07:40 Duoneb INHALATION 3 ml Q4H.RESPIRATORY S CH Administration Bisacodyl 10 mg 11/19/19 16:02 Bisac-Evac ME DAILY PRN Constipation Dextrose 25 ml 11/19/19 16:35 D50w IVP ONCE PRN hypoglycemia prot ocol Protocol Dextrose 50 ml 11/19/19 16:35 D50w IVP PRN PRN hypoglycemia prot ocol Protocol Glucagon 1 mg 11/19/19 16:35 Glucagen IM ONCE PRN Adult Acute Hypog lycemia Prot. Protocol Midazolam HCl 100 mg/ Sodium 100 mls @ 0 mls/h r 11/19/19 13:00 11/21/19 01:52 Chloride IV 1 mg/hr .Q0M SHERICE 1 mls/hr Titration Protocol Per Protocol Norepinephrine Bit artrate 4 mg 254 mls @ 0 mls/h r 11/19/19 14:45 / Dextrose IV .Q0M SHERICE Protocol Per Protocol Dextrose 500 mls @ 100 mls /hr 11/19/19 16:35 D5w IV ONCE PRN Adult Acute Hypog lycemia Prot Protocol Fentanyl 1,000 mcg / Sodium 100 mls @ 0 mls/h r 11/19/19 23:00 11/21/19 02:17 Chloride IV 75 mcg/hr .Q0M SHERICE 7.5 mls/hr Administration Protocol Per Protocol Levofloxacin/Dextr ose 750 mg in 150 mls @ 150 mls/hr 11/21/19 12:30 Levaquin-D5w IV Q24H SHERICE Protocol Vancomycin HCl 1,5 00 mg/ 250 mls @ 250 mls /hr 11/20/19 19:00 11/20/19 19:39 Sodium Chloride IV 250 mls/hr Q18H SHERICE Administration Protocol Piperacillin Sod/T azobactam 50 mls @ 12.5 mls /hr 11/20/19 21:00 11/21/19 07:35 Sod 3.375 gm/ So dium Chloride IV Infused Q8H SHERICE Infusion Protocol Levothyroxine Sodi um 125 mcg 11/20/19 09:00 11/20/19 08:46 Synthroid PO 125 mcg DAILY SHERICE Administration Naloxone HCl 0.1 mg 11/19/19 16:02 Narcan IVP Q2M PRN OPIATERV Ondansetron HCl 4 mg 11/19/19 16:02 Zofran IVP Q6H PRN vomiting, or N/V if npo Pantoprazole Sodiu m 40 mg 11/20/19 09:00 11/20/19 08:46 Protonix IVP 40 mg DAILY SHERICE Administration lisinopril Allergy (Verified 11/19/19 12:31) Unknown lorazepam [From Ativan] Allergy (Verified 11/19/19 12:31) Unknown meperidine [From Demerol] Allergy (Verified 11/19/19 12:31) Unconscious morphine Allergy (Verified 11/19/19 12:31) Unknown niacin Allergy (Verified 10/10/19 08:05) Unknown Vitals/I&O/Wt Last Vital Signs Temp 100.1 F H 11/21/19 06:00 Pulse 88 11/21/19 07:55 Resp 19 H 11/21/19 07:55 BP 141/87 11/21/19 06:00 Pulse Ox 92 11/21/19 07:49 11/20/19 11/21/19 11/21/19 22:59 06:59 14:59 Intake Total 0 / 153.150 137.066 / 290.216 50 / 50 Output Total 550 / 550 400 / 950 Balance -550 / -396.850 -262.934 / -659.784 50 / 50 Weight last 48 hrs Weight 117.798 kg Weight 113.398 kg Physical Exam Const: COMMON NORMALS: no apparent distress GENERAL APPEARANCE: patient mechanically ventilated NUTRITIONAL APPEARANCE: obese morbidly obese OTHER: -easily arousable to verbal and tactile stimulation; on sedation with Versed (1 mg/hr) and Fentanyl (50 mcg/hr) HENMT: COMMON NORMALS: normocephalic and head/scalp atraumatic HEAD & SCALP: normocephalic and atraumatic MOUTH: moist mucous membranes abnormal Details: parched TEETH & GINGIVA: Yes edentulous Eye: COMMON NORMALS: conjunctivae normal CONJUNCTIVA: Yes conjunctivae normal Neck/C-Spine: COMMON NORMALS: full ROM GENERAL: Yes normal visual inspection and Yes trachea midline Resp: COMMON NORMALS: no retractions and no use of accessory muscles EFFORT & INSPECTION: Yes symmetric chest movement AUSCULTATION: diminished lung sounds on the left throughout OTHER: -Patient mechanically ventilated (FiO2- 70%) Cardio: COMMON NORMALS: regular rate, regular rhythm, S1 normal heart sound, S2 normal heart sound and no murmurs RATE: regular rate RHYTHM: regular rhythm HEART SOUNDS: S1 normal and S2 normal GI: COMMON NORMALS: soft to palpation INSPECTION: Yes normal to inspection and Yes central obesity PALPATION: Yes soft : BLADDER/KIDNEY EXAM: Yes catheter in place Catheter type (Female): urethral Extremity: COMMON NORMALS: normal to inspection and no clubbing, cyanosis or edema; negative for no pedal edema OTHER: -heel boot on R, clean dressing over R foot and ankle Neuro: OTHER: -unable to assess as sedated and on ventilator Psych: OTHER: -unable to assess as mechanically ventilated Skin: COMMON NORMALS: no rashes or lesions noted, no jaundice and no mottling NARRATIVE SKIN EXAM: -R heel ulcer, multiple decubitus ulcers on bilateral gluteal area GENERAL SKIN EXAM: no rashes or lesions noted and ecchymosis (extensive bruising on bilateral UEs) Urinary Catheter Management^: Adams: Cath Placed During This Visit: yes Urethral Indwelling: Yes Reason for Continuing Indwelling Catheter: Accurate Measurement of Urinary Output in Critically Ill Patients Urinary Catheter Date of Insertion: 11/19/19 Urinary Catheter Time of Insertion: 12:56 Data : 11/21/19 03:40 11/21/19 03:40 Micro: Microbiology 11/20/19 12:10 Gram Stain - Final Sputum - Endotracheal Tube Aspirate Sputum Culture - Preliminary Gram Negative Rods 11/19/19 18:10 Urine Culture - Preliminary Urine,Clean Catch Gram Negative Rods 11/20/19 16:45 Gram Stain - Final Lung Left Upper Lobe A&P Assessment and plan (1) Sepsis: -Sepsis as evidenced by significant leukocytosis, hypotension, hypoxia, altered mental status, lactic acidosis -Etiology is likely respiratory given evidence of pneumonia on chest x-ray, need for mechanical ventilation. We will need to rule out other sources including urine for additional infection -Per review of chart and verbal report from family and care home staff patient has had recurrent episodes of left-sided pneumonia. Required bronchoscopy with bronchoalveolar lavage in 09/2019. Pathology shows no dysplasia or malignant cells, noted evidence of acute inflammation with reactive atypia. Gram stain negative, culture was also negative -She is oxygen dependent at baseline with 3 L requirement, BiPAP use qhs -elevated pro-calcitonin, noted lactic acidosis -has significant leukocytosis with neutrophilic predominance; decreasing, continue to trend WBC -f/u blood cx (not drawn in ED), sputum cx-GNRs, gram stain shows rare GPC in pairs -UA indicative of infection -given significant leukocytosis, respiratory symptoms, recent transfer from [facility] screened for [id number]; discontinue isolation precautions -weaned off pressor support -sedation while on ventilator -aspiration precautions, NGT in place -ABG noted with respiratory acidosis (hypercapnia); daily ABGs while on vent -wean off vent when clinically appropriate -CXR today shows some improvement in aeration of L lung -negative bacterial antigens, Legionella -bronch today; bedside bronch on 11/19 with BAL gram stain growing rare GPC, culture pending Status: Acute Qualifiers: Acute respiratory failure type: with hypoxia Sepsis acute organ dysfun ction status: with acute organ dysfunction Sepsis type: sepsis due to unspecified organism Severe sepsis acute organ dysfunction type: acute respiratory failure Severe sepsis shock status: without septic shock Qualified Code(s): A41.9 - Sepsis, unspecified organism; R65.20 - Severe sepsis without septic shock; J96.01 - Acute respiratory failure with hypoxia Code(s): A41.9 - Sepsis, unspecified organism (2) Pneumonia: -Has had history of recurrent left-sided pneumonia and mucous plugging. Noted evidence of left lung opacification so suspect post-obstructive pneumonia with associated sepsis as noted above -Continue broad-spectrum IV antibiotics, has received a dose of vancomycin, Zosyn and Levaquin; she has had multiple healthcare associated contacts since August -negative influenza, bacterial antigens, Legionella; MRSA pending -Continue close monitoring of respiratory status -had been receiving chest percussion at [place] -no need for steroids Status: Acute Qualifiers: Laterality: left Lung location: unspecified part of lung Pneumonia type: due to unspecified organism Qualified Code(s): J18.9 - Pneumonia, unspecified organism Code(s): J18.9 - Pneumonia, unspecified organism (3) Acute respiratory failure: -as noted above Status: Acute Qualifiers: Respiratory failure complication: hypoxia and hypercapnia Qualified Code(s): J96.01 - Acute respiratory failure with hypoxia; J96.02 - Acute respiratory failure with hypercapnia Code(s): J96.00 - Acute respiratory failure, unspecified whether with hypoxia or hypercapnia (4) Urinary tract infection: -UA indicative of infection -urine cx: GNRs, pending ID and sensitivity -already on broad spectrum IV antibiotics -has Adams catheter in place Status: Acute Qualifiers: Hematuria presence: without hematuria Urinary tract infection type: acute cystitis Qualified Code(s): N30.00 - Acute cystitis without hematuria Code(s): N39.0 - Urinary tract infection, site not specified Additional A&P Information -Oxygen dependent COPD; 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, BiPAP qhs -HTN; hold oral antihypertensives -NIDDM type II; last A1c-5.8; hypoglycemia precautions particularly while NPO, Accucheks -hx of CAD -Hypothyroidism; on levothyroxine -Morbid obesity: BMI-45 kg/m2 -Chronic diastolic CHF; last Echo done in 2016, EF=65%, G1DD, no RWMA, mild concentric LVH, mild MR, mild TR; BNP-4061 likely secondary to respiratory issues, no LE edema; hold diuretics -Chronic normocytic anemia; baseline Hg 10-11; monitor H/H; recently required transfusion of 2 units PRBCs; hold Eliquis, Plavix -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; baseline Cr around 1; continue to monitor renal function, avoid nephrotoxins, renally dose meds -Transamnitis; likely secondary to sepsis; improved today, continue to trend LFTs; had evidence of hepatic steatosis on previous imaging -hx of DVT -recent fracture of proximal phalanx of 2nd R toe, trimalleolar fx of R ankle; NWB status, uses motorized wheelchair -hx of R rotator cuff arthropathy -GERD -Anxiety/depression -GI ppx with PPI -DVT ppx with SCDs, Lovenox, hold dose prior to procedure today -Dispo: return to [facility] -Code status: FULL code -ICU care due to vent, pressor support Attestations Medical Necessity Statement*: Patient requires hospitalization for continued management of acute respiratory failure and pneumonia, remains on vent support pending bronchoscopy today, as well as treatment of UTI pending culture results. Time Spent in Patient Care: Greater than 35 minutes (>than 50% of time spent in counselling and/or direct pt care on unit) . The high probability of a clinically significant, sudden or life threatening deterioration of the patient's [respiratory] system(s) required my full and direct attention, intervention and personal management. The critical care time is as shown. This time is in addition to time spent performing any reported procedures but includes the following: [x] Data and vital sign review and interpretation [x] Patient assessment, examination and intervention [x] Documentation [x] Medication orders and management Critical Care Time: Critical Care Time (min): 25 Coding Level of Care Code Acute Tutor for [facility] Fwd Exam Comprehensive Diagnoses Sepsis A41.9; R65.20; J96.01 Acute respiratory failure type: with hypoxia Sepsis acute organ dysfunction status: with acute organ dysfunction Sepsis type: sepsis due to unspecified organism Severe sepsis acute organ dysfunction type: acute respiratory failure Severe sepsis shock status: without septic shock Pneumonia J18.9 Laterality: left Lung location: unspecified part of lung Pneumonia type: due to unspecified organism Acute respiratory failure J96.01; J96.02 Respiratory failure complication: hypoxia and hypercapnia Urinary tract infection N30.00 Hematuria presence: without hematuria Urinary tract infection type: acute cystitis
[2019-11-21] MEDS: lidocaine 1% INJ 20 mL 10 ML IV (12:12)
--- NOTE | 2019-11-21 12:45 | PM.ACPR ---
Procedure/Consent Time out: Time Out Performed: Yes Consent: Consent for Procedure: Consent obtained from other (indicate) Procedure Narrative: Name of the procedure: Bronchoscopy with bronchoalveolar lavage and clearance of the mucous plug. Indication: Acute hypoxic respiratory failure in the setting of multifocal pneumonia requiring intubation and mucous plug. Medication: The patient is on intravenous fentanyl and drip. 100 mcg fentanyl IV Description of the procedure: Consent was obtained for the bronchoscopy procedure. The patient was intubated for acute hypoxic respiratory failure. 1% lidocaine 5 mL was introduced through the ET tube. The bronchoscope was as far advanced through the ET tube to the jeffery was visualized. There was erythema present throughout bilateral airways including lower jeffery. The bronchoscope was then introduced into bilateral eyes in a systematic manner. The right upper lobe, bronchus intermedius, right middle lobe and right lower lobe bronchi appeared patent. There is some thick mucoid secretion in the bronchus intermedius that was suctioned out. The bronchoscope was then introduced in the left mainstem bronchus. The left mainstem bronchus appeared patent. The airway was better visualized than yesterday. The left upper lobe and lingular segment appeared to be patent. There was visible mucus plugging of the left lower lobe segmental bronchi. All the thick secretion was suctioned out. At the end of the procedure there was noes visible mucus plugging. Bronchoalveolar lavage was performed from the inferior segment of the lingula. 60 mL of normal saline was introduced 20 mL of cloudy return. T The specimen was sent for Gram stain and culture. Complications: No immediate complication was noted. Postprocedure chest x-ray was pending. Acute Procedures Epistaxis Control: Time out performed: Yes
[2019-11-21 13:48] LABS: Glucose Point of Care 80 mg/dL (70-110)
[2019-11-21 14:02] LABS: Blood Gas CCRB Time 1440
[2019-11-21 14:47] LABS: Vancomycin Trough 26.9 ug/mL (10-15)
--- NOTE | 2019-11-21 15:52 | XR_ITS ---
WS: [id number] Portable AP upright chest, 11/21/2019 Clinical Data: post bronchoscopy Comparison: Chest, 11/20/2019 Findings: The opacities in the left lung remain unchanged. There may be a small left effusion. The ao rtic arch and descending aorta show calcification and tortuosity. The heart is normal. The right lung shows no change from before. The nasogastric tube appears to end in the stomach. Tracheal tube is ab ove the jeffery. Monitor leads on the chest wall. XR/XR chest 1V portable [id number] Impression: 1. No change in left lung opacity. 2. No change in endotracheal tube and nasogastric tube.
[2019-11-21] MEDS: pantoprazole 40 mg SDV IVP (16:16)
[2019-11-21] MEDS: levothyroxine 125 mcg Tablet PO (16:16)
[2019-11-21] MEDS: acetaminophen 325 mg Tablet 650 MG PO (16:16)
[2019-11-21] MEDS: levofloxacin-dextrose 5 % 750 MG/150 ML PREMIX 150 MG IV (16:17)
--- NOTE | 2019-11-21 18:22 | XRR_ITS ---
PROCEDURE INFORMATION: Exam: XR Chest, 1 View Exam date and time: 11/21/2019 6:23 PM Age: 79 years old Clinical indication: Device placement; Other: Central line placement; Prior surgery; Surgery type: Bronch TECHNIQUE: Imaging protocol: XR of the chest Views: 1 view. COMPARISON: CR XR chest 1V portable [id number] 11/21/2019 3:11 PM FINDINGS: Tubes, catheters and devices: Intubation with tip 4.5 cm above the jeffery. Left subclavian central line with tip over the distal SVC. NG tube extends into the stomach, off the field of view. Lungs: Stable patchy consolidation in the central left lung and left lung base. Stable interstitial scarring or atelectasis in the right lung base. Changes of emphysema. Pleural space: Unremarkable. No pleural effusion. No pneumothorax. Heart/Mediastinum: The heart size is normal and remain shifted to the left of midline. Bones/joints: Unremarkable. XR/XR chest 1V portable [id number] IMPRESSION: 1. Central line placement without pneumothorax. 2. Otherwise stable chest.
[2019-11-21 18:49] LABS: Glucose Point of Care 82 mg/dL (70-110)
[2019-11-21] MEDS: piperacillin-tazobactam 3.375 GM in sodium chloride 0.9% (plus) 50 ML IV (19:49)
--- NOTE | 2019-11-21 21:05 | PM.ACPR ---
Procedure/Consent Time out: Time Out Performed: Yes Consent: Consent for Procedure: Consent obtained from other (indicate) Procedure Narrative: Name of the Procedure: Left subclavian vein Central venous catheter placement . Indication: Frequent blood work and possible need for vasopressor Anesthesiia: Lidocaine 1%, 5 ml Description of the procedure: The patient was positioned appropriately and the landmark was used to find the optimal needle insertion site. The site was prepared using sterile technique. The skin and subcuteneous tissue was anesthetized using lidocaine. The introducer needle was advanced till flash back was noted. Dark, non pulsatile blood noted. Using seldinger technique the CVC was put in.Blood return was noted in all ports. Catheter was secured with suture and covered with transparent dressing. Complications: None X-ray: The tip of the catheter is at the junction of the superior vena cava and right atrium. Acute Procedures Epistaxis Control: Time out performed: Yes
--- NOTE | 2019-11-21 21:10 | PM.PN ---
Subjective Subjective: Interval history: The patient was seen and examined this morning. She continues to require high FiO2 on the ventilator. Chest x-ray obtained revealed persistent of left lower lobe atelectasis. The patient underwent bronchoscopic evaluation again. Significant amount of mucus was noted in the left lower lobe second to bronchi. This was cleared up as soon as possible. Post bronchoscopy chest x-ray revealed improvement of aeration. The bronchoalveolar fluid culture from yesterday is growing gram-negative rods. Medications: Reviewed: Yes Vitals/I&O/Wt Last Vital Signs Temp 101 F H 11/21/19 12:00 Pulse 92 11/21/19 20:46 Resp 18 11/21/19 20:46 BP 162/71 11/21/19 20:00 Pulse Ox 95 11/21/19 20:46 11/21/19 11/21/19 11/21/19 06:59 14:59 22:59 Intake Total 137.066 / 540.216 50 / 50 248 / 298 Output Total 400 / 950 550 / 550 Balance -262.934 / -409.784 50 / 50 -302 / -252 Weight last 48 hrs Weight 257 lb Weight 259 lb 11.2 oz Physical Exam Narrative: EXAM NARRATIVE: General: Patient is intubated and sedated Neck: No JVD Respiratory: Auscultation: Reduced breath sound on the left side with occasional crackles, crackles in the right lower lung base, no significant wheezing Cardiovascular: Regular rate and irregularly irregular rhythm, variable first heart sound, no murmur, no right ventricular heave, mild peripheral edema. Abdomen: Soft, distended from obesity, positive bowel sound Skin: No rash Neuro: Patient is intubated and sedated Urinary Catheter Management^: Adams: Cath Placed During This Visit: yes Urethral Indwelling: Yes Reason for Continuing Indwelling Catheter: Accurate Measurement of Urinary Output in Critically Ill Patients Urinary Catheter Date of Insertion: 11/19/19 Urinary Catheter Time of Insertion: 12:56 Data : 11/21/19 03:40 11/21/19 03:40 Micro: Microbiology 11/21/19 14:15 Blood Culture - Preliminary Blood SPECIMEN COLLECTED 11/21/19 14:10 Blood Culture - Preliminary Blood SPECIMEN COLLECTED 11/21/19 01:50 MRSA Culture - Final Nose 11/20/19 12:10 Gram Stain - Final Sputum - Endotracheal Tube Aspirate Sputum Culture - Preliminary Gram Negative Rods 11/19/19 18:10 Urine Culture - Preliminary Urine,Clean Catch Gram Negative Rods 11/20/19 16:45 Gram Stain - Final Lung Left Upper Lobe Attestation for Other Data: I personally reviewed and interpreted the following: Other data: Laboratory, microbiologic and radiologic data. The leukocytosis is improving. The bronchoalveolar lavage cultures positive for gram-negative josselyn. The MRSA nasal PCR is negative. The blood cultures been negative so far. Chest x-ray following bronchoscopy today revealed improved aeration of the left lung. There is diffuse infiltrate on the left side. There is new mediastinal shift. A&P Assessment and plan (1) Acute respiratory failure: The patient is currently intubated and mechanically ventilated. She underwent bronchoscopy on November 19 and with significant improvement of mucous plugging of the left lung. There is also improvement radiologically. To optimize the ventilator setting to extubate the patient as soon as possible. Unfortunately, this is the fourth bronchoscopy that the patient has received for the same problem. I have discussed this with her son in detail today and there is a possibility that she would develop this problem again. Would need to make a long-term plan for this patient. At baseline the patient is barely mobile usually spends most of her day in bed. Status: Acute Qualifiers: Respiratory failure complication: hypoxia and hypercapnia Qualified Code(s): J96.01 - Acute respiratory failure with hypoxia; J96.02 - Acute respiratory failure with hypercapnia Code(s): J96.00 - Acute respiratory failure, unspecified whether with hypoxia or hypercapnia (2) Atelectasis, left: The patient has had these before. She had 3 bronchoscopies so far for the same problem. During my last bronchoscopy I had explained to the family members that the patient needs to be physically active to prevent recurrence of this however it appears that the patient is predominantly bedbound and prefers to stay in the left lateral position. Status: Acute Code(s): J98.11 - Atelectasis (3) Pneumonia: The patient has multilobar pneumonia. Likely secondary to postobstructive pneumonia. Bronchoalveolar fluid cultures positive for gram-negative rods. Currently the patient is covered with broad-spectrum antibiotic. Once this patient is finalized we will de-escalate antibiotic therapy. Status: Acute Qualifiers: Laterality: left Lung location: unspecified part of lung Pneumonia type: due to unspecified organism Qualified Code(s): J18.9 - Pneumonia, unspecified organism Code(s): J18.9 - Pneumonia, unspecified organism (4) Bronchial obstruction: The mucus plugging had improved after 2 bronchoscopies. The airway was patent and free of any mucous plug upper end of bronchoscopy today. Status: Acute Code(s): J98.09 - Other diseases of bronchus, not elsewhere classified Attestations Medical Necessity Statement*: Will defer to the primary team Coding Level of Care Code Acute Java Project Manager for [facility] Fw Diagnoses Acute respiratory failure J96.01; J96.02 Respiratory failure complication: hypoxia and hypercapnia Atelectasis, left J98.11 Pneumonia J18.9 Laterality: left Lung location: unspecified part of lung Pneumonia type: due to unspecified organism Bronchial obstruction J98.09 Time Spent (min) 47
[2019-11-21 21:41] LABS: Glucose Point of Care 81 mg/dL (70-110)
[2019-11-22] VITALS (31 sets, daily range): BP systolic 97–153; BP diastolic 44–72; PULSE 59–92; RESP 16–27; TEMP 36.9–37.3; O2SAT 90–95; BMI 44.1
[2019-11-22] MEDS: ipratropium-albuterol 3 mL Neb INHALATION ×7 (00:11→23:50)
[2019-11-22] MEDS: piperacillin-tazobactam 3.375 GM in sodium chloride 0.9% (plus) 50 ML IV ×3 (03:24→19:23)
[2019-11-22 04:40] LABS: ABG PCO2 47.5 mmHg (35-45); ABG PH Result 7.31 (7.35-7.45); Arterial Blood Gas Hematocrit 26.5 % (37-47); Base Excess ABG -2.1 mmol/L (-2.0-2.0); Blood Gas Allen Test Pos; Blood Gas Sample Site Radial, right; Blood Gas Sample Type Arterial; HCO3 ABG 24.1 mmol/L (22-26); Oxygen Device VENT; PO2 ABG 70.1 mmHg (80.0-100.0)
[2019-11-22 04:41] LABS: Basophils % 0.1 %; Eosinophils # 0.1 10^3/uL (0.0-0.8); Hematocrit 28.3 % (37.0-47.0); Hemoglobin 7.8 g/dL (11.5-15.3); Lymphocytes # 1.1 10^3/uL (0.8-4.8); Lymphocytes % 12.3 %; Mean Corpuscular HGB Conc 27.6 g/dL (30.0-36.0); Mean Corpuscular Hemoglobin 25.3 pg (28.0-34.0); Mean Corpuscular Volume 91.9 fL (81-99); Mean Platelet Volume 8.9 fL (7.4-10.4); Monocytes # 0.3 10^3/uL (0.2-0.9); Monocytes % 3.8 %; Neutrophils # 7.2 10^3/uL (1.8-7.7); Neutrophils % 81.3 %; Nucleated Red Blood Cells % 0 %; Platelet Count 208 10^3/cmm (130-400); Red Blood Count 3.08 10^6/uL (4.1-5.3); Red Cell Distribution Width 19.6 % (12.1-15.1); White Blood Count 8.9 10^3/uL (4.0-10.0)
[2019-11-22 05:04] LABS: Alanine Aminotransferase 45 U/L (0-33); Albumin Level 2.2 g/dL (3.5-5.2); Alkaline Phosphatase 89 IU/L (35-105); Anion Gap 13.5 (5-19); Aspartate Amino Transferase 31 U/L (0-32); Blood Urea Nitrogen 28 mg/dL (8-23); Calcium 10.9 mg/dL (8.5-10.5); Carbon Dioxide 24 mmol/L (22-29); Chloride 112 mmol/L (98-107); Creatinine Clr Calc Pharmacy 65.6559; Globulin 3.3 g/dL (1.3-4.6); Glucose 80 mg/dL (65-115); Osmolality Calculated 298 mOsm/kg (285-295); Potassium 3.5 mmol/L (3.5-5.1); Sodium 146 mmol/L (136-145); Total Bilirubin 0.4 mg/dL (0.15-1.2); Total Protein 5.5 g/dL (6.6-8.7)
[2019-11-22 07:49] LABS: Glucose Point of Care 88 mg/dL (70-110)
--- NOTE | 2019-11-22 08:58 | XR_ITS ---
WS: [id number] Portable AP upright chest, 11/22/2019 Clinical Data: mechanically ventilated Comparison: Portable chest, 11/21/2019 Findings: The patient is rotated. The heart size appears to be the same. Patchy opacity occupies almo st the entire left lung. There is minimal atelectasis over the right diaphragm. The right upper lobe appears clear. The endotracheal tube and nasogastric tube remain in position, but the endotracheal tu be is now only 1.5 cm above the jeffery.. Monitor leads are on the chest wall. XR/XR chest 1V portable [id number] Impression: 1. Endotracheal tube is only 1.5 cm above the jeffery. 2. No change in patchy opacity of left lung. 3. Minimal patchy opacity over surface of right diaphragm may represent atelect asis and/or minimal pneumonia. 4. No change in position of nasogastric tube.
[2019-11-22] MEDS: levothyroxine 125 mcg Tablet PO (09:01)
[2019-11-22] MEDS: pantoprazole 40 mg SDV IVP (09:01)
--- NOTE | 2019-11-22 09:04 | PM.PN ---
Subjective Subjective: Interval history: Patient seen and examined earlier this morning, remains on mechanical ventilation, FiO2 of 70% with some intermittent episodes of hypoxia. AM labs noted including ABG. Chest x-ray pending. Had 400 mL urine output overnight. Febrile with a T-max of 101.1F overnight, currently afebrile. Sputum culture and BAL culture growing staph aureus and gram-negative rods, nasal MRSA positive. Remains on broad-spectrum IV antibiotics. Noted drop in hemoglobin from 8.9->7.8, leukocytosis resolved. Arouses easily to tactile and verbal stimulation. Remains on dual sedation with fentanyl and Versed, increased requirement overnight. Central line in place (L IJ). Medications: Reviewed: Yes Medication Review Details: Active Medications Generic Name Dose Route Start Last Admin Trade Name Freq PRN Reason Stop Dose Admin Acetaminophen 650 mg 11/19/19 16:02 11/21/19 16:16 Tylenol PO 650 mg Q6H PRN Administration Mild/Mod Pain Or Temp >/= 101 Albuterol/Ipratrop ium 3 ml 11/21/19 00:00 11/22/19 08:24 Duoneb INHALATION 3 ml Q4H.RESPIRATORY S CH Administration Bisacodyl 10 mg 11/19/19 16:02 Bisac-Evac UT DAILY PRN Constipation Dextrose 25 ml 11/19/19 16:35 D50w IVP ONCE PRN hypoglycemia prot ocol Protocol Dextrose 50 ml 11/19/19 16:35 D50w IVP PRN PRN hypoglycemia prot ocol Protocol Glucagon 1 mg 11/19/19 16:35 Glucagen IM ONCE PRN Adult Acute Hypog lycemia Prot. Protocol Norepinephrine Bit artrate 4 mg 254 mls @ 0 mls/h r 11/19/19 14:45 / Dextrose IV .Q0M SHERICE Protocol Per Protocol Dextrose 500 mls @ 100 mls /hr 11/19/19 16:35 D5w IV ONCE PRN Adult Acute Hypog lycemia Prot Protocol Fentanyl 1,000 mcg / Sodium 100 mls @ 0 mls/h r 11/19/19 23:00 11/22/19 05:35 Chloride IV 75 mcg/hr .Q0M SHERICE 7.5 mls/hr Administration Protocol Per Protocol Levofloxacin/Dextr ose 750 mg in 150 mls @ 150 mls/hr 11/21/19 12:30 11/21/19 17:17 Levaquin-D5w IV Infused Q24H SHERICE Infusion Protocol Piperacillin Sod/T azobactam 50 mls @ 12.5 mls /hr 11/20/19 21:00 11/22/19 03:24 Sod 3.375 gm/ So dium Chloride IV 12.5 mls/hr Q8H SHERICE Administration Protocol Vancomycin HCl 1,5 00 mg/ 250 mls @ 250 mls /hr 11/21/19 21:00 11/21/19 23:00 Sodium Chloride IV Infused Q24H SHERICE Infusion Protocol Dexmedetomidine HC l 400 mcg/ 104 mls @ 0 mls/h r 11/22/19 09:00 Sodium Chloride IV .Q0M SHERICE Protocol Per Protocol Levothyroxine Sodi um 125 mcg 11/20/19 09:00 11/21/19 16:16 Synthroid PO 125 mcg DAILY SHERICE Administration Naloxone HCl 0.1 mg 11/19/19 16:02 Narcan IVP Q2M PRN OPIATERV Ondansetron HCl 4 mg 11/19/19 16:02 Zofran IVP Q6H PRN vomiting, or N/V if npo Pantoprazole Sodiu m 40 mg 11/20/19 09:00 11/21/19 16:16 Protonix IVP 40 mg DAILY SHERICE Administration lisinopril Allergy (Verified 11/19/19 12:31) Unknown lorazepam [From Ativan] Allergy (Verified 11/19/19 12:31) Unknown meperidine [From Demerol] Allergy (Verified 11/19/19 12:31) Unconscious morphine Allergy (Verified 11/19/19 12:31) Unknown niacin Allergy (Verified 10/10/19 08:05) Unknown Vitals/I&O/Wt Last Vital Signs Temp 98.6 F 11/22/19 08:00 Pulse 74 11/22/19 08:25 Resp 16 11/22/19 08:34 BP 123/56 11/22/19 08:00 Pulse Ox 92 11/22/19 08:25 11/21/19 11/22/19 11/22/19 22:59 06:59 14:59 Intake Total 248 / 298 400 / 698 0 / 0 Output Total 550 / 550 400 / 950 Balance -302 / -252 0 / -252 0 / 0 Weight last 48 hrs Weight 116.573 kg Weight 117.798 kg Physical Exam Const: COMMON NORMALS: no apparent distress GENERAL APPEARANCE: patient mechanically ventilated NUTRITIONAL APPEARANCE: obese morbidly obese OTHER: -easily arousable to verbal and tactile stimulation; on sedation with Versed (2 mg/hr) and Fentanyl (75 mcg/hr) HENMT: COMMON NORMALS: normocephalic and head/scalp atraumatic HEAD & SCALP: normocephalic and atraumatic MOUTH: moist mucous membranes abnormal Details: parched TEETH & GINGIVA: Yes edentulous Eye: COMMON NORMALS: conjunctivae normal CONJUNCTIVA: Yes conjunctivae normal Neck/C-Spine: COMMON NORMALS: full ROM GENERAL: Yes normal visual inspection and Yes trachea midline Resp: COMMON NORMALS: no retractions and no use of accessory muscles EFFORT & INSPECTION: Yes symmetric chest movement AUSCULTATION: diminished lung sounds on the left throughout OTHER: -Patient mechanically ventilated (FiO2-70%) Cardio: COMMON NORMALS: regular rate, regular rhythm, S1 normal heart sound, S2 normal heart sound and no murmurs RATE: regular rate RHYTHM: regular rhythm HEART SOUNDS: S1 normal and S2 normal GI: COMMON NORMALS: soft to palpation INSPECTION: Yes normal to inspection and Yes central obesity PALPATION: Yes soft : BLADDER/KIDNEY EXAM: Yes catheter in place Catheter type (Female): urethral Extremity: COMMON NORMALS: normal to inspection and no clubbing, cyanosis or edema; negative for no pedal edema OTHER: -heel boot on R, clean dressing over R foot and ankle Neuro: OTHER: -unable to assess as sedated and on ventilator but easily arousable Psych: OTHER: -unable to assess as mechanically ventilated Skin: COMMON NORMALS: no rashes or lesions noted, no jaundice and no mottling NARRATIVE SKIN EXAM: -R heel ulcer, multiple decubitus ulcers on bilateral gluteal area GENERAL SKIN EXAM: no rashes or lesions noted and ecchymosis (extensive bruising on bilateral UEs) Urinary Catheter Management^: Adams: Cath Placed During This Visit: yes Urethral Indwelling: Yes Reason for Continuing Indwelling Catheter: Accurate Measurement of Urinary Output in Critically Ill Patients Urinary Catheter Date of Insertion: 11/19/19 Urinary Catheter Time of Insertion: 12:56 Data : 11/22/19 04:15 11/22/19 04:15 Micro: Microbiology 11/20/19 16:45 Gram Stain - Final Lung Left Upper Lobe Bronchoalveolar Lavage Culture - Preliminary Staphylococcus aureus 11/20/19 12:10 Gram Stain - Final Sputum - Endotracheal Tube Aspirate Sputum Culture - Preliminary Gram Negative Rods Staphylococcus aureus 11/21/19 14:15 Blood Culture - Preliminary Blood SPECIMEN COLLECTED 11/21/19 14:10 Blood Culture - Preliminary Blood SPECIMEN COLLECTED 11/21/19 01:50 MRSA Culture - Final Nose 11/19/19 18:10 Urine Culture - Preliminary Urine,Clean Catch Gram Negative Rods A&P Assessment and plan (1) Sepsis: -Sepsis as evidenced by significant leukocytosis, hypotension, hypoxia, altered mental status, lactic acidosis -Etiology is likely respiratory given evidence of pneumonia on chest x-ray, need for mechanical ventilation. We will need to rule out other sources including urine for additional infection -Per review of chart and verbal report from family and group home staff patient has had recurrent episodes of left-sided pneumonia. Required bronchoscopy with bronchoalveolar lavage in 09/2019. Pathology shows no dysplasia or malignant cells, noted evidence of acute inflammation with reactive atypia. Gram stain negative, culture was also negative -She is oxygen dependent at baseline with 3 L requirement, BiPAP use qhs -elevated pro-calcitonin, noted lactic acidosis -has significant leukocytosis with neutrophilic predominance; decreasing, continue to trend WBC -f/u blood cx (not drawn in ED), sputum cx-GNRs, staph aureus, gram stain shows rare GPC in pairs -UA indicative of infection -given significant leukocytosis, respiratory symptoms, recent transfer from [place] ([facility]); screened for [id number]; off isolation precautions -weaned off pressor support -sedation while on ventilator -aspiration precautions, NGT in place -ABG noted with respiratory acidosis (hypercapnia); daily ABGs while on vent -wean off vent when clinically appropriate -CXR today shows some improvement in aeration of L lung -negative bacterial antigens, Legionella -bronch (11/20); bedside bronch on 11/19 with BAL gram stain growing rare GPC, culture positive for Staph aureus Status: Acute Qualifiers: Acute respiratory failure type: with hypoxia Sepsis acute organ dysfunction status: with acute organ dysfunction Sepsis type: sepsis due to unspecified organism Severe sepsis acute organ dysfunction type: acute respiratory failure Severe sepsis shock status: without septic shock Qualified Code(s): A41.9 - Sepsis, unspecified organism; R65.20 - Severe sepsis without septic shock; J96.01 - Acute respiratory failure with hypoxia Code(s): A41.9 - Sepsis, unspecified organism (2) Pneumonia: -Has had history of recurrent left-sided pneumonia and mucous plugging. Noted evidence of left lung opacification so suspect post-obstructive pneumonia with associated sepsis as noted above -Continue broad-spectrum IV antibiotics, has received a dose of vancomycin, Zosyn and Levaquin; she has had multiple healthcare associated contacts since August -negative influenza, bacterial antigens, Legionella; MRSA (nasal) positive -Continue close monitoring of respiratory status -had been receiving chest percussion at [place] -no need for steroids Status: Acute Qualifiers: Laterality: left Lung location: unspecified part of lung Pneumonia type: due to unspecified organism Qualified Code(s): J18.9 - Pneumonia, unspecified organism Code(s): J18.9 - Pneumonia, unspecified organism (3) Acute respiratory failure: -as noted above Status: Acute Qualifiers: Respiratory failure complication: hypoxia and hypercapnia Qualified Code(s): J96.01 - Acute respiratory failure with hypoxia; J96.02 - Acute respiratory failure with hypercapnia Code(s): J96.00 - Acute respiratory failure, unspecified whether with hypoxia or hypercapnia (4) Urinary tract infection: -UA indicative of infection -urine cx: GNRs, pending ID and sensitivity -already on broad spectrum IV antibiotics -has Adams catheter in place Status: Acute Qualifiers: Hematuria presence: without hematuria Urinary tract infection type: acute cystitis Qualified Code(s): N30.00 - Acute cystitis without hematuria Code(s): N39.0 - Urinary tract infection, site not specified Additional A&P Information -Oxygen dependent COPD; 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, BiPAP qhs -HTN; hold oral antihypertensives -NIDDM type II; last A1c-5.8; hypoglycemia precautions particularly while NPO, Accucheks -hx of CAD -Hypothyroidism; on levothyroxine -Morbid obesity: BMI-45 kg/m2 -Chronic diastolic CHF; last Echo done in 2015, EF=65%, G1DD, no RWMA, mild concentric LVH, mild MR, mild TR; BNP-[id number] likely secondary to respiratory issues, no LE edema; hold diuretics -Chronic normocytic anemia; baseline Hg 10-11; monitor H/H; recently required transfusion of 2 units PRBCs; hold Eliquis, Plavix -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 Dr. Rodriguez recommended CAM boot and NWB to RLE. -hx of R rotator cuff arthropathy -GERD -Anxiety/depression -GI ppx with PPI -DVT ppx with SCDs, hold AC due to worsening anemia -Dispo: return to [facility] -Code status: FULL code -ICU care due to vent support Attestations Medical Necessity Statement*: Patient requires hospitalization for continued broad spectrum IV antibiotics for treatment of post-obstructive pneumonia, on vent support. Time Spent in Patient Care: 16 - 35 minutes (>than 50% of time spent in counselling and/or direct pt care on unit). Critical Care Time: The high probability of a clinically significant, sudden or life threatening deterioration of the patient's [respiratory] system(s) required my full and direct attention, intervention and personal management. The critical care time is as shown. 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[facility] Diagnoses Sepsis A41.9; R65.20; J96.01 Acute respiratory failure type: with hypoxia Sepsis acute organ dysfunction status: with acute organ dysfunction Sepsis type: sepsis due to unspecified organism Severe sepsis acute organ dysfunction type: acute respiratory failure Severe sepsis shock status: without septic shock Pneumonia J18.9 Laterality: left Lung location: unspecified part of lung Pneumonia type: due to unspecified organism Acute respiratory failure J96.01; J96.02 Respiratory failure complication: hypoxia and hypercapnia Urinary tract infection N30.00 Hematuria presence: without hematuria Urinary tract infection type: acute cystitis
[2019-11-22] MEDS: levofloxacin-dextrose 5 % 750 MG/150 ML PREMIX 150 MG IV (12:42)
--- NOTE | 2019-11-22 12:55 | PC.NURSE ---
AT [address] Leahy of lab report of Sputum and lung washings being positive for Staph A.
[2019-11-22 13:17] LABS: Hematocrit 26.3 % (37.0-47.0); Hemoglobin 7.2 g/dL (11.5-15.3)
--- NOTE | 2019-11-22 14:06 | DCPLANNER ---
IM due today however she is on the vent. No visitors allowed at the hospital now. We will talk with family via the phone when time allows.
[2019-11-22 21:37] LABS: Glucose Point of Care 81 mg/dL (70-110)
--- NOTE | 2019-11-22 22:39 | P.PN_ITS ---
Subjective Subjective: Interval history: The patient was seen and examined today. She is arousable. Still requiring high amount of oxygen to maintain adequate oxygen saturation. Bronchoalveolar fluid lavage cultures positive for staph aureus. I had a conversation with her son today. The patient had received multiple bronchoscopy for chronic left-sided atelectasis and pneumonia. After extensive culture, the son has decided to continue with current therapy and when she is ready for extubation he would prefer for her to not get intubated again. If patient does well following extubation, she will be discharged under hospice. If there is no significant improvement in her clinical condition or if she develops worsening respiratory status following extubation he would want us to focus on making her comfortable. Medications: Reviewed: Yes Vitals/I&O/Wt Last Vital Signs Temp 98.5 F 11/22/19 16:00 Pulse 59 L 11/22/19 20:09 Resp 18 11/22/19 20:10 BP 107/54 11/22/19 20:00 Pulse Ox 94 11/22/19 20:09 11/22/19 11/22/19 11/22/19 06:59 14:59 22:59 Intake Total 400 / 698 50 / 50 404 / 454 Output Total 400 / 950 550 / 550 Balance 0 / -252 50 / 50 -146 / -96 Weight last 48 hrs Weight 257 lb Weight 257 lb Physical Exam Narrative: EXAM NARRATIVE: General: Patient is intubated and sedated, easily arousable Neck: No JVD Respiratory: Auscultation: Reduced breath sound on the left side with occasional crackles, crackles in the right lower lung base, no significant wheezing Cardiovascular: Regular rate and irregularly irregular rhythm, variable first heart sound, no murmur, no right ventricular heave, mild peripheral edema. Abdomen: Soft, distended from obesity, positive bowel sound Skin: No rash Neuro: Patient is intubated and sedated Urinary Catheter Management^: Adams: Cath Placed During This Visit: yes Urethral Indwelling: Yes Reason for Continuing Indwelling Catheter: Accurate Measurement of Urinary Output in Critically Ill Patients Urinary Catheter Date of Insertion: 11/19/19 Urinary Catheter Time of Insertion: 12:56 Data : 11/22/19 13:02 11/22/19 04:15 Micro: Microbiology 11/21/19 14:15 Blood Culture - Preliminary Blood NEGATIVE TO DATE 11/21/19 14:10 Blood Culture - Preliminary Blood NEGATIVE TO DATE 11/20/19 12:10 Gram Stain - Final Sputum - Endotracheal Tube Aspirate Sputum Culture - Preliminary Escherichia coli Staphylococcus aureus 11/19/19 18:10 Urine Culture - Preliminary Urine,Clean Catch Proteus mirabilis#2 11/20/19 16:45 Gram Stain - Final Lung Left Upper Lobe Bronchoalveolar Lavage Culture - Preliminary Staphylococcus aureus Attestation for Other Data: I personally reviewed and interpreted the following: Other data: Radiologic data. There is improvement leukocyte count. Unfortunately the chest x-ray similar. There is dense consolidation of the left lower lobe as well as volume loss and mediastinal shift to the left. The bronchoalveolar lavage cultures positive for staph aureus. The previous endotracheal aspirate is also positive for E. coli in addition to staph. A&P Assessment and plan (1) Acute respiratory failure: The patient is currently intubated and mechanically ventilated. She underwent bronchoscopy on November 19 and with significant improvement of mucous plugging of the left lung. The patient continues to have persistent left lower lobe opacity, left upper lobe infiltrate and basilar shift to the left. As described in the history present illness, I had an extensive discussion with her son who is the healthcare proxy. We will continue all therapy for the time being and the patient will be DO NOT INTUBATE following the excision. The patient has chronic left lower lobe atelectasis which has persisted despite multiple bronchoscopies and removal of mucous plug. I do not foresee this resolving in the future. Status: Acute Qualifiers: Respiratory failure complication: hypoxia and hypercapnia Qualified Code(s): J96.01 - Acute respiratory failure with hypoxia; J96.02 - Acute respiratory failure with hypercapnia Code(s): J96.00 - Acute respiratory failure, unspecified whether with hypoxia or hypercapnia (2) Atelectasis, left: She had 4 bronchoscopies so far for the same problem. Status: Acute Code(s): J98.11 - Atelectasis (3) Pneumonia: The bronchoalveolar lavage is positive for staph aureus. Endotracheal aspirate also grew E. coli. Currently the patient is on vancomycin and Zosyn. I have discontinued Levaquin. 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
[2019-11-23] VITALS (67 sets, daily range): BP systolic 81–120; BP diastolic 39–66; PULSE 50–71; RESP 16–28; TEMP 35.8–37.2; O2SAT 85–95; BMI 45.0
[2019-11-23] MEDS: piperacillin-tazobactam 3.375 GM in sodium chloride 0.9% (plus) 50 ML IV ×2 (03:05→11:45)
[2019-11-23] MEDS: ipratropium-albuterol 3 mL Neb INHALATION ×5 (03:11→23:26)
[2019-11-23 04:39] LABS: Basophils % 0.2 %; Eosinophils # 0.1 10^3/uL (0.0-0.8); Eosinophils % 1.6 %; Hematocrit 23.2 % (37.0-47.0); Lymphocytes # 0.9 10^3/uL (0.8-4.8); Lymphocytes % 18.5 %; Mean Corpuscular HGB Conc 27.6 g/dL (30.0-36.0); Mean Corpuscular Hemoglobin 25.4 pg (28.0-34.0); Mean Corpuscular Volume 92.1 fL (81-99); Mean Platelet Volume 9.2 fL (7.4-10.4); Monocytes # 0.3 10^3/uL (0.2-0.9); Monocytes % 5.5 %; Neutrophils # 3.6 10^3/uL (1.8-7.7); Nucleated Red Blood Cells % 0 %; Platelet Count 152 10^3/cmm (130-400); Red Blood Count 2.52 10^6/uL (4.1-5.3); Red Cell Distribution Width 19.1 % (12.1-15.1); White Blood Count 4.9 10^3/uL (4.0-10.0)
[2019-11-23 05:06] LABS: Anion Gap 12.3 (5-19); Blood Urea Nitrogen 25 mg/dL (8-23); Calcium 10.8 mg/dL (8.5-10.5); Carbon Dioxide 25 mmol/L (22-29); Chloride 116 mmol/L (98-107); Creatinine Clr Calc Pharmacy 65.6559; Glucose 79 mg/dL (65-115); Osmolality Calculated 306 mOsm/kg (285-295); Potassium 3.3 mmol/L (3.5-5.1); Sodium 150 mmol/L (136-145)
[2019-11-23 05:44] LABS: Hemoglobin 6.4 g/dL (11.5-15.3)
[2019-11-23 05:53] LABS: ABG PCO2 43.1 mmHg (35-45); ABG PH Result 7.36 (7.35-7.45); Arterial Blood Gas Hematocrit 22.6 % (37-47); Base Excess ABG -0.9 mmol/L (-2.0-2.0); Blood Gas Allen Test Pos; Blood Gas Sample Site Radial, left; Blood Gas Sample Type Arterial; HCO3 ABG 24.5 mmol/L (22-26); Oxygen Device VENT; PO2 ABG 82.7 mmHg (80.0-100.0)
--- NOTE | 2019-11-23 06:00 | XR_ITS ---
WS: [id number] Portable AP supine chest, 11/23/2019 Clinical Data: on vent support Comparison: Portable chest, 11/22/2019 Findings: The patchy opacity involving most the left lung remains the same. The patient is rotated. T he endotracheal tube and nasogastric tube remain in the same position. There is a left infusion marcos ter which ends in the right atrium. There is a minimal right basilar opacity. The upper right lung i s clear. Monitor leads are on the chest wall. The heart size remains the same. XR/XR chest 1V portable [id number] Impression: 1. No change in multiple tubes. 2. Left lower lobe opacity remains unchanged. 3. Development of mild right basilar opacity.
--- NOTE | 2019-11-23 07:55 | DCPLANNER ---
Due to the sensitivity of pts condition at this time, Nurse Informatics Educator will postpone discussing Pg 2 with Pt's family/Pt. until after possible positive extubation today.
[2019-11-23 08:16] LABS: Glucose Point of Care 83 mg/dL (70-110)
[2019-11-23] MEDS: pantoprazole 40 mg SDV IVP (09:17)
[2019-11-23] MEDS: levothyroxine 125 mcg Tablet PO (09:17)
[2019-11-23] MEDS: dextrose 5% + KCl 20 mEq 20 MEQ/1,000 ML BAG 75 MEQ IV (09:17)
--- NOTE | 2019-11-23 09:59 | PM.PN ---
Subjective Subjective: Interval history: Patient remains on mechanical ventilation, chest x-ray reported as unchanged with developing right basilar opacity. Morning labs noted, worsening anemia, pending transfusion of blood products, somewhat delayed due to noted antigens on type and screen and need to get blood products from outside source. ABG appropriate, FiO2 of 60% though is down to about 50% at bedside. She had 100 mL urine output overnight. Has been afebrile for approximately 24 hours, no leukocytosis, appropriate renal function, increased hypernatremia, mild hypokalemia. Patient initially seen earlier this morning and again in the afternoon, currently receiving her second bag of PRBCs. FiO2 down to 40% on vent. Called patient's son Chris Bassett and updated him on patient's clinical status over the phone. Informed that plan is for possible extubation tomorrow, he would like to be present at bedside during this transition. Medications: Reviewed: Yes Medication Review Details: Active Medications Generic Name Dose Route Start Last Admin Trade Name Freq PRN Reason Stop Dose Admin Acetaminophen 650 mg 11/19/19 16:02 11/21/19 16:16 Tylenol PO 650 mg Q6H PRN Administration Mild/Mod Pain Or Temp >/= 101 Albuterol/Ipratrop ium 3 ml 11/21/19 00:00 11/23/19 08:30 Duoneb INHALATION 3 ml Q4H.RESPIRATORY S CH Administration Bisacodyl 10 mg 11/19/19 16:02 Bisac-Evac [place] DAILY PRN Constipation Dextrose 25 ml 11/19/19 16:35 D50w IVP ONCE PRN hypoglycemia prot ocol Protocol Dextrose 50 ml 11/19/19 16:35 D50w IVP PRN PRN hypoglycemia prot ocol Protocol Glucagon 1 mg 11/19/19 16:35 Glucagen IM ONCE PRN Adult Acute Hypog lycemia Prot. Protocol Norepinephrine Bit artrate 4 mg 254 mls @ 0 mls/h r 11/19/19 14:45 / Dextrose IV .Q0M SHERICE Protocol Per Protocol Dextrose 500 mls @ 100 mls /hr 11/19/19 16:35 D5w IV ONCE PRN Adult Acute Hypog lycemia Prot Protocol Fentanyl 1,000 mcg / Sodium 100 mls @ 0 mls/h r 11/19/19 23:00 11/23/19 09:27 Chloride IV 75 mcg/hr .Q0M SHERICE 7.5 mls/hr Administration Protocol Per Protocol Piperacillin Sod/T azobactam 50 mls @ 12.5 mls /hr 11/20/19 21:00 11/23/19 03:05 Sod 3.375 gm/ So dium Chloride IV 12.5 mls/hr Q8H SHERICE Administration Protocol Vancomycin HCl 1,5 00 mg/ 250 mls @ 250 mls /hr 11/21/19 21:00 11/22/19 21:28 Sodium Chloride IV 250 mls/hr Q24H SHERICE Administration Protocol Dexmedetomidine HC l 400 mcg/ 104 mls @ 0 mls/h r 11/22/19 09:00 11/23/19 09:28 Sodium Chloride IV 0.4 mcg/kg/hr .Q0M SHERICE 12.1 mls/hr Administration Protocol Per Protocol Potassium Chloride /Dextrose 20 meq in 1,000 m ls @ 75 mls/hr 11/23/19 08:00 11/23/19 09:17 Dextrose 5% + Nicho l 20 Meq IV 75 mls/hr .[id number] SHERICE Administration Levothyroxine Sodi um 125 mcg 11/20/19 09:00 11/23/19 09:17 Synthroid PO 125 mcg DAILY SHERICE Administration Naloxone HCl 0.1 mg 11/19/19 16:02 Narcan IVP Q2M PRN OPIATERV Ondansetron HCl 4 mg 11/19/19 16:02 Zofran IVP Q6H PRN vomiting, or N/V if npo Pantoprazole Sodiu m 40 mg 11/20/19 09:00 11/23/19 09:17 Protonix IVP 40 mg DAILY SHERICE Administration lisinopril Allergy (Verified 11/19/19 12:31) Unknown lorazepam [From Ativan] Allergy (Verified 11/19/19 12:31) Unknown meperidine [From Demerol] Allergy (Verified 11/19/19 12:31) Unconscious morphine Allergy (Verified 11/19/19 12:31) Unknown niacin Allergy (Verified 10/10/19 08:05) Unknown Vitals/I&O/Wt Last Vital Signs Temp 98.5 F 11/22/19 16:00 Pulse 57 L 11/23/19 08:41 Resp 16 11/23/19 08:37 BP 113/52 11/23/19 06:00 Pulse Ox 93 11/23/19 08:37 11/22/19 11/23/19 11/23/19 22:59 06:59 14:59 Intake Total 404 / 454 87.718 / 541.718 158.887 / 158.887 Output Total 550 / 550 400 / 950 Balance -146 / -96 -312.282 / -408.282 158.887 / 158.887 Weight last 48 hrs Weight 116.573 kg Weight 116.573 kg Physical Exam Const: COMMON NORMALS: no apparent distress GENERAL APPEARANCE: patient mechanically ventilated (ETT-25 cm @ lip) NUTRITIONAL APPEARANCE: obese morbidly obese OTHER: -easily arousable to verbal and tactile stimulation; on sedation with Precedex (0.4 mcg/kg/hr) and Fentanyl (75 mcg/hr) HENMT: COMMON NORMALS: normocephalic and head/scalp atraumatic HEAD & SCALP: normocephalic and atraumatic MOUTH: moist mucous membranes abnormal Details: parched TEETH & GINGIVA: Yes edentulous Eye: COMMON NORMALS: conjunctivae normal CONJUNCTIVA: Yes conjunctivae normal Neck/C-Spine: COMMON NORMALS: full ROM GENERAL: Yes normal visual inspection and Yes trachea midline Resp: COMMON NORMALS: no retractions and no use of accessory muscles EFFORT & INSPECTION: Yes symmetric chest movement AUSCULTATION: diminished lung sounds on the left throughout OTHER: -Patient mechanically ventilated (FiO2-40%) Cardio: COMMON NORMALS: regular rate, regular rhythm, S1 normal heart sound, S2 normal heart sound and no murmurs RATE: regular rate RHYTHM: regular rhythm HEART SOUNDS: S1 normal and S2 normal GI: COMMON NORMALS: soft to palpation INSPECTION: Yes normal to inspection and Yes central obesity PALPATION: Yes soft : BLADDER/KIDNEY EXAM: Yes catheter in place Catheter type (Female): urethral Extremity: COMMON NORMALS: normal to inspection and no clubbing, cyanosis or edema; negative for no pedal edema OTHER: -heel boot on R, clean dressing over R foot and ankle Neuro: OTHER: -unable to assess as sedated and on ventilator but easily arousable Psych: OTHER: -unable to assess as mechanically ventilated Skin: COMMON NORMALS: no rashes or lesions noted, no jaundice and no mottling NARRATIVE SKIN EXAM: -R heel ulcer, multiple decubitus ulcers on bilateral gluteal area GENERAL SKIN EXAM: no rashes or lesions noted and ecchymosis (extensive bruising on bilateral UEs) Urinary Catheter Management^: Adams: Cath Placed During This Visit: yes Urethral Indwelling: Yes Reason for Continuing Indwelling Catheter: Accurate Measurement of Urinary Output in Critically Ill Patients Urinary Catheter Date of Insertion: 11/19/19 Urinary Catheter Time of Insertion: 12:56 Data : 11/23/19 04:05 11/23/19 04:05 Micro: Microbiology 11/21/19 14:15 Blood Culture - Preliminary Blood NEGATIVE TO DATE 11/21/19 14:10 Blood Culture - Preliminary Blood NEGATIVE TO DATE 11/20/19 12:10 Gram Stain - Final Sputum - Endotracheal Tube Aspirate Sputum Culture - Preliminary Escherichia coli Staphylococcus aureus 11/19/19 18:10 Urine Culture - Preliminary Urine,Clean Catch Proteus mirabilis#2 11/20/19 16:45 Gram Stain - Final Lung Left Upper Lobe Bronchoalveolar Lavage Culture - Preliminary Staphylococcus aureus A&P Assessment and plan (1) Acute respiratory failure: -continues to require mechanical ventilation (day 5) -Per review of chart and verbal report from family and retirement staff patient has had recurrent episodes of left-sided pneumonia. Required bronchoscopy with bronchoalveolar lavage in 09/2019. Pathology shows no dysplasia or malignant cells, noted evidence of acute inflammation with reactive atypia. Gram stain negative, culture was also negative -She is oxygen dependent at baseline with 3 L requirement, BiPAP use qhs -elevated pro-calcitonin, noted lactic acidosis -has significant leukocytosis with neutrophilic predominance; decreasing, continue to trend WBC -blood cx-prelim negative, sputum cx-E.coli, staph aureus, gram stain shows rare GPC in pairs -UA indicative of infection -given significant leukocytosis, respiratory symptoms, recent transfer from [place] ([facility]); screened for [id number] -weaned off pressor support -sedation while on ventilator -aspiration precautions, NGT in place -ABG noted with respiratory acidosis (hypercapnia); daily ABGs while on vent -wean off vent when clinically appropriate -CXR (11/22) shows some improvement in aeration of L lung, developing atelectasis in R lung -negative bacterial antigens, Legionella -bronch (11/20); bedside bronch on 11/19 with BAL gram stain growing rare GPC, culture positive for MRSA; plan to treat with Linezolid PO when off ventilator x [address] Vernon's recommendation -contact isolation precautions Status: Acute Qualifiers: Respiratory failure complication: hypoxia and hypercapnia Qualified Code(s): J96.01 - Acute respiratory failure with hypoxia; J96.02 - Acute respiratory failure with hypercapnia Code(s): J96.00 - Acute respiratory failure, unspecified whether with hypoxia or hypercapnia (2) Sepsis: -Sepsis as evidenced by significant leukocytosis, hypotension, hypoxia, altered mental status, lactic acidosis. Sepsis resolved -Etiology is likely respiratory given evidence of pneumonia on chest x-ray, need for mechanical ventilation; as well as UTI. Status: Resolved Qualifiers: Acute respiratory failure type: with hypoxia Sepsis acute organ dysfunction status: with acute organ dysfunction Sepsis type: sepsis due to unspecified organism Severe sepsis acute organ dysfunction type: acute respiratory failure Severe sepsis shock status: without septic shock Qualified Code(s): A41.9 - Sepsis, unspecified organism; R65.20 - Severe sepsis without septic shock; J96.01 - Acute respiratory failure with hypoxia Code(s): A41.9 - Sepsis, unspecified organism (3) Pneumonia: -Has had history of recurrent left-sided pneumonia and mucous plugging. Noted evidence of left lung opacification so suspect post-obstructive pneumonia with associated sepsis as noted above -Continue broad-spectrum IV antibiotics, on vancomycin/Zosyn; off Levaquin; she has had multiple healthcare associated contacts since August. MRSA positive per BAL culture, will d/c Zosyn -negative influenza, bacterial antigens, Legionella; MRSA (nasal) positive -Continue close monitoring of respiratory status -had been receiving chest percussion at [place] -no need for steroids Status: Acute Qualifiers: Laterality: left Lung location: unspecified part of lung Pneumonia type: due to unspecified organism Qualified Code(s): J18.9 - Pneumonia, unspecified organism Code(s): J18.9 - Pneumonia, unspecified organism (4) Urinary tract infection: -UA indicative of infection -urine cx: Proteus mirabilis; sensitivity noted -already on broad spectrum IV antibiotics -has Adams catheter in place Status: Acute Qualifiers: Hematuria presence: without hematuria Urinary tract infection type: acute cystitis Qualified Code(s): N30.00 - Acute cystitis without hematuria Code(s): N39.0 - Urinary tract infection, site not specified Additional A&P Information -Oxygen dependent COPD; 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, BiPAP qhs -HTN; hold oral antihypertensives -NIDDM type II; last A1c-5.8; hypoglycemia precautions particularly while NPO, Accucheks -hx of CAD -Hypothyroidism; on levothyroxine -Morbid obesity: BMI-44 kg/m2 -Chronic diastolic CHF; last Echo done in 2015, EF=65%, G1DD, no RWMA, mild concentric LVH, mild MR, mild TR; [id number] likely secondary to respiratory issues, no LE edema; hold diuretics -Chronic normocytic anemia; baseline Hg 10-11; monitor H/H; recently required transfusion of 2 units PRBCs; hold Eliquis, Plavix -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 Dr. Rodriguez recommended CAM boot and NWB to RLE. -hx of R rotator cuff arthropathy -GERD -Anxiety/depression -GI ppx with PPI -DVT ppx with SCDs, hold AC due to worsening anemia -Dispo: return to [facility] likely with hospice; referral placed -Code status: FULL code; will be DNI following extubation per discussion with son; he would like to be present at bedside during this process -ICU care due to vent support Attestations Medical Necessity Statement*: Patient requires hospitalization for continued management of acute respiratory failure, on vent support, IV antibiotics, pending exubation and requiring transfusion of blood products due to worsening anemia today. Time Spent in Patient Care: Greater than 35 minutes (>than 50% of time spent in counselling and/or direct pt care on unit). Critical Care Time: The high probability of a clinically significant, sudden or life threatening deterioration of the patient's [respiratory, heme] system(s) required my full and direct attention, intervention and personal management. The critical care time is as shown. This time is in addition to time spent performing any reported procedures but includes the following: [x] Data and vital sign review and interpretation [x] Patient assessment, examination and intervention [x] Documentation [x] Medication orders and management Critical Care Time (min): 20 Coding Level of Care Code Acute General Office Assistant for [facility] Fwd Exam Comprehensive Diagnoses Acute respiratory failure J96.01; J96.02 Respiratory failure complication: hypoxia and hypercapnia Sepsis A41.9; R65.20; J96.01 Acute respiratory failure type: with hypoxia Sepsis acute organ dysfunction status: with acute organ dysfunction Sepsis type: sepsis due to unspecified organism Severe sepsis acute organ dysfunction type: acute respiratory failure Severe sepsis shock status: without septic shock Pneumonia J18.9 Laterality: left Lung location: unspecified part of lung Pneumonia type: due to unspecified organism Urinary tract infection N30.00 Hematuria presence: without hematuria Urinary tract infection type: acute cystitis
[2019-11-23 10:58] LABS: Coronavirus Lab Test PTC NOT DETECTED
[2019-11-23 11:31] LABS: Glucose Point of Care 103 mg/dL (70-110)
[2019-11-23] MEDS: sodium chloride 0.9% 100 ML 10 ML (13:20)
[2019-11-23 18:06] LABS: Glucose Point of Care 83 mg/dL (70-110)
[2019-11-23 21:11] LABS: Hematocrit 32.4 % (37.0-47.0); Hemoglobin 9.3 g/dL (11.5-15.3)
[2019-11-23 21:12] LABS: Glucose Point of Care 83 mg/dL (70-110)
[2019-11-24] VITALS (39 sets, daily range): BP systolic 65–168; BP diastolic 38–83; PULSE 58–97; RESP 18–29; TEMP 37.2–37.6; O2SAT 91–95; BMI 45.8
[2019-11-24] MEDS: ipratropium-albuterol 3 mL Neb INHALATION ×4 (03:25→19:19)
[2019-11-24 05:21] LABS: Eosinophils # 0.1 10^3/uL (0.0-0.8); Eosinophils % 1.6 %; Hematocrit 31.9 % (37.0-47.0); Hemoglobin 9.4 g/dL (11.5-15.3); Lymphocytes # 1.1 10^3/uL (0.8-4.8); Lymphocytes % 17.6 %; Mean Corpuscular HGB Conc 29.5 g/dL (30.0-36.0); Mean Corpuscular Hemoglobin 26.3 pg (28.0-34.0); Mean Corpuscular Volume 89.4 fL (81-99); Mean Platelet Volume 9.4 fL (7.4-10.4); Monocytes # 0.4 10^3/uL (0.2-0.9); Monocytes % 5.6 %; Neutrophils # 4.6 10^3/uL (1.8-7.7); Neutrophils % 73.4 %; Nucleated Red Blood Cells % 0 %; Platelet Count 155 10^3/cmm (130-400); Red Blood Count 3.57 10^6/uL (4.1-5.3); Red Cell Distribution Width 18.6 % (12.1-15.1); White Blood Count 6.2 10^3/uL (4.0-10.0)
--- NOTE | 2019-11-24 06:09 | PC.NURSE ---
SHIFT SUMMARY PT HAS REMAINED SEDATED. PT HAS BEEN TURNED PERIODICALLY. PT RECEIVED BATH AND NEW OPTIFOAMS PLACED ON AREAS. PT HAD LOW URINE OUTPUT, DR HARRELL WAS MADE AWARE. PT CENTRAL LINES REMAIN PATENT. PT LUNGS REMAIN COARSE AT TIMES AND DIMINISHED.
[2019-11-24 06:33] LABS: Anion Gap 16.4 (5-19); Blood Urea Nitrogen 29 mg/dL (8-23); Calcium 10.8 mg/dL (8.5-10.5); Carbon Dioxide 21 mmol/L (22-29); Chloride 115 mmol/L (98-107); Glucose 86 mg/dL (65-115); Osmolality Calculated 304 mOsm/kg (285-295); Potassium 3.4 mmol/L (3.5-5.1); Sodium 149 mmol/L (136-145)
[2019-11-24] MEDS: levothyroxine 125 mcg Tablet PO (07:40)
[2019-11-24 08:07] LABS: Glucose Point of Care 98 mg/dL (70-110)
[2019-11-24] MEDS: pantoprazole 40 mg SDV IVP (09:02)
--- NOTE | 2019-11-24 09:03 | XR_ITS ---
WS: [id number] PORTABLE CHEST HISTORY: mechanical ventilation COMPARISON: 11/23/2019 Nasogastric tube has been placed in good position. Endotracheal tube ends 2 cm above the jeffery in go od position. LEFT central line. Complete obscuration of the mid and lower LEFT lung as on the prior study. Volume loss with shift of mediastinal structures to the LEFT indicates atelectasis. There is mild pulmonary congestion and inte rstitial thickening at the RIGHT lung base. No pneumothorax. Cardiac size: Cardiac silhouette is obscured by the airspace disease at the LEFT lung base. Mediastinum/Aorta: Moderate atherosclerosis aorta. Venous degenerative changes at the RIGHT glenohumeral joint. XR/XR chest 1V portable [id number] IMPRESSION: 1. Nasogastric and endotracheal tubes remain in good position. 2. Dense consolidation mid and lower LEFT lung. Component of atelectasis with fluid and possible pneumonia. 3. Mild pulmonary edema. 4. No significant improvement.
--- NOTE | 2019-11-24 09:04 | P.PN_ITS ---
Subjective Subjective: Interval history: Patient seen earlier this morning, remains on mechanical ventilation with an FiO2 of 35%. Sedated on fentanyl and Precedex. Had minimal urine output overnight of 150 mL. Received 2 units of PRBCs yesterday with increase in hemoglobin from 6.4->9.4. Plan to start weaning trial today. Noted worsening renal function with bump in creatinine from 0.9->1.3. Vital signs stable, remains afebrile. Medications: Reviewed: Yes Medication Review Details: Active Medications Generic Name Dose Route Start Last Admin Trade Name Freq PRN Reason Stop Dose Admin Acetaminophen 650 mg 11/19/19 16:02 11/21/19 16:16 Tylenol PO 650 mg Q6H PRN Administration Mild/Mod Pain Or Temp >/= 101 Albuterol/Ipratrop ium 3 ml 11/21/19 00:00 11/24/19 08:00 Duoneb INHALATION 3 ml Q4H.RESPIRATORY S CH Administration Bisacodyl 10 mg 11/19/19 16:02 Bisac-Evac AR DAILY PRN Constipation Dextrose 25 ml 11/19/19 16:35 D50w IVP ONCE PRN hypoglycemia prot ocol Protocol Dextrose 50 ml 11/19/19 16:35 D50w IVP PRN PRN hypoglycemia prot ocol Protocol Glucagon 1 mg 11/19/19 16:35 Glucagen IM ONCE PRN Adult Acute Hypog lycemia Prot. Protocol Norepinephrine Bit artrate 4 mg 254 mls @ 0 mls/h r 11/19/19 14:45 / Dextrose IV .Q0M SHERICE Protocol Per Protocol Dextrose 500 mls @ 100 mls /hr 11/19/19 16:35 D5w IV ONCE PRN Adult Acute Hypog lycemia Prot Protocol Fentanyl 1,000 mcg / Sodium 100 mls @ 0 mls/h r 11/19/19 23:00 11/24/19 07:50 Chloride IV Infused .Q0M SHERICE Titration Protocol Per Protocol Vancomycin HCl 1,5 00 mg/ 250 mls @ 167 mls /hr 11/21/19 21:00 11/24/19 06:15 Sodium Chloride IV Infused Q24H SHERICE Infusion Protocol Dexmedetomidine HC l 400 mcg/ 104 mls @ 0 mls/h r 11/22/19 09:00 11/24/19 07:50 Sodium Chloride IV 0.2 mcg/kg/hr .Q0M SHERICE 6.1 mls/hr Titration Protocol Per Protocol Potassium Chloride /Dextrose 20 meq in 1,000 m ls @ 75 mls/hr 11/23/19 08:00 11/24/19 06:15 Dextrose 5% + Nicho l 20 Meq IV Infused .[id number] SHERICE Infusion Ceftriaxone Sodium 1,000 mg/ 50 mls @ 100 mls/ hr 11/24/19 09:15 Sodium Chloride IV Q24H SHERICE Protocol Levothyroxine Sodi um 125 mcg 11/20/19 09:00 11/24/19 07:40 Synthroid PO 125 mcg DAILY SHERICE Administration Naloxone HCl 0.1 mg 11/19/19 16:02 Narcan IVP Q2M PRN OPIATERV Ondansetron HCl 4 mg 11/19/19 16:02 Zofran IVP Q6H PRN vomiting, or N/V if npo Pantoprazole Sodiu m 40 mg 11/20/19 09:00 11/24/19 09:02 Protonix IVP 40 mg DAILY SHERICE Administration lisinopril Allergy (Verified 11/19/19 12:31) Unknown lorazepam [From Ativan] Allergy (Verified 11/19/19 12:31) Unknown meperidine [From Demerol] Allergy (Verified 11/19/19 12:31) Unconscious morphine Allergy (Verified 11/19/19 12:31) Unknown niacin Allergy (Verified 10/10/19 08:05) Unknown Vitals/I&O/Wt Last Vital Signs Temp 99 F 11/24/19 08:32 Pulse 70 11/24/19 08:09 Resp 18 11/24/19 08:04 BP 113/48 11/24/19 08:00 Pulse Ox 94 11/24/19 08:04 11/23/19 11/24/19 11/24/19 22:59 06:59 14:59 Intake Total 886.842 / 4228.968 3659.667 / 2544.396 24.290 / 24.290 Output Total 250 / 250 150 / 400 Balance 636.842 / 499.198 3088.667 / 2144.396 24.290 / 24.290 Weight last 48 hrs Weight 119.023 kg Weight 116.573 kg Physical Exam Const: COMMON NORMALS: no apparent distress GENERAL APPEARANCE: patient mechanically ventilated (ETT-25 cm @ lip) NUTRITIONAL APPEARANCE: obese morbidly obese OTHER: -easily arousable to verbal and tactile stimulation; on sedation with Precedex (0.4 mcg/kg/hr) and Fentanyl (75 mcg/hr) HENMT: COMMON NORMALS: normocephalic and head/scalp atraumatic HEAD & SCALP: normocephalic and atraumatic MOUTH: moist mucous membranes abnormal Details: parched TEETH & GINGIVA: Yes edentulous Eye: COMMON NORMALS: conjunctivae normal CONJUNCTIVA: Yes conjunctivae normal Neck/C-Spine: COMMON NORMALS: full ROM GENERAL: Yes normal visual inspection and Yes trachea midline Resp: COMMON NORMALS: no retractions and no use of accessory muscles EFFORT & INSPECTION: Yes symmetric chest movement AUSCULTATION: diminished lung so unds on the left throughout OTHER: -Patient mechanically ventilated (FiO2- 40%) Cardio: COMMON NORMALS: regular rate, regular rhythm, S1 normal heart sound, S2 normal heart sound and no murmurs RATE: regular rate RHYTHM: regular rhythm HEART SOUNDS: S1 normal and S2 normal GI: COMMON NORMALS: soft to palpation INSPECTION: Yes normal to inspection and Yes central obesity PALPATION: Yes soft : BLADDER/KIDNEY EXAM: Yes catheter in place Catheter type (Female): urethral Extremity: COMMON NORMALS: normal to inspection and no clubbing, cyanosis or edema; negative for no pedal edema OTHER: -heel boot on R, clean dressing over R foot and ankle Neuro: OTHER: -unable to assess as sedated and on ventilator but easily arousable Psych: OTHER: -unable to assess as mechanically ventilated Skin: COMMON NORMALS: no rashes or lesions noted, no jaundice and no mottling NARRATIVE SKIN EXAM: -R heel ulcer, multiple decubitus ulcers on bilateral gluteal area GENERAL SKIN EXAM: no rashes or lesions noted and ecchymosis (extensive bruising on bilateral UEs) Urinary Catheter Management^: Adams: Cath Placed During This Visit: yes Urethral Indwelling: Yes Reason for Continuing Indwelling Catheter: Accurate Measurement of Urinary Output in Critically Ill Patients Urinary Catheter Date of Insertion: 11/19/19 Urinary Catheter Time of Insertion: 12:56 Data : 11/24/19 04:24 11/24/19 04:24 Micro: Microbiology 11/19/19 18:10 Urine Culture - Final Urine,Clean Catch Proteus mirabilis#2 11/20/19 12:10 Gram Stain - Final Sputum - Endotracheal Tube Aspirate Sputum Culture - Preliminary Escherichia coli Staphylococcus aureus 11/20/19 16:45 Gram Stain - Final Lung Left Upper Lobe Bronchoalveolar Lavage Culture - Preliminary Methicillin Resis Staph Aureus Gram Negative Rods A&P Assessment and plan (1) Acute respiratory failure: -continues to require mechanical ventilation (day 6) -Per review of chart and verbal report from family and correction staff patient has had recurrent episodes of left-sided pneumonia. Required bronchoscopy with bronchoalveolar lavage in 09/2019. Pathology shows no dysplasia or malignant cells, noted evidence of acute inflammation with reactive atypia. Gram stain negative, culture was also negative -She is oxygen dependent at baseline with 3 L requirement, BiPAP use qhs -elevated pro-calcitonin, noted lactic acidosis -has significant leukocytosis with neutrophilic predominance; decreasing, continue to trend WBC -blood cx-prelim negative, sputum cx-E.coli, staph aureus, gram stain shows rare GPC in pairs -UA indicative of infection -given significant leukocytosis, respiratory symptoms, recent transfer from [place] ([facility]); screened for [id number] -weaned off pressor support -sedation while on ventilator -aspiration precautions, NGT in place -ABG noted with resolution of hypercapnia and hypoxia; daily ABGs while on vent -weaning trial today -CXR (11/22) shows some improvement in aeration of L lung, developing atelectasis in R lung -negative bacterial antigens, Legionella -bronch (11/20); bedside bronch on 11/19 with BAL gram stain growing rare GPC, culture positive for MRSA; plan to treat with Linezolid PO when off ventilator x [address] Vernon's recommendation -contact isolation precautions Status: Acute Qualifiers: Respiratory failure complication: hypoxia and hypercapnia Qualified Code(s): J96.01 - Acute respiratory failure with hypoxia; J96.02 - Acute respiratory failure with hypercapnia Code(s): J96.00 - Acute respiratory failure, unspecified whether with hypoxia or hypercapnia (2) Sepsis: -Sepsis as evidenced by significant leukocytosis, hypotension, hypoxia, altered mental status, lactic acidosis. Sepsis resolved -Etiology is likely respiratory given evidence of pneumonia on chest x-ray, need for mechanical ventilation; as well as UTI. Status: Resolved Qualifiers: Acute respiratory failure type: with hypoxia Sepsis acute organ dysfunction status: with acute organ dysfunction Sepsis type: sepsis due to unspecified organism Severe sepsis acute organ dysfunction type: acute respiratory failure Severe sepsis shock status: without septic shock Qualified Code(s): A41.9 - Sepsis, unspecified organism; R65.20 - Severe sepsis without septic shock; J96.01 - Acute respiratory failure with hypoxia Code(s): A41.9 - Sepsis, unspecified organism (3) Pneumonia: -Has had history of recurrent left-sided pneumonia and mucous plugging. Noted evidence of left lung opacification so suspect post-obstructive pneumonia with associated sepsis as noted above -Continue broad-spectrum IV antibiotics, on vancomycin/Zosyn; off Levaquin; she has had multiple healthcare associated contacts since August. MRSA positive per BAL culture, is off Zosyn -negative influenza, bacterial antigens, Legionella; MRSA (nasal) positive -Continue close monitoring of respiratory status -had been receiving chest percussion at PR -no need for steroids Status: Acute Qualifiers: Laterality: left Lung location: unspecified part of lung Pneumonia t ype: due to unspecified organism Qualified Code(s): J18.9 - Pneumonia, unspecified organism Code(s): J18.9 - Pneumonia, unspecified organism (4) Urinary tract infection: -UA indicative of infection -urine cx: Proteus mirabilis; sensitivity noted -already on broad spectrum IV antibiotics, start on Ceftriaxone for appropriate coverage with discontinuation of Levaquin and Zosyn -has Adams catheter in place Status: Acute Qualifiers: Hematuria presence: without hematuria Urinary tract infection type: acute cystitis Qualified Code(s): N30.00 - Acute cystitis without hematuria Code(s): N39.0 - Urinary tract infection, site not specified Additional A&P Information -Oxygen dependent COPD; 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 Due to noted drop in hemoglobin to 6.4 received 2 units PRBCs (11/22)with subsequent increase to 9.4 today. 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 Dr. Rodriguez recommended CAM boot and NWB to RLE. -hx of R rotator cuff arthropathy -GERD -Anxiety/depression -GI ppx with PPI -DVT ppx with SCDs, hold AC due to worsening anemia -Dispo: return to [facility] likely with hospice; referral placed -Code status: FULL code; will be DNI following extubation per discussion with son; he would like to be present at bedside during this process -ICU care due to vent support Attestations Medical Necessity Statement*: Patient requires hospitalization for continued management of acute respiratory failure, remains on vent support with ongoing treatment for MRSA and UTI with IV antibiotics; weaning trial today. Time Spent in Patient Care: Greater than 35 minutes (>than 50% of time spent in counselling and/or direct pt care on unit) . Critical Care Time: The high probability of a clinically significant, sudden or life threatening deterioration of the patient's [respiratory] system(s) r equired my full and direct attention, intervention and personal management. The critical care time is as shown. This time is in addition to time spent performing any reported procedures but includes the following: [x] Data and vital sign review and interpretation [x] Patient assessment, examination and intervention [x] Documentation [x] Medication orders and management Critical Care Time (min): 20 Coding Level of Care Code Acute [facility] Diagnoses Acute respiratory failure J96.01; J96.02 Respiratory failure complication: hypoxia and hypercapnia Sepsis A41.9; R65.20; J96.01 Acute respiratory failure type: with hypoxia Sepsis acute organ dysfunction status: with acute organ dysfunction Sepsis type: sepsis due to unspecified organism Severe sepsis acute organ dysfunction type: acute respiratory failure Severe sepsis shock status: without septic shock Pneumonia J18.9 Laterality: left Lung location: unspecified part of lung Pneumonia type: due to unspecified organism Urinary tract infection N30.00 Hematuria presence: without hematuria Urinary tract infection type: acute cystitis
--- NOTE | 2019-11-24 09:47 | PC.NURSE ---
preparing to extubate.
--- NOTE | 2019-11-24 10:23 | PC.NURSE ---
wt is estimatedwith 2 pillows and air pranav deducted 6lb. for all
[2019-11-24] MEDS: cefTRIAXone 1,000 MG in sodium chloride 0.9% (plus) 50 ML 100 MG IV (11:16)
[2019-11-24] MEDS: dextrose 5% + KCl 20 mEq 20 MEQ/1,000 ML BAG 75 MEQ IV (11:18)
[2019-11-24 11:45] LABS: Glucose Point of Care 88 mg/dL (70-110)
--- NOTE | 2019-11-24 13:49 | PC.NURSE ---
family called for extubation process.
--- NOTE | 2019-11-24 14:26 | PC.NURSE ---
extubated to 4 l n.c.. family at bedside
--- NOTE | 2019-11-24 15:43 | PC.NURSE ---
attempting to get clearance for animal caregiver to come give last ights
--- NOTE | 2019-11-24 16:26 | PC.RESP ---
pt. has family in room
--- NOTE | 2019-11-24 17:10 | PC.NURSE ---
dilaudid given for pain, b/p dropped opens eyes to verbal stimuli
[2019-11-24] MEDS: nystatin 100,000 unit/mL UDC 5 mL 500000 UNIT PO ×2 (17:17→23:04)
[2019-11-24] MEDS: quetiapine 25 mg Tablet 50 MG PO (17:17)
[2019-11-24] MEDS: HYDROmorphone 1 mg/mL INJ 1 mL IVP ×2 (17:19→20:04)
[2019-11-24 17:33] LABS: Glucose Point of Care 97 mg/dL (70-110)
--- NOTE | 2019-11-24 17:33 | DCPLANNER ---
Acknowledging that Pg 2 of IM is due to be explained to pt. Her status is still not good, we will explain the IM to family when opportunity presents.
--- NOTE | 2019-11-24 18:32 | PC.NURSE ---
transferred to 256 bed 2
--- NOTE | 2019-11-24 18:40 | PC.NURSE ---
Patient received from ICU at 1820 on a bed. Eyes open unable to make needs known. Repositioned in bed, turned with pillow support to left side lying position, garcia care completed. No current s/s of pain or distress.
[2019-11-25] VITALS: RESP 19
--- NOTE | 2019-11-25 03:38 | PC.NURSE ---
PATIENT ON COMFORT CARE MEASURES. FAMILY ASKED FOR VITALS TO NOT BE DONE.
--- NOTE | 2019-11-25 03:40 | PC.NURSE ---
PATIENT ON COMFORT CARE MEASURES. FAMILY ASKED FOR VITALS TO NOT BE DONE AT THIS TIME.
--- NOTE | 2019-11-25 03:41 | PC.NURSE ---
PATIENT ON COMFORT CARE MEASURES. FAMILY REQUESTED VITALS TO NOT BE DONE AT THIS TIME.
[2019-11-25 05:52] VITALS: RESP 22
[2019-11-25] MEDS: HYDROmorphone 1 mg/mL INJ 1 mL IVP (05:52)
--- NOTE | 2019-11-25 06:46 | PC.NURSE ---
0640 patients son came to the desk stating I think we just lost her . Upon entering room patient patient unresponsive, not breathing and unable to ascultate heart beat. Verified by second RN Huma, time of 0641. Dr. Chiu notified
--- NOTE | 2019-11-25 07:23 | P.DES_ITS ---
Discharge Providers DDS Date of Admission: 11/19/19 14:30 Date Summary Completed: 11/25/19 Attending Provider at Admission: Tosin Dinh MD Time of : 06:41 Attending Provider at Discharge: Tosin Dinh MD DS Diagnoses Hospital Diagnoses (1) Acute respiratory failure: Problem details: -continues to require mechanical ventilation (day 6) -Per review of chart and verbal report from family and longterm staff patient has had recurrent episodes of left-sided pneumonia. Required bronchoscopy with bronchoalveolar lavage in 09/2019. Pathology shows no dysplasia or malignant cells, noted evidence of acute inflammation with reactive atypia. Gram stain negative, culture was also negative -She is oxygen dependent at baseline with 3 L requirement, BiPAP use qhs -elevated pro-calcitonin, noted lactic acidosis -has significant leukocytosis with neutrophilic predominance; decreasing, continue to trend WBC -blood cx-prelim negative, sputum cx-E.coli, staph aureus, gram stain shows rare GPC in pairs -UA indicative of infection -given significant leukocytosis, respiratory symptoms, recent transfer from [place] ([facility]); screened for [id number] -weaned off pressor support -sedation while on ventilator -aspiration precautions, NGT in place -ABG noted with resolution of hypercapnia and hypoxia; daily ABGs while on vent -extubated on 11/23 -CXR (11/22) shows some improvement in aeration of L lung, developing atelectasis in R lung -negative bacterial antigens, Legionella -bronch (11/20); bedside bronch on 11/19 with BAL gram stain growing rare GPC, culture positive for MRSA; plan to treat with Linezolid PO when off ventilator x [address] Vernon's recommendation -contact isolation precautions Qualifiers: Respiratory failure complication: hypoxia and hypercapnia Qualified Code(s): J96.01 - Acute respiratory failure with hypoxia; J96.02 - Acute respiratory failure with hypercapnia (2) Sepsis: Problem details: -Sepsis as evidenced by significant leukocytosis, hypotension, hypoxia, altered mental status, lactic acidosis. Sepsis resolved -Etiology is likely respiratory given evidence of pneumonia on chest x-ray, need for mechanical ventilation; as well as UTI. Qualifiers: Acute respiratory failure type: with hypoxia Sepsis acute organ dysfunction status: with acute organ dysfunction Sepsis type: sepsis due to unspecified organism Severe sepsis acute organ dysfunction type: acute respiratory failure Severe sepsis shock status: without septic shock Qualified Code(s): A41.9 - Sepsis, unspecified organism; R65.20 - Severe sepsis without septic shock; J96.01 - Acute respiratory failure with hypoxia (3) Pneumonia: Problem details: -Has had history of recurrent left-sided pneumonia and mucous plugging. Noted evidence of left lung opacification so suspect post-obstructive pneumonia with associated sepsis as noted above -Continue broad-spectrum IV antibiotics, on vancomycin/Zosyn; off Levaquin; she has had multiple healthcare associated contacts since August. MRSA positive per BAL culture, is off Zosyn -negative influenza, bacterial antigens, Legionella; MRSA (nasal) positive -Continue close monitoring of respiratory status -had been receiving chest percussion at [place] -no need for steroids Qualifiers: Laterality: left Lung location: unspecified part of lung Pneumonia type: due to unspecified organism Qualified Code(s): J18.9 - Pneumonia, unspecified organism (4) Urinary tract infection: Problem details: -UA indicative of infection -urine cx: Proteus mirabilis; sensitivity noted -already on broad spectrum IV antibiotics, start on Ceftriaxone for appropriate coverage with discontinuation of Levaquin and Zosyn -has Adams catheter in place Qualifiers: Hematuria presence: without hematuria Urinary tract infection type: acute cystitis Qualified Code(s): N30.00 - Acute cystitis without hematuria Other Contributing Factors/Diagnoses -Oxygen dependent COPD; 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 Due to noted drop in hemoglobin to 6.4 received 2 units PRBCs (11/22)with subsequent increase to 9.4 today. 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 Dr. Rodriguez recommended CAM boot and NWB to RLE. -hx of R rotator cuff arthropathy -GERD -Anxiety/depression Reason for Visit Reason for Visit: Reason For Visit: shortness of breath Summary Date and Time of : Date of : 11/25/19 Time of : 06:41 Summary: Summary: Patient was initially admitted to ICU secondary to having been intubated in the ER due to significant respiratory distress on presentation. She had recently been admitted and treated at our facility approximately a month prior to this admission. She was found to have significant opacification of the left lung secondary to significant mucus plugging which required bronchoscopy done at bedside by Dr. Vernon. Aeration of left lung improved following procedure and patient was subsequently weaned off the ventilator and extubated on 11/23 with family present at bedside. Goals of care discussions have been had with family and decision made to transition patient to comfort measures following extubation. Once patient had been transitioned off the ventilator she was moved to the floor for continued management. He was maintained on nasal cannula and at approximately 0641 this morning was found to be unresponsive with no heart sounds or noted breathing. Family was present at bedside when patient secondary to hypoxic respiratory failure due to MRSA pneumonia. Additional Data: Advance directives?: No Discharge Plan Discharge Patient Disposition: Condition: Prescriptions: No Action cyclobenzaprine 10 mg Tablet 10 mg PO TID PRN (Reason: Muscle Pain) RF: 0 melatonin 3 mg Tablet 6 mg PO BEDTIME RF: 0 clopidogrel 75 mg Tablet 75 mg PO DAILY RF: 0 aspirin [Aspirin Low Dose] 81 mg Tablet,Delayed Release (Dr/Ec) 81 mg PO DAILY RF: 0 docusate sodium [Colace] 100 mg Capsule 200 mg PO DAILY RF: 0 omega-3 acid ethyl esters [Lovaza] 1 gram Capsule 1 cap PO DAILY RF: 0 Eliquis 5 mg Tablet 5 mg PO BID RF: 0 acetaminophen 325 mg Tablet 650 mg PO QID PRN (Reason: Pain) RF: 0 citalopram 10 mg Tablet 10 mg PO DAILY RF: 0 magnesium hydroxide [Milk of Magnesia] 400 mg/5 mL Suspension 30 ml PO DAILY PRN (Reason: Constipation) RF: 0 bisacodyl 10 mg Suppository 10 mg DC DAILY PRN (Reason: Constipation) RF: 0 levothyroxine 125 mcg Tablet 125 mcg PO DAILY RF: 0 Enema Disposable 19-7 gram/118 mL Enema 118 ml DC DAILY PRN (Reason: Constipation) RF: 0 pramipexole [Mirapex] 0.125 mg Tablet 0.25 mg PO QPM RF: 0 montelukast 10 mg Tablet 10 mg PO DAILY RF: 0 quetiapine [Seroquel] 50 mg Tablet 50 mg PO BID RF: 0 Senna Plus 8.6-50 mg Capsule 2 tab-cap PO BID PRN (Reason: Constipation) RF: 0 furosemide [Lasix] 40 mg tablet 40 mg PO DAILY Qty: 30 RF: 0 fluconazole 100 mg Tablet 400 mg PO DAILY RF: 0 carvedilol 6.25 mg Tablet 6.25 mg PO BID RF: 0 ipratropium-albuterol 0.5 mg-3 mg(2.5 mg base)/3 mL Solution For Nebulization 3 ml INHALATION Q6H PRN (Reason: Shortness Of Breath) RF: 0 prednisone 50 mg Tablet 50 mg PO DAILY RF: 0 Discharge Orders: Discharge Order (Routine); Ordered 11/25/19 Ordered By: Tosin Dinh Referrals: Frankie Caballero Jr, MD [Family Provider] - Discharge Diet: As Directed Discharge Activity: Bedrest DS Attestations Time Spent in /Discharge Care*: greater than 30 min Quality - AMI: AMI present?: No Quality - Stroke: CVA present?: No Symptom Onset Unknown: No Quality - VTE: VTE present?: No Deep Vein Thrombosis/Pulmonary Embolism Present on Admission: No Coding Level of Care Code Acute Facility Maintenance Supervisor for [facility] Diagnoses Acute respiratory failure J96.01; J96.02 Respiratory failure complication: hypoxia and hypercapnia Sepsis A41.9; R65.20; J96.01 Acute respiratory failure type: with hypoxia Sepsis acute organ dysfunction status: with acute organ dysfunction Sepsis type: sepsis due to unspecified organism Severe sepsis acute organ dysfunction type: acute respiratory failure Severe sepsis shock status: without septic shock Pneumonia J18.9 Laterality: left Lung location: unspecified part of lung Pneumonia type: due to unspecified organism Urinary tract infection N30.00 Hematuria presence: without hematuria Urinary tract infection type: acute cystitis
--- NOTE | 2019-11-25 07:32 | PC.NURSE ---
Family at bedside states no needs at this time, will cont to support as needed.
--- NOTE | 2019-11-25 08:23 | PC.NURSE ---
Released to home. Family aware.
== END 2019-11-25 08:39 | disposition expired | DRG 870 ==
LOC: ER 14:28 → ICU 14:50 → MEDSURG 11-24 18:19
PROVIDERS: Hospitalist; Internal Medicine Critical Care Medicine; Admitting Provider Family Medicine; Emergency Provider Emergency Medicine; Family Provider Family Medicine; Visit Provider Family Medicine
PROC: 0B9J7ZX Drainage of Left Lower Lung Lobe, Via Natural or Artificial Opening, Diagnostic (ICD-10-PCS; CPT 31624; principal; 2019-11-21 12:00)
DX: A41.9 Sepsis, unspecified organism (principal); J96.21 Acute and chronic respiratory failure with hypoxia; J96.02 Acute respiratory failure with hypercapnia; J15.212 Pneumonia due to Methicillin resistant Staphylococcus aureus; J44.0 Chronic obstructive pulmonary disease with (acute) lower respiratory infection; I13.0 Hypertensive heart and chronic kidney disease with heart failure and stage 1 through stage 4 chronic kidney disease, or unspecified chronic kidney disease; I50.32 Chronic diastolic (congestive) heart failure; N17.9 Acute kidney failure, unspecified; E87.2 Acidosis; Z68.42 Body mass index [BMI] 45.0-49.9, adult; N30.00 Acute cystitis without hematuria; E03.9 Hypothyroidism, unspecified; E11.9 Type 2 diabetes mellitus without complications; E66.01 Morbid (severe) obesity due to excess calories; N18.3 Chronic kidney disease, stage 3 (moderate); K21.9 Gastro-esophageal reflux disease without esophagitis; F32.9 Major depressive disorder, single episode, unspecified; I95.9 Hypotension, unspecified; I25.10 Atherosclerotic heart disease of native coronary artery without angina pectoris; D63.1 Anemia in chronic kidney disease; B95.62 Methicillin resistant Staphylococcus aureus infection as the cause of diseases classified elsewhere; Z99.81 Dependence on supplemental oxygen; Z79.82 Long term (current) use of aspirin; Z79.899 Other long term (current) drug therapy; Z79.4 Long term (current) use of insulin; Z79.84 Long term (current) use of oral hypoglycemic drugs; Z79.83 Long term (current) use of bisphosphonates; Z79.52 Long term (current) use of systemic steroids
CPT/HCPCS: 12345; 31622; 31624; 36415; 36416; 36430; 36592; 36600; 51702; 71045; 80048; 80051; 80053; 80202; 80500; 81001; 82803; 82810; 82962; 83605; 83735; 83880; 83986; 84145; 85014; 85018; 85025; 86403; 86850; 86870; 86886; 86900; 86902; 86920; 87040; 87070; 87077; 87086; 87186; 87205; 87449; 87635; 87641; 87804; 93005; 94002; 94003; 94640; 94799; 96375; 99284; A4570; C1751; C9113; J0330; J0461; J0696; J1170; J1956; J2001; J2250; J2543; J2930; J3010; J3370; J3490; J7030; J7050; J7608; P9016